=== PATIENT | male | born 1950 | race Caucasian/White ===

== ENCOUNTER → 2017-09-11 | Outpatient (CLI) | payer MEDICARE, SELFPAY | PROVIDERS: Family Provider Emergency Medicine; Visit Provider Anesthesiology | DX: M25.512 Pain in left shoulder (principal) | CPT/HCPCS: 73030 ==

== ENCOUNTER → 2017-10-01 15:24 | Outpatient (CLI) | payer MEDICARE, SELFPAY | PROVIDERS: Family Provider Emergency Medicine; PCP Emergency Medicine; Visit Provider Orthopaedic Surgery Adult Reconstructive Orthopaedic Surgery | DX: M75.42 Impingement syndrome of left shoulder (principal); M25.512 Pain in left shoulder ==

== ENCOUNTER → 2017-10-02 13:48 | Outpatient (CLI) | payer MEDICARE, SELFPAY ==
--- NOTE | 2017-10-02 13:54 | MR_ITS ---
MR shoulder LT wo con HISTORY: Left shoulder pain with limited range of motion ITS.REASON: IMPINGEMENT SYNDROME LEFT SHOULDER ORDERING PHYSICIAN: Carlos Enrique Ramirez PATIENT AGE: 67 years COMPARISON: 06/08/2016 MRI and radiograph of 09/11/2017 TECHNIQUE: Standard multiplanar multiecho sequences are performed without contrast. FINDINGS: There is mild subacromial stenosis with mild hypertrophic change of the acromioclavicular joint. There remains mild thickening of both supraspinatus and infraspinatus tendons with slight increased T1 and T2 signal consistent with tendinopathy/tendinosis. There is a focal area of increased T2 signal involving the distal aspect of the supraspinatus tendon posteriorly which is more prominent when compared to the previous exam consistent with an incomplete tear upon the insertion at the greater tuberosity. There may be a few fibers intact along the superficial surface at this region. There is no evidence of retraction of the musculotendinous fibers. The subscapularis and teres minor tendons are intact. Small area of subcortical cystic changes present along the posterior aspect of the humeral head and is slightly more prominent than when compared to the previous exam No obvious labral tear. There remains fluid in the bicipital tendon sheath which appears somewhat more prominent inferiorly system with tendinitis. IMPRESSION: 1. Tendinopathy/tendinosis of supraspinatus infraspinatus tendons as before. 2. There is a focal area of increased T2 signal involving the distal aspect of the supraspinatus tendon posteriorly is more prominent than when compared to the previous exam consistent with a tear of the distal aspect of the supraspinatus tendon. There may be some intact fibers along the superficial aspect of the tendon indicating a partial tear without retraction. 3. Slight increase in amount fluid in the bicipital tendon sheath consistent with tendinitis
== END ==
PROVIDERS: Family Provider Emergency Medicine; PCP Emergency Medicine; Visit Provider Orthopaedic Surgery Adult Reconstructive Orthopaedic Surgery
DX: M75.42 Impingement syndrome of left shoulder (principal)
CPT/HCPCS: 73221

== ENCOUNTER → 2017-12-10 10:01 | Outpatient (POV) | payer MEDICARE, SELFPAY ==
[2017-12-10 10:21] VITALS: BP 160/79; PULSE 67; RESP 20; O2SAT 98; BMI 31.9
--- NOTE | 2017-12-10 10:57 | HMH.PAINSOAP ---
[facility] Pain Management SOAP Note Subjective:: This patient is a pleasant 67-year-old white male who we are treating for degenerative disc disease of the cervical spine with cervical radiculopathy symptoms. He recently had surgery on his left shoulder. He is 6 weeks postop. He is doing very well. He still is in a brace however he is doing some physical therapy twice a week. He currently is managed on Percocet 10 mg 4 times a day. He is doing well with this. He is also on gabapentin 300 mg 3 times a day. Kaspar and urine drug screen are all appropriate. Kaspar #[id number]. His neck pain is aggravated a little bit because of the shoulder sling. I have told him that we will address his neck symptoms in about 6 weeks after he recovers from his surgery completely. Objective:: Alert and oriented ?3 in no acute distress. Patient has tenderness over the midline of the cervical spine. He has good range of motion of the cervical spine. Good range of motion of the right arm. Left arm is in a shoulder sling. No gross sensory deficit. Assessment:: Degenerative disc disease of the cervical spine with cervical radiculopathy symptoms. Status post left rotator cuff shoulder surgery. Plan:: We will follow-up with him in 6 weeks. We will reevaluate his symptoms at that time. Will address his neck pain at that time. For now we will refill his at 10 mg 1 tablet 4 times a day. We will give him 2 months worth of prescriptions. Kaspar and urine drug screen are all appropriate. Kaspar #[id number].
--- NOTE | 2017-12-10 11:01 | P.CONS_ITS ---
[facility] Pain Management SOAP Note Subjective:: This patient is a pleasant 67-year-old white male who we are treating for degenerative disc disease of the cervical spine with cervical radiculopathy symptoms. He recently had surgery on his left shoulder. He is 6 weeks postop. He is doing very well. He still is in a brace however he is doing some physical therapy twice a week. He currently is managed on Percocet 10 mg 4 times a day. He is doing well with this. He is also on gabapentin 300 mg 3 times a day. Kaspar and urine drug screen are all appropriate. Kaspar # [id number]. His neck pain is aggravated a little bit because of the shoulder sling. I have told him that we will address his neck symptoms in about 6 weeks after he recovers from his surgery completely. Objective:: Alert and oriented ?3 in no acute distress. Patient has tenderness over the midline of the cervical spine. He has good range of motion of the cervical spine. Good range of motion of the right arm. Left arm is in a shoulder sling. No gross sensory deficit. Assessment:: Degenerative disc disease of the cervical spine with cervical radiculopathy symptoms. Status post left rotator cuff shoulder surgery. Plan:: We will follow-up with him in 6 weeks. We will reevaluate his symptoms at that time. Will address his neck pain at that time. For now we will refill his at 10 mg 1 tablet 4 times a day. We will give him 2 months worth of prescriptions. Kaspar and urine drug screen are all appropriate. Kaspar # [id number].
[2017-12-10 13:10] LABS: Amphetamine/Metha Screen,Urine Negative ng/mL (<1000); Barbiturates Screen,Urine Negative ng/mL (<200); Benzodiazepines Screen,Urine Negative ng/mL (200); Cannabinoid Screen,Urine Negative ng/mL (<50); Cocaine Screen,Urine Negative ng/g (<300); Methadone Screen,Urine Negative ng/mL (<300); Opiate Screen,Urine Negative ng/mL (<300); Phencyclidine Screen,Urine Negative ng/mL (<25)
[2017-12-14 12:19] LABS: Oxycodone (GC/MS) >100 ng/mL (Cutoff=100)
[2017-12-14 18:23] LABS: Opiates Negative (Cutoff=100)
== END ==
PROVIDERS: Family Provider Emergency Medicine; PCP Emergency Medicine; Visit Provider Anesthesiology
DX: M54.12 Radiculopathy, cervical region (principal); Z79.899 Other long term (current) drug therapy
CPT/HCPCS: 99212; 80305; 80361; 80365; G0480

== ENCOUNTER → 2018-01-21 09:09 | Outpatient (POV) | payer MEDICARE, SELFPAY ==
[2018-01-21 09:30] VITALS: BP 166/79; PULSE 79; RESP 18; TEMP 36.7; O2SAT 99; BMI 36.3
--- NOTE | 2018-01-21 09:54 | P.CONS_ITS ---
[facility] Pain Management SOAP Note Subjective:: This patient is a pleasant 67-year-old white male who we are treating for degenerative disc disease of the cervical spine with cervical radiculopathy symptoms. He is approximately 3 months out from surgery on his left shoulder. He is recovering very well. He still has some pain which I believe is radiating from his neck. He was doing very well when he had cervical epidural steroid injections in conjunction with his current pain medication regimen which is Percocet 10 mg 4 times a day. He is also on 10 300 mg 3 times a day. He is following up with Dr. Ramirez tomorrow. We will obtain clearance and schedule for cervical epidural steroid injection. Objective:: Alert and oriented ?3 in no acute distress. Patient has some tenderness over the midline of the cervical spine. Good range of motion of the cervical spine. Good range of motion of right arm. Left arm range is somewhat limited however he is recovering well from his surgery. There is no gross sensory deficit. Motor strength of the upper extremities is 5/5. Assessment:: Degenerative disc disease of cervical spine with cervical radiculopathy symptoms. Status post left rotator cuff shoulder surgery 3 months ago. Plan:: We will obtain clearance from his orthopedic surgeon and schedule for cervical epidural steroid injection under fluoroscopy.
== END ==
PROVIDERS: Family Provider Emergency Medicine; PCP Emergency Medicine; Visit Provider Anesthesiology
DX: M54.12 Radiculopathy, cervical region (principal)
CPT/HCPCS: 99212

== ENCOUNTER → 2018-02-15 10:13 | Outpatient (CLI) | payer MEDICARE, SELFPAY ==
[2018-02-15 13:59] LABS: Alanine Aminotransferase 31 U/L (12-78); Albumin Level 3.9 gm/dL (3.4-5.0); Albumin/Globulin Ratio 1.1 (1.1-1.8); Alkaline Phosphatase 67 U/L (46-116); Aspartate Amino Transferase 18 U/L (15-37); Bilirubin,Total 0.4 mg/dL (0.2-1.0); Blood Urea Nitrogen 10 mg/dL (7-18); Calcium 9.6 mg/dL (8.5-10.1); Carbon Dioxide 24 mmol/L (21.0-32.0); Chloride 105 mmol/L (98-107); Chol/HDL Ratio 3.6 (1-3.5); Cholesterol 135 mg/dL (140-200); Creatinine,Serum 0.82 mg/dL (0.70-1.30); Estimated Glomerular Filt Rate 94 ml/min (>60); GFR (African American) 114 ML/MIN (>60); Globulin 3.4 gm/dl (1.3-3.2); Glucose 199 mg/dL (74-106); HDL Cholesterol 37 mg/dL (27-67); LDL Cholesterol 77 mg/dL (0-130); Sodium 141 mmol/L (136-145); Thyroid Stimulating Hormone 1.98 uIU/ml (0.358-3.740); Total Protein,Serum 7.3 gm/dL (6.4-8.2); Triglycerides 106 mg/dL (30-200); VLDL Cholesterol 21 mg/dL (0-40)
[2018-02-15 14:19] LABS: Basophils # 0.1 K/mm3 (0-0.2); Basophils % 0.6 % (0.1-2.0); Eosinophils # 0.2 K/mm3 (0.0-0.4); Eosinophils % 2.5 % (0.1-12.0); Hematocrit 45.4 % (42.0-52.0); Hemoglobin 14.1 g/dL (14.1-18.0); Lymphocytes # 3.1 K/mm3 (0.7-4.5); Lymphocytes % 36.1 K/mm3 (10-50); Mean Corpuscular Hemoglobin 28.3 pg (27.0-31.2); Mean Corpuscular Volume 91.3 fl (80-94); Mean Platelet Volume 8.5 fl (7.4-10.4); Monocytes # 0.5 K/mm3 (0.1-1.0); Monocytes % 6.1 % (1.7-9.3); Neutrophils # 4.6 K/mm3 (1.8-7.8); Neutrophils % 54.6 % (37.0-80.0); Platelet Count 214 K/mm3 (142-424); Red Blood Count 4.98 M/mm3 (4.60-6.20); Red Cell Distribution Width 13.6 % (11.5-17.5); White Blood Count 8.4 K/mm3 (4.8-10.8)
[2018-02-15 15:38] LABS: Hemoglobin A1C 7.8 % (0.0-7.0)
[2018-02-16 19:40] LABS: Vitamin D 25 Hydroxy 47.1 ng/mL (30.0-100.0)
== END ==
PROVIDERS: Visit Provider Emergency Medicine
DX: I25.10 Atherosclerotic heart disease of native coronary artery without angina pectoris (principal); E78.5 Hyperlipidemia, unspecified; E10.9 Type 1 diabetes mellitus without complications; E03.9 Hypothyroidism, unspecified
CPT/HCPCS: 80053; 80061; 82652; 83036; 84439; 84443; 85025

== ENCOUNTER → 2018-03-04 15:36 | Outpatient (POV) | payer MEDICARE, SELFPAY ==
[2018-03-04 15:39] VITALS: BP 155/63; PULSE 74; RESP 18; O2SAT 98; BMI 32.1
--- NOTE | 2018-03-04 16:21 | HMH.PAINSOAP ---
[facility] Pain Management SOAP Note Subjective:: Patient is a pleasant 67-year-old white male who presents today for follow-up after cervical epidural steroid injection. Patient states that his pain is much relieved after this injection. Patient is interested in working on his lumbar pain at this time. Patient states he had an injection several years ago and he had 2 years relief from it. Patient would like to repeat this injection. I believe that it would be beneficial. Patient and I did have a quick discussion about potential nerve stimulation in the future. Patient has both cervical and lumbar pain. I believe he may be a good candidate for this therapy. Patient is also being medically managed on Percocet 10 mils 1 p.o. 4 times daily. And gabapentin 300 mg 1 p.o. 3 times daily. Patient's SAMUEL #[id number] reviewed and appropriate. Patient's urine drug screen has been appropriate in the past. Patient rates his pain a 6 out of 10 today. Mostly in his lower back. ROS General: no recent weight change, no fever, no sleep disturbances Respiratory: no cough, no shortness of air, no recurring pulmonary infections Cardiovascular/Peripheral Vascular: No chest pain, No palpitations, no edema, no shortness of breath. Gastrointestinal: no incontinence, normal bowel movements reported Genitourinary: no incontinence Musculoskeletal: Neck pain, back pain Psychiatric: normal mood/ affect Neurological: [denies weakness in extremities], [denies balance issues] Objective:: Physical Exam General: Alert and oriented x3, no acute distress, pleasant and cooperative, [on room air] Lungs: Resps E/U, Symmetrical chest expansion, Eyes: PERRL Musculoskeletal: Flexion and extension of cervical and lumbar spine somewhat guarded secondary to pain, deep tendon reflexes normal, strength in upper and lower extremities [5/5], antalgic gait noted, positive straight leg raise test bilaterally at 30? 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 I believe that this would be beneficial given the efficacy of this in the past. We will refill the patient's Percocet 10 mg 1 p.o. 4 times daily and gabapentin 300 mg 1 p.o. 3 times daily today. 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 Patient's Samuel and urine drug screen both reviewed and appropriate. Dr. Horvath has reviewed this chart and agrees with this plan of care. I will follow-up with the patient in 3 months. I did provide the patient information on neuro stimulation. Patient has been prescribed a controlled substance after being counseled on the medication, medication safety, and possible side effects. SAMUEL report has been obtained and reviewed prior to prescription and found to be appropriate. Opioid contract was reviewed and signed by the patient, and that they have agreed to all of the terms set forth by our compliance program. This note was dictated using voice recognition software and may contain errors or omissions
--- NOTE | 2018-03-04 16:24 | P.CONS_ITS ---
[facility] Pain Management SOAP Note Subjective:: Patient is a pleasant 67-year-old white male who presents today for follow-up after cervical epidural steroid injection. Patient states that his pain is much relieved after this injection. Patient is interested in working on his lumbar pain at this time. Patient states he had an injection several years ago and he had 2 years relief from it. Patient would like to repeat this injection. I believe that it would be beneficial. Patient and I did have a quick discussion about potential nerve stimulation in the future. Patient has both cervical and lumbar pain. I believe he may be a good candidate for this therapy. Patient is also being medically managed on Percocet 10 mils 1 p.o. 4 times daily. And gabapentin 300 mg 1 p.o. 3 times daily. Patient's SAMUEL # [id number] reviewed and appropriate. Patient's urine drug screen has been appropriate in the past. Patient rates his pain a 6 out of 10 today. Mostly in his lower back. ROS General: no recent weight change, no fever, no sleep disturbances Respiratory: no cough, no shortness of air, no recurring pulmonary infections Cardiovascular/Peripheral Vascular: No chest pain, No palpitations, no edema, no shortness of breath. Gastrointestinal: no incontinence, normal bowel movements reported Genitourinary: no incontinence Musculoskeletal: Neck pain, back pain Psychiatric: normal mood/ affect Neurological: [denies weakness in extremities], [denies balance issues] Objective:: Physical Exam General: Alert and oriented x3, no acute distress, pleasant and cooperative, [ on room air] Lungs: Resps E/U, Symmetrical chest expansion, Eyes: PERRL Musculoskeletal: Flexion and extension of cervical and lumbar spine somewhat guarded secondary to pain, deep tendon reflexes normal, strength in upper and lower extremities [5/5], antalgic gait noted, positive straight leg raise test bilaterally at 30? 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 I believe that this would be beneficial given the efficacy of this in the past. We will refill the patient's Percocet 10 mg 1 p.o. 4 times daily and gabapentin 300 mg 1 p.o. 3 times daily today. 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 Patient's Samuel and urine drug screen both reviewed and appropriate. Dr. Horvath has reviewed this chart and agrees with this plan of care. I will follow-up with the patient in 3 months. I did provide the patient information on neuro stimulation. Patient has been prescribed a controlled substance after being counseled on the medication, medication safety, and possible side effects. SAMUEL report has been obtained and reviewed prior to prescription and found to be appropriate. Opioid contract was reviewed and signed by the patient, and that they have agreed to all of the terms set forth by our compliance program. This note was dictated using voice recognition software and may contain errors or omissions
== END ==
PROVIDERS: Family Provider Emergency Medicine; PCP Emergency Medicine; Visit Provider Clinical Nurse Specialist Family Health
DX: M54.12 Radiculopathy, cervical region (principal)
CPT/HCPCS: 99212

== ENCOUNTER 2018-03-15 08:59 | Day surgery (SDC) | payer MEDICARE, SELFPAY ==
[2018-03-15 09:11] VITALS: BP 131/69; PULSE 71; RESP 18; TEMP 36.3; O2SAT 97; BMI 32.1
--- NOTE | 2018-03-15 09:28 | HMH.PMPROC ---
- Procedure Date: 03/15/18 Time: 09:28 Anesthesiologist:: Jamal Horvath MD Complications:: None Pre-procedure Diagnosis:: Degenerative disc disease of lumbar spine with lumbar radiculopathy symptoms Post-procedure Diagnosis:: Same Indications for Procedure:: This patient is a pleasant 67-year-old white male who we are seeing after cervical epidural steroid injection. He is doing much better after this injection. He does have some low back pain with radiates down both legs. He is benefited previously from lumbar epidural steroid injections a couple years ago. We will plan on a lumbar epidural steroid injection today. Procedure Details:: Lumbar epidural steroid injection under fluoroscopy Informed consent was obtained and the risk and benefits of the procedure was explained to the patient. The patient was taken to the procedure room. The patient was placed prone on the procedure table. The patient was prepped and draped in sterile fashion. C-arm fluoroscopy was used to view the lumbar spine. Skin and subcutaneous tissues were anesthetized using lidocaine. I placed an 18-gauge epidural needle and advanced into the L4-L5 interspace using fluoroscopic guidance and [id number] to air. After confirmation of needle placement in the epidural space with dye I injected 2 mL of lidocaine 1.5% with Depo-Medrol 80 mg. Patient tolerated the procedure well with no complications. Plan and Disposition:: We will follow-up with him in 2 weeks. We will reevaluate his symptoms at that time.
[2018-03-15 09:36] VITALS: BP 122/78; PULSE 74; RESP 18; O2SAT 98
[2018-03-15 09:37] VITALS: BP 130/78; PULSE 78; RESP 18; O2SAT 98
--- NOTE | 2018-03-15 09:40 | P.PCN_ITS ---
- Procedure Date: 03/15/18 Time: 09:28 Anesthesiologist:: Jamal Horvath MD Complications:: None Pre-procedure Diagnosis:: Degenerative disc disease of lumbar spine with lumbar radiculopathy symptoms Post-procedure Diagnosis:: Same Indications for Procedure:: This patient is a pleasant 67-year-old white male who we are seeing after cervical epidural steroid injection. He is doing much better after this injection. He does have some low back pain with radiates down both legs. He is benefited previously from lumbar epidural steroid injections a couple years ago. We will plan on a lumbar epidural steroid injection today. Procedure Details:: Lumbar epidural steroid injection under fluoroscopy Informed consent was obtained and the risk and benefits of the procedure was explained to the patient. The patient was taken to the procedure room. The patient was placed prone on the procedure table. The patient was prepped and draped in sterile fashion. C-arm fluoroscopy was used to view the lumbar spine. Skin and subcutaneous tissues were anesthetized using lidocaine. I placed an 18-gauge epidural needle and advanced into the L4-L5 interspace using fluoroscopic guidance and [id number] to air. After confirmation of needle placement in the epidural space with dye I injected 2 mL of lidocaine 1.5 % with Depo-Medrol 80 mg. Patient tolerated the procedure well with no complications. Plan and Disposition:: We will follow-up with him in 2 weeks. We will reevaluate his symptoms at that time.
[2018-03-15 09:44] VITALS: BP 137/74; PULSE 71; RESP 20; TEMP 36.4; O2SAT 98
== END 2018-03-15 09:45 | disposition home or self-care (01) ==
LOC: SC.PAINP 09:00
PROVIDERS: Family Provider Emergency Medicine; PCP Emergency Medicine; Visit Provider Anesthesiology
DX: M51.16 Intervertebral disc disorders with radiculopathy, lumbar region (principal)
CPT/HCPCS: 62323; J1040; Q9966

== ENCOUNTER → 2018-04-08 12:55 | Outpatient (POV) | payer MEDICARE, SELFPAY ==
[2018-04-08 13:04] VITALS: BP 122/69; PULSE 70; RESP 18; O2SAT 98; BMI 32.1
--- NOTE | 2018-04-08 13:20 | HMH.PAINSOAP ---
[facility] Pain Management SOAP Note Subjective:: Patient is a pleasant 67-year-old white male who presents today for follow-up after lumbar epidural steroid injection. Patient states he had significant pain relief. He rates his pain a 4 out of 10 today. Patient states most of his pain now is in his neck. Patient would like to repeat that injection. Patient also being medically managed on Percocet 10 mg 1 p.o. 4 times daily and gabapentin 300 mg 1 p.o. 3 times daily. Patient denies any side effects to this medication. Patient's SAMUEL #[id number] reviewed and appropriate. Patient UDS has been appropriate in the past. We will refill his medications today. ROS General: no recent weight change, no fever, no sleep disturbances Respiratory: no cough, no shortness of air, no recurring pulmonary infections Cardiovascular/Peripheral Vascular: No chest pain, No palpitations, no edema, no shortness of breath. Gastrointestinal: no incontinence, normal bowel movements reported Genitourinary: no incontinence Musculoskeletal: Neck pain, back pain Psychiatric: normal mood/ affect Neurological: [denies weakness in extremities], [denies balance issues] Objective:: Physical Exam General: Alert and oriented x3, no acute distress, pleasant and cooperative, [on room air] Lungs: Resps E/U, Symmetrical chest expansion, Eyes: PERRL Musculoskeletal: Flexion and extension of cervical and lumbar spine somewhat guarded secondary to pain, deep tendon reflexes normal, strength in upper and lower extremities [5/5], antalgic gait noted Neurological: speech clear, counter supervisor 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 I believe this would be beneficial given the efficacy of this in the past. We will refill the patient's Percocet 10 mg 1 p.o. 4 times daily and gabapentin 300 mg 1 p.o. 3 times daily. 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 Patient's Samuel and urine drug screen both reviewed. Dr. Horvath has reviewed this chart and agrees with this plan of care. I will follow-up with the patient after his injection. Patient has been prescribed a controlled substance after being counseled on the medication, medication safety, and possible side effects. SAMUEL report has been obtained and reviewed prior to prescription and found to be appropriate. Opioid contract was reviewed and signed by the patient, and that they have agreed to all of the terms set forth by our compliance program. This note was dictated using voice recognition software and may contain errors or omissions
--- NOTE | 2018-04-08 13:23 | P.CONS_ITS ---
[facility] Pain Management SOAP Note Subjective:: Patient is a pleasant 67-year-old white male who presents today for follow-up after lumbar epidural steroid injection. Patient states he had significant pain relief. He rates his pain a 4 out of 10 today. Patient states most of his pain now is in his neck. Patient would like to repeat that injection. Patient also being medically managed on Percocet 10 mg 1 p.o. 4 times daily and gabapentin 300 mg 1 p.o. 3 times daily. Patient denies any side effects to this medication. Patient's SAMUEL #[id number] reviewed and appropriate. Patient UDS has been appropriate in the past. We will refill his medications today. ROS General: no recent weight change, no fever, no sleep disturbances Respiratory: no cough, no shortness of air, no recurring pulmonary infections Cardiovascular/Peripheral Vascular: No chest pain, No palpitations, no edema, no shortness of breath. Gastrointestinal: no incontinence, normal bowel movements reported Genitourinary: no incontinence Musculoskeletal: Neck pain, back pain Psychiatric: normal mood/ affect Neurological: [denies weakness in extremities], [denies balance issues] Objective:: Physical Exam General: Alert and oriented x3, no acute distress, pleasant and cooperative, [ on room air] Lungs: Resps E/U, Symmetrical chest expansion, Eyes: PERRL Musculoskeletal: Flexion and extension of cervical and lumbar spine somewhat guarded secondary to pain, deep tendon reflexes normal, strength in upper and lower extremities [5/5], antalgic gait noted Neurological: speech clear, vehicle fare 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 I believe this would be beneficial given the efficacy of this in the past. We will refill the patient's Percocet 10 mg 1 p.o. 4 times daily and gabapentin 300 mg 1 p.o. 3 times daily. 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 Patient's Samuel and urine drug screen both reviewed. Dr. Horvath has reviewed this chart and agrees with this plan of care. I will follow-up with the patient after his injection. Patient has been prescribed a controlled substance after being counseled on the medication, medication safety, and possible side effects. SAMUEL report has been obtained and reviewed prior to prescription and found to be appropriate. Opioid contract was reviewed and signed by the patient, and that they have agreed to all of the terms set forth by our compliance program. This note was dictated using voice recognition software and may contain errors or omissions
== END ==
PROVIDERS: Family Provider Emergency Medicine; PCP Emergency Medicine; Visit Provider Clinical Nurse Specialist Family Health
DX: M54.16 Radiculopathy, lumbar region (principal)
CPT/HCPCS: 99212

== ENCOUNTER → 2018-05-13 11:30 | Outpatient (POV) | payer MEDICARE, SELFPAY ==
[2018-05-13 12:09] VITALS: BP 127/73; PULSE 69; RESP 18; O2SAT 97; BMI 31.8
--- NOTE | 2018-05-13 12:09 | HMH.PAINSOAP ---
[facility] Pain Management SOAP Note Subjective:: Patient is a pleasant 68-year-old white male who we are treating for neck pain with cervical radicular symptoms. Patient is following up after cervical epidural steroid injection. Patient states helped immensely. He rates his pain a 3 out of 10 today. He states that also helped his shoulder. Patient also being medically managed with Percocet 10 mg 1 p.o. 4 times a day however he is not due refills today. Patient states that he is doing well with this and does not have any side effects. His Asim and urine drug screen both reviewed and appropriate. ROS General: no recent weight change, no fever, no sleep disturbances Respiratory: no cough, no shortness of air, no recurring pulmonary infections Cardiovascular/Peripheral Vascular: No chest pain, No palpitations, no edema, no shortness of breath. Gastrointestinal: no incontinence, normal bowel movements reported Genitourinary: no incontinence Musculoskeletal: Neck pain Psychiatric: normal mood/ affect Neurological: [denies weakness in extremities], [denies balance issues] Objective:: Physical Exam General: Alert and oriented x3, no acute distress, pleasant and cooperative, [on room air] Lungs: Resps E/U, Symmetrical chest expansion, Eyes: PERRL Musculoskeletal: Flexion and extension of cervical spine somewhat guarded secondary to pain, deep tendon reflexes normal, strength in upper and lower extremities [5/5], normal gait noted Neurological: speech clear, rod machine 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 This will be his regularly scheduled medication refill. Patient is not due medications today. Patient's been instructed to call the office if he has any issues prior to his next appointment. This note was dictated using voice recognition software and may contain errors or omissions
--- NOTE | 2018-05-13 12:12 | P.CONS_ITS ---
[facility] Pain Management SOAP Note Subjective:: Patient is a pleasant 68-year-old white male who we are treating for neck pain with cervical radicular symptoms. Patient is following up after cervical epidural steroid injection. Patient states helped immensely. He rates his pain a 3 out of 10 today. He states that also helped his shoulder. Patient also being medically managed with Percocet 10 mg 1 p.o. 4 times a day however he is not due refills today. Patient states that he is doing well with this and does not have any side effects. His Asim and urine drug screen both reviewed and appropriate. ROS General: no recent weight change, no fever, no sleep disturbances Respiratory: no cough, no shortness of air, no recurring pulmonary infections Cardiovascular/Peripheral Vascular: No chest pain, No palpitations, no edema, no shortness of breath. Gastrointestinal: no incontinence, normal bowel movements reported Genitourinary: no incontinence Musculoskeletal: Neck pain Psychiatric: normal mood/ affect Neurological: [denies weakness in extremities], [denies balance issues] Objective:: Physical Exam General: Alert and oriented x3, no acute distress, pleasant and cooperative, [ on room air] Lungs: Resps E/U, Symmetrical chest expansion, Eyes: PERRL Musculoskeletal: Flexion and extension of cervical spine somewhat guarded secondary to pain, deep tendon reflexes normal, strength in upper and lower extremities [5/5], normal gait noted Neurological: speech clear, process development engineer equal, no gross sensory deficits Assessment:: 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 This will be his regularly scheduled medication refill. Patient is not due medications today. Patient's been instructed to call the office if he has any issues prior to his next appointment. This note was dictated using voice recognition software and may contain errors or omissions
== END ==
PROVIDERS: Family Provider Emergency Medicine; PCP Emergency Medicine; Visit Provider Clinical Nurse Specialist Family Health
DX: M50.10 Cervical disc disorder with radiculopathy, unspecified cervical region (principal)
CPT/HCPCS: 99213

== ENCOUNTER → 2018-06-25 09:56 | Outpatient (POV) | payer MEDICARE, SELFPAY ==
[2018-06-25 10:09] VITALS: BP 162/82; PULSE 78; RESP 18; O2SAT 98; BMI 31.8
--- NOTE | 2018-06-25 10:14 | P.CONS_ITS ---
[facility] Pain Management SOAP Note Subjective:: Patient is a pleasant 68-year-old white male who presents today for follow-up. Patient states that he has been helping his daughter move lately and is having a lot more lower back pain. Patient has had epidural injections in the past with good success rating his relief up to 80% for 3 months. Patient is continuing a home stretching exercise program. Patient is interested in getting another injection in his lower back. He rates his pain a 6 out of 10 today. ROS General: no recent weight change, no fever, no sleep disturbances Respiratory: no cough, no shortness of air, no recurring pulmonary infections Cardiovascular/Peripheral Vascular: No chest pain, No palpitations, no edema, no shortness of breath. Gastrointestinal: no incontinence, normal bowel movements reported Genitourinary: no incontinence Musculoskeletal: Back pain Psychiatric: normal mood/ affect Neurological: [denies weakness in extremities], [denies balance issues] Objective:: Physical Exam General: Alert and oriented x3, no acute distress, pleasant and cooperative, [on room air] Lungs: Resps E/U, Symmetrical chest expansion, Eyes: PERRL Musculoskeletal: Flexion and extension of lumbar spine somewhat guarded secondary to pain, deep tendon reflexes normal, strength in upper and lower extremities [5/5], [abnormal gait noted] Positive straight leg raise test bilaterally at 30 degrees Neurological: speech clear, regional extension service specialist equal, no gross sensory deficits Assessment:: Degenerative disc disease lumbar spine with lumbar radiculopathy Plan:: We will schedule an L4-L5 lumbar epidural steroid injection for this patient. We will follow-up with the patient after his injection. Patient's not on any anticoagulation therapy. Patient has done well with injections in the past. This note was dictated using voice recognition software and may contain errors or omissions
== END ==
PROVIDERS: Family Provider Emergency Medicine; PCP Emergency Medicine; Visit Provider Clinical Nurse Specialist Family Health
DX: M51.16 Intervertebral disc disorders with radiculopathy, lumbar region (principal)
CPT/HCPCS: 99213

== ENCOUNTER → 2018-07-29 12:39 | Outpatient (POV) | payer MEDICARE, SELFPAY ==
[2018-07-29 13:22] VITALS: BP 121/69; PULSE 73; RESP 18; O2SAT 98; BMI 31.8
[2018-07-29 15:47] LABS: Amphetamine/Metha Screen,Urine Negative ng/mL (<1000); Barbiturates Screen,Urine Negative ng/mL (<200); Benzodiazepines Screen,Urine Negative ng/mL (<200); Cannabinoid Screen,Urine Negative ng/mL (<50); Cocaine Screen,Urine Negative ng/mL (<300); Methadone Screen,Urine Negative ng/mL (<300); Opiate Screen,Urine Negative ng/mL (<300); Phencyclidine Screen,Urine Negative ng/mL (<25)
--- NOTE | 2018-07-30 08:27 | HMH.PAINSOAP ---
[facility] Pain Management SOAP Note Subjective:: Patient is a pleasant 68-year-old white male who presents today for follow-up and medication refills. Recently had a lumbar epidural steroid injection and he states it has helped. Patient rates his pain about a 7 out of 10. Patient is being medically managed with Percocet 10 mg 1 p.o. 4 times daily. Patient states that it helps up to 60%. Patient Kaspar #[id number] reviewed and appropriate. Patient is continuing a home stretching excise program. ROS General: no recent weight change, no fever, no sleep disturbances Respiratory: no cough, no shortness of air, no recurring pulmonary infections Cardiovascular/Peripheral Vascular: No chest pain, No palpitations, no edema, no shortness of breath. Gastrointestinal: no incontinence, normal bowel movements reported Genitourinary: no incontinence Musculoskeletal: Back pain Psychiatric: normal mood/ affect, Neurological: [denies weakness in extremities], [denies balance issues] Objective:: Physical Exam General: Alert and oriented x3, no acute distress, pleasant and cooperative, [on room air] Lungs: Resps E/U, Symmetrical chest expansion, Eyes: PERRL Musculoskeletal: Flexion and extension of lumbar spine somewhat guarded secondary to pain, deep tendon reflexes normal, strength in upper and lower extremities [5/5], [abnormal gait noted] Neurological: speech clear, elastic attacher overlock equal, no gross sensory deficits Assessment:: Degenerative disc disease lumbar spine with lumbar radiculopathy Plan:: We will change the patient's medication to oxycodone 10 mg 1 3 times daily and give him 1 month worth of medication to see if this is beneficial for him. Dr. Horvath is reviewed this chart and agrees with this plan of care. Patient's been instructed to call the office if he has any issues prior to his next appointment. Samuel and UDS reviewed and appropriate. I will follow-up with him in 1 month. Patient has been prescribed a controlled substance after being counseled on the medication, medication safety, and possible side effects. SAMUEL report has been obtained and reviewed prior to prescription and found to be appropriate. Opioid contract was reviewed and signed by the patient, and that they have agreed to all of the terms set forth by our compliance program. This note was dictated using voice recognition software and may contain errors or omissions
[2018-08-02 18:10] LABS: Oxycodone (GC/MS) 1624 ng/mL (Cutoff=100)
[2018-08-03 12:13] LABS: Opiates Negative (Cutoff=100)
== END ==
PROVIDERS: PCP Emergency Medicine; Visit Provider Clinical Nurse Specialist Family Health
DX: M51.16 Intervertebral disc disorders with radiculopathy, lumbar region (principal); Z79.899 Other long term (current) drug therapy
CPT/HCPCS: 80305; 80361; 80365; 99213; G0480

== ENCOUNTER → 2018-08-26 10:46 | Outpatient (POV) | payer MEDICARE, SELFPAY ==
[2018-08-26 11:03] VITALS: BP 148/80; PULSE 72; RESP 18; O2SAT 98; BMI 30.7
--- NOTE | 2018-08-26 11:18 | HMH.PAINSOAP ---
[facility] Pain Management SOAP Note Subjective:: Patient is a pleasant 68-year-old white male who presents today for follow-up. Patient was switched from Percocet to oxycodone he states he did like this. Patient would like to go back to his Percocet 10 mg 1 p.o. 4 times daily. Patient rates his pain a 7 out of 10 today. Patient is continuing a home stretching exercise program. Patient's Samuel is appropriate. Patient would also like a cervical epidural steroid injection in the beginning of the new year. Patient is done well with these in the past. Patient's not on any anticoagulation therapy. ROS General: no recent weight change, no fever, no sleep disturbances Respiratory: no cough, no shortness of air, no recurring pulmonary infections Cardiovascular/Peripheral Vascular: No chest pain, No palpitations, no edema, no shortness of breath. Gastrointestinal: no incontinence, normal bowel movements reported Genitourinary: no incontinence Musculoskeletal: Neck pain Psychiatric: normal mood/ affect Neurological: [denies weakness in extremities], [denies balance issues] Objective:: Physical Exam General: Alert and oriented x3, no acute distress, pleasant and cooperative, [on room air] Lungs: Resps E/U, Symmetrical chest expansion, Eyes: PERRL Musculoskeletal: Flexion and extension of cervical spine somewhat guarded secondary to pain, deep tendon reflexes normal, strength in upper and lower extremities [5/5], normal gait noted Neurological: speech clear, dining room tables set up attendant equal, no gross sensory deficits Assessment:: Degenerative disc disease cervical spine with cervical radiculopathy and degenerative disc disease lumbar spine with lumbar radiculopathy Plan:: We will change the patient's medication back to Percocet 10 mg p.o. 4 times daily give him 2 months worth of medications. We will follow-up with the patient in 3 months and reassess his symptoms at that time. Patient will also be scheduled for cervical C5-C6 epidural injection at the beginning of the year. Dr. Horvath is reviewed this chart and agrees with this plan of care. Patient has been prescribed a controlled substance after being counseled on the medication, medication safety, and possible side effects. SAMUEL report has been obtained and reviewed prior to prescription and found to be appropriate. Opioid contract was reviewed and signed by the patient, and that they have agreed to all of the terms set forth by our compliance program. This note was dictated using voice recognition software and may contain errors or omissions
--- NOTE | 2018-08-26 11:22 | P.CONS_ITS ---
[facility] Pain Management SOAP Note Subjective:: Patient is a pleasant 68-year-old white male who presents today for follow-up. Patient was switched from Percocet to oxycodone he states he did like this. Patient would like to go back to his Percocet 10 mg 1 p.o. 4 times daily. Patient rates his pain a 7 out of 10 today. Patient is continuing a home stretching exercise program. Patient's Samuel is appropriate. Patient would also like a cervical epidural steroid injection in the beginning of the new year. Patient is done well with these in the past. Patient's not on any anticoagulation therapy. ROS General: no recent weight change, no fever, no sleep disturbances Respiratory: no cough, no shortness of air, no recurring pulmonary infections Cardiovascular/Peripheral Vascular: No chest pain, No palpitations, no edema, no shortness of breath. Gastrointestinal: no incontinence, normal bowel movements reported Genitourinary: no incontinence Musculoskeletal: Neck pain Psychiatric: normal mood/ affect Neurological: [denies weakness in extremities], [denies balance issues] Objective:: Physical Exam General: Alert and oriented x3, no acute distress, pleasant and cooperative, [on room air] Lungs: Resps E/U, Symmetrical chest expansion, Eyes: PERRL Musculoskeletal: Flexion and extension of cervical spine somewhat guarded secondary to pain, deep tendon reflexes normal, strength in upper and lower extremities [5/5], normal gait noted Neurological: speech clear, fourdrinier wire weaver equal, no gross sensory deficits Assessment:: Degenerative disc disease cervical spine with cervical radiculopathy and degenerative disc disease lumbar spine with lumbar radiculopathy Plan:: We will change the patient's medication back to Percocet 10 mg p.o. 4 times daily give him 2 months worth of medications. We will follow-up with the patient in 3 months and reassess his symptoms at that time. Patient will also be scheduled for cervical C5-C6 epidural injection at the beginning of the year. Dr. Horvath is reviewed this chart and agrees with this plan of care. Patient has been prescribed a controlled substance after being counseled on the medication, medication safety, and possible side effects. SAMUEL report has been obtained and reviewed prior to prescription and found to be appropriate. Opioid contract was reviewed and signed by the patient, and that they have agreed to all of the terms set forth by our compliance program. This note was dictated using voice recognition software and may contain errors or omissions
== END ==
PROVIDERS: PCP Emergency Medicine; Visit Provider Clinical Nurse Specialist Family Health
DX: M50.10 Cervical disc disorder with radiculopathy, unspecified cervical region (principal); M51.16 Intervertebral disc disorders with radiculopathy, lumbar region
CPT/HCPCS: 99213

== ENCOUNTER → 2018-10-22 10:45 | Outpatient (POV) | payer MEDICARE, SELFPAY ==
[2018-10-22 11:09] VITALS: BP 121/59; PULSE 66; RESP 18; O2SAT 99; BMI 25.7
--- NOTE | 2018-10-22 13:08 | P.CONS_ITS ---
[facility] Pain Management SOAP Note Subjective:: Is a pleasant 68-year-old white male who presents today for follow-up after cervical epidural steroid injection. He is doing well he states that his neck pain has all completely been relieved. It is his pain a 6 out of 10 mostly in his low back. Patient would like to pursue a lumbar epidural steroid injection in a couple weeks. Patient has had these in the past with extremely good relief up to 80% for several months. Patient is not on any anticoagulation therapy. He is on anti-inflammatories. He is continuing a home stretching program. ROS General: no recent weight change, no fever, no sleep disturbances Respiratory: no cough, no shortness of air, no recurring pulmonary infections Cardiovascular/Peripheral Vascular: No chest pain, No palpitations, no edema, no shortness of breath. Gastrointestinal: no incontinence, normal bowel movements reported Genitourinary: no incontinence Musculoskeletal: Neck pain times, back pain, leg pain Psychiatric: normal mood/ affect Neurological: [denies weakness in extremities], [denies balance issues] Objective:: Physical Exam General: Alert and oriented x3, no acute distress, pleasant and cooperative, [on room air] Lungs: Resps E/U, Symmetrical chest expansion, Eyes: PERRL Musculoskeletal: Flexion and extension of lumbar spine somewhat guarded secondary to pain, deep tendon reflexes normal, strength in upper and lower extremities [5/5], lightly antalgic noted, positive straight leg raise test bi laterally at 30 degrees Neurological: speech clear, law instructor equal, no gross sensory deficits Assessment:: Degenerative disc disease lumbar spine with lumbar radiculopathy, degenerative disc disease cervical spine with cervical radiculopathy Plan:: Set him up for an L4-L5 lumbar epidural steroid injection in several weeks. Patient's been instructed to call the office if he has any issues prior to this appointment. Dr. Horvath has reviewed this note and agrees with this plan of care. This note was dictated using voice recognition software and may contain errors or omissions
== END ==
PROVIDERS: PCP Emergency Medicine; Visit Provider Clinical Nurse Specialist Family Health
DX: M51.16 Intervertebral disc disorders with radiculopathy, lumbar region (principal); M50.10 Cervical disc disorder with radiculopathy, unspecified cervical region
CPT/HCPCS: 99213

== ENCOUNTER → 2018-12-16 14:14 | Outpatient (POV) | payer MEDICARE, SELFPAY ==
[2018-12-16 14:53] VITALS: BP 140/80; PULSE 69; RESP 18; O2SAT 98; BMI 30.9
[2018-12-16 18:11] LABS: Amphetamine/Metha Screen,Urine Negative ng/mL (<1000); Barbiturates Screen,Urine Negative ng/mL (<200); Benzodiazepines Screen,Urine Negative ng/mL (<200); Cannabinoid Screen,Urine Negative ng/mL (<50); Cocaine Screen,Urine Negative ng/mL (<300); Methadone Screen,Urine Negative ng/mL (<300); Opiate Screen,Urine Positive ng/mL (<300); Phencyclidine Screen,Urine Negative ng/mL (<25)
--- NOTE | 2018-12-17 08:23 | HMH.PAINSOAP ---
[facility] Pain Management SOAP Note Subjective:: Is a pleasant 68-year-old white male who presents today for follow-up after lumbar epidural steroid injection. Patient is doing much better he rates his pain today a 5 out of 10. Patient states that he would like to repeat this injection at the end of December. Patient has a lot of stressors at home given the passing away of his best friend. Patient is also being medically managed by Percocet 10 mg 1 p.o. 4 times daily. Patient does well with this he denies side effects. Samuel #[id number] reviewed and appropriate. Patient's urine drug screen has been appropriate. ROS General: no recent weight change, no fever, no sleep disturbances Respiratory: no cough, no shortness of air, no recurring pulmonary infections Cardiovascular/Peripheral Vascular: No chest pain, No palpitations, no edema, no shortness of breath. Gastrointestinal: no incontinence, normal bowel movements reported Genitourinary: no incontinence Musculoskeletal: Back pain, leg pain, neck pain Psychiatric: normal mood/ affect Neurological: [denies weakness in extremities], [denies balance issues] Objective:: Physical Exam General: Alert and oriented x3, no acute distress, pleasant and cooperative, [on room air] Lungs: Resps E/U, Symmetrical chest expansion, Eyes: PERRL Musculoskeletal: Flexion and extension of lumbar spine somewhat guarded secondary to pain, deep tendon reflexes normal, strength in upper and lower extremities [5/5], [abnormal gait noted] Neurological: speech clear, balance and hairspring assembler equal, no gross sensory deficits Assessment:: Degenerative disc disease lumbar spine with lumbar radiculopathy, degenerative disc disease cervical spinal cervical radiculopathy Plan:: We will refill the patient's Percocet 10 mg 1 p.o. 4 times daily we will give him 2 months worth of prescriptions. We will also set him up for lumbar epidural steroid injection at L4-L5 at the end of December. Patient has tolerated anticoagulation therapy. I will follow-up with the patient after his injection and reassess his symptoms at that time. Patient has been prescribed a controlled substance after being counseled on the medication, medication safety, and possible side effects. SAMUEL report has been obtained and reviewed prior to prescription and found to be appropriate. Opioid contract was reviewed and signed by the patient, and that they have agreed to all of the terms set forth by our compliance program. Dr. Horvath has reviewed this note and agrees with this plan of care. This note was dictated using voice recognition software and may contain errors or omissions
--- NOTE | 2018-12-17 08:26 | P.CONS_ITS ---
[facility] Pain Management SOAP Note Subjective:: Is a pleasant 68-year-old white male who presents today for follow-up after lumbar epidural steroid injection. Patient is doing much better he rates his pain today a 5 out of 10. Patient states that he would like to repeat this injection at the end of December. Patient has a lot of stressors at home given the passing away of his best friend. Patient is also being medically managed by Percocet 10 mg 1 p.o. 4 times daily. Patient does well with this he denies side effects. Samuel #[id number] reviewed and appropriate. Patient's urine drug screen has been appropriate. ROS General: no recent weight change, no fever, no sleep disturbances Respiratory: no cough, no shortness of air, no recurring pulmonary infections Cardiovascular/Peripheral Vascular: No chest pain, No palpitations, no edema, no shortness of breath. Gastrointestinal: no incontinence, normal bowel movements reported Genitourinary: no incontinence Musculoskeletal: Back pain, leg pain, neck pain Psychiatric: normal mood/ affect Neurological: [denies weakness in extremities], [denies balance issues] Objective:: Physical Exam General: Alert and oriented x3, no acute distress, pleasant and cooperative, [on room air] Lungs: Resps E/U, Symmetrical chest expansion, Eyes: PERRL Musculoskeletal: Flexion and extension of lumbar spine somewhat guarded secondary to pain, deep tendon reflexes normal, strength in upper and lower extremities [5/5], [abnormal gait noted] Neurological: speech clear, planting material unloader equal, no gross sensory deficits Assessment:: Degenerative disc disease lumbar spine with lumbar radiculopathy, degenerative disc disease cervical spinal cervical radiculopathy Plan:: We will refill the patient's Percocet 10 mg 1 p.o. 4 times daily we will give him 2 months worth of prescriptions. We will also set him up for lumbar epidural steroid injection at L4-L5 at the end of December. Patient has tolerated anticoagulation therapy. I will follow-up with the patient after his injection and reassess his symptoms at that time. Patient has been prescribed a controlled substance after being counseled on the medication, medication safety, and possible side effects. SAMUEL report has been obtained and reviewed prior to prescription and found to be appropriate. Opioid contract was reviewed and signed by the patient, and that they have agreed to all of the terms set forth by our compliance program. Dr. Horvath has reviewed this note and agrees with this plan of care. This note was dictated using voice recognition software and may contain errors or omissions
[2018-12-21 10:24] LABS: Oxycodone (GC/MS) 2568 ng/mL (Cutoff=100)
[2018-12-22 18:23] LABS: Opiates Negative (Cutoff=100)
== END ==
PROVIDERS: PCP Emergency Medicine; Visit Provider Clinical Nurse Specialist Family Health
DX: M51.16 Intervertebral disc disorders with radiculopathy, lumbar region (principal); M50.10 Cervical disc disorder with radiculopathy, unspecified cervical region; Z79.899 Other long term (current) drug therapy
CPT/HCPCS: 80305; 80361; 80365; 99213; G0480

== ENCOUNTER → 2019-01-21 11:38 | Outpatient (POV) | payer MEDICARE, SELFPAY ==
[2019-01-21 11:56] VITALS: BP 127/85; PULSE 78; RESP 18; O2SAT 98; BMI 31.9
--- NOTE | 2019-01-21 13:05 | HMH.PAINSOAP ---
[facility] Pain Management SOAP Note Subjective:: Patient is a pleasant 68-year-old white male who presents today for follow-up. Patient is doing well other than his neck pain. He rates his pain a 5 out of 10. He is currently being medically managed with Percocet 10 however he is not in need of refills today. Patient just had an abnormal EKG. He will be going in for an echocardiogram and a cardiology checkup. If it comes back negative you would like to proceed with a cervical epidural steroid injection. He has had them in the past with 80% relief. ROS General: no recent weight change, no fever, no sleep disturbances Respiratory: no cough, no shortness of air, no recurring pulmonary infections Cardiovascular/Peripheral Vascular: No chest pain, No palpitations, no edema, no shortness of breath. Gastrointestinal: no incontinence, normal bowel movements reported Genitourinary: no incontinence Musculoskeletal: Neck pain, back pain Psychiatric: normal mood/ affect Neurological: [denies weakness in extremities], [denies balance issues] Objective:: Physical Exam General: Alert and oriented x3, no acute distress, pleasant and cooperative, [on room air] Lungs: Resps E/U, Symmetrical chest expansion, Eyes: PERRL Musculoskeletal: Flexion and extension of cervical and lumbar spine somewhat guarded secondary to pain, deep tendon reflexes normal, strength in upper and lower extremities [5/5], [abnormal gait noted] Neurological: speech clear, industrial conveyor belt repairer equal, no gross sensory deficits Assessment:: Degenerative disc disease lumbar spine with lumbar radiculopathy degenerative disc disease cervical spine with cervical radiculopathy Plan:: We will await for cardiac clearance and schedule him for C5-C6 cervical epidural steroid injection. Patient is done well with this in the past. I will follow-up with the patient after his injection and reassess his symptoms at that time. Dr. Horvath has reviewed this note and agrees with this plan of care. This note was dictated using voice recognition software and may contain errors or omissions
--- NOTE | 2019-01-21 13:20 | P.CONS_ITS ---
[facility] Pain Management SOAP Note Subjective:: Patient is a pleasant 68-year-old white male who presents today for follow-up. Patient is doing well other than his neck pain. He rates his pain a 5 out of 10. He is currently being medically managed with Percocet 10 however he is not in need of refills today. Patient just had an abnormal EKG. He will be going in for an echocardiogram and a cardiology checkup. If it comes back negative you would like to proceed with a cervical epidural steroid injection. He has had them in the past with 80% relief. ROS General: no recent weight change, no fever, no sleep disturbances Respiratory: no cough, no shortness of air, no recurring pulmonary infections Cardiovascular/Peripheral Vascular: No chest pain, No palpitations, no edema, no shortness of breath. Gastrointestinal: no incontinence, normal bowel movements reported Genitourinary: no incontinence Musculoskeletal: Neck pain, back pain Psychiatric: normal mood/ affect Neurological: [denies weakness in extremities], [denies balance issues] Objective:: Physical Exam General: Alert and oriented x3, no acute distress, pleasant and cooperative, [on room air] Lungs: Resps E/U, Symmetrical chest expansion, Eyes: PERRL Musculoskeletal: Flexion and extension of cervical and lumbar spine somewhat gua rded secondary to pain, deep tendon reflexes normal, strength in upper and lower extremities [5/5], [abnormal gait noted] Neurological: speech clear, sustainable landscape architect equal, no gross sensory deficits Assessment:: Degenerative disc disease lumbar spine with lumbar radiculopathy degenerative disc disease cervical spine with cervical radiculopathy Plan:: We will await for cardiac clearance and schedule him for C5-C6 cervical epidural steroid injection. Patient is done well with this in the past. I will follow- up with the patient after his injection and reassess his symptoms at that time. Dr. Horvath has reviewed this note and agrees with this plan of care. This note was dictated using voice recognition software and may contain errors or omissions
== END ==
PROVIDERS: PCP Emergency Medicine; Visit Provider Clinical Nurse Specialist Family Health
DX: M51.16 Intervertebral disc disorders with radiculopathy, lumbar region (principal); M50.10 Cervical disc disorder with radiculopathy, unspecified cervical region
CPT/HCPCS: 99212

== ENCOUNTER → 2019-01-22 13:31 | Outpatient (CLI) | payer MEDICARE, SELFPAY ==
--- NOTE | 2019-01-22 13:32 | CA_ITS ---
PROCEDURE: INDICATIONS FOR THE TEST: Chest pain COPD Heart Murmur+ Tobacco Smoking Palpitations Fatigue Syncope Edema Hypertension+Diabetes Mellitus+ Rheumatic Fever SOB GUTHRIE Obesity Hyperlipidemia+ Family History HD+ Additional History cad,cabg PATIENT INFORMATION HEIGHT: 71 WEIGHT:235 GENDER: Male B/P:132/72 2-D/M-MODE INTERPRETATION: 2-D MEASUREMENTS OBSERVED VALUES IN CMS Right Ventricular Dimension (RVDd) 1.8 Interventricular Septum (Thickness)(IVsd) 1.3 Left Ventricular Internal Dimensions(LVIDd) 5.4 Left Ventricular Posterior Wall (Thickness)(LVPWd) 1.1 Aortic Root 3.2 Aortic Cusp Separation 1.3 Left Atrial Dimensions (LAD) 4.9 2D 1. Left atrium is mildly enlarged, left ventricle is normal size, mild concentric left ventricular hypertrophy, visually estimated ejection fraction of 55% with no regional wall motion abnormality, endocardial surfaces are poorly visualized. 2. The right atrium and right ventricle are normal size and contractility. 3. The aortic valve is thickened and calcified. 4. The mitral and tricuspid valve are minimally thickened. 5. The pulmonic valve is poorly visualized. 6. No significant pericardial effusion noted. DOPPLER INTERROGATION: Doppler interrogation of the aortic, mitral and tricuspid valvular presence of mild mitral and tricuspid regurgitation, tricuspid regurgitation jet velocity is inadequate for calculation of the right ventricular systolic pressure, grade 1 diastolic dysfunction seen without tissue Doppler evidence of raised left atrial pressure. CONCLUSION: 1. Mildly enlarged left atrium, normal left ventricular size, mild concentric left ventricular hypertrophy, visually estimated ejection fraction 55% with no regional wall motion abnormality, endocardial surfaces are poorly visualized. Grade 1 diastolic dysfunction seen without tissue Doppler evidence of raised left atrial pressure. 2. Thickened and calcified aortic valve without aortic stenosis aortic insufficiency. 3. Mild mitral and tricuspid regurgitation 4. No significant pericardial effusion noted.
== END ==
PROVIDERS: PCP Emergency Medicine; Visit Provider Emergency Medicine
DX: I25.10 Atherosclerotic heart disease of native coronary artery without angina pectoris (principal)
CPT/HCPCS: 93306

== ENCOUNTER 2019-02-14 11:17 | Day surgery (SDC) | payer MEDICARE, SELFPAY ==
[2019-02-14 12:10] VITALS: BP 129/68; PULSE 97; RESP 18; O2SAT 97; BMI 31.8
[2019-02-14 12:37] VITALS: BP 140/75; PULSE 77; RESP 18; O2SAT 98
[2019-02-14 12:41] VITALS: BP 142/75; PULSE 76; RESP 18; O2SAT 98
--- NOTE | 2019-02-14 12:46 | HMH.PMPROC ---
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 He has done well with injections in the past. His pain is starting to return in his neck radiating to his left arm. We will do a repeat cervical epidural steroid injection today to see if this will help with his pain symptoms. Procedure Details:: Cervical epidural steroid injection under fluoroscopy Informed consent was obtained and the risks and benefits of the procedure was explained to the patient. The patient was taken to the procedure room placed prone on the procedure table. The neck was prepped using ChloraPrep. The skin and subcutaneous tissues were anesthetized using lidocaine. I placed a 18-gauge epidural needle into the C5-C6 interspace and advanced using [id number] to air and fluoroscopic guidance. After confirmation of needle placement in the epidural space with dye, I injected 3 mL's lidocaine 1.5% and Depo-Medrol 80 mg. The patient tolerated the procedure well with no complications. Plan and Disposition:: We will follow-up with him in 2 weeks. He had surgery to his left shoulder over a year ago. He is doing home physical therapy however I believe he would benefit from a few visits of structured physical therapy to make sure he is doing his home therapy correctly. We will seek approval for physical therapy for his shoulder pain.
[2019-02-14 12:52] VITALS: BP 139/69; PULSE 69; RESP 20; O2SAT 97
== END 2019-02-14 12:54 | disposition home or self-care (01) ==
LOC: SC.PAINP 11:19
PROVIDERS: PCP Emergency Medicine; Visit Provider Anesthesiology
DX: M50.10 Cervical disc disorder with radiculopathy, unspecified cervical region (principal)
CPT/HCPCS: 62321; J1040; Q9966

== ENCOUNTER 2019-03-13 09:00 | Outpatient (RCR) | payer MEDICARE, SELFPAY ==
--- NOTE | 2019-02-20 11:48 | HMH.PTOPEV ---
PT Outpatient Evaluation Rehab PT Outpatient Evaluation Start: 02/20/19 11:32 Freq: Status: Active Protocol: Document 02/20/19 11:32 AZEB (Rec: 02/20/19 11:47 AZEB [id number]) Electronically Signed By Mannie Perkins, PT 02/20/19 11:32 Outpatient Therapy Subjective History Subjective History Pt reports undergoing L SH RTC repair sx. in 2017. Pt reports steady progress until , 'then it just started to get tight, feels like it's ripping'. Pt reports having to stop skilled P.T. d /t insurance, which also contributed to poor outcome. Pt reports L SH pain, decreased ROM, and strength. Chief Complaint Pain,Spasms,Stiff,Weakness Symptom Type Ache,Throb,Sharp,Dull Symptoms Relieved By Rest/Positioning Symptoms Aggravated By Physical Activity,Lifting Prior Functional Limitations Reaching,Lifting,Housework Current Functional Limitations Reaching,Lifting,Housework, Driving,Sleeping Symptom Description Constant but Variable Level of pain today (0-10) 5 Pain scale - at its best (0-10) 4 Pain scale - at its worst (0-10) 10 Shoulder/Elbow Eval Shoulder Objective Measurements Palpation Tenderness tenderness shoulder exam standard left tenderness over the bicipital tendon left shoulder exam standard tenderness over the SA bursa shoulder left exam standard Shoulder Palpation Findings Tenderness,Trigger Point, Muscle Guarding Shoulder Palpation Overall Comment 3-4/4 Posture Shoulder Posture Sitting Position (L) Rounded,(R) Rounded Shoulder Posture Standing Position (L) Rounded,(R) Rounded Scapula Posture Sitting Position (L) Protracted,(R) Protracted Scapular Posture Standing Position (L) Protracted,(R) Protracted Flexibilty Deficits Pectoralis Minor Muscle Length (L) Severe Tightness Pectoralis Major Muscle Length (L) Severe Tightness Shoulder External Rotators Muscle Length (L) Severe Tightness Shoulder Internal Rotators Muscle Length (L) Severe Tightness Upper Trapezius Muscle Length (R) Moderate Tightness,(L) Moderate Tightness Shoulder ROM Left Shoulder Abduction Active Range of 0-90 Motion (degrees) Shoulder Abduction Passive Range of 0-110 Motion (degrees) Shoulder Flexion Active Range of Motion 0-95 (degrees) Query Text: Shoulder Flexion Passive Range of Motion 0-115 (degrees) Shoulder External Rotation Passive Range 0-25 of
== END 2019-03-13 09:05 | disposition home or self-care (01) ==
LOC: PT 09:00
PROVIDERS: Visit Provider Anesthesiology
DX: M25.512 Pain in left shoulder (principal)
CPT/HCPCS: 97010; 97014; 97110; 97140; 97163; G0283

== ENCOUNTER → 2019-03-18 09:26 | Outpatient (POV) | payer MEDICARE, SELFPAY ==
[2019-03-18 09:47] VITALS: BP 152/62; PULSE 69; RESP 18; O2SAT 98; BMI 32.1
--- NOTE | 2019-03-18 09:57 | HMH.PAINSOAP ---
[facility] Pain Management SOAP Note Subjective:: Patient is a pleasant 68-year-old white male who presents today for complaints of severe low back pain. Patient was treated recently for neck pain with cervical radicular symptoms. He says that his neck is feeling better after his cervical epidural steroid injection. The patient has been continuing NSAIDs and physical therapy. Since physical therapy, however he says that he feels like he has pulled something in his lower back. Patient states I do an exercise that twists my back and my pain has been hurting ever since . Patient says this pain started about a week ago. He rates his pain a 9 out of 10 today. He also reports difficulty with ambulation. The patient has tried to take oral steroids in the past and says that he had nausea, along with an elevated blood sugar. ROS General: no recent weight change, no fever, no sleep disturbances Respiratory: no cough, no shortness of air, no recurring pulmonary infections Cardiovascular/Peripheral Vascular: No chest pain, No palpitations, no edema, no shortness of breath. Gastrointestinal: no incontinence, normal bowel movements reported Genitourinary: no incontinence Musculoskeletal: Low back pain Psychiatric: normal mood/ affect, [denies depression], [denies anxiety] Neurological: [denies weakness in extremities], [denies balance issues] Objective:: Physical Exam General: Alert and oriented x3, no acute distress, pleasant and cooperative, [on room air] Lungs: Resps E/U, Symmetrical chest expansion, Eyes: PERRL Musculoskeletal: Flexion and extension of lumbar spine spine somewhat guarded secondary to pain, deep tendon reflexes normal, strength in upper and lower extremities [5/5], antalgic gait noted Neurological: speech clear, hand cultivator equal, no gross sensory deficits Assessment:: Degenerative disc disease of lumbar spine with lumbar radiculopathy Plan:: Given his intolerance to oral steroids, we will schedule the patient for an injection of L4 and L5. The patient will continue physical therapy and NSAIDs. We will follow-up with him after his procedure and reassess his symptoms at that time. He has been instructed to call the office if he has any issues prior to his next appointment. Dr. Horvath has reviewed this note and agrees with this plan of care. This note was dictated using voice recognition software and may contain errors or omissions
== END ==
PROVIDERS: PCP Emergency Medicine; Visit Provider Clinical Nurse Specialist Family Health
DX: M51.16 Intervertebral disc disorders with radiculopathy, lumbar region (principal)
CPT/HCPCS: 99212

== ENCOUNTER → 2019-04-04 10:33 | Outpatient (CLI) | payer MEDICARE, SELFPAY ==
[2019-04-04 17:03] LABS: Amphetamine/Metha Screen,Urine Negative ng/mL (<1000); Barbiturates Screen,Urine Negative ng/mL (<200); Benzodiazepines Screen,Urine Negative ng/mL (<200); Cannabinoid Screen,Urine Negative ng/mL (<50); Cocaine Screen,Urine Negative ng/mL (<300); Methadone Screen,Urine Negative ng/mL (<300); Opiate Screen,Urine Negative ng/mL (<300); Phencyclidine Screen,Urine Negative ng/mL (<25)
[2019-04-10 09:21] LABS: Oxycodone (GC/MS) 161 ng/mL (Cutoff=100)
[2019-04-10 20:12] LABS: Opiates Negative (Cutoff=100)
== END ==
PROVIDERS: Visit Provider Clinical Nurse Specialist Family Health
DX: Z79.899 Other long term (current) drug therapy (principal)
CPT/HCPCS: 80305; 80361; 80365; G0480

== ENCOUNTER → 2019-04-21 12:36 | Outpatient (POV) | payer MEDICARE, SELFPAY ==
[2019-04-21 12:55] VITALS: BP 128/71; PULSE 72; RESP 18; O2SAT 97; BMI 31.8
--- NOTE | 2019-04-21 13:05 | P.CONS_ITS ---
[facility] Pain Management SOAP Note Subjective:: Patient is a pleasant 68-year-old white male who presents today for follow-up after lumbar epidural steroid injection. Patient is doing much better rating his back pain 90% relief. He would like to move forward with an epidural steroid injection of his neck he is had this in the past gets 80% relief up to 3 months with it. Patient is also on oral medication however at this time he is not in any need of refills. Is having some pain in his neck secondary to working on the tractor. He rates his pain in the back 2 out of 10 in his neck pain a 6 out of 10. ROS General: no recent weight change, no fever, no sleep disturbances Respiratory: no cough, no shortness of air, no recurring pulmonary infections Cardiovascular/Peripheral Vascular: No chest pain, No palpitations, no edema, no shortness of breath. Gastrointestinal: no incontinence, normal bowel movements reported Genitourinary: no incontinence Musculoskeletal: Neck pain, back pain, arm pain, leg pain Psychiatric: normal mood/ affect Neurological: [denies weakness in extremities], [denies balance issues] Objective:: Physical Exam General: Alert and oriented x3, no acute distress, pleasant and cooperative, [on room air] Lungs: Resps E/U, Symmetrical chest expansion, Eyes: PERRL Musculoskeletal: Flexion and extension of lumbar and cervical spine somewhat guarded secondary to pain, deep tendon reflexes normal, strength in upper and lower extremities [5/5], [abnormal gait noted] Neurological: speech clear, round cutter operator equal, no gross sensory deficits Assessment:: Degenerative disc disease cervical and lumbar spine with lumbar radiculopathy and cervical radiculopathy Plan:: We will schedule C5-C6 cervical epidural steroid injection for the patient given the efficacy of in the past I believe it would be beneficial. Patient is co ntinuing a home stretching program he is not on any anticoagulation therapy. I will follow-up with the patient after his injection and reassess his symptoms at that time. Dr. Horvath has reviewed this note and agrees with this plan of care. This note was dictated using voice recognition software and may contain errors or omissions
== END ==
PROVIDERS: PCP Emergency Medicine; Visit Provider Clinical Nurse Specialist Family Health
DX: M50.10 Cervical disc disorder with radiculopathy, unspecified cervical region (principal); M51.16 Intervertebral disc disorders with radiculopathy, lumbar region
CPT/HCPCS: 99212

== ENCOUNTER → 2019-05-09 13:43 | Outpatient (CLI) | payer MEDICARE, SELFPAY ==
[2019-05-09 14:48] LABS: Basophils % 0.4 % (0.1-2.0); Eosinophils # 0.3 K/mm3 (0.0-0.4); Eosinophils % 3.2 % (0.1-12.0); Hematocrit 42.5 % (42.0-52.0); Hemoglobin 13.7 g/dL (14.1-18.0); Lymphocytes # 3.5 K/mm3 (0.7-4.5); Lymphocytes % 35.3 % (10-50); Mean Corpuscular HGB Conc 32.1 g/dL (31.8-35.4); Mean Corpuscular Hemoglobin 29.9 pg (27.0-31.2); Mean Platelet Volume 8.6 fl (7.4-10.4); Monocytes # 0.6 K/mm3 (0.1-1.0); Monocytes % 5.8 % (1.7-9.3); Neutrophils # 5.5 K/mm3 (1.8-7.8); Neutrophils % 55.3 % (37.0-80.0); Platelet Count 240 K/mm3 (142-424); Red Blood Count 4.57 M/mm3 (4.60-6.20); Red Cell Distribution Width 13.7 % (11.5-17.5); White Blood Count 9.9 K/mm3 (4.8-10.8)
[2019-05-09 14:51] LABS: Alanine Aminotransferase 39 U/L (12-78); Albumin Level 3.8 gm/dL (3.4-5.0); Albumin/Globulin Ratio 1.1 (1.1-1.8); Alkaline Phosphatase 82 U/L (46-116); Anion Gap 16.2 mEq/L (5-15); Aspartate Amino Transferase 19 U/L (15-37); Bilirubin,Total 0.8 mg/dL (0.2-1.0); Blood Urea Nitrogen 11 mg/dL (7-18); Calcium 9.1 mg/dL (8.5-10.1); Carbon Dioxide 25 mmol/L (21.0-32.0); Chloride 103 mmol/L (98-107); Chol/HDL Ratio 3.4 (1-3.5); Cholesterol 129 mg/dL (140-200); Creatinine,Serum 0.88 mg/dL (0.70-1.30); Estimated Glomerular Filt Rate 86 ml/min (>60); Free T4 (Free Thyroxine) 1.27 ng/dl (0.76-1.46); GFR (African American) 104 ML/MIN (>60); Globulin 3.6 gm/dl (1.3-3.2); Glucose 219 mg/dL (74-106); HDL Cholesterol 38 mg/dL (27-67); LDL Cholesterol 70 mg/dL (0-130); Potassium 4.2 mmoL/L (3.5-5.1); Sodium 140 mmol/L (136-145); Thyroid Stimulating Hormone 2.51 uIU/ml (0.358-3.740); Total Protein,Serum 7.4 gm/dL (6.4-8.2); Triglycerides 105 mg/dL (30-200); VLDL Cholesterol 21 mg/dL (0-40)
[2019-05-09 15:22] LABS: Hemoglobin A1C 8.8 % (0.0-7.0)
[2019-05-10 10:24] LABS: Creatinine, Urine 46.7 mg/dL (Not Estab.); Microalbumin, Urine <3.0 ug/mL (Not Estab.)
== END ==
PROVIDERS: Visit Provider Emergency Medicine
DX: Z79.84 Long term (current) use of oral hypoglycemic drugs (principal); I25.10 Atherosclerotic heart disease of native coronary artery without angina pectoris; E10.9 Type 1 diabetes mellitus without complications
CPT/HCPCS: 80053; 80061; 82043; 82570; 83036; 84439; 84443; 85025

== ENCOUNTER → 2019-05-19 14:35 | Outpatient (POV) | payer MEDICARE, SELFPAY ==
[2019-05-19 15:01] VITALS: BP 151/73; PULSE 68; RESP 18; O2SAT 98; BMI 31.9
--- NOTE | 2019-05-19 15:14 | HMH.PAINSOAP ---
[facility] Pain Management SOAP Note Subjective:: Patient is a very pleasant 69-year-old white male who presents today for follow-up after cervical epidural steroid injection. Patient rates his pain a 2 out of 10 and states he is doing extremely well he is also being medically managed with Percocet 10 mg 1 p.o. 4 times daily. Patient's [facility]EL #[id number] reviewed and appropriate. Patient overall doing well at this time. ROS General: no recent weight change, no fever, no sleep disturbances Respiratory: no cough, no shortness of air, no recurring pulmonary infections Cardiovascular/Peripheral Vascular: No chest pain, No palpitations, no edema, no shortness of breath. Gastrointestinal: no incontinence, normal bowel movements reported Genitourinary: no incontinence Musculoskeletal: Back pain, neck pain Psychiatric: normal mood/ affect Neurological: [denies weakness in extremities], [denies balance issues] Objective:: Physical Exam General: Alert and oriented x3, no acute distress, pleasant and cooperative, [on room air] Lungs: Resps E/U, Symmetrical chest expansion, Eyes: PERRL Musculoskeletal: Flexion and extension of cervical and lumbar spine somewhat guarded secondary to pain, deep tendon reflexes normal, strength in upper and lower extremities [5/5], [abnormal gait noted] Neurological: speech clear, carpet sewing machine operator equal, no gross sensory deficits Assessment:: Degenerative disc disease cervical and lumbar spine with cervical radiculopathy and lumbar radiculopathy Plan:: We will refill his Percocet 10 mg 1 p.o. 4 times daily give him 2 months with medication reassess his symptoms in 2 months. He is been instructed to call the office if he has any issues prior to his next appointment. Dr. Horvath has reviewed this note and agrees with this plan of care. This note was dictated using voice recognition software and may contain errors or omissions Pain Management Hx Components *Have you ever received a pneumonia vaccine?: Yes *Have you received a flu vaccine this season?: Yes - *Social History *Occupational Status:: other *Travel in the last 8 weeks: None
--- NOTE | 2019-05-19 15:19 | P.CONS_ITS ---
[facility] Pain Management SOAP Note Subjective:: Patient is a very pleasant 69-year-old white male who presents today for follow- up after cervical epidural steroid injection. Patient rates his pain a 2 out of 10 and states he is doing extremely well he is also being medically managed with Percocet 10 mg 1 p.o. 4 times daily. Patient's SAMUEL #[id number] reviewed and appropriate. Patient overall doing well at this time. ROS General: no recent weight change, no fever, no sleep disturbances Respiratory: no cough, no shortness of air, no recurring pulmonary infections Cardiovascular/Peripheral Vascular: No chest pain, No palpitations, no edema, no shortness of breath. Gastrointestinal: no incontinence, normal bowel movements reported Genitourinary: no incontinence Musculoskeletal: Back pain, neck pain Psychiatric: normal mood/ affect Neurological: [denies weakness in extremities], [denies balance issues] Objective:: Physical Exam General: Alert and oriented x3, no acute distress, pleasant and cooperative, [on room air] Lungs: Resps E/U, Symmetrical chest expansion, Eyes: PERRL Musculoskeletal: Flexion and extension of cervical and lumbar spine somewhat guarded secondary to pain, deep tendon reflexes normal, strength in upper and lower extremities [5/5], [abnormal gait noted] Neurological: speech clear, issuer equal, no gross sensory deficits Assessment:: Degenerative disc disease cervical and lumbar spine with cervical radiculopathy and lumbar radiculopathy Plan:: We will refill his Percocet 10 mg 1 p.o. 4 times daily give him 2 months with medication reassess his symptoms in 2 months. He is been instructed to call the office if he has any issues prior to his next appointment. Dr. Horvath has reviewed this note and agrees with this plan of care. This note was dictated using voice recognition software and may contain errors or omissions Pain Management Hx Components *Have you ever received a pneumonia vaccine?: Yes *Have you received a flu vaccine this season?: Yes - *Social History *Occupational Status:: other *Travel in the last 8 weeks: None
== END ==
PROVIDERS: PCP Emergency Medicine; Visit Provider Clinical Nurse Specialist Family Health
DX: M50.10 Cervical disc disorder with radiculopathy, unspecified cervical region (principal); M54.16 Radiculopathy, lumbar region
CPT/HCPCS: 99212

== ENCOUNTER → 2019-06-23 13:27 | Outpatient (POV) | payer MEDICARE, SELFPAY ==
[2019-06-23 14:12] VITALS: BP 131/66; PULSE 76; RESP 18; O2SAT 99; BMI 32.1
--- NOTE | 2019-06-24 08:50 | HMH.PAINSOAP ---
[facility] Pain Management SOAP Note Subjective:: Patient is a pleasant 69-year-old white male who presents today for follow-up. Patient is wanting to move forward with a medial branch block of his lower back. He has had this in the past with good relief patient for several months. Patient rates his pain 8 out of 10 today. He is being medically managed however he is not in need of any medications today. He has difficulty with twisting motions. ROS General: no recent weight change, no fever, no sleep disturbances Respiratory: no cough, no shortness of air, no recurring pulmonary infections Cardiovascular/Peripheral Vascular: No chest pain, No palpitations, no edema, no shortness of breath. Gastrointestinal: no incontinence, normal bowel movements reported Genitourinary: no incontinence Musculoskeletal: Back pain Psychiatric: normal mood/ affect Neurological: [denies weakness in extremities], [denies balance issues] Objective:: Physical Exam General: Alert and oriented x3, no acute distress, pleasant and cooperative, [on room air] Lungs: Resps E/U, Symmetrical chest expansion, Eyes: PERRL Musculoskeletal: Flexion and extension of lumbar spine somewhat guarded secondary to pain, deep tendon reflexes normal, strength in upper and lower extremities [5/5], [abnormal gait noted] Neurological: speech clear, human resources assistant manager equal, no gross sensory deficits Assessment:: 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 Patient is not on any anticoagulation therapy. He is continuing home stretching routine. I will follow-up with the patient after his injection reassess his symptoms at that time. Dr. Horvath has reviewed this note and agrees with this plan of care. This note was dictated using voice recognition software and may contain errors or omissions [facility] History I have reviewed the patient's past medical history: Yes Medical History: Reports:: Coronary Artery Disease, Diabetes Mellitus Type 2, Hyperlipidemia, Hypertension Denies:: Cancer, Diabetes Mellitus Type 1, Internal Pacemaker, MRSA, Seizures *Have you ever received a pneumonia vaccine?: Yes *Have you received a flu vaccine this season?: Yes Other Medical History: Reports: Arthritis, Hypothyroidism, Thyroid Disease. Denies: Blood Transfusion Reaction Laterality Cases: Other Surgeries: Yes: Angiogram, CABG, Cardiac Catheterization, Cardiac Surgery, Colonoscopy, Colon Resection, Coronary Stent, Hernia Repair, Other. No: Pacemaker Amputation: No Fractures: No - *Social History Smoking Status: Current every day smoker Tobacco Type: smokeless tobacco # Packs/Day (cigarettes): 0 Alcohol Intake: never Substance Use Type: denies use *Occupational Status:: other Housing: house Household Members: spouse *Travel in the last 8 weeks: None Family Hx:: Heart Attack, Coronary Artery Disease, Hypertension
== END ==
PROVIDERS: PCP Emergency Medicine; Visit Provider Clinical Nurse Specialist Family Health
DX: M51.36 Other intervertebral disc degeneration, lumbar region (principal); M47.816 Spondylosis without myelopathy or radiculopathy, lumbar region; M54.06 Panniculitis affecting regions of neck and back, lumbar region
CPT/HCPCS: 99212

== ENCOUNTER → 2019-07-28 13:42 | Outpatient (POV) | payer MEDICARE, SELFPAY ==
[2019-07-28 14:14] VITALS: BP 122/64; PULSE 74; RESP 18; O2SAT 98; BMI 30.9
[2019-07-28 16:57] LABS: Amphetamine/Metha Screen,Urine Negative ng/mL (<1000); Barbiturates Screen,Urine Negative ng/mL (<200); Benzodiazepines Screen,Urine Negative ng/mL (<200); Cannabinoid Screen,Urine Negative ng/mL (<50); Cocaine Screen,Urine Negative ng/mL (<300); Methadone Screen,Urine Negative ng/mL (<300); Opiate Screen,Urine Negative ng/mL (<300); Phencyclidine Screen,Urine Negative ng/mL (<25)
--- NOTE | 2019-07-29 09:37 | HMH.PAINSOAP ---
[facility] Pain Management SOAP Note Subjective:: Patient is a pleasant 69-year-old white male who presents today for follow-up after lumbar medial branch block. He has had 80% relief of his symptoms. His only pain today is in his neck and bilateral arms. Patient has had epidural injections in the past with extremely good relief he would like to repeat this. He rates his pain today 5 out of 10 he is also being medically managed with Percocet 10 mg 1 p.o. 4 times a day. He denies side effects to his medication and states it helps up to 80%. [facility] #[id number] reviewed and appropriate. Urine drug screens have been appropriate. ROS General: no recent weight change, no fever, no sleep disturbances Respiratory: no cough, no shortness of air, no recurring pulmonary infections Cardiovascular/Peripheral Vascular: No chest pain, No palpitations, no edema, no shortness of breath. Gastrointestinal: no new onset incontinence, normal bowel movements reported Genitourinary: no new onset incontinence Musculoskeletal: Neck pain, back pain Psychiatric: normal mood/ affect Neurological: [denies new onset weakness in extremities], [denies new onset balance issues] Objective:: Physical Exam General: Alert and oriented x3, no acute distress, pleasant and cooperative, [on room air] Lungs: Resps E/U, Symmetrical chest expansion, Eyes: PERRL Musculoskeletal: Flexion and extension of cervical spine somewhat guarded secondary to pain, deep tendon reflexes normal, strength in upper and lower extremities [5/5], slightly antalgic gait noted Neurological: speech clear, sales planning coordinator 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 4 times daily given 2 months worth of medication. We will also set him up for a C5-C6 cervical epidural steroid injection. He is not on any anticoagulation therapy. Overall patient doing well at this time he is continuing a home stretching program I will follow-up with the patient after his injection reassess his symptoms at that time he is been instructed to call the office if he has any issues prior to his next appointment. Dr. Horvath has reviewed this note and agrees with this plan of care. This note was dictated using voice recognition software and may contain errors or omissions [facility] History I have reviewed the patient's past medical history: Yes Medical History: Reports:: Coronary Artery Disease, Diabetes Mellitus Type 2, Hyperlipidemia, Hypertension Denies:: Cancer, Diabetes Mellitus Type 1, Internal Pacemaker, MRSA, Seizures *Have you ever received a pneumonia vaccine?: Yes *Have you received a flu vaccine this season?: Yes Other Medical History: Reports: Arthritis, Hypothyroidism, Thyroid Disease. Denies: Blood Transfusion Reaction Laterality Cases: Bilateral: Arthroscopy Shoulder Other Surgeries: Yes: Angiogram, CABG, Cardiac Catheterization, Cardiac Surgery, Colonoscopy, Colon Resection, Coronary Stent, Hernia Repair, Other. No: Pacemaker Amputation: No Fractures: No - *Social History Smoking Status: Current every day smoker Tobacco Type: cigarettes # Packs/Day (cigarettes): 1 Alcohol Intake: never Substance Use Type: denies use *Occupational Status:: other Housing: house Household Members: spouse *Travel in the last 8 weeks: None Family Hx:: Heart Attack, Coronary Artery Disease, Hypertension
--- NOTE | 2019-07-29 09:40 | P.CONS_ITS ---
[facility] Pain Management SOAP Note Subjective:: Patient is a pleasant 69-year-old white male who presents today for follow-up after lumbar medial branch block. He has had 80% relief of his symptoms. His only pain today is in his neck and bilateral arms. Patient has had epidural injections in the past with extremely good relief he would like to repeat this. He rates his pain today 5 out of 10 he is also being medically managed with Percocet 10 mg 1 p.o. 4 times a day. He denies side effects to his medication and states it helps up to 80%. [facility] #[id number] reviewed and appropriate. Urine drug screens have been appropriate. ROS General: no recent weight change, no fever, no sleep disturbances Respiratory: no cough, no shortness of air, no recurring pulmonary infections Cardiovascular/Peripheral Vascular: No chest pain, No palpitations, no edema, no shortness of breath. Gastrointestinal: no new onset incontinence, normal bowel movements reported Genitourinary: no new onset incontinence Musculoskeletal: Neck pain, back pain Psychiatric: normal mood/ affect Neurological: [denies new onset weakness in extremities], [denies new onset balance issues] Objective:: Physical Exam General: Alert and oriented x3, no acute distress, pleasant and cooperative, [on room air] Lungs: Resps E/U, Symmetrical chest expansion, Eyes: PERRL Musculoskeletal: Flexion and extension of cervical spine somewhat guarded secondary to pain, deep tendon reflexes normal, strength in upper and lower extremities [5/5], slightly antalgic gait noted Neurological: speech clear, conservation science officer 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 4 times daily given 2 months worth of medication. We will also set him up for a C5-C6 cervical epidural steroid injection. He is not on any anticoagulation therapy. Overall patient doing well at this time he is continuing a home stretching program I will follow-up with the patient after his injection reassess his symptoms at that time he is been instructed to call the office if he has any issues prior to his next appointment. Dr. Horvath has reviewed this note and agrees with this plan of care. This note was dictated using voice recognition software and may contain errors or omissions [facility] History I have reviewed the patient's past medical history: Yes Medical History: Reports:: Coronary Artery Disease, Diabetes Mellitus Type 2, Hyperlipidemia, Hypertension Denies:: Cancer, Diabetes Mellitus Type 1, Internal Pacemaker, MRSA, Seizures *Have you ever received a pneumonia vaccine?: Yes *Have you received a flu vaccine this season?: Yes Other Medical History: Reports: Arthritis, Hypothyroidism, Thyroid Disease. Denies: Blood Transfusion Reaction Laterality Cases: Bilateral: Arthroscopy Shoulder Other Surgeries: Yes: Angiogram, CABG, Cardiac Catheterization, Cardiac Surgery, Colonoscopy, Colon Resection, Coronary Stent, Hernia Repair, Other. No: Pacemaker Amputation: No Fractures: No - *Social History Smoking Status: Current every day smoker Tobacco Type: cigarettes # Packs/Day (cigarettes): 1 Alcohol Intake: never Substance Use Type: denies use *Occupational Status:: other Housing: house Household Members: spouse *Travel in the last 8 weeks: None Family Hx:: Heart Attack, Coronary Artery Disease, Hypertension
[2019-08-03 20:11] LABS: Oxycodone (GC/MS) 2221 ng/mL (Cutoff=100)
[2019-08-04 06:16] LABS: Opiates Negative (Cutoff=100)
== END ==
PROVIDERS: PCP Emergency Medicine; Visit Provider Clinical Nurse Specialist Family Health
DX: M50.10 Cervical disc disorder with radiculopathy, unspecified cervical region (principal); M51.36 Other intervertebral disc degeneration, lumbar region; M47.816 Spondylosis without myelopathy or radiculopathy, lumbar region; Z79.899 Other long term (current) drug therapy
CPT/HCPCS: 80305; 80361; 80365; 99212; G0480

== ENCOUNTER → 2019-08-08 13:25 | Outpatient (CLI) | payer MEDICARE, SELFPAY ==
[2019-08-08 13:55] LABS: Alanine Aminotransferase 27 U/L (12-78); Albumin Level 4.1 gm/dL (3.4-5.0); Albumin/Globulin Ratio 1.2 (1.1-1.8); Alkaline Phosphatase 66 U/L (46-116); Anion Gap 16.5 mEq/L (5-15); Aspartate Amino Transferase 23 U/L (15-37); Bilirubin,Total 0.8 mg/dL (0.2-1.0); Blood Urea Nitrogen 10 mg/dL (7-18); Calcium 9.3 mg/dL (8.5-10.1); Carbon Dioxide 24 mmol/L (21.0-32.0); Chloride 102 mmol/L (98-107); Chol/HDL Ratio 3.1 (1-3.5); Cholesterol 128 mg/dL (140-200); Creatinine,Serum 0.96 mg/dL (0.70-1.30); Estimated Glomerular Filt Rate 78 ml/min (>60); GFR (African American) 94 ML/MIN (>60); Globulin 3.3 gm/dl (1.3-3.2); Glucose 141 mg/dL (74-106); HDL Cholesterol 41 mg/dL (27-67); LDL Cholesterol 67 mg/dL (0-130); Potassium 4.5 mmoL/L (3.5-5.1); Sodium 138 mmol/L (136-145); T4 (Thyroxine) 10.9 ug/dl (4.7-13.3); Total Protein,Serum 7.4 gm/dL (6.4-8.2); Triglycerides 102 mg/dL (30-200); VLDL Cholesterol 20 mg/dL (0-40)
[2019-08-08 14:01] LABS: Hemoglobin A1C 7.2 % (0.0-7.0)
[2019-08-08 14:33] LABS: Basophils # 0.1 K/mm3 (0-0.2); Basophils % 0.6 % (0.1-2.0); Eosinophils # 0.3 K/mm3 (0.0-0.4); Eosinophils % 3.3 % (0.1-12.0); Hematocrit 45.7 % (42.0-52.0); Hemoglobin 14.7 g/dL (14.1-18.0); Lymphocytes # 3.3 K/mm3 (0.7-4.5); Lymphocytes % 36.6 % (10-50); Mean Corpuscular HGB Conc 32.2 g/dL (31.8-35.4); Mean Corpuscular Hemoglobin 30.1 pg (27.0-31.2); Mean Corpuscular Volume 93.7 fl (80-94); Mean Platelet Volume 9.1 fl (7.4-10.4); Monocytes # 0.5 K/mm3 (0.1-1.0); Monocytes % 5.4 % (1.7-9.3); Neutrophils # 4.9 K/mm3 (1.8-7.8); Neutrophils % 54.1 % (37.0-80.0); Platelet Count 266 K/mm3 (142-424); Red Blood Count 4.88 M/mm3 (4.60-6.20); Red Cell Distribution Width 13.4 % (11.5-17.5); White Blood Count 9.1 K/mm3 (4.8-10.8)
== END ==
PROVIDERS: Visit Provider Emergency Medicine
DX: E13.9 Other specified diabetes mellitus without complications; I10 Essential (primary) hypertension; Z79.84 Long term (current) use of oral hypoglycemic drugs
CPT/HCPCS: 80053; 80061; 82652; 83036; 84436; 84443; 85025

== ENCOUNTER → 2019-09-09 09:38 | Outpatient (POV) | payer MEDICARE, SELFPAY ==
[2019-09-09 10:09] VITALS: BP 113/69; PULSE 79; RESP 18; O2SAT 98; BMI 30.4
--- NOTE | 2019-09-09 11:16 | HMH.PAINSOAP ---
[facility] Pain Management SOAP Note Subjective:: Patient is a very pleasant 69-year-old white male who presents today for follow-up. He is being treated for neck pain with cervical radicular symptoms. He is also being treated for low back pain with lumbar radiculopathy symptoms. Patient recently underwent a cervical epidural steroid injection at C5-C6. Patient rates his pain a 6 out of 10 today. He does state, however, that he did get relief with the epidural. He says he is doing well overall following his injection. Patient says he currently has bronchitis and has been to the urgent treatment center multiple times. He is concerned that he either has prescription for the flu. He is following back up with his primary care provider today. Patient says most of his pain is due to his respiratory symptoms. He says that his leg is feeling much better, overall. He is taking anti-inflammatories and a home stretching program. Review of Systems General: No recent weight changes, no fever, no sleep disturbances Respiratory: No cough, no shortness of air, no recurring pulmonary infections Cardiovascular/peripheral vascular: No chest pain, no palpitations, no edema, no shortness of breath Gastrointestinal: No new onset incontinence, normal bowel movements reported Genitourinary: No new onset incontinence Musculoskeletal: Neck pain, low back pain Psychiatric: Normal mood/affect Neurological: [Denies weakness in extremities], [denies balance issues] Objective:: Physical exam General: Alert and oriented x3, no acute distress, pleasant and cooperative, [on room air] Lungs: Respirations even and unlabored, symmetrical chest expansion Eyes: PERRL Musculoskeletal: Flexion and extension of cervical and lumbar spine somewhat guarded secondary to pain, deep tendon reflexes normal, strength in upper and lower extremities [5/5], [abnormal gait noted] Neurological: Speech clear, manager [employer] equal, no gross sensory deficit Assessment:: Degenerative disc disease cervical and lumbar spine with cervical and lumbar radiculopathy symptoms Plan:: Patient is doing well following his injection, overall. He is continuing with anti-inflammatories and home traction program. Patient says that he does not feel he needs further injective therapy at this time. He would like to, however, follow-up with us in 1 month. We will see him back in clinic in 1 month to reassess his symptoms. He has been instructed to contact clinic if he has any concerns before his next appointment. The end [facility] History I have reviewed the patient's past medical history: Yes Medical History: Reports:: Coronary Artery Disease, Diabetes Mellitus Type 2, Hyperlipidemia, Hypertension Denies:: Cancer, Diabetes Mellitus Type 1, Internal Pacemaker, MRSA, Seizures *Have you ever received a pneumonia vaccine?: Yes *Have you received a flu vaccine this season?: Yes Other Medical History: Reports: Arthritis, Hypothyroidism, Thyroid Disease. Denies: Blood Transfusion Reaction Laterality Cases: Bilateral: Arthroscopy Shoulder Other Surgeries: Yes: Angiogram, CABG, Cardiac Catheterization, Cardiac Surgery, Colonoscopy, Colon Resection, Coronary Stent, Hernia Repair, Other. No: Pacemaker Amputation: No Fractures: No - *Social History Smoking Status: Never smoker Tobacco Type: smokeless tobacco # Packs/Day (cigarettes): 0 Alcohol Intake: never Substance Use Type: denies use *Occupational Status:: other Housing: house Household Members: spouse *Travel in the last 8 weeks: None Family Hx:: Heart Attack, Coronary Artery Disease, Hypertension
== END ==
PROVIDERS: PCP Emergency Medicine; Visit Provider Clinical Nurse Specialist Family Health
DX: M50.10 Cervical disc disorder with radiculopathy, unspecified cervical region (principal); M51.16 Intervertebral disc disorders with radiculopathy, lumbar region
CPT/HCPCS: 99212

== ENCOUNTER → 2019-10-06 08:44 | Outpatient (POV) | payer MEDICARE, SELFPAY ==
--- NOTE | 2019-10-06 09:10 | HMH.PAINSOAP ---
[facility] Pain Management SOAP Note Subjective:: Patient is a pleasant 69-year-old white male who presents today for medication refills and follow-up. Patient currently on Percocet 10 mg 1 p.o. 4 times daily. Patient denies side effects to his medication. [facility] #[id number] reviewed and appropriate. Urine drug screens have been appropriate. Patient states the medication helps up to 80%. Patient also would like to move forward with a lumbar medial branch block. He has had several of these he does extremely well with them and gets 80% relief after 3 months with his injections. ROS General: no recent weight change, no fever, no sleep disturbances Respiratory: no cough, no shortness of air, no recurring pulmonary infections Cardiovascular/Peripheral Vascular: No chest pain, No palpitations, no edema, no shortness of breath. Gastrointestinal: no new onset incontinence, normal bowel movements reported Genitourinary: no new onset incontinence Musculoskeletal: Back pain Psychiatric: normal mood/ affect Neurological: [denies new onset weakness in extremities], [denies new onset balance issues] Objective:: Physical Exam General: Alert and oriented x3, no acute distress, pleasant and cooperative, [on room air] Lungs: Resps E/U, Symmetrical chest expansion, Eyes: PERRL Musculoskeletal: Flexion and extension of lumbar spine somewhat guarded secondary to pain, deep tendon reflexes normal, strength in upper and lower extremities [5/5], [abnormal gait noted] positive facet loading positive lumbar spine Neurological: speech clear, superintendent circus equal, no gross sensory deficits Assessment:: Degenerative disc disease lumbar spine with lumbar spondylosis and lumbar facet arthropathy patient also has degenerative disc disease cervical spine with cervical radiculopathy Plan:: We will refill the patient's Percocet 10 mg 1 p.o. 4 times daily and given 2 months worth of medication. Patient [facility] his [facility]. Patient will be set up for an L3-L4 L4-L5 L5-S1 bilateral medial branch block. I will follow-up with him after this reassess his symptoms at that time he is been instructed to call the office if he has any issues prior to his next appointment. Dr. Horvath has reviewed this note and agrees with this plan of care. This note was dictated using voice recognition software and may contain errors or omissions [facility] History I have reviewed the patient's past medical history: Yes Medical History: Reports:: Coronary Artery Disease, Diabetes Mellitus Type 2, Hyperlipidemia, Hypertension Denies:: Cancer, Diabetes Mellitus Type 1, Internal Pacemaker, MRSA, Seizures *Have you ever received a pneumonia vaccine?: Yes *Have you received a flu vaccine this season?: Yes Other Medical History: Reports: Arthritis, Hypothyroidism, Thyroid Disease. Denies: Blood Transfusion Reaction Laterality Cases: Bilateral: Arthroscopy Shoulder Other Surgeries: Yes: Angiogram, CABG, Cardiac Catheterization, Cardiac Surgery, Colonoscopy, Colon Resection, Coronary Stent, Hernia Repair, Other. No: Pacemaker Amputation: No Fractures: No - *Social History Smoking Status: Never smoker Tobacco Type: smokeless tobacco # Packs/Day (cigarettes): 0 Alcohol Intake: never Substance Use Type: denies use *Occupational Status:: other Housing: house Household Members: spouse *Travel in the last 8 weeks: None Family Hx:: Heart Attack, Coronary Artery Disease, Hypertension
[2019-10-06 09:16] VITALS: BP 132/66; PULSE 70; RESP 18; BMI 30.7
== END ==
PROVIDERS: PCP Emergency Medicine; Visit Provider Clinical Nurse Specialist Family Health
DX: M51.36 Other intervertebral disc degeneration, lumbar region (principal); M47.816 Spondylosis without myelopathy or radiculopathy, lumbar region; M54.06 Panniculitis affecting regions of neck and back, lumbar region; M50.10 Cervical disc disorder with radiculopathy, unspecified cervical region; I25.10 Atherosclerotic heart disease of native coronary artery without angina pectoris; E11.9 Type 2 diabetes mellitus without complications; I10 Essential (primary) hypertension; E78.5 Hyperlipidemia, unspecified
CPT/HCPCS: 99212

== ENCOUNTER → 2019-11-10 10:41 | Outpatient (POV) | payer MEDICARE, SELFPAY ==
[2019-11-10 11:11] VITALS: BP 131/66; PULSE 76; RESP 18; O2SAT 99; BMI 30.9
--- NOTE | 2019-11-10 11:20 | P.CONS_ITS ---
[facility] Pain Management SOAP Note Subjective:: Patient is a pleasant 69-year-old white male who presents today for follow-up after a medial branch block/facet joint injection at L3-L4 L4-L5 L5-S1 bilaterally. Patient says he got 95% relief following the injection for up to 2 weeks. His pain has returned. He rates his pain a 6 out of 10 today. He has had an RFA in the past he says approximately 2 to 3 years ago for which he did get relief for a couple years. He says his pain is similar to what it was at that time. He says the pain is worse with extension at his waist. He has had physical therapy along with a continued home stretching program and anti- inflammatories. He would like to proceed with a right and left RFA of L3-L4 L4- L5 and L5-S1. Review of Systems no General: No recent weight changes, no fever, no sleep disturbances Respiratory: No cough, no shortness of air, no recurring pulmonary infections Cardiovascular/peripheral vascular: No chest pain, no palpitations, no edema, no shortness of breath Gastrointestinal: No new onset incontinence, normal bowel movements reported Genitourinary: No new onset incontinence Musculoskeletal: Low back pain Psychiatric: Normal mood/affect Neurological: [Denies weakness in extremities], [denies balance issues] Objective:: Physical exam General: Alert and oriented x3, no acute distress, pleasant and cooperative, [on room air] Lungs: Respirations even and unlabored, symmetrical chest expansion Eyes: PERRL Musculoskeletal: Flexion and extension of lumbar spine somewhat guarded secondary to pain, deep tendon reflexes normal, strength in upper and lower extremities [5/5], [abnormal gait noted], positive Kemps test Neurological: Speech clear, package lift operator equal, no gross sensory deficit Assessment:: Degenerative disc disease lumbar spine with lumbar radiculopathy symptoms, facet arthropathy of lumbar spine Plan:: We will proceed with a right RFA at L3-L4 L4-L5 and L5-S1. We will then proceed to the left side. He did get relief with the medial branch blocks. He will continue with anti-inflammatories and a home stretching program. We will see him back in the clinic after his injection to reassess her symptoms. He has been instructed to contact the clinic if he has any concerns before his next appointment. He is not on any anticoagulation therapy. Dr. Horvath has reviewed this note and agrees with this plan of care. This note was dictated using voice recognition software and make contain errors or omissions. [facility] History I have reviewed the patient's past medical history: Yes Medical History: Reports:: Coronary Artery Disease, Hyperlipidemia, Hypertension Denies:: Cancer, Diabetes Mellitus Type 1, Diabetes Mellitus Type 2, Internal Pacemaker, MRSA, Seizures *Have you ever received a pneumonia vaccine?: Yes *Have you received a flu vaccine this season?: Yes Other Medical History: Reports: Arthritis, Hypothyroidism, Thyroid Disease. Denies: Blood Transfusion Reaction Laterality Cases: Bilateral: Arthroscopy Shoulder Other Surgeries: Yes: Angiogram, CABG, Cardiac Catheterization, Cardiac Surgery, Colonoscopy, Colon Resection, Coronary Stent, Hernia Repair, Other. No: Pacemaker Amputation: No Fractures: No - *Social History Smoking Status: Never smoker Tobacco Type: smokeless tobacco # Packs/Day (cigarettes): 1 Alcohol Intake: never Substance Use Type: denies use *Occupational Status:: other Housing: house Household Members: spouse *Travel in the last 8 weeks: None Family Hx:: Heart Attack, Coronary Artery Disease, Hypertension
== END ==
PROVIDERS: PCP Emergency Medicine; Visit Provider Clinical Nurse Specialist Family Health
DX: M51.16 Intervertebral disc disorders with radiculopathy, lumbar region (principal); M54.06 Panniculitis affecting regions of neck and back, lumbar region
CPT/HCPCS: 99212

== ENCOUNTER → 2019-11-10 12:39 | Outpatient (POV) | payer MEDICARE, SELFPAY ==
[2019-11-10 13:28] LABS: Amphetamine/Metha Screen,Urine Negative ng/mL (<1000); Barbiturates Screen,Urine Negative ng/mL (<200); Benzodiazepines Screen,Urine Negative ng/mL (<200); Cannabinoid Screen,Urine Negative ng/mL (<50); Cocaine Screen,Urine Negative ng/mL (<300); Methadone Screen,Urine Negative ng/mL (<300); Opiate Screen,Urine Negative ng/mL (<300); Phencyclidine Screen,Urine Negative ng/mL (<25)
[2019-11-15 20:41] LABS: Oxycodone (GC/MS) 565 ng/mL (Cutoff=100)
[2019-11-16 09:12] LABS: Opiates Negative (Cutoff=100)
== END ==
PROVIDERS: Visit Provider Clinical Nurse Specialist Family Health
DX: Z79.899 Other long term (current) drug therapy (principal); M51.16 Intervertebral disc disorders with radiculopathy, lumbar region; M54.06 Panniculitis affecting regions of neck and back, lumbar region
CPT/HCPCS: 80305; 80361; 80365; 99212; G0480

== ENCOUNTER 2020-01-02 09:01 | Day surgery (SDC) | payer MEDICARE, SELFPAY ==
[2020-01-02 09:11] VITALS: BP 156/76; PULSE 60; RESP 18; TEMP 36.7; O2SAT 98; BMI 31.1
[2020-01-02 09:24] VITALS: BP 137/73; PULSE 67; RESP 18; O2SAT 98
[2020-01-02 09:26] VITALS: BP 140/75; PULSE 73; RESP 18; O2SAT 99
--- NOTE | 2020-01-02 09:40 | P.PCN_ITS ---
- Procedure Date: 01/02/20 Time: 09:41 Anesthesiologist:: Jamal Horvath MD Complications:: None Pre-procedure Diagnosis:: Degenerative disc disease of lumbar spine with lumbar spondylosis and facet arthropathy of lumbar spine Post-procedure Diagnosis:: Same Indications for Procedure:: This patient is a pleasant 69-year-old white male who we are treating for low back pain with lumbar spondylosis and facet arthropathy lumbar spine. He is status post radiofrequency ablation to the right-sided facet joints of L3-L4, L4-5 and L5-S1. He is 80 to 90% better on the right side. His left side is bothering him a lot more now. It is been almost 7 weeks since his previous RFA. His back pain on the left side is affecting his activities of daily living and functionality. With his pain exacerbation we will do the radiofrequency ablation to the left-sided facet joints of L3-L4, L4-5 and L5-S1 today. Procedure Details:: Lumbar RFA informed consent was obtained and the risk and benefits of the procedure was explained to the patient. Patient was placed prone on the procedure table. The patient was prepped and draped in sterile fashion. C-arm fluoroscopy was used to view the lumbar spine. The skin and subcutaneous tissues were anesthetized using lidocaine. I placed 20-gauge RF needles into the facet joints of L3-4, L4-5 and L5-S1 levels on the left side. We underwent sensory stimulation. There is good sensory stimulation at 0.8 V. We underwent motor stimulation. There is no motor stimulation at 2 V. We then anesthetized these levels with li docaine and Depo-Medrol. I used a total of 40 mg Depo-Medrol for all 3 levels. I then burned all 3 levels of L3-L4, L4-L5 and L5-S1 on the left side, each 1 for 4 minutes at 80 ?C. Patient tolerated the procedure well with no complication. Plan and Disposition:: We will follow-up with him in 2 weeks. Will reevaluate his symptoms at that time.
[2020-01-02 09:49] VITALS: BP 160/82; PULSE 60; RESP 18; O2SAT 98
== END 2020-01-02 09:50 | disposition home or self-care (01) ==
PROVIDERS: PCP Emergency Medicine; Visit Provider Anesthesiology
DX: M51.36 Other intervertebral disc degeneration, lumbar region (principal); M47.816 Spondylosis without myelopathy or radiculopathy, lumbar region; M54.06 Panniculitis affecting regions of neck and back, lumbar region; E11.9 Type 2 diabetes mellitus without complications; I10 Essential (primary) hypertension; Z79.899 Other long term (current) drug therapy; Z79.82 Long term (current) use of aspirin
CPT/HCPCS: 64635; 64636; J1040

== ENCOUNTER → 2020-01-19 10:45 | Outpatient (POV) | payer MEDICARE, SELFPAY ==
[2020-01-19 10:53] VITALS: BP 149/89; PULSE 74; RESP 18; TEMP 37.2; O2SAT 97; BMI 29.4
--- NOTE | 2020-01-19 11:06 | HMH.PAINSOAP ---
[facility] Pain Management SOAP Note Subjective:: Patient is a pleasant 69-year-old white male treating for low back pain and neck pain. He is following up after lumbar RFA. He rates his pain a 6 out of 10 and is doing extremely well. He is on narcotic medication however he does not need a refill today. Overall he is doing well. ROS General: no recent weight change, no fever, no sleep disturbances Respiratory: no cough, no shortness of air, no recurring pulmonary infections Cardiovascular/Peripheral Vascular: No chest pain, No palpitations, no edema, no shortness of breath. Gastrointestinal: no new onset incontinence, normal bowel movements reported Genitourinary: no new onset incontinence Musculoskeletal: Back pain, neck pain Psychiatric: normal mood/ affect Neurological: [denies new onset weakness in extremities], [denies new onset balance issues] Objective:: Physical Exam General: Alert and oriented x3, no acute distress, pleasant and cooperative, [on room air] Lungs: Resps E/U, Symmetrical chest expansion, Eyes: PERRL Musculoskeletal: Flexion and extension of cervical and lumbar spine somewhat guarded secondary to pain, deep tendon reflexes normal, strength in upper and lower extremities [5/5], slightly antalgic gait noted Neurological: speech clear, health insurance assessor equal, no gross sensory deficits Assessment:: Degenerative disc disease cervical and lumbar of lumbar facet arthropathy Plan:: We will see the patient back in 2 months reassess his symptoms at that time he has been instructed to call the office if he has any issues prior to his next appointment. We specifically discussed risk factors for Covid-19 including age, heart or lung disease, diabetes, immunosuppression and travel. We also discussed that NSAIDs may worsen Covid-19 infection symptoms and that they should not be used to treat Covid-19 symptoms. Patient was also informed that corticosteroids in any form oral or injectable will decrease immune response and may increase risk of Covid-[address] Horvath has reviewed this patient's chart and this note and agrees with plan of care. Patient has been instructed to call the office if they have any issues prior to the next appointment. Dr. Horvath has reviewed this note and agrees with this plan of care. This note was dictated using voice recognition software and may contain errors or omissions [facility] History I have reviewed the patient's past medical history: Yes Medical History: Reports:: Coronary Artery Disease, Diabetes Mellitus Type 2, Hyperlipidemia, Hypertension, Myocardial Infarction Denies:: Cancer, Diabetes Mellitus Type 1, Internal Pacemaker, MRSA, Seizures *Have you ever received a pneumonia vaccine?: Yes *Have you received a flu vaccine this season?: Yes Other Medical History: Reports: Arthritis, Hypothyroidism, Thyroid Disease. Denies: Blood Transfusion Reaction Laterality Cases: Bilateral: Arthroscopy Shoulder Other Surgeries: Yes: Angiogram, CABG, Cardiac Catheterization, Cardiac Surgery, Colonoscopy, Colon Resection, Coronary Stent, Hernia Repair, Other. No: Pacemaker Amputation: No Fractures: No - *Social History Smoking Status: Never smoker Tobacco Type: smokeless tobacco # Packs/Day (cigarettes): 1 Alcohol Intake: never Substance Use Type: denies use *Occupational Status:: other Housing: house Household Members: spouse *Travel in the last 8 weeks: None Family Hx:: Heart Attack, Coronary Artery Disease, Hypertension
== END ==
LOC: SC.PAIN 10:47
PROVIDERS: PCP Emergency Medicine; Visit Provider Clinical Nurse Specialist Family Health
DX: M50.30 Other cervical disc degeneration, unspecified cervical region (principal); M54.06 Panniculitis affecting regions of neck and back, lumbar region
CPT/HCPCS: 99212

== ENCOUNTER → 2020-01-28 14:55 | Outpatient (CLI) | payer MEDICARE, SELFPAY ==
[2020-01-28 15:44] LABS: Chloride 104 mmol/L (98-107); Sodium 138 mmol/L (136-145)
[2020-01-28 15:45] LABS: Potassium 4.8 mmoL/L (3.5-5.1)
[2020-01-28 15:47] LABS: Alanine Aminotransferase 25 U/L (12-78); Anion Gap 14.8 mEq/L (5-15); Aspartate Amino Transferase 32 U/L (17-59); Blood Urea Nitrogen 9 mg/dl (9-20); Carbon Dioxide 24 mmol/L (22.0-30.0); Estimated Glomerular Filt Rate 112 ml/min (>60); GFR (African American) 136 ML/MIN (>60)
[2020-01-28 15:48] LABS: Albumin Level 4.4 g/dl (3.5-5.0); Albumin/Globulin Ratio 1.5 (1.1-1.8); Alkaline Phosphatase 62 U/L (38-126); Bilirubin,Total 0.9 mg/dl (0.2-1.3); Calcium 9.6 mg/dl (8.4-10.2); Chol/HDL Ratio 2.6 (1-3.5); Cholesterol 116 mg/dl (140-200); Globulin 2.9 g/dL (1.3-3.2); Glucose 153 mg/dl (74-100); HDL Cholesterol 44 mg/dl (40-60); Total Protein,Serum 7.3 g/dl (6.3-8.2); Triglycerides 84 mg/dl (30-150); VLDL Cholesterol 17 mg/dL (0-40)
[2020-01-28 15:56] LABS: Basophils # 0.1 K/mm3 (0-0.2); Basophils % 0.7 % (0.1-2.0); Eosinophils # 0.3 K/mm3 (0.0-0.4); Eosinophils % 4.5 % (0.1-12.0); Hematocrit 46.5 % (42.0-52.0); Hemoglobin 14.6 g/dL (14.1-18.0); Lymphocytes # 2.5 K/mm3 (0.7-4.5); Lymphocytes % 37.1 % (10-50); Mean Corpuscular HGB Conc 31.4 g/dL (31.8-35.4); Mean Corpuscular Hemoglobin 29.3 pg (27.0-31.2); Mean Corpuscular Volume 93.5 fl (80-94); Monocytes # 0.4 K/mm3 (0.1-1.0); Monocytes % 6.4 % (1.7-9.3); Neutrophils # 3.5 K/mm3 (1.8-7.8); Neutrophils % 51.3 % (37.0-80.0); Platelet Count 244 K/mm3 (142-424); Red Blood Count 4.97 M/mm3 (4.60-6.20); Red Cell Distribution Width 14.1 % (11.5-17.5); White Blood Count 6.9 K/mm3 (4.8-10.8)
[2020-01-28 15:59] LABS: Direct LDL Cholesterol 77.21 mg/dL (100-129)
[2020-01-28 16:19] LABS: Thyroid Stimulating Hormone 1.75 uIU/mL (0.465-4.68)
[2020-01-28 18:16] LABS: Hemoglobin A1C 6.4 % (4.0-6.0)
[2020-01-30 09:58] LABS: Creatinine, Urine 58.6 mg/dL (Not Estab.); Microalbumin, Urine <3.0 ug/mL (Not Estab.)
[2020-01-30 11:20] LABS: Vitamin D 25 Hydroxy 38.1 ng/mL (30.0-100.0)
== END ==
PROVIDERS: Visit Provider Emergency Medicine
DX: E13.9 Other specified diabetes mellitus without complications (principal); E78.5 Hyperlipidemia, unspecified; E66.9 Obesity, unspecified; J20.9 Acute bronchitis, unspecified; Z79.84 Long term (current) use of oral hypoglycemic drugs
CPT/HCPCS: 80053; 80061; 82043; 82570; 82652; 83036; 84436; 84443; 85025

== ENCOUNTER → 2020-02-06 09:01 | Outpatient (CLI) | payer MEDICARE, SELFPAY ==
--- NOTE | 2020-02-06 09:01 | CT_ITS ---
PROCEDURE: CT ABDOMEN PELVIS W CON CLINICAL INDICATION: recurrent abdominal hernia COMPARISON: No exams were available for comparison TECHNIQUE: IV Contrast: 75ML OPTIRAY 350 Oral Contrast 20ml Gastroview Axial images obtained with sagittal and coronal reformats. All CT scans at the facility use one or more dose reduction, viz: automated exposure control, ma/kV adjustment per patient size (including targeted exams where dose is matched to indication, i.e. head), or iterative reconstruction technique. FINDINGS: Lower thorax: The lower lung mcknight are clear and there is no pleural fluid. There is borderline or mild generalized cardiomegaly. ABDOMEN: Liver: No masses or biliary dilatation. Gallbladder: Nondistended. No radio opaque stones. Pancreas: No masses or peripancreatic fluid collections. Spleen: unremarkable Adrenals: unremarkable Kidneys/ureters: The kidneys are normal in size and show symmetrical function both appearing normal. ABDOMEN & PELVIS: Stomach bowel: The stomach and small bowel appear normal. There is a moderately large amount of stool seen throughout the colon particularly transverse and descending colon and sigmoid colon. Peritoneum: There is a small ventral hernia just above the umbilicus containing fat only the mouth of the hernia measuring 1.4 cm. There is a 2nd hernia just above the umbilicus containing fat and possibly scarring from previous umbilical hernia repair. The mouth measures approximately 2 point 5 cm. There is minimal postsurgical scarring at and just deep to the umbilicus likely from previous umbilical hernia repair. Lymph nodes: No enlarged lymph nodes apparent. Vasculature: There is minimal scattered arteriosclerotic calcification of the abdominal aorta but there is no aneurysm. Bones: No acute fracture PELVIS: Reproductive: unremarkable Bladder: The bladder is moderately distended with urine and appears normal. The prostate is normal in size containing a couple of calcifications. Appendix: The appendix is normal in caliber and partially air-filled. IMPRESSION: Small ventral hernia just above the umbilicus containing fat only in addition to a 2nd small ventral hernia just superior to postsurgical scarring from apparent previous umbilical hernia surgery . Dictated by: Dr. Stu Aviles MD 02/06/2020 13:[address] Stu Aviles MD in [place] 02/06/2020 13:11
== END ==
LOC: RAD 09:01
PROVIDERS: PCP Emergency Medicine; Visit Provider Surgery
DX: K46.9 Unspecified abdominal hernia without obstruction or gangrene (principal)
CPT/HCPCS: 74177; Q9967

== ENCOUNTER → 2020-03-15 08:58 | Outpatient (POV) | payer MEDICARE, SELFPAY ==
[2020-03-15 09:16] VITALS: BP 156/79; PULSE 71; RESP 18; TEMP 36.8; O2SAT 99; BMI 30.9
--- NOTE | 2020-03-15 10:11 | HMH.PAINSOAP ---
[facility] Pain Management SOAP Note Subjective:: Patient is a pleasant 69-year-old white male who are treating for low back and neck pain. He is doing well however he is having quite a bit of neck pain secondary to working on his tractor and rotating his neck. It has flared his pain he is having pain in bilateral arms. He rates it a 7 out of 10. He is on Percocet 10 mg 1 p.o. 4 times daily denies side effects to this. He does not need refills at this time however he is doing well Samuel #[id number] reviewed and appropriate urine drug screens have been appropriate. ROS General: no recent weight change, no fever, no sleep disturbances Respiratory: no cough, no shortness of air, no recurring pulmonary infections Cardiovascular/Peripheral Vascular: No chest pain, No palpitations, no edema, no shortness of breath. Gastrointestinal: no new onset incontinence, normal bowel movements reported Genitourinary: no new onset incontinence Musculoskeletal: Neck pain Psychiatric: normal mood/ affect Neurological: [denies new onset weakness in extremities], [denies new onset balance issues] Objective:: Physical Exam General: Alert and oriented x3, no acute distress, pleasant and cooperative, [on room air] Lungs: Resps E/U, Symmetrical chest expansion, Eyes: PERRL Musculoskeletal: Flexion and extension of cervical spine somewhat guarded secondary to pain, deep tendon reflexes normal, strength in upper and lower extremities [5/5], slightly antalgic gait noted Neurological: speech clear, turbine operator 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 4 times daily. We will also set him up for C5-C6 cervical epidural steroid injection. Patient is not on any anticoagulation therapy. I will follow-up with him after his injection reassess his symptoms at that time. Patient has been prescribed a controlled substance after being counseled on the medication, medication safety, and possible side effects. SAMUEL report has been obtained and reviewed prior to prescription and found to be appropriate. Opioid contract was reviewed and signed by the patient, and that they have agreed to all of the terms set forth by our compliance program. Dr. Horvath has reviewed this note and agrees with this plan of care. This note was dictated using voice recognition software and may contain errors or omissions [facility] History I have reviewed the patient's past medical history: Yes Medical History: Reports:: Coronary Artery Disease, Diabetes Mellitus Type 2, Hyperlipidemia, Hypertension, Myocardial Infarction Denies:: Cancer, Diabetes Mellitus Type 1, Internal Pacemaker, MRSA, Seizures *Have you ever received a pneumonia vaccine?: Yes *Have you received a flu vaccine this season?: Yes Other Medical History: Reports: Arthritis, Hypothyroidism, Thyroid Disease. Denies: Blood Transfusion Reaction Laterality Cases: Bilateral: Arthroscopy Shoulder Other Surgeries: Yes: Angiogram, CABG, Cardiac Catheterization, Cardiac Surgery, Colonoscopy, Colon Resection, Coronary Stent, Hernia Repair, Other. No: Pacemaker Amputation: No Fractures: No - *Social History Smoking Status: Never smoker Tobacco Type: smokeless tobacco # Packs/Day (cigarettes): 1 Alcohol Intake: never Substance Use Type: denies use *Occupational Status:: other Housing: house Household Members: spouse *Travel in the last 8 weeks: None Family Hx:: Heart Attack, Coronary Artery Disease, Hypertension
== END ==
LOC: SC.PAIN 08:59
PROVIDERS: PCP Emergency Medicine; Visit Provider Clinical Nurse Specialist Family Health
DX: M50.10 Cervical disc disorder with radiculopathy, unspecified cervical region (principal); M51.16 Intervertebral disc disorders with radiculopathy, lumbar region
CPT/HCPCS: 99212

== ENCOUNTER 2020-03-19 13:39 | Day surgery (SDC) | payer MEDICARE, SELFPAY ==
[2020-03-19 14:30] VITALS: BP 143/70; PULSE 72; RESP 16; TEMP 36.6; O2SAT 99; BMI 68.2
--- NOTE | 2020-03-19 14:33 | HMH.PMPROC ---
- Procedure Date: 03/19/20 Time: 14:33 Anesthesiologist:: Jamal Horvath MD Complications:: None Pre-procedure Diagnosis:: Degenerative disc disease of the cervical spine with cervical radiculopathy symptoms Post-procedure Diagnosis:: Same Indications for Procedure:: This patient is a pleasant 69-year-old white male who we are treating for neck pain with cervical radiculopathy symptoms. He did very well after his last lumbar epidural steroid injection. He is also done well in the past with cervical epidural steroid injection. He is more active now and is having increasing neck pain radiating to his shoulders. We will do a repeat cervical epidural steroid injection under fluoroscopy today. Procedure Details:: Cervical epidural steroid injection under fluoroscopy Informed consent was obtained and the risks and benefits of the procedure was explained to the patient. The patient was taken to the procedure room placed prone on the procedure table. The neck was prepped using ChloraPrep. The skin and subcutaneous tissues were anesthetized using lidocaine. I placed a 18-gauge epidural needle into the C5-C6 interspace and advanced using [id number] to air and fluoroscopic guidance. After confirmation of needle placement in the epidural space with dye, I injected 3 mL's lidocaine 1.5% and Depo-Medrol 80 mg. The patient tolerated the procedure well with no complications. Plan and Disposition:: We will follow-up with him in 2 weeks. Will reevaluate symptoms at that time.
[2020-03-19 14:42] VITALS: BP 141/75; PULSE 69; RESP 18; O2SAT 98
[2020-03-19 14:44] VITALS: BP 145/79; PULSE 72; RESP 18; O2SAT 98
[2020-03-19 15:05] VITALS: BP 156/69; PULSE 68; RESP 18; TEMP 36.4; O2SAT 99
== END 2020-03-19 15:05 | disposition home or self-care (01) ==
LOC: SC.PAINP 13:41
PROVIDERS: PCP Emergency Medicine; Visit Provider Anesthesiology
DX: M50.10 Cervical disc disorder with radiculopathy, unspecified cervical region (principal); E11.9 Type 2 diabetes mellitus without complications; I10 Essential (primary) hypertension; Z88.5 Allergy status to narcotic agent; Z88.8 Allergy status to other drugs, medicaments and biological substances; E78.5 Hyperlipidemia, unspecified; Z95.9 Presence of cardiac and vascular implant and graft, unspecified; J45.909 Unspecified asthma, uncomplicated; Z87.39 Personal history of other diseases of the musculoskeletal system and connective tissue; Z82.49 Family history of ischemic heart disease and other diseases of the circulatory system; Z84.89 Family history of other specified conditions; Z79.899 Other long term (current) drug therapy
CPT/HCPCS: 62321; J1040; Q9966

== ENCOUNTER → 2020-04-12 09:35 | Outpatient (POV) | payer MEDICARE, SELFPAY ==
--- NOTE | 2020-04-12 10:56 | HMH.PAINSOAP ---
[facility] Pain Management SOAP Note Subjective:: Patient is a pleasant 69-year-old white male who presents today for follow-up after cervical epidural steroid injection. He is being treated for neck pain with cervical radiculopathy symptoms. He is doing well overall. He also has chronic low back pain for which she does get injections. Patient says the cervical epidural steroid injection gave him about 90% relief. He said he is doing well overall. He rates his pain a 2 out of 10 today. Review of Systems General: No recent weight changes, no fever, no sleep disturbances Respiratory: No cough, no shortness of air, no recurring pulmonary infections Cardiovascular/peripheral vascular: No chest pain, no palpitations, no edema, no shortness of breath Gastrointestinal: No new onset incontinence, normal bowel movements reported Genitourinary: No new onset incontinence Musculoskeletal: Neck pain, intermittent low back pain Psychiatric: Normal mood/affect Neurological: [Denies weakness in extremities], [denies balance issues] Objective:: Physical exam General: Alert and oriented x3, no acute distress, pleasant and cooperative, [on room air] Lungs: Respirations even and unlabored, symmetrical chest expansion Eyes: PERRL Musculoskeletal: Flexion and extension of cervical and lumbar spine somewhat guarded secondary to pain, deep tendon reflexes normal, strength in upper and lower extremities [5/5], [abnormal gait noted] Neurological: Speech clear, cigarette machine filler equal, no gross sensory deficit Assessment:: Degenerative disc disease cervical spine with cervical radiculopathy symptoms, degenerative disc disease lumbar spine with lumbar radiculopathy symptoms Plan:: She is doing well overall following his injection. We will see him back in a month to reassess his symptoms. He has been instructed to contact clinic if he has any concerns before his next appointment. The patient and I specifically discussed risk factors for COVID19. These risks include, but are not limited to age greater than 60, heart or lung disease, diabetes, immunosuppression, and travel. We also discussed NSAIDs may worsen COVID19 infection or symptoms. Patient should not use NSAIDs to treat COVID19 signs or symptoms. Patient was also informed that any type of corticosteroid of any form (oral or injection) will decrease the patient's immune system response and may increase the likelihood of COVID19 infection [address] symptoms[address] Horvath has reviewed this note and agrees with this plan of care. This note was dictated using voice recognition software and make contain errors or omissions. [facility] History I have reviewed the patient's past medical history: Yes Medical History: Reports:: Coronary Artery Disease, Diabetes Mellitus Type 2, Hyperlipidemia, Hypertension, Myocardial Infarction Denies:: Cancer, Diabetes Mellitus Type 1, Internal Pacemaker, MRSA, Seizures *Have you ever received a pneumonia vaccine?: Yes *Have you received a flu vaccine this season?: Yes Other Medical History: Reports: Arthritis, Hypothyroidism, Thyroid Disease. Denies: Blood Transfusion Reaction Laterality Cases: Bilateral: Arthroscopy Shoulder Other Surgeries: Yes: Angiogram, CABG, Cardiac Catheterization, Cardiac Surgery, Colonoscopy, Colon Resection, Coronary Stent, Hernia Repair, Other. No: Pacemaker Amputation: No Fractures: No - *Social History Smoking Status: Never smoker Tobacco Type: smokeless tobacco # Packs/Day (cigarettes): 0 Alcohol Intake: never Substance Use Type: denies use *Occupational Status:: retired Housing: house Household Members: spouse *Travel in the last 8 weeks: None Family Hx:: Heart Attack
[2020-04-12 11:29] VITALS: BP 145/85; PULSE 85; RESP 18; O2SAT 98; BMI 30.8
== END ==
LOC: SC.PAIN 09:36
PROVIDERS: PCP Emergency Medicine; Visit Provider Clinical Nurse Specialist Family Health
DX: M50.10 Cervical disc disorder with radiculopathy, unspecified cervical region (principal); M51.36 Other intervertebral disc degeneration, lumbar region
CPT/HCPCS: 99212

== ENCOUNTER → 2020-05-10 08:53 | Outpatient (POV) | payer MEDICARE, SELFPAY ==
[2020-05-10 09:08] VITALS: BP 132/82; PULSE 82; RESP 18; TEMP 36.6; O2SAT 98; BMI 30.9
--- NOTE | 2020-05-10 09:28 | P.CONS_ITS ---
[facility] Pain Management SOAP Note Subjective:: Pleasant 70-year-old white male who presents today for follow-up. Patient had a cervical epidural steroid injection and is still doing well from this. He does come with a complaint of low back pain today. He rates it a 9 out of 10. He is currently medically managed with Percocet 10 mg 1 p.o. 4 times daily. [facility] #[id number]. He also gets lumbar epidural steroid injections which are very beneficial for him. He would like to move forward with this. ROS General: no recent weight change, no fever, no sleep disturbances Respiratory: no cough, no shortness of air, no recurring pulmonary infections Cardiovascular/Peripheral Vascular: No chest pain, No palpitations, no edema, no shortness of breath. Gastrointestinal: no new onset incontinence, normal bowel movements reported Genitourinary: no new onset incontinence Musculoskeletal: Back pain, leg pain Psychiatric: normal mood/ affect Neurological: [denies new onset weakness in extremities], [denies new onset balance issues] Objective:: Physical Exam General: Alert and oriented x3, no acute distress, pleasant and cooperative, [on room air] Lungs: Resps E/U, Symmetrical chest expansion, Eyes: PERRL Musculoskeletal: Flexion and extension of lumbar spine somewhat guarded secondary to pain, deep tendon reflexes normal, strength in upper and lower extremities [5/5], [abnormal gait noted] Neurological: speech clear, 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 Given the efficacy of this in the past I do believe it would be beneficial. He does not need medication refills today. I will follow-up with the patient after this reassess his symptoms at that time he has been instructed to call the office if he has any issues prior to his next appointment. He is not on any anticoagulation therapy. Dr. Horvath has reviewed this note and agrees with this plan of care. This note was dictated using voice recognition software and may contain errors or omissions [facility] History I have reviewed the patient's past medical history: Yes Medical History: Reports:: Coronary Artery Disease, Diabetes Mellitus Type 2, Hyperlipidemia, Hypertension, Myocardial Infarction Denies:: Cancer, Diabetes Mellitus Type 1, Internal Pacemaker, MRSA, Seizures *Have you ever received a pneumonia vaccine?: Yes *Have you received a flu vaccine this season?: Yes Other Medical History: Reports: Arthritis, Hypothyroidism, Thyroid Disease. Denies: Blood Transfusion Reaction Laterality Cases: Bilateral: Arthroscopy Shoulder Other Surgeries: Yes: Angiogram, CABG, Cardiac Catheterization, Cardiac Surgery, Colonoscopy, Colon Resection, Coronary Stent, Hernia Repair, Other. No: Pacemaker Amputation: No Fractures: No - *Social History Smoking Status: Never smoker Tobacco Type: smokeless tobacco # Packs/Day (cigarettes): 0 Alcohol Intake: never Substance Use Type: denies use *Occupational Status:: other Housing: house Household Members: spouse *Travel in the last 8 weeks: None Family Hx:: Heart Attack
== END ==
LOC: SC.PAIN 08:54
PROVIDERS: PCP Emergency Medicine; Visit Provider Clinical Nurse Specialist Family Health
DX: M51.16 Intervertebral disc disorders with radiculopathy, lumbar region (principal); M50.10 Cervical disc disorder with radiculopathy, unspecified cervical region
CPT/HCPCS: 99212

== ENCOUNTER 2020-05-14 13:56 | Day surgery (SDC) | payer MEDICARE, SELFPAY ==
[2020-05-14 14:17] VITALS: BP 133/64; PULSE 69; RESP 18; TEMP 36.8; O2SAT 97; BMI 30.9
--- NOTE | 2020-05-14 14:30 | HMH.PMPROC ---
- Procedure Date: 05/14/20 Time: 14:38 Anesthesiologist:: Jamal Horvath MD Complications:: None Pre-procedure Diagnosis:: Degenerative disc disease of lumbar spine with lumbar radiculopathy symptoms Post-procedure Diagnosis:: Same Indications for Procedure:: This patient is a pleasant 70-year-old white male who we are treating for low back pain with lumbar radiculopathy symptoms. He is doing very well from his last cervical epidural steroid injection. He is starting to have some increasing pain in his low back and down his legs. We will do a lumbar epidural steroid injection under fluoroscopy today to help him with his pain symptoms. Procedure Details:: Lumbar epidural steroid injection under fluoroscopy Informed consent was obtained and the risk and benefits of the procedure was explained to the patient. The patient was taken to the procedure room. The patient was placed prone on the procedure table. The patient was prepped and draped in sterile fashion. C-arm fluoroscopy was used to view the lumbar spine. Skin and subcutaneous tissues were anesthetized using lidocaine. I placed an 18-gauge epidural needle and advanced into the L4-L5 interspace using fluoroscopic guidance and [id number] to air. After confirmation of needle placement in the epidural space with dye I injected 2 mL of lidocaine 1.5% with Depo-Medrol 80 mg. Patient tolerated the procedure well with no complications. Plan and Disposition:: We will follow-up with him in 2 weeks. Will reevaluate his symptoms at that time.
[2020-05-14 14:33] VITALS: BP 130/74; PULSE 71; RESP 18; O2SAT 98
[2020-05-14 14:34] VITALS: BP 140/79; PULSE 74; RESP 18
[2020-05-14 14:45] VITALS: BP 137/68; PULSE 65; RESP 18; O2SAT 97
== END 2020-05-14 14:46 | disposition home or self-care (01) ==
LOC: SC.PAINP 13:57
PROVIDERS: PCP Emergency Medicine; Visit Provider Anesthesiology
DX: M51.16 Intervertebral disc disorders with radiculopathy, lumbar region (principal); I10 Essential (primary) hypertension; E10.9 Type 1 diabetes mellitus without complications; E03.9 Hypothyroidism, unspecified; E78.5 Hyperlipidemia, unspecified; E66.9 Obesity, unspecified; Z88.6 Allergy status to analgesic agent; Z83.3 Family history of diabetes mellitus; Z82.49 Family history of ischemic heart disease and other diseases of the circulatory system; Z72.0 Tobacco use; Z87.39 Personal history of other diseases of the musculoskeletal system and connective tissue; Z95.818 Presence of other cardiac implants and grafts
CPT/HCPCS: 62323; J1040; Q9966

== ENCOUNTER → 2020-06-10 13:56 | Outpatient (POV) | payer MEDICARE, SELFPAY ==
[2020-06-10 14:11] VITALS: BP 132/71; PULSE 71; RESP 18; TEMP 36.8; O2SAT 99; BMI 30.7
--- NOTE | 2020-06-10 14:41 | HMH.PAINSOAP ---
[facility] Pain Management SOAP Note Subjective:: Patient is a pleasant 70-year-old white male who presents today for follow-up. He has been treated for chronic mid to low neck and low back pain with lumbar and cervical radiculopathy. Patient says that he got approximately 80% relief after his lumbar epidural steroid injection. He rates his pain a 5 out of 10 today. Overall he says he is still getting relief. He would like to postpone any further injective therapy at this time because he is still getting relief. Review of Systems General: No recent weight changes, no fever, no sleep disturbances Respiratory: No cough, no shortness of air, no recurring pulmonary infections Cardiovascular/peripheral vascular: No chest pain, no palpitations, no edema, no shortness of breath Gastrointestinal: No new onset incontinence, normal bowel movements reported Genitourinary: No new onset incontinence Musculoskeletal: Low back pain Psychiatric: Normal mood/affect Neurological: [Denies weakness in extremities], [denies balance issues] Objective:: Physical exam General: Alert and oriented x3, no acute distress, pleasant and cooperative, [on room air] Lungs: Respirations even and unlabored, symmetrical chest expansion Eyes: PERRL Musculoskeletal: Flexion and extension of lumbar spine somewhat guarded secondary to pain, deep tendon reflexes normal, strength in upper and lower extremities [5/5], [abnormal gait noted] Neurological: Speech clear, production control coordinator equal, no gross sensory deficit Assessment:: Degenerative disc disease lumbar spine with lumbar radiculopathy symptoms Plan:: Overall, the patient is doing well since his injection. We will plan to follow-up with him as needed for injections. He does not get oral medications with us as well. Patient did refill his medications this past week. He is managed with Percocet 10 mg 1 tablet p.o. 4 times daily. Is due refills. 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 His Samuel #[id number] has been reviewed and is appropriate. His drug screen has been appropriate. His morphine equivalent is 60. patient has been instructed to contact clinic if he has any concerns before his next appointment for medication refill. The patient and I specifically discussed risk factors for COVID19. These risks include, but are not limited to age greater than 60, heart or lung disease, diabetes, immunosuppression, and travel. We also discussed NSAIDs may worsen COVID19 infection or symptoms. Patient should not use NSAIDs to treat COVID19 signs or symptoms. Patient was also informed that any type of corticosteroid of any form (oral or injection) will decrease the patient's immune system response and may increase the likelihood of COVID19 infection and symptoms. Patient has been prescribed a controlled substance after being counseled on the medication, medication safety, and possible side effects. SAMUEL report has been obtained and reviewed prior to prescription and found to be appropriate. Opioid contract was reviewed and signed by the patient, and that they have agreed to all of the terms set forth by our compliance program. [facility] History I have reviewed the patient's past medical history: Yes Medical History: Reports:: Coronary Artery Disease, Diabetes Mellitus Type 2, Hyperlipidemia, Hypertension, Myocardial Infarction Denies:: Cancer, Diabetes Mellitus Type 1, Internal Pacemaker, MRSA, Seizures *Have you ever received a pneumonia vaccine?: Yes *Have you received a flu vaccine this season?: Yes Other Medical History: Reports: Arthritis, Hypothyroidism, Thyroid Disease. Denies: Blood Transfusion Reaction Laterality Cases: Bilateral: Arthroscopy Shoulder Other Surgeries: Yes: Angiogram, CABG, Cardiac Catheterization, Cardiac Surgery, Colonoscopy, Colon Resection, Coronary Stent, Hernia Repair, Other. No: Pacemaker Amputation: No Fractures: No - *Social History Smok
== END ==
LOC: SC.PAIN 13:57
PROVIDERS: PCP Emergency Medicine; Visit Provider Clinical Nurse Specialist Family Health
DX: M51.16 Intervertebral disc disorders with radiculopathy, lumbar region (principal)
CPT/HCPCS: 99212

== ENCOUNTER → 2020-07-01 08:58 | Outpatient (POV) | payer MEDICARE, SELFPAY ==
[2020-07-01 09:06] VITALS: BP 136/84; PULSE 75; RESP 18; O2SAT 97; BMI 30.9
--- NOTE | 2020-07-01 09:32 | HMH.PAINSOAP ---
[facility] Pain Management SOAP Note Subjective:: Patient is a 70-year-old male who presents today for follow-up. He has been treated for chronic mid to low back pain with lumbar and cervical radiculopathy symptoms. Patient says he has had progressively worsening pain to his low back area over the last 2 weeks. He does undergo a lumbar epidural steroid injections for which he gets about 80% relief for 3 to 4 weeks. He rates his pain 6 out of 10 today. He would like to undergo a repeat lumbar epidural steroid injection. He is not on any anticoagulation therapy. He is also managed with Percocet 10 mg 1 tablet 4 times daily. Review of Systems General: No recent weight changes, no fever, no sleep disturbances Respiratory: No cough, no shortness of air, no recurring pulmonary infections Cardiovascular/peripheral vascular: No chest pain, no palpitations, no edema, no shortness of breath Gastrointestinal: No new onset incontinence, normal bowel movements reported Genitourinary: No new onset incontinence Musculoskeletal: Low back pain Psychiatric: Normal mood/affect Neurological: [Denies weakness in extremities], [denies balance issues] Objective:: Physical exam General: Alert and oriented x3, no acute distress, pleasant and cooperative, [on room air] Lungs: Respirations even and unlabored, symmetrical chest expansion Eyes: PERRL Musculoskeletal: Flexion and extension of lumbar spine somewhat guarded secondary to pain, deep tendon reflexes normal, strength in upper and lower extremities [5/5], [abnormal gait noted] Neurological: Speech clear, residential advisor equal, no gross sensory deficit Assessment:: Degenerative disc disease lumbar spine with lumbar radiculopathy symptoms Plan:: We will schedule the patient for a lumbar epidural steroid injection at L4-L5. He is not on any anticoagulation therapy. We will see him back in the injection reassess his symptoms. He has been instructed to contact clinic if he has any concerns before his next appointment. The patient and I specifically discussed risk factors for COVID19. These risks include, but are not limited to age greater than 60, heart or lung disease, diabetes, immunosuppression, and travel. We also discussed NSAIDs may worsen COVID19 infection or symptoms. Patient should not use NSAIDs to treat COVID19 signs or symptoms. Patient was also informed that any type of corticosteroid of any form (oral or injection) will decrease the patient's immune system response and may increase the likelihood of COVID19 [address] Horvath has reviewed this note and agrees with this plan of care. This note was dictated using voice recognition software and make contain errors or omissions. [facility] History I have reviewed the patient's past medical history: Yes Medical History: Reports:: Coronary Artery Disease, Diabetes Mellitus Type 2, Hyperlipidemia, Hypertension, Myocardial Infarction Denies:: Cancer, Diabetes Mellitus Type 1, Internal Pacemaker, MRSA, Seizures *Have you ever received a pneumonia vaccine?: Yes *Have you received a flu vaccine this season?: Yes Other Medical History: Reports: Arthritis, Hypothyroidism, Thyroid Disease. Denies: Blood Transfusion Reaction Laterality Cases: Bilateral: Arthroscopy Shoulder Other Surgeries: Yes: Angiogram, CABG, Cardiac Catheterization, Cardiac Surgery, Colonoscopy, Colon Resection, Coronary Stent, Hernia Repair, Other. No: Pacemaker Amputation: No Fractures: No - *Social History Smoking Status: Current some day smoker Tobacco Type: smokeless tobacco # Packs/Day (cigarettes): 0 Alcohol Intake: current Substance Use Type: denies use *Occupational Status:: other Housing: house Household Members: spouse *Travel in the last 8 weeks: None Family Hx:: Heart Attack
== END ==
LOC: SC.PAIN 08:59
PROVIDERS: PCP Emergency Medicine; Visit Provider Clinical Nurse Specialist Family Health
DX: M51.16 Intervertebral disc disorders with radiculopathy, lumbar region (principal)
CPT/HCPCS: 99212

== ENCOUNTER → 2020-07-02 11:23 | Day surgery (SDC) | payer MEDICARE, SELFPAY ==
[2020-07-02 11:46] VITALS: BP 141/87; PULSE 67; RESP 18; TEMP 36.4; O2SAT 98; BMI 68.2
[2020-07-02 12:27] VITALS: BP 125/85; PULSE 85; RESP 18
[2020-07-02 12:28] VITALS: BP 132/74; PULSE 85; RESP 18; O2SAT 98
--- NOTE | 2020-07-02 12:33 | HMH.PMPROC ---
- Procedure Date: 07/02/20 Time: 12:33 Anesthesiologist:: Jamal Horvath MD Complications:: None Pre-procedure Diagnosis:: Degenerative disc disease of lumbar spine with lumbar radiculopathy symptoms Post-procedure Diagnosis:: Same Indications for Procedure:: This patient is a pleasant 70-year-old white male who we are treating for low back pain with lumbar radiculopathy symptoms. He has increasing pain in his low back rating down his legs. He did get some benefit from his last lumbar epidural steroid injection. He presents for repeat lumbar pleural steroid injection under fluoroscopy today. Procedure Details:: Lumbar epidural steroid injection under fluoroscopy Informed consent was obtained and the risk and benefits of the procedure was explained to the patient. The patient was taken to the procedure room. The patient was placed prone on the procedure table. The patient was prepped and draped in sterile fashion. C-arm fluoroscopy was used to view the lumbar spine. Skin and subcutaneous tissues were anesthetized using lidocaine. I placed an 18-gauge epidural needle and advanced into the L4-L5 interspace using fluoroscopic guidance and [id number] to air. After confirmation of needle placement in the epidural space with dye I injected 2 mL of lidocaine 1.5% with Depo-Medrol 80 mg. Patient tolerated the procedure well with no complications. Plan and Disposition:: We will follow-up with him in 2 weeks. Will reevaluate his symptoms at that time.
== END ==
LOC: SC.PAINP 11:26
PROVIDERS: PCP Emergency Medicine; Visit Provider Anesthesiology
DX: M51.16 Intervertebral disc disorders with radiculopathy, lumbar region (principal); I25.10 Atherosclerotic heart disease of native coronary artery without angina pectoris; I10 Essential (primary) hypertension; E78.5 Hyperlipidemia, unspecified; J45.909 Unspecified asthma, uncomplicated
CPT/HCPCS: 62323; J1040; Q9966

== ENCOUNTER → 2020-07-22 11:22 | Outpatient (POV) | payer MEDICARE, SELFPAY ==
--- NOTE | 2020-07-22 11:39 | HMH.PAINSOAP ---
[facility] Pain Management SOAP Note Subjective:: Is a 70-year-old white male who presents today for follow-up. He has been treated for chronic low back pain with lumbar radiculopathy symptoms. Patient rates his pain a 3 out of 10 today. He recently had a lumbar epidural steroid injection. He has pain that is in his low back with radiation but down both legs. He reports he got about 80% relief with the injection and is continuing to get relief. He does continue with a home stretching program and ice and heat therapies. Overall, he says this injection was very beneficial for his pain. Review of Systems General: No recent weight changes, no fever, no sleep disturbances Respiratory: No cough, no shortness of air, no recurring pulmonary infections Cardiovascular/peripheral vascular: No chest pain, no palpitations, no edema, no shortness of breath Gastrointestinal: No new onset incontinence, normal bowel movements reported Genitourinary: No new onset incontinence Musculoskeletal: Intermittent low back pain, intermittent pain bilateral legs Psychiatric: Normal mood/affect Neurological: [Denies weakness in extremities], [denies balance issues] Objective:: Physical exam General: Alert and oriented x3, no acute distress, pleasant and cooperative, [on room air] Lungs: Respirations even and unlabored, symmetrical chest expansion Eyes: PERRL Musculoskeletal: Flexion and extension of lumbar spine somewhat guarded secondary to pain, deep tendon reflexes normal, strength in upper and lower extremities [5/5], [abnormal gait noted] Neurological: Speech clear, bowling alley manager equal, no gross sensory deficit Assessment:: Degenerative disc disease lumbar spine with lumbar radiculopathy symptoms Plan:: Overall, the patient did well with his lumbar epidural steroid injection. He did get up to 80% relief and is continuing to get relief with the injection. Patient is also managed with Percocet 10 mg 1 tablet p.o. 4 times daily. We will refill his medication. His Samuel #[id number] has been reviewed and is appropriate. Drug screen was performed today. Patient's morphine equivalent is 60. We will plan to see him back in the clinic in 3 months. He has been instructed to contact the clinic if he has any concerns for his next appointment. The patient and I specifically discussed risk factors for COVID19. These risks include, but are not limited to age greater than 60, heart or lung disease, diabetes, immunosuppression, and travel. We also discussed NSAIDs may worsen COVID19 infection or symptoms. Patient should not use NSAIDs to treat COVID19 signs or symptoms. Patient was also informed that any type of corticosteroid of any form (oral or injection) will decrease the patient's immune system response and may increase the likelihood of COVID19 infection [address] symptoms[address]. Horvath has reviewed this note and agrees with this plan of care. This note was dictated using voice recognition software and make contain errors or omissions. Patient has been prescribed a controlled substance after being counseled on the medication, medication safety, and possible side effects. SAMUEL report has been obtained and reviewed prior to prescription and found to be appropriate. Opioid contract was reviewed and signed by the patient, and that they have agreed to all of the terms set forth by our compliance program. [facility] History I have reviewed the patient's past medical history: Yes Medical History: Reports:: Coronary Artery Disease, Hyperlipidemia, Hypertension, Myocardial Infarction Denies:: Cancer, Diabetes Mellitus Type 1, Diabetes Mellitus Type 2, Internal Pacemaker, MRSA, Seizures *Have you ever received a pneumonia vaccine?: No *Have you received a flu vaccine this season?: No Other Medical History: Reports: Arthritis, Hypothyroidism, Thyroid Disease. Denies: Blood Transfusion Reaction Laterality Cases: Bilateral: Arthroscopy Shoulder Other Surgeries: Yes: Angiogram, CABG, Cardi
[2020-07-22 12:29] VITALS: BP 133/75; PULSE 79; RESP 18; O2SAT 98; BMI 31.1
== END ==
LOC: SC.PAIN 11:22
PROVIDERS: PCP Emergency Medicine; Visit Provider Clinical Nurse Specialist Family Health
DX: M51.16 Intervertebral disc disorders with radiculopathy, lumbar region (principal)
CPT/HCPCS: 99212

== ENCOUNTER → 2020-09-20 09:04 | Outpatient (POV) | payer MEDICARE, SELFPAY ==
[2020-09-20 09:15] VITALS: BP 133/75; PULSE 77; RESP 18; TEMP 36.8; O2SAT 98; BMI 31.1
--- NOTE | 2020-09-20 09:25 | P.CONS_ITS ---
[facility] Pain Management SOAP Note Subjective:: Patient is a pleasant 70-year-old white male who presents today for follow-up. Patient is being treated for low back pain secondary to degenerative disc disease and lumbar radiculopathy. Patient currently rates his pain a 7 out of 10 mostly in his low back and down his legs. Patient reports he gets over 80% relief with his epidural injections. He would like to move forward with an epidural injection in the new year. Patient's not on any anticoagulation therapy. He does continue a home stretching program and ice and heat therapies. Patient is also on Percocet 10 mg 1 p.o. 4 times daily. He denies any side effects to his medication overall he does well with that. [facility] #[id number] reviewed and appropriate. Morphine equivalent is 60 ROS General: no recent weight change, no fever, no sleep disturbances Respiratory: no cough, no shortness of air, no recurring pulmonary infections Cardiovascular/Peripheral Vascular: No chest pain, No palpitations, no edema, no shortness of breath. Gastrointestinal: no new onset incontinence, normal bowel movements reported Genitourinary: no new onset incontinence Musculoskeletal: Back pain, leg pain Psychiatric: normal mood/ affect Neurological: [denies new onset weakness in extremities], [denies new onset balance issues] Objective:: Physical Exam General: Alert and oriented x3, no acute distress, pleasant and cooperative, [on room air] Lungs: Resps E/U, Symmetrical chest expansion, Eyes: PERRL Musculoskeletal: Flexion and extension of lumbar spine somewhat guarded secondary to pain, deep tendon reflexes normal, strength in upper and lower extremities [5/5], [abnormal gait noted] Neurological: speech clear, program manager equal, no gross sensory deficits Assessment:: Degenerative disc disease lumbar spine lumbar radiculopathy Plan:: Patient does not need refills on his Percocet at this time. Patient will be continued on this medication as needed. We will also set him up for a L4-L5 lumbar epidural steroid injection. He has been instructed to call the office if he has any issues prior to his next appointment. Dr. Horvath has reviewed this note and agrees with this plan of care. This note was dictated using voice recognition software and may contain errors or omissions [facility] History I have reviewed the patient's past medical history: Yes Medical History: Reports:: Coronary Artery Disease, Hyperlipidemia, Hypertension, Myocardial Infarction Denies:: Cancer, Diabetes Mellitus Type 1, Diabetes Mellitus Type 2, Internal Pacemaker, MRSA, Seizures *Have you ever received a pneumonia vaccine?: Yes *Have you received a flu vaccine this season?: Yes Other Medical History: Reports: Arthritis, Hypothyroidism, Thyroid Disease. Denies: Blood Transfusion Reaction Laterality Cases: Bilateral: Arthroscopy Shoulder Other Surgeries: Yes: Angiogram, CABG, Cardiac Catheterization, Cardiac Surgery, Colonoscopy, Colon Resection, Coronary Stent, Hernia Repair, Other. No: Pacemaker Amputation: No Fractures: No - *Social History Smoking Status: Current some day smoker Tobacco Type: smokeless tobacco # Packs/Day (cigarettes): 0 Alcohol Intake: never Substance Use Type: denies use *Occupational Status:: other Housing: house Household Members: spouse *Travel in the last 8 weeks: None Family Hx:: Heart Attack
== END ==
LOC: SC.PAIN 09:05
PROVIDERS: PCP Emergency Medicine; Visit Provider Clinical Nurse Specialist Family Health
DX: M51.16 Intervertebral disc disorders with radiculopathy, lumbar region (principal)
CPT/HCPCS: 99212

== ENCOUNTER 2020-10-01 10:56 | Day surgery (SDC) | payer MEDICARE, SELFPAY ==
[2020-10-01 12:37] VITALS: BP 154/68; PULSE 80; RESP 18; TEMP 37; O2SAT 99; BMI 30.9
[2020-10-01 13:04] VITALS: BP 151/74; PULSE 85; RESP 18; O2SAT 98
[2020-10-01 13:06] VITALS: BP 142/74; PULSE 85; RESP 18; O2SAT 98
--- NOTE | 2020-10-01 13:09 | P.PCN_ITS ---
- Procedure Date: 10/01/20 Time: 13:09 Anesthesiologist:: Jamal Horvath MD Complications:: None Pre-procedure Diagnosis:: Degenerative disc disease of lumbar spine with lumbar radiculopathy symptoms Post-procedure Diagnosis:: Same Indications for Procedure:: This patient is a pleasant 70-year-old white male who we are treating for low back pain with lumbar radiculopathy symptoms. He has done well in the past with epidural steroid injections. He was 80% better after his last injection. His pain started to return. We will do repeat lumbar epidural steroid injection under fluoroscopy today. Procedure Details:: Lumbar epidural steroid injection under fluoroscopy Informed consent was obtained and the risk and benefits of the procedure was explained to the patient. The patient was taken to the procedure room. The patient was placed prone on the procedure table. The patient was prepped and draped in sterile fashion. C-arm fluoroscopy was used to view the lumbar spine. Skin and subcutaneous tissues were anesthetized using lidocaine. I placed an 18-gauge epidural needle and advanced into the L4-L5 interspace using fluoroscopic guidance and [id number] to air. After confirmation of needle placement in the epidural space with dye I injected 2 mL of lidocaine 1.5% with Depo-Medrol 80 mg. Patient tolerated the procedure well with no co mplications. Plan and Disposition:: We will follow-up with him in 2 weeks. Will reevaluate symptoms at that time.
[2020-10-01 13:23] VITALS: BP 147/68; PULSE 80; RESP 20; O2SAT 98
== END 2020-10-01 13:23 | disposition home or self-care (01) ==
LOC: SC.PAINP 10:57
PROVIDERS: PCP Emergency Medicine; Visit Provider Anesthesiology
DX: M51.16 Intervertebral disc disorders with radiculopathy, lumbar region (principal); I10 Essential (primary) hypertension; E78.5 Hyperlipidemia, unspecified; Z88.5 Allergy status to narcotic agent; I25.10 Atherosclerotic heart disease of native coronary artery without angina pectoris; J45.909 Unspecified asthma, uncomplicated; K21.9 Gastro-esophageal reflux disease without esophagitis; Z95.818 Presence of other cardiac implants and grafts; E13.8 Other specified diabetes mellitus with unspecified complications; Z79.899 Other long term (current) drug therapy; Z79.84 Long term (current) use of oral hypoglycemic drugs; Z72.0 Tobacco use; Z79.82 Long term (current) use of aspirin
CPT/HCPCS: 62323; J1040; Q9966

== ENCOUNTER → 2020-10-28 09:36 | Outpatient (POV) | payer MEDICARE, SELFPAY ==
[2020-10-28 09:45] VITALS: BP 133/74; PULSE 85; RESP 18; TEMP 36.8; O2SAT 98; BMI 30.9
--- NOTE | 2020-10-28 12:54 | HMH.PAINSOAP ---
[facility] Pain Management SOAP Note Subjective:: Patient is pleasant 70-year-old white male who presents today for follow-up after lumbar epidural steroid injection. Patient is doing extremely well getting 80% relief of his pain with his injection. He rates his pain a 5 out of 10. He is also medically managed with Percocet 10 mg 1 p.o. 4 times daily. Patient denies any side effects to his medication. Samuel #[id number]. Patient current morphine equivalent is 60. Patient is doing well with this. Patient would like to follow-up in several months. Patient is good to call us if he has any issues. Patient does very good with epidural injections both cervical and lumbar. Patient gets up to 3 months relief with this. ROS General: no recent weight change, no fever, no sleep disturbances Respiratory: no cough, no shortness of air, no recurring pulmonary infections Cardiovascular/Peripheral Vascular: No chest pain, No palpitations, no edema, no shortness of breath. Gastrointestinal: no new onset incontinence, normal bowel movements reported Genitourinary: no new onset incontinence Musculoskeletal: Back pain, leg pain, neck pain at times Psychiatric: normal mood/ affect Neurological: [denies new onset weakness in extremities], [denies new onset balance issues] Objective:: Physical Exam General: Alert and oriented x3, no acute distress, pleasant and cooperative, Lungs: Resps E/U, Symmetrical chest expansion, Eyes: PERRL Musculoskeletal: Flexion and extension of cervical and lumbar spine somewhat guarded secondary to pain, deep tendon reflexes normal, strength in upper and lower extremities [5/5], [abnormal gait noted] Neurological: speech clear, financial reporting manager equal, no gross sensory deficits Assessment:: Degenerative disc disease cervical spine cervical radiculopathy degenerative disc disease lumbar spine lumbar radiculopathy Plan:: Patient is not doing his medication today what we will continue with his Percocet 10 mg 1 p.o. 4 times daily. We will see him back in 3 months reassess his symptoms at that time he has been instructed to call the office if he has any issues prior to his next appointment. Dr. Horvath has reviewed this note and agrees with this plan of care. This note was dictated using voice recognition software and may contain errors or omissions Patient has been prescribed a controlled substance after being counseled on the medication, medication safety, and possible side effects. SAMUEL report has been obtained and reviewed prior to prescription and found to be appropriate. Opioid contract was reviewed and signed by the patient, and that they have agreed to all of the terms set forth by our compliance program. [facility] History I have reviewed the patient's past medical history: Yes Medical History: Reports:: Coronary Artery Disease, Diabetes Mellitus Type 2, Hyperlipidemia, Hypertension, Myocardial Infarction Denies:: Cancer, Diabetes Mellitus Type 1, Internal Pacemaker, MRSA, Seizures *Have you ever received a pneumonia vaccine?: Yes *Have you received a flu vaccine this season?: Yes Other Medical History: Reports: Arthritis, Hypothyroidism, Thyroid Disease. Denies: Blood Transfusion Reaction Laterality Cases: Bilateral: Arthroscopy Shoulder Other Surgeries: Yes: Angiogram, CABG, Cardiac Catheterization, Cardiac Surgery, Colonoscopy, Colon Resection, Coronary Stent, Hernia Repair, Other. No: Pacemaker Amputation: No Fractures: No - *Social History Smoking Status: Current every day smoker Tobacco Type: cigarettes # Packs/Day (cigarettes): 2 Alcohol Intake: never Substance Use Type: denies use *Occupational Status:: other Housing: house Household Members: spouse *Travel in the last 8 weeks: None Family Hx:: Heart Attack
== END ==
LOC: SC.PAIN 09:37
PROVIDERS: PCP Emergency Medicine; Visit Provider Clinical Nurse Specialist Family Health
DX: M50.10 Cervical disc disorder with radiculopathy, unspecified cervical region (principal); M51.16 Intervertebral disc disorders with radiculopathy, lumbar region
CPT/HCPCS: 99212; G0463

== ENCOUNTER → 2020-11-24 13:57 | Outpatient (CLI) | payer MEDICARE, SELFPAY ==
[2020-11-24 14:17] LABS: Basophils % 0.4 % (0.1-2.0); Eosinophils # 0.4 K/mm3 (0.0-0.4); Eosinophils % 5.4 % (0.1-12.0); Hematocrit 45.1 % (42.0-52.0); Hemoglobin 14.2 g/dL (14.1-18.0); Lymphocytes # 2.2 K/mm3 (0.7-4.5); Lymphocytes % 27.8 % (10-50); Mean Corpuscular HGB Conc 31.6 g/dL (31.8-35.4); Mean Corpuscular Volume 91.9 fl (80-94); Mean Platelet Volume 9.5 fl (7.4-10.4); Monocytes # 0.5 K/mm3 (0.1-1.0); Monocytes % 6.1 % (1.7-9.3); Neutrophils # 4.9 K/mm3 (1.8-7.8); Neutrophils % 60.4 % (37.0-80.0); Platelet Count 228 K/mm3 (142-424); Red Blood Count 4.91 M/mm3 (4.60-6.20); Red Cell Distribution Width 13.8 % (11.5-17.5); White Blood Count 8.1 K/mm3 (4.8-10.8)
[2020-11-24 14:38] LABS: Alanine Aminotransferase 21 U/L (12-78); Albumin Level 4.3 g/dl (3.5-5.0); Albumin/Globulin Ratio 1.4 (1.1-1.8); Alkaline Phosphatase 66 U/L (38-126); Anion Gap 15.5 mEq/L (5-15); Aspartate Amino Transferase 28 U/L (17-59); Bilirubin,Total 0.7 mg/dl (0.2-1.3); Blood Urea Nitrogen 9 mg/dl (9-20); Carbon Dioxide 23 mmol/L (22.0-30.0); Chloride 106 mmol/L (98-107); Cholesterol 128 mg/dl (140-200); Estimated Glomerular Filt Rate 96 ml/min (>60); GFR (African American) 116 ML/MIN (>60); Globulin 3.1 g/dL (1.3-3.2); Glucose 189 mg/dl (74-100); HDL Cholesterol 42 mg/dl (40-60); Potassium 4.5 mmoL/L (3.5-5.1); Sodium 140 mmol/L (136-145); Total Protein,Serum 7.4 g/dl (6.3-8.2); Triglycerides 126 mg/dl (30-150); VLDL Cholesterol 25 mg/dL (0-40)
[2020-11-24 14:51] LABS: Direct LDL Cholesterol 70.33 mg/dL (100-129)
[2020-11-24 14:53] LABS: Free T4 (Free Thyroxine) 1.41 ng/dl (0.78-2.19)
[2020-11-24 15:09] LABS: Prostate Specific Ag Screen 1.7 ng/ml (0.0-4.0); Thyroid Stimulating Hormone 2.13 uIU/mL (0.465-4.68)
[2020-11-24 16:14] LABS: Hemoglobin A1C 7.1 % (4.0-6.0)
== END ==
PROVIDERS: Visit Provider Emergency Medicine
DX: E66.9 Obesity, unspecified (principal); Z00.00 Encounter for general adult medical examination without abnormal findings; E78.5 Hyperlipidemia, unspecified; E10.9 Type 1 diabetes mellitus without complications; J20.9 Acute bronchitis, unspecified; Z12.5 Encounter for screening for malignant neoplasm of prostate; Z79.84 Long term (current) use of oral hypoglycemic drugs
CPT/HCPCS: 80053; 80061; 83036; 84439; 84443; 85025; G0103

== ENCOUNTER → 2020-12-23 08:47 | Outpatient (POV) | payer MEDICARE, SELFPAY ==
--- NOTE | 2020-12-23 09:50 | HMH.PAINSOAP ---
[facility] Pain Management SOAP Note Subjective:: Patient is a pleasant 70-year-old white male who presents today for follow-up. Patient had a lumbar epidural steroid injection which did well for him however he is having any new pain. It is over his right SI. He has a positive Mavis test Patricia's test SI joint compression test and distraction test on the right side. He rates his pain today a 9 out of 10. Patient I discussed right SI joint injection he would like to move forward with this. He does have Percocet 10 mg 1 p.o. 4 times daily for pain however it is not helping with this current pain. Patient does not need refills today. ROS General: no recent weight change, no fever, no sleep disturbances Respiratory: no cough, no shortness of air, no recurring pulmonary infections Cardiovascular/Peripheral Vascular: No chest pain, No palpitations, no edema, no shortness of breath. Gastrointestinal: no new onset incontinence, normal bowel movements reported Genitourinary: no new onset incontinence Musculoskeletal: Back pain, SI joint pain Psychiatric: normal mood/ affect Neurological: [denies new onset weakness in extremities], [denies new onset balance issues] Objective:: Physical Exam General: Alert and oriented x3, no acute distress, pleasant and cooperative, [on room air] Lungs: Resps E/U, Symmetrical chest expansion, Eyes: PERRL Musculoskeletal: Flexion and extension of lumbar spine somewhat guarded secondary to pain, deep tendon reflexes normal, strength in upper and lower extremities [5/5], [abnormal gait noted] Neurological: speech clear, gasket inspector equal, no gross sensory deficits Assessment:: Degenerative disc disease lumbar spine lumbar radiculopathy, sacroiliitis, back pain Plan:: Patient is to continue his medication. We will set him up for right SI joint injection. I will follow-up with him after this reassess his symptoms at that time he has been instructed to call the office if he has any issues prior to his next appointment. Dr. Horvath has reviewed this note and agrees with this plan of care. This note was dictated using voice recognition software and may contain errors or omissions [facility] History I have reviewed the patient's past medical history: Yes Medical History: Reports:: Coronary Artery Disease, Diabetes Mellitus Type 2, Hyperlipidemia, Hypertension, Myocardial Infarction Denies:: Cancer, Diabetes Mellitus Type 1, Internal Pacemaker, MRSA, Seizures *Have you ever received a pneumonia vaccine?: Yes *Have you received a flu vaccine this season?: Yes Other Medical History: Reports: Arthritis, Hypothyroidism, Thyroid Disease. Denies: Blood Transfusion Reaction Laterality Cases: Bilateral: Arthroscopy Shoulder Other Surgeries: Yes: Angiogram, CABG, Cardiac Catheterization, Cardiac Surgery, Colonoscopy, Colon Resection, Coronary Stent, Hernia Repair, Other. No: Pacemaker Amputation: No Fractures: No - *Social History Smoking Status: Current every day smoker Tobacco Type: cigarettes # Packs/Day (cigarettes): 2 Alcohol Intake: never Substance Use Type: denies use *Occupational Status:: other Housing: house Household Members: spouse *Travel in the last 8 weeks: None Family Hx:: Heart Attack
[2020-12-23 12:34] VITALS: BP 135/88; PULSE 68; RESP 18; O2SAT 99; BMI 31.2
== END ==
LOC: SC.PAIN 08:48
PROVIDERS: PCP Emergency Medicine; Visit Provider Clinical Nurse Specialist Family Health
DX: M51.16 Intervertebral disc disorders with radiculopathy, lumbar region (principal); M46.1 Sacroiliitis, not elsewhere classified
CPT/HCPCS: 99212; G0463

== ENCOUNTER 2020-12-31 08:52 | Day surgery (SDC) | payer MEDICARE, SELFPAY ==
[2020-12-31 09:03] VITALS: BP 156/72; PULSE 67; RESP 18; TEMP 36.7; O2SAT 98; BMI 31.1
[2020-12-31 09:28] VITALS: BP 132/85; PULSE 85
[2020-12-31 09:29] VITALS: BP 135/88; PULSE 89; RESP 18; O2SAT 98
--- NOTE | 2020-12-31 09:34 | HMH.PMPROC ---
- Procedure Date: 12/31/20 Time: 09:34 Anesthesiologist:: Jamal Horvath MD Complications:: None Pre-procedure Diagnosis:: Sacroiliitis Post-procedure Diagnosis:: Same Indications for Procedure:: Patient is a pleasant 70-year-old white male who we are treating for right-sided hip pain. He did very well from his last lumbar epidural steroid injection. He is now having new pain over the right hip. He is tender over the right SI joint. He has a positive Patricia's test on the right side. He has a positive SI joint compression test on the right side. He has a positive distraction test on the right side. He has a positive Mavis test on the right side. We will do a right SI joint injection under fluoroscopy today to help with his pain symptoms. Procedure Details:: Right SI joint injection under fluoroscopy Informed consent was obtained and the risks and benefits of the procedure was going to the patient. Patient was taken to the procedure room. Patient was placed prone on the procedure table. The right hip was prepped using ChloraPrep. The skin and subcutaneous tissues were anesthetized using lidocaine. I placed a 22-gauge spinal needle into the inferior aspect of the right SI joint. Needle placement was confirmed with dye. After this we injected 5 mL bupivacaine 0.25% and Depo-Medrol 40 mg into the right SI joint. The patient tolerated the procedure well with no complication. Plan and Disposition:: We will follow-up with him in 2 weeks. Will reevaluate his symptoms at that time.
[2020-12-31 09:39] VITALS: BP 160/97; PULSE 70; RESP 18; O2SAT 98
== END 2020-12-31 09:40 | disposition home or self-care (01) ==
LOC: SC.PAINP 08:53
PROVIDERS: PCP Emergency Medicine; Visit Provider Anesthesiology
DX: M46.1 Sacroiliitis, not elsewhere classified (principal); I25.2 Old myocardial infarction; I25.10 Atherosclerotic heart disease of native coronary artery without angina pectoris; I10 Essential (primary) hypertension; E78.5 Hyperlipidemia, unspecified; Z95.5 Presence of coronary angioplasty implant and graft; M19.90 Unspecified osteoarthritis, unspecified site; Z88.6 Allergy status to analgesic agent
CPT/HCPCS: 27096; G0260; J1040; Q9966

== ENCOUNTER → 2021-01-24 08:48 | Outpatient (POV) | payer MEDICARE, SELFPAY ==
--- NOTE | 2021-01-24 09:00 | P.CONS_ITS ---
[facility] Pain Management SOAP Note Subjective:: Patient is a pleasant 70-year-old white male who presents today for follow-up after right SI joint injection. Patient got significant relief rating his overall pain today a 3 out of 10. Patient is doing extremely well. Patient is medically managed with Percocet 10 mg 1 p.o. 4 times daily with a morphine equivalent of 60. [facility] #[id number] reviewed and appropriate. Patient's drug screens have been appropriate. Patient is not in need of a refill today. We will continue his current medication regimen given the efficacy of it. ROS General: no recent weight change, no fever, no sleep disturbances Respiratory: no cough, no shortness of air, no recurring pulmonary infections Cardiovascular/Peripheral Vascular: No chest pain, No palpitations, no edema, no shortness of breath. Gastrointestinal: no new onset incontinence, normal bowel movements reported Genitourinary: no new onset incontinence Musculoskeletal: Back pain, neck pain Psychiatric: normal mood/ affect Neurological: [denies new onset weakness in extremities], [denies new onset balance issues] Objective:: Physical Exam General: Alert and oriented x3, no acute distress, pleasant and cooperative, Lungs: Resps E/U, Symmetrical chest expansion, Eyes: PERRL Musculoskeletal: Flexion and extension of lumbar spine somewhat guarded secondary to pain, deep tendon reflexes normal, strength in upper and lower extremities [5/5], slightly antalgic gait noted Neurological: speech clear, edgerman equal, no gross sensory deficits Assessment:: Degenerative disc disease lumbar spine lumbar radiculopathy degenerative disc disease cervical spine cervical radiculopathy Plan:: We will see the patient back in 2 months reassess his symptoms at that time we will continue his current medication regimen. Patient is not due refills today. He has been instructed to call the office if he has any issues prior to his next appointment. Dr. Horvath has reviewed this note and agrees with this plan of care. This note was dictated using voice recognition software and may contain errors or omissions [facility] History I have reviewed the patient's past medical history: Yes Medical History: Reports:: Coronary Artery Disease, Diabetes Mellitus Type 2, Hyperlipidemia, Hypertension, Myocardial Infarction Denies:: Cancer, Diabetes Mellitus Type 1, Internal Pacemaker, MRSA, Seizures *Have you ever received a pneumonia vaccine?: Yes *Have you received a flu vaccine this season?: No Other Medical History: Reports: Arthritis, Hypothyroidism, Thyroid Disease. Denies: Blood Transfusion Reaction Laterality Cases: Bilateral: Arthroscopy Shoulder Other Surgeries: Yes: Angiogram, CABG, Cancer Surgery, Cardiac Catheterization, Cardiac Surgery, Colonoscopy, Colon Resection, Coronary Stent, Hernia Repair, Other. No: Pacemaker Amputation: No Fractures: No - *Social History Smoking Status: Current every day smoker Tobacco Type: cigarettes # Packs/Day (cigarettes): 2 Alcohol Intake: never Substance Use Type: denies use *Occupational Status:: retired Housing: house Household Members: spouse *Travel in the last 8 weeks: None Family Hx:: Heart Attack
[2021-01-24 09:06] VITALS: BP 159/72; PULSE 69; RESP 18; O2SAT 98; BMI 30.8
== END ==
LOC: SC.PAIN 08:49
PROVIDERS: PCP Emergency Medicine; Visit Provider Clinical Nurse Specialist Family Health
DX: M51.16 Intervertebral disc disorders with radiculopathy, lumbar region (principal); M50.10 Cervical disc disorder with radiculopathy, unspecified cervical region
CPT/HCPCS: 99212; G0463

== ENCOUNTER 2021-03-15 11:26 | Emergency (ER) | payer MEDICARE, SELFPAY ==
--- NOTE | 2021-03-15 11:24 | ECG_ITS ---
APPROVED REPORT Exam: Resting ECG HR:66 bpm ECG Measurements Heart Rate 66 AXES IN 152 P 46 QRSd 142 QRS -34 QT 452 T 46 QTc 473 Conclusion Normal sinus rhythm Left axis deviation Right bundle branch block Abnormal ECG Electronically signed by : Randal Ochoa, 03/16/2021 17:39:36
[2021-03-15 11:27] VITALS: BP 139/79; PULSE 65; RESP 16; TEMP 36.6; O2SAT 99; BMI 30.9
--- NOTE | 2021-03-15 11:28 | HMH.EDGENADL ---
ED Disposition Clinical Impression: Chest pain Qualifiers: Chest pain type: unspecified Qualified Code(s): R07.9 - Chest pain, unspecified Disposition: Home, Self-Care Condition on Discharge: Good Instructions: DI for Chest Pain Additional Instructions: Call Dr. Bolaños's office and schedule follow-up appointment and stress test for later this week. Increase your isosorbide dose as instructed by Freddie. Additional instructions for CHEST PAIN: Return immediately if worsening chest pain, vomiting, shortness of breath, fever, coughing of blood. Referrals: Curry Stahl MD [Primary Care Provider] - Amadeo Bolaños MD [Staff Physician] - - Critical Care Critical Care Time: No Attestation: On , the high probability of a clinically significant, sudden or life threatening deterioration of the following system(s) required my full and direct attention, intervention and personal management. The time I documented below is in addition to time spent performing reported procedures but includes the following listed in this critical care notation. Medical Decision Making - Asim Inquiry Pt receiving controlled substance: No Vital Signs: 03/15/21 11:27 03/15/21 12:00 03/15/21 12:30 Temperature 97.9 F Temperature Source Oral Pulse Rate 67 65 Pulse Rate [Apical] 65 Respiratory Rate 16 16 18 Blood Pressure 130/67 137/70 Blood Pressure [Right Arm] 139/79 Blood Pressure Mean 89 85 Blood Pressure Mean [Right Arm] 99 Blood Pressure Source [Right Arm] Automatic Cuff Blood Pressure Position [Right Arm] Sitting 02 Sat by Pulse Oximetry 99 98 97 Oxygen Delivery Method Room Air 03/15/21 13:00 03/15/21 14:00 Temperature Temperature Source Pulse Rate 66 60 Pulse Rate [Apical] Respiratory Rate 16 19 Blood Pressure 121/72 135/72 Blood Pressure [Right Arm] Blood Pressure Mean 86 85 Blood Pressure Mean [Right Arm] Blood Pressure Source [Right Arm] Blood Pressure Position [Right Arm] 02 Sat by Pulse Oximetry 97 97 Oxygen Delivery Method - Lab Data Lab Results 03/15/21 11:31: WBC 7.4, RBC 4.70, Hgb 14.0 L, Hct 41.6 L, MCV 88.6, MCH 29.7, MCHC 33.5, RDW 14.1, Plt Count 196, MPV 7.7, Neut % (Auto) 56.1, Lymph % (Auto) 33.2, Ray % (Auto) 5.4, Eos % (Auto) 4.7, Baso % (Auto) 0.7, Neut # (Auto) 4.1, Lymph # (Auto) 2.4, Ray # (Auto) 0.4, Eos # (Auto) 0.4, Baso # (Auto) 0.1 03/15/21 11:31: Sodium 140, Potassium 4.3, Chloride 106, Carbon Dioxide 22, Anion Gap 16.3 H, BUN 9, Creatinine 0.80, Estimated Creat Clear 99, Estimated GFR 96, Est GFR ( Amer) 116, Glucose 177 H, Calcium 8.9, Troponin I < 0.01 03/15/21 11:31: Total Bilirubin 0.7, Direct Bilirubin 0.3, Conjugated Bilirubin 0.0, Indirect Bilirubin 0.4, Unconjugated Bilirubin 0.4, AST 29, ALT 23, Alkaline Phosphatase 62, Total Protein 7.2, Albumin 4.2, Triglycerides 123, Cholesterol 115 L, LDL Cholesterol Direct 59.30 L, VLDL Cholesterol 25, HDL Cholesterol 34 L, Cholesterol/HDL Ratio 3.4 03/15/21 13:05: SARS-CoV-2 (PCR) Not detected, Influenza A Untype (PCR) Not detected, Influenza Type B (PCR) Not detected 03/15/21 14:48: Troponin I < 0.01 Result diagrams: 03/15/21 11:31 03/15/21 11:31 Orders (Tests/Meds): ED MEDICATIONS Discontinued Medications Generic Name Dose Route Start Last Admin Trade Name Freq PRN Reason Stop Dose Admin Aspirin 324 mg 03/15/21 11:37 03/15/21 11:53 Aspirin 81mg Chewable Tablet PO 03/15/21 11:38 324 mg ONCE ONE Administration ORDERS Category Date Time Status Troponin I Q3H Lab 03/15/21 17:45 Ordered - Radiology Data #1 Image(s): Chest Image Reviewed: Yes I have reviewed radiologist's interpretation PROCEDURE: XR CHEST PORTABLE CLINICAL HISTORY: chest pain COMPARISON: CR CXR1 CHEST-PORTABLE from 10/21/2012 CR CXR CHEST(2 VIEWS-NOT PORTABLE) from 11/04/[address] [facility] [address] CHEST W/O CONTRAST from 11/13/2016 FINDINGS: Prio
[2021-03-15 11:35] VITALS: BMI 30.9
--- NOTE | 2021-03-15 11:37 | XR_ITS ---
PROCEDURE: XR CHEST PORTABLE CLINICAL HISTORY: chest pain COMPARISON: CR CXR1 CHEST-PORTABLE from 10/21/2012 CR CXR CHEST(2 VIEWS-NOT PORTABLE) from 11/04/[address] [facility] [address] CHEST W/O CONTRAST from 11/13/2016 FINDINGS: Prior CABG. Normal heart size. The lungs are clear without infiltrates, suspicious nodules, or pleural effusions. No acute bony abnormalities. IMPRESSION: No acute findings. Dictated by: Zach Villanueva MD 03/15/2021 12:02 Zach Villanueva MD in [facility] 03/15/2021 12:02
[2021-03-15 11:43] LABS: Basophils # 0.1 K/mm3 (0-0.2); Basophils % 0.7 % (0.1-2.0); Eosinophils # 0.4 K/mm3 (0.0-0.4); Eosinophils % 4.7 % (0.1-12.0); Hematocrit 41.6 % (42.0-52.0); Lymphocytes # 2.4 K/mm3 (0.7-4.5); Lymphocytes % 33.2 % (10-50); Mean Corpuscular HGB Conc 33.5 g/dL (31.8-35.4); Mean Corpuscular Hemoglobin 29.7 pg (27.0-31.2); Mean Corpuscular Volume 88.6 fl (80-94); Mean Platelet Volume 7.7 fl (7.4-10.4); Monocytes # 0.4 K/mm3 (0.1-1.0); Monocytes % 5.4 % (1.7-9.3); Neutrophils # 4.1 K/mm3 (1.8-7.8); Neutrophils % 56.1 % (37.0-80.0); Platelet Count 196 K/mm3 (142-424); Red Cell Distribution Width 14.1 % (11.5-17.5); White Blood Count 7.4 K/mm3 (4.8-10.8)
[2021-03-15 11:45] LABS: Chloride 106 mmol/L (98-107); Potassium 4.3 mmoL/L (3.5-5.1); Sodium 140 mmol/L (136-145)
[2021-03-15 11:48] LABS: Anion Gap 16.3 mEq/L (5-15); Blood Urea Nitrogen 9 mg/dl (9-20); Calcium 8.9 mg/dl (8.4-10.2); Carbon Dioxide 22 mmol/L (22.0-30.0); Creatinine Clearance Estimated 99 mL/min (50-200); Estimated Glomerular Filt Rate 96 ml/min (>60); GFR (African American) 116 ML/MIN (>60); Glucose 177 mg/dl (74-100)
[2021-03-15 12:00] VITALS: BP 130/67; PULSE 67; RESP 16; O2SAT 98
[2021-03-15 12:30] VITALS: BP 137/70; PULSE 65; RESP 18; O2SAT 97
[2021-03-15 12:32] LABS: Troponin I < 0.01 ng/ml (0.00-0.034)
--- NOTE | 2021-03-15 12:44 | PC.NURSE ---
Dr Paredes paged for transfer
--- NOTE | 2021-03-15 12:52 | PC.NURSE ---
Dr Bright returned call for Dr Paredes.
[2021-03-15 13:00] VITALS: BP 121/72; PULSE 66; RESP 16; O2SAT 97
[2021-03-15 13:12] LABS: Coronavirus 19, PCR Not Detected (NotDetected); Influenza A, PCR Not Detected (NotDetected); Influenza B, PCR Not Detected (NotDetected)
--- NOTE | 2021-03-15 13:37 | PC.NURSE ---
pt requested to speak with SABINE MERCADO pt asked SABINE MERCADO if he could just see since hes here . Pt states he thinks it would be easier for his family instead of going to [facility]. SABINE MERCADO states we will notify cardiology staff here of consult on pt.
--- NOTE | 2021-03-15 13:44 | PC.NURSE ---
spoke with ELISSA Torres at this time of consult of pt
[2021-03-15 14:00] VITALS: BP 135/72; PULSE 60; RESP 19; O2SAT 97
--- NOTE | 2021-03-15 14:24 | PC.NURSE ---
ALIDA Alcocer BS
--- NOTE | 2021-03-15 14:37 | PC.NURSE ---
office pt tomorrow @2:30
--- NOTE | 2021-03-15 14:37 | PC.NURSE ---
LAB COMING FOR REPEAT TROP
--- NOTE | 2021-03-15 14:38 | CA_ITS ---
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: Brynn Holly RVT Ht: 5 ft 11 in Wt: 222lbs BSA: 2.20 BP: 135/72 mmHg Indications: CP,HTN,HLD,CAD,CABG,DM 2D Dimensions LVOT 2.41 cm (M/F) 1.5-2.5 LA Volume 35.90 mL LA Volume Index 16.31 mL/m2 (M/F) 16-34 M-Mode Dimensions RVDd 3.80 cm (0.9-2.6) LA Diam 4.52 cm (1.9-4.0) LVDd 4.24 cm (3.5-5.7) Ao Diam 3.51 cm (2.0-3.7) LVDs 2.65 cm (3.5-5.7) IVSd 1.29 cm (0.6-1.1) PWd 1.37 cm (0.6-1.1) EF (Teich) 67.90% FS 37.50% EDV (Teich) 80.40 mL ESV (Teich) 25.80 mL LV Diastology E Decel Time 317.00 (160-240 msec) E/A Ratio 0.8 MED E' 4.70 (< 7 cm/sec) E'/MED E' Ratio 17.91 (>14) LAT E' 14.60 (<10 cm/sec) E/LAT E' Ratio 5.77 (>14) Aortic Valve LVOT Max 125.00 (70-110 cm/s) LVOT VTI 28.10 cm AoV Peak Amado. 225.00 (50-130 cm/s) AO Peak GR. 20.30 mmHg AO Mean GR. 10.40 (<5 mmHg) AO VTI 45.67 (18-25 cm) ELIAZAR (VTI) 2.81 (2.5-4.5 cm2) Mitral Valve MV E Max Amado. 84.00 (40-130 cm/s) MV A Velocity 104.00 (40-130 cm/s) E/A Ratio 0.81 MV Decel. Time 317.00 (160-240 ms) MV PHT 93.00 ms Pulmonary Valve PV Peak Velocity 95.00 (50-150 cm/s) Tricuspid Valve TR P. Velocity 127.00 cm/s RAP Estimate 10.00 mmHg RVSP 16.40 mmHg Left Ventricle Left atrium is mildly enlarged, left ventricle is normal size, mild concentric left ventricular hypertrophy, visually estimated ejection fraction 55% with no regional wall motion abnormality, grade 1 diastolic dysfunction seen with tissue Doppler evidence of raise left atrial pressure. Right Ventricle Right atrium and right ventricle mildly enlarged with normal contractility. Aortic Valve Aortic valve is thickened and calcified with mean gradient across valve of 10 mmHg represents mild aortic stenosis, there is no aortic insufficiency. Mitral Valve Mitral valve leaflets are minimally thickened, there is mild mitral regurgitation. Tricuspid Valve Tricuspid grossly normal, there is mild tricuspid regurgitation, tricuspid regurgitation jet velocity is inadequate for calculation of the right ventricular systolic pressure. Pulmonic Valve Pulmonic valve is poorly visualized. Great Vessels Aortic root is normal size. Pericardium No significant pericardial effusion noted. Conclusion 1. Mild biatrial 11, normal left ventricular size, mild concentric left ventricular hypertrophy, visually estimated ejection fraction 55% with no regional wall motion abnormality, grade 1 diastolic dysfunction seen with tissue Doppler evidence of raise left atrial pressure. 2. Thickened and calcified aortic valve with mild aortic stenosis, there is no aortic insufficiency. 3. Mild mitral and tricuspid regurgitation. 4. No significant pericardial effusion noted. Electronically signed by : Jeff Torres, 03/15/2021 21:16:17
--- NOTE | 2021-03-15 14:38 | HMH.CNCARD ---
History of Present Illness Consult date: 03/15/21 Requesting physician: Asaf Parra Consult reason: chest pain Chief complaint: Chest pain Additional Medical History:: 1. Diabetes mellitus, treated for about 20 years 2. Hypertension treated for many years 3. Hyperlipidemia treated for many years 4. Coronary artery disease A. History of coronary stenting prior to 2006 B. History of three-vessel coronary bypass grafting, 2006 5. Non-smoker but uses dip 6. GERD 7. Chronic back and shoulder pain for which she sees Dr. Horvath with pain management. 8. Abnormal EKG with right bundle branch block History of present illness: HPI per Dr. Parra Intermittent chest pain since Sunday, 2 days ago. He has had 6-8 episodes, says that episodes last a couple of minutes. Associated with shortness of breath and nausea but no diaphoresis or radiation. Currently says he is not having any chest pain but his chest is sore . Has a prior history of coronary artery disease with stent placement followed by coronary bypass surgery 14 years ago. 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 No recent cardiac cath or stress test. States that he is diabetic, but does not have hypertension, hyperlipidemia, although his medical record indicates that he does have these conditions and he is on medications for hypertension and hyperlipidemia. He dips , does not smoke tobacco. Patient confirms the above account. Patient of Dr. Paredes who initially requested to be transferred to [facility] for evaluation by Dr. Paredes however there are no available beds and patient has agreed to be seen here for evaluation. He actually is considering transferring his care to cardiology here at [facility]. 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 He thinks this may be the source of his soreness. His symptoms are unlike anything he had prior to stenting or bypass surgery. The soreness in the chest has not limited his activity over the last couple of days. EKG is sinus rhythm with left axis deviation and right bundle branch block. No old EKGs for comparison. Initial troponin is normal. [facility] History Medical History: Reports:: Coronary Artery Disease, Diabetes Mellitus Type 2, Hyperlipidemia, Hypertension, Myocardial Infarction Denies:: Cancer, Diabetes Mellitus Type 1, Internal Pacemaker, MRSA, Seizures *Have you ever received a pneumonia vaccine?: Yes *Have you received a flu vaccine this season?: Yes Other Medical History: Reports: Arthritis, Hypothyroidism, Thyroid Disease. Denies: Blood Transfusion Reaction Laterality Cases: Bilateral: Arthroscopy Shoulder Other Surgeries: Yes: Angiogram, CABG, Cancer Surgery, Cardiac Catheterization, Cardiac Surgery, Colonoscopy, Colon Resection, Coronary Stent, Hernia Repair, Other. No: Pacemaker Amputation: No Fractures: No - *Social History Smoking Status: Never smoker Tobacco Type: smokeless tobacco # Packs/Day (cigarettes): 0 Alcohol Intake: never Substance Use Type: denies use *Occupational Status:: other Housing: house Household Members: spouse *Travel in the last 8 weeks: None Family Hx:: Heart Attack Meds Home Medications Medication Instructions Recorded Confirmed Type Aspirin [Aspir-Low] 81 mg PO DAILY 12/20/18 01/07/21 History ergocalciferol (vitamin D2) 1,250 50,000 unit PO QWEEK #14 cap 02/28/19 01/07/21 Rx mcg (50,000 unit) capsule Furosemide [Furosemide 20mg Tab*] See Rx Instructions .ROUTE .COMPLEX 01/02/20 01/07/21 History Isosorbide Mononitrate [Imdur 30mg See Rx Instructions .ROUTE .COMPLEX 07/02/20 01/07/21 History ER tablet] Levothyroxine Sodium [Synthroid See Rx Instructions .ROUTE .COMPLEX 07/02/20 01/07/21 History 88mcg (0.088mg) tablet] Simvastatin See Rx Instructions .ROUTE .COMPLEX 07/02/20 01/07/21 History Metformin HCl [Glucophage] See Rx Instructions .ROUTE .COMPLEX 10/01/20 01/07/21 History Sitaglipt
--- NOTE | 2021-03-15 14:55 | PC.NURSE ---
CV lab staff at
[2021-03-15 14:56] LABS: Alanine Aminotransferase 23 U/L (12-78); Albumin Level 4.2 g/dl (3.5-5.0); Alkaline Phosphatase 62 U/L (38-126); Aspartate Amino Transferase 29 U/L (17-59); Bilirubin,Direct 0.3 mg/dl (0.0-0.4); Bilirubin,Indirect 0.4 mg/dL (0.0-0.9); Bilirubin,Total 0.7 mg/dl (0.2-1.3); Bilirubin,Unconjugated 0.4 mg/dL (0.0-1.1); Cholesterol 115 mg/dl (140-200); Total Protein,Serum 7.2 g/dl (6.3-8.2); Triglycerides 123 mg/dl (30-150); VLDL Cholesterol 25 mg/dL (0-40)
[2021-03-15 14:57] LABS: HDL Cholesterol 34 mg/dl (40-60)
[2021-03-15 14:59] LABS: Chol/HDL Ratio 3.4 (1-3.5)
[2021-03-15 15:47] LABS: Troponin I < 0.01 ng/ml (0.00-0.034)
[2021-03-15 16:24] VITALS: BP 135/72; PULSE 78; RESP 16; TEMP 36.6; O2SAT 98
== END 2021-03-15 16:26 | disposition home or self-care (01) ==
PROVIDERS: Physician Assistant; Emergency Provider Emergency Medicine; PCP Emergency Medicine
DX: R07.9 Chest pain, unspecified (principal); Z20.822 Contact with and (suspected) exposure to COVID-19; I10 Essential (primary) hypertension; E78.5 Hyperlipidemia, unspecified; E11.65 Type 2 diabetes mellitus with hyperglycemia; F17.210 Nicotine dependence, cigarettes, uncomplicated; Z79.899 Other long term (current) drug therapy
CPT/HCPCS: 36415; 71045; 80048; 80061; 80076; 84484; 85025; 93005; 93306; 99282; U0003

== ENCOUNTER → 2021-03-23 11:41 | Outpatient (CLI) | payer MEDICARE, SELFPAY ==
--- NOTE | 2021-03-23 | CA_ITS ---
APPROVED REPORT Exam: Exercise Treadmill Technologist: Stephanie Naranjo, Ht: 5 ft 11 in Wt: 224 lbs BSA: 2.21 m2 HR: 67 bpm BP: 152/85 mmHg Medical History Medications: Omeprazole,,,,, Levothyroxine,,,,, Simvastatin,,,,, Metformin,,,,, Losartan,,,,, Carvedilol,,,,, CaNAGLIFLOZIN,,,,, Isosorbide Monoitrate ER,,,,, Asapirin,,,,, Furosemide,,,,, GlimepRIDE,,,,, Satagliptin,,,,, Stress Test Details Test: Lul HR Resting HR: 69 bpm Max Heart Rate (APMHR): 151.553233 bpm Max HR Achieved: 141 bpm Target HR (85% APMHR): 128.642132 bpm % of APMHR: 93.38 Recovery HR: 79 bpm BP Resting BP: 155/79 mmHg Max BP: 219/92 mmHg Recovery BP: 167.0/82.0 mmHg ECG Clinical Exercise duration: 08:30 min Highest Stage Achieved: Exercise capacity: 10.1 METs Stress ECG Conclusion Test Stopped due to: leg fatigue Symptoms: SOA and leg fatigue. No chest pain Arrhythmias/Ectopy: PVC noted, PAC noted ST-T Changes: <1.5mm ST segment changes Test Summary RECOVERY 03:00 0.0 0.0 93 . 216/ 92 . . REST . . . . . . . Standing REST 06:22 0.0 0.0 69 . 155/ 79 . . Stage 1 01:00 10.0 1.7 83 . . . . Stage 1 02:00 10.0 1.7 91 . . . . Stage 1 03:00 10.0 1.7 94 . 160/ 72 . . Stage 2 01:00 12.0 2.5 106 . . . . Stage 2 02:00 12.0 2.5 112 . . . . Stage 2 03:00 12.0 2.5 115 . 180/ 92 . . Stage 3 01:00 14.0 3.4 127 . . . . Stage 3 . . . . . . . Cardiolite injected Stage 3 02:00 14.0 3.4 137 . . . . Stage 3 02:30 14.0 3.4 141 . . . Stop exercise at 08:30 RECOVERY 01:00 0.0 0.0 128 . . . . RECOVERY 02:00 0.0 0.0 107 . . . . RECOVERY 03:00 0.0 0.0 93 . 216/ 92 . . RECOVERY 04:00 0.0 0.0 85 . 195/ 76 . . RECOVERY 05:00 0.0 0.0 80 . 195/ 76 . . RECOVERY 06:00 0.0 0.0 79 . 178/ 81 . . RECOVERY 07:00 0.0 0.0 83 . 178/ 81 . . RECOVERY 08:00 0.0 0.0 78 . 167/ 82 . . RECOVERY 09:00 0.0 0.0 81 . 167/ 82 . . RECOVERY 09:07 0.0 0.0 83 . 167/ 82 . . Electronically signed by : Jeff Torres, 03/24/2021 11:03:14
--- NOTE | 2021-03-23 11:42 | NM_ITS ---
APPROVED REPORT Exam: Nuclear Stress Test Indication: CAD, H/O M.I., CABG, D.M., MELISSA COLORADO C.P. Patient Location: Outpatient Stress Tech: [facility] Tech:Mar Tony, ARRT RT (R)(N)(M) Ht: 5 ft 11 in Wt: 221 lbs HR: 67 bpm BP: 152/85 mmHg BSA: 2.20 m2 BMI: 30.8 History: CAD, H/O M.I., CABG, D.M., MELISSA [place], C.P. Procedure: Patient exercised on Lul protocol 8:00 minutes and sec, resting heart rate 67 bpm, resting blood pressure 152/85 mmHg, with exercise maximum heart rate achived was 141 bpm which is 93 % of the maximum predicted heart rate and blood pressure was 216/92 mmHg. Test was stopped due to fatigue. Patient denied any complaint of chest pain. Patient has good exercise capacity, achieved 10.1 METs of workload on treadmill, the blood pressure response to exercise was Hypertensive. Electrocardiogram Resting electrocardiogram showed sinus rhythm, right ventricular conduction delay, with exercise there is less than 1.[address] segment depression noted from the baseline EKG. The EKG portion of the exercise Myoview is negative for ischemia. Cardiac Stress and Resting SPECT Images: Cardiac Stress and Resting SPECT images were obtained using technetium 99m Myoview 29.9 mCi stress and 10.36 mCi at rest. Gated SPECT for analysis of segmental wall motion and calculation of the ejection fraction also done, prone images were also obtained. Cardiac stress and resting SPECT images show uniform myocardial activity without segmental perfusion abnormality, computer derived ejection fraction is 56% with no regional wall motion abnormality, right ventricle is normal size and contractility Conclusion: 1. The EKG portion of the exercise Myoview is negative for ischemia, patient has good exercise capacity achieved 10.1 METs of workload on treadmill, the blood pressure response to exercise was hypertensive, there was no exercise-induced chest discomfort. 2. No scintigraphic evidence of reversible ischemia seen, computer derived ejection fraction 56% with no regional wall motion abnormality, right ventricle is normal size and contractility 3. Normal exercise Myoview study except for hypertension blood pressure response. Electronically signed by : Jeff Torres, 03/24/2021 11:49:52
--- NOTE | 2021-03-23 14:41 | HMH.ITSHM ---
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 []furosemide, nitro, carvedilol, simvastatin, januvia, metformin, losartan, omeprazole, levothyroxine, sosorbide, glimipiride
== END ==
LOC: RAD 11:42
PROVIDERS: PCP Emergency Medicine; Visit Provider Physician Assistant
DX: R07.9 Chest pain, unspecified (principal)
CPT/HCPCS: 78452; 93017; A9502

== ENCOUNTER → 2021-03-31 09:17 | Outpatient (POV) | payer MEDICARE, SELFPAY ==
[2021-03-31 09:40] VITALS: BP 159/74; PULSE 67; RESP 18; O2SAT 97; BMI 30.5
--- NOTE | 2021-03-31 10:29 | HMH.PAINSOAP ---
[facility] Pain Management SOAP Note Subjective:: Patient is a pleasant 70-year-old white male who presents today for worsening low back pain. He says it is in the right low back area. It does radiate into the right buttock, however, is nonradicular into the leg. He has had SI injection in the past and has gotten excellent relief with the injection up to 80% relief for greater than a month. Patient's pain has returned. He does rate his pain a 7 out of 10. He is tender to palpation at the right SI joint today. He also has a positive Patricia's, distraction, and compression test. He is also managed with Percocet 10 mg 1 tablet p.o. 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 His medications give him significant relief of his low back pain. He does have Samuel that is appropriate, #[id number]. His morphine equivalent is 60. He denies any side effects to the medication. His drug screens have been appropriate. Review of Systems General: No recent weight changes, no fever, no sleep disturbances Respiratory: No cough, no shortness of air, no recurring pulmonary infections Cardiovascular/peripheral vascular: No chest pain, no palpitations, no edema, no shortness of breath Gastrointestinal: No new onset incontinence, normal bowel movements reported Genitourinary: No new onset incontinence Musculoskeletal: Right low back pain with radiation into right buttock Psychiatric: Normal mood/affect Neurological: [Denies weakness in extremities], [denies balance issues] Objective:: Physical exam General: Alert and oriented x3, no acute distress, pleasant and cooperative, [on room air] Lungs: Respirations even and unlabored, symmetrical chest expansion Eyes: PERRL Musculoskeletal: Flexion and extension of [] lumbar spine somewhat guarded secondary to pain, deep tendon reflexes normal, strength in upper and lower extremities [5/5], [abnormal gait noted], positive Patricia's test, positive compression test, positive distraction test Neurological: Speech clear, 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 He is tender to palpation to his right SI joint along with a positive Patricia's, distraction, compression test. We will also refill his Percocet 10 mg 1 tablet p.o. 4 times daily. We will see the patient back in the clinic after his injection to reevaluate his symptoms. He has been instructed to contact clinic if he has any concerns before his next appointment. Risks and benefits of the medication have been explained in detail to the patient. The patient has been advised to consult with his/her primary care provider and pharmacist regarding drug-drug interaction of medications currently prescribed. Patient has been prescribed a controlled substance after being counseled on the medication, medication safety, and possible side effects. SAMUEL report has been obtained and reviewed prior to prescription and found to be appropriate. Opioid contract was reviewed and signed by the patient, and that they have agreed to all of the terms set forth by our compliance program. Risks and benefits of the procedure have been explained to the patient. Patient would like to proceed with the procedure. Possible side effects of corticosteroids have been discussed with the patient. Patient has been instructed to contact the clinic with any concerns before the next appointment. Dr. Horvath has reviewed this note and agrees with this plan of care. This note was dictated using voice recognition software and make contain errors or omissions. [facility] History I have reviewed the patient's past medical history: Yes Medical History: Reports:: Coronary Artery Disease, Diabetes Mellitus Type 2, Hyperlipidemia, Hypertension, Myocardial Infarction Denies:: Cancer, Diabetes Mellitus Ty
== END ==
LOC: SC.PAIN 09:17
PROVIDERS: PCP Emergency Medicine; Visit Provider Clinical Nurse Specialist Family Health
DX: M46.1 Sacroiliitis, not elsewhere classified (principal); M51.16 Intervertebral disc disorders with radiculopathy, lumbar region
CPT/HCPCS: 99212; G0463

== ENCOUNTER 2021-04-13 10:31 | Day surgery (SDC) | payer MEDICARE, SELFPAY ==
[2021-04-13 10:47] VITALS: BP 142/67; PULSE 65; RESP 20; TEMP 36.6; O2SAT 96; BMI 30.7
--- NOTE | 2021-04-13 11:49 | HMH.PMPROC ---
- Procedure Date: 04/13/21 Time: 11:49 Anesthesiologist:: Dianna Green MD Complications:: None Pre-procedure Diagnosis:: Right sacroiliitis, chronic low back pain, right-sided hip pain Post-procedure Diagnosis:: Same Indications for Procedure:: Patient is a very pleasant 70-year-old white male who presents today with chronic low back pain and right-sided hip pain related to the above diagnosis. He states the pain radiates into his right buttock but does not extend past this point. He has previously undergone a right-sided SI joint injection in the past and notes about 80% pain relief for greater than 1 month; however he states that the pain has since returned. He has trialed and failed conservative treatment including oral pain medication and home stretching program for greater than 6 weeks. He rates the pain as a 7 out of 10 today. He is currently taking Percocet 10 mg 1 tablet p.o. 4 times a day and reports that his current pain regimen allows him increased functionality to perform household tasks. For today is for the patient to undergo a repeat right sided SI joint injection under fluoroscopy. Procedure Details:: Right SI joint injection under fluoroscopy Informed consent was obtained and the risks and benefits of the procedure was going to the patient. Patient was taken to the procedure room. Patient was placed prone on the procedure table. The right hip was prepped using ChloraPrep. The skin and subcutaneous tissues were anesthetized using lidocaine. I placed a 22-gauge spinal needle into the inferior aspect of the right SI joint. Needle placement was confirmed with dye. After this we injected 5 mL bupivacaine 0.25% and Depo-Medrol 40 mg into the right SI joint. The patient tolerated the procedure well with no complication. Plan and Disposition:: We will follow-up with this patient in 2 weeks. Will reevaluate pain symptoms at that time.
[2021-04-13 12:03] VITALS: BP 136/91; PULSE 83; RESP 18; O2SAT 98
[2021-04-13 12:06] VITALS: BP 144/80; PULSE 66; RESP 18; O2SAT 97
[2021-04-13 12:20] VITALS: BP 150/72; PULSE 62; RESP 20; O2SAT 96
== END 2021-04-13 12:20 | disposition home or self-care (01) ==
LOC: SC.PAINP 10:34
PROVIDERS: PCP Emergency Medicine; Visit Provider Anesthesiology Pain Medicine
DX: M46.1 Sacroiliitis, not elsewhere classified (principal); M54.6 Pain in thoracic spine; G89.29 Other chronic pain; M25.551 Pain in right hip
CPT/HCPCS: 27096; G0260; J1040; Q9966

== ENCOUNTER → 2021-05-02 08:31 | Outpatient (POV) | payer MEDICARE, SELFPAY ==
[2021-05-02 08:38] VITALS: BP 191/97; PULSE 68; RESP 18; TEMP 36.8; O2SAT 98; BMI 30.4
--- NOTE | 2021-05-02 08:45 | HMH.PAINSOAP ---
[facility] Pain Management SOAP Note Subjective:: Patient is a pleasant 70-year-old white male who presents today for follow-up after a right SI joint injection. 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 He reports that he got about 70% relief with his injection. He is continuing to get relief with the injection. He says that he is having left knee pain. 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 Recently he began to develop significant pain in his left knee. He says that for now he is using sqsk-iqf-opiullf medications?anti-inflammatories, for relief. He is also managed with Percocet 10 mg 1 tablet p.o. 4 times daily. This medication gives him about 70% relief of his pain along with injective therapy. He rates his pain a 6 out of 10 today which is his baseline. Review of Systems General: No recent weight changes, no fever, no sleep disturbances Respiratory: No cough, no shortness of air, no recurring pulmonary infections Cardiovascular/peripheral vascular: No chest pain, no palpitations, no edema, no shortness of breath Gastrointestinal: No new onset incontinence, normal bowel movements reported Genitourinary: No new onset incontinence Musculoskeletal: Left knee pain Psychiatric: [Normal mood/affect] Neurological: [Denies weakness in extremities], [denies balance issues] Objective:: Physical exam General: Alert and oriented x3, no acute distress, pleasant and cooperative, [on room air] Lungs: Respirations even and unlabored, symmetrical chest expansion Eyes: PERRL Musculoskeletal: Flexion and extension of left lower extremity somewhat guarded secondary to pain, strength in upper and lower extremities [5/5], [antalgic gait noted] Neurological: Speech clear, [sand filler equal], no gross sensory deficit Assessment:: Degenerative disc disease lumbar spine with lumbar radiculopathy symptoms, sacroiliitis right side, left knee pain Plan:: Patient did very well with his right SI joint injection. He got approximately 70% relief and is continuing to get relief. We will refill his Percocet 10 mg 1 tablet p.o. 4 times daily. We will see him back in the clinic in 1 month for medication refill and reevaluation of symptoms. Patient's Samuel #[id number] has been reviewed and is appropriate. Risks and benefits of the medication have been explained in detail to the patient. The patient has been advised to consult with his/her primary care provider and pharmacist regarding drug-drug interaction of medications currently prescribed. Patient has been instructed to contact the clinic with any concerns before the next appointment. Dr. Horvath has reviewed this note and agrees with this plan of care. This note was dictated using voice recognition software and make contain errors or omissions. Patient has been prescribed a controlled substance after being counseled on the medication, medication safety, and possible side effects. SAMUEL report has been obtained and reviewed prior to prescription and found to be appropriate. Opioid contract was reviewed and signed by the patient, and that they have agreed to all of the terms set forth by our compliance program. [facility] History I have reviewed the patient's past medical history: Yes Medical History: Reports:: Atherosclerotic Heart Disease, Coronary Artery Disease, Diabetes Mellitus Type 2, Hyperlipidemia, Hypertension, Myocardial Infarction Denies:: Cancer, Diabetes Mellitus Type 1, Internal Pacemaker, MRSA, Seizures *Have you ever received a pneumonia vaccine?: No *Have you received a flu vaccine this season?: No Other Medical History: Reports: Arthritis, Hypothyroidism, Thyroid Disease. Denies: Blood Transfusion Reaction Laterality Cases: Bilateral: Arthroscopy Shoulder Other Surgeries: Yes: Angiogram, CABG, Cancer Surgery, Cardiac Catheterization, Cardiac Surgery, Colonoscopy, Colon Resection, Valerie
== END ==
LOC: SC.PAIN 08:32
PROVIDERS: PCP Emergency Medicine; Visit Provider Clinical Nurse Specialist Family Health
DX: M51.16 Intervertebral disc disorders with radiculopathy, lumbar region (principal); M46.1 Sacroiliitis, not elsewhere classified; M25.562 Pain in left knee
CPT/HCPCS: 99212; G0463

== ENCOUNTER → 2021-06-02 08:27 | Outpatient (POV) | payer MEDICARE, SELFPAY ==
[2021-06-02 08:38] VITALS: BP 181/78; PULSE 76; RESP 18; O2SAT 98; BMI 30.4
--- NOTE | 2021-06-02 08:46 | HMH.PAINSOAP ---
[facility] Pain Management SOAP Note Subjective:: Patient is a 71-year-old white male who presents today for follow-up. He has been treated for chronic sacroiliitis and degenerative disc disease lumbar spine with lumbar radicular symptoms. Patient does undergo injective therapy routinely. He did have a right SI joint injection in March 2021. He got significant relief. He is now having pain in his left SI joint. He is tender to palpation. He says his pain is worse with standing, walking, and improves with sitting. He does report pain to be radiating into his left buttock and leg. He does rate his pain a 9 out of 10 today. Review of Systems General: No recent weight changes, no fever, no sleep disturbances Respiratory: No cough, no shortness of air, no recurring pulmonary infections Cardiovascular/peripheral vascular: No chest pain, no palpitations, no edema, no shortness of breath Gastrointestinal: No new onset incontinence, normal bowel movements reported Genitourinary: No new onset incontinence Musculoskeletal: Left low back pain, left buttock pain, intermittent left leg pain Psychiatric: [Normal mood/affect] Neurological: [Denies weakness in extremities], [denies balance issues] Objective:: Physical exam General: Alert and oriented x3, no acute distress, pleasant and cooperative, [on room air] Lungs: Respirations even and unlabored, symmetrical chest expansion Eyes: PERRL Musculoskeletal: Flexion and extension of lumbar [spine] somewhat guarded secondary to pain, strength in upper and lower extremities [5/5], [antalgic gait noted], positive Patricia's test, positive compression test, positive distraction test Neurological: Speech clear, [back sewer equal], no gross sensory deficit Assessment:: Degenerative disc disease lumbar spine with lumbar radiculopathy symptoms, sacroiliitis left Plan:: We will schedule the patient for a left SI joint injection He has had right SI joint injection as well as left SI joint injection in the past and gets significant relief with these injections, up to 60 to 70% relief for 3 weeks or longer. He is continuing with home stretching and does take Percocet 10 mg 1 tablet p.o. 4 times daily. He does need a refill on his medication. Patient's drug screen and Asim are appropriate. We will refill his Percocet 10 mg 1 tablet p.o. 4 times daily. Possible side effects of corticosteroids have been discussed with the patient. Risks and benefits of the procedure have been explained to the patient. Patient would like to proceed with the procedure. Patient has been instructed to contact the clinic with any concerns before the next appointment. Dr. Horvath has reviewed this note and agrees with this plan of care. This note was dictated using voice recognition software and make contain errors or omissions. Risks and benefits of the medication have been explained in detail to the patient. The patient has been advised to consult with his/her primary care provider and pharmacist regarding drug-drug interaction of medications currently prescribed. [facility] History I have reviewed the patient's past medical history: Yes Medical History: Reports:: Atherosclerotic Heart Disease, Coronary Artery Disease, Diabetes Mellitus Type 2, Hyperlipidemia, Hypertension, Myocardial Infarction Denies:: Cancer, Diabetes Mellitus Type 1, Internal Pacemaker, MRSA, Seizures *Have you ever received a pneumonia vaccine?: Yes *Have you received a flu vaccine this season?: No Other Medical History: Reports: Arthritis, Hypothyroidism, Thyroid Disease. Denies: Blood Transfusion Reaction Laterality Cases: Bilateral: Arthroscopy Shoulder Other Surgeries: Yes: Angiogram, CABG, Cancer Surgery, Cardiac Catheterization, Cardiac Surgery, Colonoscopy, Colon Resection, Coronary Stent, Hernia Repair, Other. No: Pacemaker Amputation: No Fractures: No - *Social History Smoking Status: Current every day smoker Tobacco Type: smokeless tobacco # Pack
== END ==
LOC: SC.PAIN 08:28
PROVIDERS: PCP Emergency Medicine; Visit Provider Clinical Nurse Specialist Family Health
DX: M51.16 Intervertebral disc disorders with radiculopathy, lumbar region (principal); M46.1 Sacroiliitis, not elsewhere classified
CPT/HCPCS: 99212; G0463

== ENCOUNTER 2021-06-03 13:59 | Day surgery (SDC) | payer MEDICARE, SELFPAY ==
[2021-06-03 14:00] VITALS: BP 136/59; PULSE 67; RESP 18; TEMP 36.6; O2SAT 98; BMI 30.4
[2021-06-03 14:16] VITALS: BP 152/77; PULSE 68; RESP 18; O2SAT 97
[2021-06-03 14:21] VITALS: BP 130/81; PULSE 68; RESP 18; O2SAT 97
--- NOTE | 2021-06-03 14:27 | HMH.PMPROC ---
- Procedure Date: 06/03/21 Time: 14:27 Anesthesiologist:: Jamal Horvath MD Complications:: None Pre-procedure Diagnosis:: Sacroiliitis Post-procedure Diagnosis:: Same Indications for Procedure:: Patient is a pleasant 71-year-old white male who we are treating for low back pain and hip pain. He did very well with a previous right SI joint injection back in March. He is now having some increasing pain in the lower left side of his back. He is tender over the left SI joint. Is positive Patricia's test on left side. Is positive Mavis test on left side. He has positive SI joint compression test on left side. We will do a left SI joint injection under fluoroscopy today to help with pain symptoms. Procedure Details:: Left SI joint injection under fluoroscopy Informed consent was obtained and the risks and benefits of the procedure was explained to the patient. Patient was taken to the procedure room. Patient was placed prone on the procedure table. The left hip was prepped using ChloraPrep. The skin and subcutaneous tissues were anesthetized using lidocaine. I placed a 22-gauge spinal needle into the inferior aspect of the left SI joint. Needle placement was confirmed with dye. After this we injected 5 mL bupivacaine 0.25% and Depo-Medrol 40 mg into the left SI joint. The patient tolerated the procedure well with no complication. Plan and Disposition:: We will follow-up with him in 2 weeks. Will reevaluate symptoms at that time.
[2021-06-03 14:36] VITALS: BP 140/62; PULSE 66; RESP 18; O2SAT 98
== END 2021-06-03 14:37 | disposition home or self-care (01) ==
LOC: SC.PAINP 14:00
PROVIDERS: PCP Emergency Medicine; Visit Provider Anesthesiology
DX: M46.1 Sacroiliitis, not elsewhere classified (principal); I25.2 Old myocardial infarction; I25.10 Atherosclerotic heart disease of native coronary artery without angina pectoris; E78.5 Hyperlipidemia, unspecified; I10 Essential (primary) hypertension; M19.90 Unspecified osteoarthritis, unspecified site; E11.9 Type 2 diabetes mellitus without complications; E03.9 Hypothyroidism, unspecified; K21.9 Gastro-esophageal reflux disease without esophagitis; Z95.5 Presence of coronary angioplasty implant and graft; Z88.5 Allergy status to narcotic agent; Z88.8 Allergy status to other drugs, medicaments and biological substances
CPT/HCPCS: 27096; G0260; J1040; Q9966

== ENCOUNTER → 2021-06-14 10:23 | Outpatient (CLI) | payer MEDICARE, SELFPAY | PROVIDERS: PCP Emergency Medicine; Visit Provider Nurse Practitioner | DX: Z20.822 Contact with and (suspected) exposure to COVID-19 (principal); U07.1 COVID-19 | CPT/HCPCS: C9803; U0003; U0005 ==

== ENCOUNTER → 2021-06-30 14:49 | Outpatient (POV) | payer MEDICARE, SELFPAY ==
[2021-06-30 14:58] VITALS: BP 153/82; PULSE 82; RESP 18; O2SAT 97; BMI 28.7
--- NOTE | 2021-06-30 15:11 | HMH.PAINSOAP ---
[facility] Pain Management SOAP Note Subjective:: Patient is a 71-year-old white male who presents today for medication refills. He has been treated degenerative disc disease lumbar spine with lumbar radicular symptoms and chronic sacroiliitis. He does undergo routine injections. He did have left SI joint injection on 06/03/2021. Shortly after he did have Covid. He says he started feeling better last weekend. He is awaiting the ability to take his Covid vaccine. He has managed in the clinic with Percocet 10 mg 1 tablet p.o. 4 times daily. He denies any side effects to the medicine. He says he gets approximately 60% relief with his medication regimen. Patient does rate his pain a 4 out of 10 today. [facility] #[id number] has been reviewed and is appropriate. Drug screens are appropriate. Morphine equivalent is 60. Review of Systems General: No recent weight changes, no fever, no sleep disturbances Respiratory: No cough, no shortness of air, no recurring pulmonary infections Cardiovascular/peripheral vascular: No chest pain, no palpitations, no edema, no shortness of breath Gastrointestinal: No new onset incontinence, normal bowel movements reported Genitourinary: No new onset incontinence Musculoskeletal: Chronic low back pain with radiation into bilateral lower extremities Psychiatric: [Normal mood/affect] Neurological: [Denies weakness in extremities], [denies balance issues] Objective:: Physical exam General: Alert and oriented x3, no acute distress, pleasant and cooperative, [on room air] Lungs: Respirations even and unlabored, symmetrical chest expansion Eyes: PERRL Musculoskeletal: Flexion and extension of lumbar [spine] somewhat guarded secondary to pain, [antalgic gait noted] Neurological: Speech clear, no gross sensory deficit Assessment:: Degenerative disc disease lumbar spine with lumbar radiculopathy symptoms, left sacroiliitis Plan:: We will refill the patient's Percocet 10 mg 1 tablet p.o. 4 times daily. Patient's morphine equivalent is 60. We will order the patient Narcan to have available in the risk of oversedation. We will see the patient back in the clinic in 1 month for reevaluation of symptoms. He will continue with home stretching. Risks and benefits of the medication have been explained in detail to the patient. The patient does understand the risks dependence on the medication when given over a prolonged period. Patient has been advised of risks of oversedation with the prescribed medication. Narcan has been offered to the paitent in the event of oversedation. Patient has been advised that a family member should also be educated regarding administration of Narcan. The patient has been advised to consult with his/her primary care provider and pharmacist regarding drug-drug interaction of medications currently prescribed. Patient has been prescribed a controlled substance after being counseled on the medication, medication safety, and possible side effects. SAMUEL report has been obtained and reviewed prior to prescription and found to be appropriate. Opioid contract was reviewed and signed by the patient, and that they have agreed to all of the terms set forth by our compliance program. Patient has been instructed to contact the clinic with any concerns before the next appointment. Dr. Horvath has reviewed this note and agrees with this plan of care. This note was dictated using voice recognition software and make contain errors or omissions. [facility] History I have reviewed the patient's past medical history: Yes Medical History: Reports:: Atherosclerotic Heart Disease, Coronary Artery Disease, Diabetes Mellitus Type 2, Hyperlipidemia, Hypertension, Myocardial Infarction Denies:: Cancer, Diabetes Mellitus Type 1, Internal Pacemaker, MRSA, Seizures *Have you ever received a pneumonia vaccine?: Yes *Have you received a flu vaccine this season?: Yes Other Medical History: Reports: Arthritis
== END ==
PROVIDERS: Visit Provider Clinical Nurse Specialist Family Health
DX: M51.16 Intervertebral disc disorders with radiculopathy, lumbar region (principal); M46.1 Sacroiliitis, not elsewhere classified
CPT/HCPCS: 99212; G0463

== ENCOUNTER → 2021-07-04 13:46 | Outpatient (CLI) | payer MEDICARE, SELFPAY ==
[2021-07-04 14:08] LABS: Alanine Aminotransferase 30 U/L (12-78); Albumin Level 3.8 g/dl (3.5-5.0); Albumin/Globulin Ratio 1.2 (1.1-1.8); Alkaline Phosphatase 89 U/L (38-126); Anion Gap 14.2 mEq/L (5-15); Aspartate Amino Transferase 42 U/L (17-59); Bilirubin,Total 0.6 mg/dl (0.2-1.3); Blood Urea Nitrogen 7 mg/dl (9-20); Calcium 9.5 mg/dl (8.4-10.2); Carbon Dioxide 27 mmol/L (22.0-30.0); Chloride 106 mmol/L (98-107); Chol/HDL Ratio 3.4 (1-3.5); Cholesterol 116 mg/dl (140-200); Estimated Glomerular Filt Rate 133 ml/min (>60); GFR (African American) 161 ML/MIN (>60); Globulin 3.3 g/dL (1.3-3.2); Glucose 156 mg/dl (74-100); HDL Cholesterol 34 mg/dl (40-60); Potassium 5.2 mmoL/L (3.5-5.1); Sodium 142 mmol/L (136-145); Total Protein,Serum 7.1 g/dl (6.3-8.2); Triglycerides 104 mg/dl (30-150); VLDL Cholesterol 21 mg/dL (0-40)
[2021-07-04 14:11] LABS: Basophils # 0.1 K/mm3 (0-0.2); Basophils % 0.6 % (0.1-2.0); Eosinophils # 0.3 K/mm3 (0.0-0.4); Eosinophils % 3.3 % (0.1-12.0); Hematocrit 45.9 % (42.0-52.0); Hemoglobin 14.4 g/dL (14.1-18.0); Lymphocytes # 2.2 K/mm3 (0.7-4.5); Lymphocytes % 25.2 % (10-50); Mean Corpuscular HGB Conc 31.4 g/dL (31.8-35.4); Mean Corpuscular Hemoglobin 30.2 pg (27.0-31.2); Mean Corpuscular Volume 96.2 fl (80-94); Mean Platelet Volume 10.2 fl (7.4-10.4); Monocytes # 0.7 K/mm3 (0.1-1.0); Monocytes % 7.5 % (1.7-9.3); Neutrophils # 5.5 K/mm3 (1.8-7.8); Neutrophils % 63.5 % (37.0-80.0); Platelet Count 292 K/mm3 (142-424); Red Blood Count 4.77 M/mm3 (4.60-6.20); Red Cell Distribution Width 14.4 % (11.5-17.5); White Blood Count 8.7 K/mm3 (4.8-10.8)
[2021-07-04 14:18] LABS: Direct LDL Cholesterol 62.82 mg/dL (100-129)
[2021-07-04 14:24] LABS: Free T4 (Free Thyroxine) 1.36 ng/dl (0.78-2.19)
[2021-07-04 14:38] LABS: Thyroid Stimulating Hormone 0.55 uIU/mL (0.465-4.68)
[2021-07-04 16:15] LABS: Hemoglobin A1C 6.5 % (4.0-6.0)
[2021-07-06 12:37] LABS: Testosterone,Total 407 ng/dL (264-916)
== END ==
PROVIDERS: Visit Provider Emergency Medicine
DX: E66.9 Obesity, unspecified (principal); E78.5 Hyperlipidemia, unspecified; E13.9 Other specified diabetes mellitus without complications; E03.9 Hypothyroidism, unspecified; I10 Essential (primary) hypertension; Z68.29 Body mass index [BMI] 29.0-29.9, adult; Z86.16 Personal history of COVID-19; Z79.84 Long term (current) use of oral hypoglycemic drugs
CPT/HCPCS: 80053; 80061; 83036; 84403; 84439; 84443; 85025

== ENCOUNTER → 2021-07-28 09:01 | Outpatient (POV) | payer MEDICARE, SELFPAY ==
[2021-07-28 09:14] VITALS: BP 176/97; PULSE 75; RESP 18; O2SAT 96; BMI 28.8
--- NOTE | 2021-07-28 09:32 | HMH.PAINSOAP ---
[facility] Pain Management SOAP Note Subjective:: Patient presents today for medication refills. The patient is being treated for chronic low back pain. Patient did have Covid in April 2021. He says that he had the worst back pain he has ever had in his life while having Covid. He is now having pain in his right low back area with radiation into right buttock and hip. He reports his pain is a 7 out of 10 today. The patient's pain is worse with standing and walking. He is having difficulty rising from a sitting position. We do manage the patient with Percocet 10 mg 1 tablet p.o. 4 times daily. He does continue with home stretching and does undergo injective therapy within our clinic intermittently. Injections gave him significant relief, up to 80% relief for 3 to 4 weeks. Patient is having weakness in his right lower extremity as well. He did have a left SI joint injection on 06/03/2021. Patient says the medication gives him approximately 60% relief. [facility] #[id number] has been reviewed and is appropriate. Drug screens are appropriate. He will go for urine drug screen today. Review of Systems General: No recent weight changes, no fever, no sleep disturbances Respiratory: No cough, no shortness of air, no recurring pulmonary infections Cardiovascular/peripheral vascular: No chest pain, no palpitations, no edema, no shortness of breath Gastrointestinal: No new onset incontinence, normal bowel movements reported Genitourinary: No new onset incontinence Musculoskeletal: Right low back pain with radiation into right buttock and right hip Psychiatric: [Normal mood/affect] Neurological: [Denies weakness in extremities], [denies balance issues] Objective:: Physical exam General: Alert and oriented x3, no acute distress, pleasant and cooperative Lungs: Respirations even and unlabored, symmetrical chest expansion Eyes: PERRL Musculoskeletal: Flexion and extension of lumbar [spine] somewhat guarded secondary to pain, [antalgic gait noted], positive Patricia's test, positive compression test, positive distraction test, positive Zayra's test Neurological: Speech clear, no gross sensory deficit Assessment:: Degenerative disc disease lumbar spine with lumbar radiculopathy symptoms, sacroiliitis right Plan:: We will schedule the patient for right SI joint injection. He does have a positive Patricia's, compression, distraction test on the right side. He also has a positive Zayra's test to the right side. Patient is having weakness in his right lower extremity along with pain when rising from a sitting position. We also managed patient with Percocet 10 mg 1 tablet p.o. 4 times daily. We will continue this medication with 1 month of medication. Patient does get routine injective therapy in our clinic. He does continue with home stretching as well. We will follow up with the patient after his right SI joint injection for further evaluation. Possible side effects of corticosteroids have been discussed with the patient. Risks and benefits of the procedure have been explained to the patient. Patient would like to proceed with the procedure. Risks and benefits of the medication have been explained in detail to the patient. The patient does understand the risk of dependence on the medication when given over a prolonged period. Patient has been advised of risks of oversedation with the prescribed medication. Narcan has been offered to the paitent in the event of oversedation. Patient has been advised that a family member should also be educated regarding administration of Narcan. The patient has been advised to consult with his/her primary care provider and pharmacist regarding drug-drug interaction of medications currently prescribed. Patient has been prescribed a controlled substance after being counseled on the medication, medication safety, and possible side effects. SAMUEL report has been obtained and reviewed prior to prescrip
[2021-07-28 11:26] LABS: Amphetamine/Metha Screen,Urine Negative ng/ml (<1000)
[2021-07-28 11:27] LABS: Barbiturates Screen,Urine Negative ng/ml (<200)
[2021-07-28 11:28] LABS: Benzodiazepines Screen,Urine Negative ng/ml (<200); Cannabinoid Screen,Urine Negative ng/ml (<50)
[2021-07-28 11:30] LABS: Cocaine Screen,Urine Negative ng/ml (<300); Methadone Screen,Urine Negative ng/ml (<300)
[2021-07-28 11:31] LABS: Opiate Screen,Urine Negative ng/ml (<300)
[2021-07-28 11:32] LABS: Phencyclidine Screen,Urine Negative ng/ml (<25)
== END ==
PROVIDERS: Visit Provider Clinical Nurse Specialist Family Health
DX: M51.16 Intervertebral disc disorders with radiculopathy, lumbar region (principal); M46.1 Sacroiliitis, not elsewhere classified; Z79.891 Long term (current) use of opiate analgesic
CPT/HCPCS: 80305; 99212; G0463

== ENCOUNTER 2021-08-12 08:35 | Day surgery (SDC) | payer MEDICARE, SELFPAY ==
[2021-08-12 08:59] VITALS: BP 128/75; PULSE 68; RESP 18; TEMP 36.4; O2SAT 100; BMI 28.7
[2021-08-12 09:27] VITALS: BP 116/68; PULSE 64; RESP 18; O2SAT 96
[2021-08-12 09:29] VITALS: PULSE 70; RESP 18; O2SAT 97
[2021-08-12 09:40] VITALS: BP 143/79; PULSE 61; RESP 20; O2SAT 99
--- NOTE | 2021-08-12 09:43 | P.PCN_ITS ---
- Procedure Date: 08/12/21 Time: 09:43 Anesthesiologist:: Dianna Green MD Complications:: None Pre-procedure Diagnosis:: right sacroilitis Post-procedure Diagnosis:: same Indications for Procedure:: Patient is a very pleasant 71-year-old white male who presents today with chronic low back pain and right-sided hip pain related to the above diagnosis. He is trialed failed conservative treatment including oral pain medications and home stretching program for greater than 6 weeks. He has previously undergone a left SI joint injection on June 03, 2021 notes approximately 60% pain relief. He has previously undergone injections in the past and notes overall approximately 80% pain relief for 3 to 4 weeks with his SI joint injections. The plan for today is for the patient to undergo a right sided SI joint injection under fluoroscopy. Procedure Details:: Right SI joint injection under fluoroscopy Informed consent was obtained and the risks and benefits of the procedure was going to the patient. Patient was taken to the procedure room. Patient was placed prone on the procedure table. The right hip was prepped using ChloraPrep. The skin and subcutaneous tissues were anesthetized using lidocaine. I placed a 22-gauge spinal needle into the inferior aspect of the right SI joint. Needle placement was confirmed with dye. After this we i njected 5 mL bupivacaine 0.25% and Depo-Medrol 40 mg into the right SI joint. The patient tolerated the procedure well with no complication. Plan and Disposition:: We will follow-up with this patient in 2 weeks. We will reevaluate his chronic pain symptoms at that time.
== END 2021-08-12 09:42 | disposition home or self-care (01) ==
LOC: SC.PAINP 08:36
PROVIDERS: PCP Emergency Medicine; Visit Provider Anesthesiology Pain Medicine
DX: M46.1 Sacroiliitis, not elsewhere classified (principal); E03.9 Hypothyroidism, unspecified; I25.2 Old myocardial infarction; E78.5 Hyperlipidemia, unspecified; I10 Essential (primary) hypertension; M19.90 Unspecified osteoarthritis, unspecified site; Z72.0 Tobacco use; I25.10 Atherosclerotic heart disease of native coronary artery without angina pectoris; K21.9 Gastro-esophageal reflux disease without esophagitis; J45.909 Unspecified asthma, uncomplicated; Z95.1 Presence of aortocoronary bypass graft; E10.9 Type 1 diabetes mellitus without complications
CPT/HCPCS: 27096; G0260; Q9966

== ENCOUNTER → 2021-09-01 08:59 | Outpatient (POV) | payer MEDICARE, SELFPAY ==
[2021-09-01 09:05] VITALS: BP 135/77; PULSE 70; RESP 18; O2SAT 98; BMI 29.1
--- NOTE | 2021-09-01 09:21 | HMH.PAINSOAP ---
[facility] Pain Management SOAP Note Subjective:: Patient is a 71-year-old white female who presents today for follow-up after right SI joint injection. He reports he got significant relief. He does rate his pain a 4 out of 10 today. The patient also has chronic low back pain with radiation into bilateral lower extremities and does get oral medications in our clinic. We do manage him Percocet 10 mg 1 tablet p.o. 4 times daily. [facility] #[id number] has been reviewed and is appropriate. Dextran is appropriate. Morphine equivalent is 60. Patient says that he is still doing well since his injection is able to stand and walk with improvement in pain. He does continue to have his chronic low back pain that is managed with his oral medications. Review of Systems General: No recent weight changes, no fever, no sleep disturbances Respiratory: No cough, no shortness of air, no recurring pulmonary infections Cardiovascular/peripheral vascular: No chest pain, no palpitations, no edema, no shortness of breath Gastrointestinal: No new onset incontinence, normal bowel movements reported Genitourinary: No new onset incontinence Musculoskeletal: Chronic low back pain radiating into bilateral lower extremities Psychiatric: [Normal mood/affect] Neurological: [Denies weakness in extremities], [denies balance issues] Objective:: Physical exam General: Alert and oriented x3, no acute distress, pleasant and cooperative Lungs: Respirations even and unlabored, symmetrical chest expansion Eyes: PERRL Musculoskeletal: Flexion and extension of lumbar [spine] somewhat guarded secondary to pain, [antalgic gait noted] Neurological: Speech clear, no gross sensory deficit Assessment:: Degenerative disc disease lumbar spine with lumbar radiculopathy symptoms, sacroiliitis right Plan:: Patient is doing well since his injection. We will continue patient on Percocet grams 1 tablet p.o. 4 times daily. The patient will get medication refill on 09/07/2021. He will get a month medication will be seen back in the clinic in 1 month. His morphine equivalent is 60. We will order Narcan in the event of oversedation to have available. Risks and benefits of the medication have been explained in detail to the patient. The patient does understand the risk of dependence on the medication when given over a prolonged period. Patient has been advised of risks of oversedation with the prescribed medication. Narcan has been offered to the paitent in the event of oversedation. Patient has been advised that a family member should also be educated regarding administration of Narcan. The patient has been advised to consult with his/her primary care provider and pharmacist regarding drug-drug interaction of medications currently prescribed. Patient has been prescribed a controlled substance after being counseled on the medication, medication safety, and possible side effects. SAMUEL report has been obtained and reviewed prior to prescription and found to be appropriate. Opioid contract was reviewed and signed by the patient, and that they have agreed to all of the terms set forth by our compliance program. Patient has been instructed to contact the clinic with any concerns before the next appointment. Dr. Horvath has reviewed this note and agrees with this plan of care. This note was dictated using voice recognition software and make contain errors or omissions. [facility] History I have reviewed the patient's past medical history: Yes Medical History: Reports:: Atherosclerotic Heart Disease, Coronary Artery Disease, Diabetes Mellitus Type 2, Hyperlipidemia, Hypertension, Myocardial Infarction Denies:: Cancer, Diabetes Mellitus Type 1, Internal Pacemaker, MRSA, Seizures *Have you ever received a pneumonia vaccine?: Yes *Have you received a flu vaccine this season?: Yes Other Medical History: Reports: Arthritis, Hypothyroidism, Thyroid Disease. Denies: Blood Transfusion Reac
== END ==
LOC: SC.PAIN 08:59
PROVIDERS: Visit Provider Clinical Nurse Specialist Family Health
DX: M51.16 Intervertebral disc disorders with radiculopathy, lumbar region (principal); M46.1 Sacroiliitis, not elsewhere classified
CPT/HCPCS: 99212; G0463

== ENCOUNTER → 2021-10-03 08:19 | Outpatient (POV) | payer MEDICARE, SELFPAY ==
[2021-10-03 08:25] VITALS: BP 159/76; PULSE 64; RESP 18; O2SAT 99; BMI 29.1
--- NOTE | 2021-10-03 08:40 | HMH.PAINSOAP ---
[facility] Pain Management SOAP Note Subjective:: Patient is a pleasant 71-year-old male who comes in here today for follow-up after an SI injection and medication refill. Patient is currently being treated for degenerative disc disease of lumbar spine with lumbar radiculopathy symptoms and right sacroiliitis. After his SI injection, patient says that he had significant relief of about 80 to 90% and rates his pain to be a 6 out of 10. Patient says that he normally gets about 3 months of relief with these injections. He would like to hold off on scheduling another one until next month. Patient is also currently being manage with Percocet 10 mg 4 times a day. Patient denies any side effects from this medication. Patient denies any change in location of pain. His Asim is [id number] with an active morphine equivalent of 60. ORT score is 0, low risk. Review of Systems General: No recent weight changes, no fever, no sleep disturbances Respiratory: No cough, no shortness of air, no recurring pulmonary infections Cardiovascular/peripheral vascular: No chest pain, no palpitations, no edema, no shortness of breath Gastrointestinal: No new onset incontinence, normal bowel movements reported Genitourinary: No new onset incontinence Musculoskeletal: Low back pain, right hip pain Psychiatric: [Normal mood/affect] Neurological: [Denies weakness in extremities], [denies balance issues] Objective:: Physical exam General: Alert and oriented x3, no acute distress, pleasant and cooperative Lungs: Respirations even and unlabored, symmetrical chest expansion Eyes: PERRL Musculoskeletal: Flexion and extension of lumbar [spine] somewhat guarded secondary to pain, [antalgic gait noted] Neurological: Speech clear, no gross sensory deficit Assessment:: Degenerative disc disease of the lumbar spine with lumbar radiculopathy symptoms Right sacroiliitis Plan:: Patient says that he is doing good after the SI injection. He typically gets about 3 months of relief after each injection. He would like to hold off on scheduling for another 1 until the next appointment. Patient says that he will call us if he needs it sooner. We will refill the patient's Percocet 10 mg 4 times a day. We will provide the patient with 1 month of refill. We would like to see the patient back in the clinic after 1 month for follow-up. Patient has been instructed to contact the clinic with any concerns before the next appointment. Dr. Horvath has reviewed this note and agrees with this plan of care. This note was dictated using voice recognition software and make contain errors or omissions. [facility] History Medical History: Reports:: Atherosclerotic Heart Disease, Coronary Artery Disease, Diabetes Mellitus Type 2, Hyperlipidemia, Hypertension, Myocardial Infarction Denies:: Cancer, Diabetes Mellitus Type 1, Internal Pacemaker, MRSA, Seizures *Have you ever received a pneumonia vaccine?: Yes *Have you received a flu vaccine this season?: No Other Medical History: Reports: Arthritis, Hypothyroidism, Thyroid Disease. Denies: Blood Transfusion Reaction Laterality Cases: Bilateral: Arthroscopy Shoulder Other Surgeries: Yes: Angiogram, CABG, Cancer Surgery, Cardiac Catheterization, Cardiac Surgery, Colonoscopy, Colon Resection, Coronary Stent, Hernia Repair, Other. No: Pacemaker Amputation: No Fractures: No - *Social History Smoking Status: Never smoker Tobacco Type: smokeless tobacco # Packs/Day (cigarettes): 0 Alcohol Intake: never Substance Use Type: denies use *Occupational Status:: unemployed, retired Housing: house Household Members: spouse *Travel in the last 8 weeks: None Family Hx:: Heart Attack
== END ==
LOC: SC.PAIN 08:20
PROVIDERS: Visit Provider Clinical Nurse Specialist Family Health
DX: M51.16 Intervertebral disc disorders with radiculopathy, lumbar region (principal); M46.1 Sacroiliitis, not elsewhere classified
CPT/HCPCS: 99212; G0463

== ENCOUNTER → 2021-11-03 08:19 | Outpatient (POV) | payer MEDICARE, SELFPAY ==
[2021-11-03 08:33] VITALS: BP 142/72; PULSE 76; RESP 18; O2SAT 98; BMI 29.4
--- NOTE | 2021-11-03 09:03 | HMH.PAINSOAP ---
[facility] Pain Management SOAP Note Subjective:: Patient is a 71-year-old white male who presents today for follow-up. He is here for medication refills and is inquiring about injective therapy. He does have right SI injections routinely which gave him 80 to 90% relief for about 3 months. The pain has returned in the low back area with radiation to the buttock and hip. He is tender to palpation to the area today. He rates his pain a 9 out of 10. We also manage him Percocet 5 mg 4 times daily. [facility] #[id number] has been reviewed and is appropriate. Morphine equivalent is 60. Review of Systems General: No recent weight changes, no fever, no sleep disturbances Respiratory: No cough, no shortness of air, no recurring pulmonary infections Cardiovascular/peripheral vascular: No chest pain, no palpitations, no edema, no shortness of breath Gastrointestinal: No new onset incontinence, normal bowel movements reported Genitourinary: No new onset incontinence Musculoskeletal: Low back pain with radiation into bilateral buttock and hips Psychiatric: [Normal mood/affect] Neurological: [Denies weakness in extremities], [denies balance issues] Objective:: Physical exam General: Alert and oriented x3, no acute distress, pleasant and cooperative Lungs: Respirations even and unlabored, symmetrical chest expansion Eyes: PERRL Musculoskeletal: Flexion and extension of lumbar [spine] somewhat guarded secondary to pain, [antalgic gait noted], positive Patricia's test, positive distraction test, positive compression test, positive Gaenslen test Neurological: Speech clear, no gross sensory deficit Assessment:: Degenerative disc disease lumbar spine with lumbar radiculopathy, right sacroiliitis Plan:: We we will continue the patient's Percocet 10 mg 1 tablet 4 times daily and we will schedule him for right SI joint injection. We will see him back after the evaluation Risks and benefits of the procedure have been explained to the patient. Patient would like to proceed with the procedure. Risks and benefits of the medication have been explained in detail to the patient. The patient does understand the risk of dependence on the medication when given over a prolonged period. Patient has been advised of risks of oversedation with the prescribed medication. Narcan has been offered to the paitent in the event of oversedation. Patient has been advised that a family member should also be educated regarding administration of Narcan. The patient has been advised to consult with his/her primary care provider and pharmacist regarding drug-drug interaction of medications currently prescribed. Patient has been prescribed a controlled substance after being counseled on the medication, medication safety, and possible side effects. SAMUEL report has been obtained and reviewed prior to prescription and found to be appropriate. Opioid contract was reviewed and signed by the patient, and that they have agreed to all of the terms set forth by our compliance program. Patient has been instructed to contact the clinic with any concerns before the next appointment. Dr. Horvath has reviewed this note and agrees with this plan of care. This note was dictated using voice recognition software and make contain errors or omissions. [facility] History I have reviewed the patient's past medical history: Yes Medical History: Reports:: Atherosclerotic Heart Disease, Coronary Artery Disease, Diabetes Mellitus Type 2, Hyperlipidemia, Hypertension, Myocardial Infarction Denies:: Cancer, Diabetes Mellitus Type 1, Internal Pacemaker, MRSA, Seizures *Have you ever received a pneumonia vaccine?: Yes *Have you received a flu vaccine this season?: Yes Other Medical History: Reports: Arthritis, Hypothyroidism, Thyroid Disease. Denies: Blood Transfusion Reaction Laterality Cases: Bilateral: Arthroscopy Shoulder Other Surgeries: Yes: Angiogram, CABG, Cancer Surgery, Cardiac Catheterization,
== END ==
LOC: SC.PAIN 08:19
PROVIDERS: Visit Provider Clinical Nurse Specialist Family Health
DX: M51.16 Intervertebral disc disorders with radiculopathy, lumbar region (principal); M46.1 Sacroiliitis, not elsewhere classified; Z79.891 Long term (current) use of opiate analgesic
CPT/HCPCS: 80305; 80361; 80365; 99212; G0463; G0480

== ENCOUNTER → 2021-11-03 08:45 | Outpatient (CLI) | payer MEDICARE, SELFPAY ==
[2021-11-03 17:52] LABS: Amphetamine/Metha Screen,Urine Negative ng/ml (<1000)
[2021-11-03 17:53] LABS: Barbiturates Screen,Urine Negative ng/ml (<200)
[2021-11-03 17:54] LABS: Benzodiazepines Screen,Urine Negative ng/ml (<200); Cannabinoid Screen,Urine Negative ng/ml (<50)
[2021-11-03 17:55] LABS: Cocaine Screen,Urine Negative ng/ml (<300); Methadone Screen,Urine Negative ng/ml (<300)
[2021-11-03 17:56] LABS: Opiate Screen,Urine Negative ng/ml (<300)
[2021-11-03 17:57] LABS: Phencyclidine Screen,Urine Negative ng/ml (<25)
[2021-11-14 22:08] LABS: Opiates Negative (Cutoff=100)
== END ==
PROVIDERS: PCP Emergency Medicine; Visit Provider Clinical Nurse Specialist Family Health
DX: Z79.891 Long term (current) use of opiate analgesic (principal)
CPT/HCPCS: 80305; 80361; 80365; G0480

== ENCOUNTER 2021-11-25 08:37 | Day surgery (SDC) | payer MEDICARE, SELFPAY ==
[2021-11-25 09:01] VITALS: BP 109/81; BP 110/71; PULSE 67; PULSE 69; RESP 18; TEMP 37.1; O2SAT 97; O2SAT 98; BMI 29.2
[2021-11-25 09:29] VITALS: BP 136/64; PULSE 69; RESP 20; O2SAT 96
[2021-11-25 09:40] VITALS: BP 137/71; PULSE 72; RESP 20; O2SAT 100
--- NOTE | 2021-11-25 09:53 | P.PCN_ITS ---
- Procedure Date: 11/25/21 Time: 09:53 Anesthesiologist:: Jamal Horvath MD Complications:: None Pre-procedure Diagnosis:: Sacroiliitis Post-procedure Diagnosis:: Same Indications for Procedure:: This patient is a pleasant 8-year-old white male who we are treating for right- sided hip pain. He is tender over the right SI joint. He does have a positive Patricia's test on the right side. Is positive Mavis test on the right side. He has positive SI joint compression test on the right side. We will seek approval and plan on right SI joint injection under fluoroscopy today to see if this helps him with his pain symptoms. Procedure Details:: Right SI joint injection under fluoroscopy Informed consent was obtained and the risks and benefits of the procedure was going to the patient. Patient was taken to the procedure room. Patient was placed prone on the procedure table. The right hip was prepped using ChloraPrep. The skin and subcutaneous tissues were anesthetized using lidocaine. I placed a 22-gauge spinal needle into the inferior aspect of the right SI joint. Needle placement was confirmed with dye. After this we injected 5 mL bupivacaine 0.25% and Depo-Medrol 40 mg into the right SI joint. The patient tolerated the procedure well with no complication. Plan and Disposition:: We will follow-up with him in 2 weeks. Will reevaluate symptoms at that time. He is having some myofascial pain in his neck and right upper trapezius area. Trigger points identified. I do believe he would benefit from trigger point injections to the right cervical paraspinous muscles and right upper trapezius muscle. We will plan on doing this at his next visit.
== END 2021-11-25 09:41 | disposition home or self-care (01) ==
LOC: SC.PAINP 08:39
PROVIDERS: PCP Emergency Medicine; Visit Provider Anesthesiology
DX: M46.1 Sacroiliitis, not elsewhere classified (principal); I10 Essential (primary) hypertension; E78.5 Hyperlipidemia, unspecified; E11.9 Type 2 diabetes mellitus without complications; Z72.0 Tobacco use; J45.909 Unspecified asthma, uncomplicated; I25.10 Atherosclerotic heart disease of native coronary artery without angina pectoris; E03.9 Hypothyroidism, unspecified; Z95.1 Presence of aortocoronary bypass graft; Z88.5 Allergy status to narcotic agent; Z88.8 Allergy status to other drugs, medicaments and biological substances
CPT/HCPCS: 27096; G0260; J1040; Q9966

== ENCOUNTER 2021-12-09 09:01 | Day surgery (SDC) | payer MEDICARE, SELFPAY ==
[2021-12-09 09:08] VITALS: BP 131/75; BP 133/66; PULSE 74; PULSE 75; RESP 18; RESP 20; O2SAT 96; O2SAT 98
[2021-12-09 09:20] VITALS: BP 144/84; PULSE 59; RESP 20; TEMP 36.8; O2SAT 97; BMI 29.2
[2021-12-09 10:10] VITALS: BP 135/70; PULSE 69; RESP 20; O2SAT 99
--- NOTE | 2021-12-09 10:10 | HMH.PMPROC ---
- Procedure Date: 12/09/21 Time: 10:10 Anesthesiologist:: Jamal Horvath MD Complications:: None Pre-procedure Diagnosis:: Degenerative disc disease of lumbar spine with lumbar radiculopathy symptoms Post-procedure Diagnosis:: Same Indications for Procedure:: Patient is a pleasant 71-year-old white male who we are treating for low back pain right-sided hip and right leg pain. He did have a right SI joint injection at his last visit which did not give him much relief. Most of his pain is radiating down all the way right leg. We will plan on lumbar pleural steroid injection at L5-S1 today to see if this helps with his pain symptoms. Procedure Details:: Informed consent was obtained and the risk and benefits of the procedure was explained to the patient. The patient was taken to the procedure room. The patient was placed prone on the procedure table. The patient was prepped and draped in sterile fashion. C-arm fluoroscopy was used to view the lumbar spine. Skin and subcutaneous tissues were anesthetized using lidocaine. I placed an 18-gauge epidural needle and advanced into the L5-S1 interspace using fluoroscopic guidance and [id number] to air. After confirmation of needle placement in the epidural space with dye I injected 2 mL of lidocaine 1.5% with Depo-Medrol 80 mg. Patient tolerated the procedure well with no complications. Plan and Disposition:: We will follow-up with him in 2 weeks. Will reevaluate symptoms at that time.
== END 2021-12-09 10:10 | disposition home or self-care (01) ==
LOC: SC.PAINP 09:02
PROVIDERS: PCP Emergency Medicine; Visit Provider Anesthesiology
DX: M51.16 Intervertebral disc disorders with radiculopathy, lumbar region (principal); E03.9 Hypothyroidism, unspecified; E87.5 Hyperkalemia; I10 Essential (primary) hypertension; E10.9 Type 1 diabetes mellitus without complications; Z95.1 Presence of aortocoronary bypass graft
CPT/HCPCS: 62323; J1040; Q9966

== ENCOUNTER → 2022-01-05 08:29 | Outpatient (POV) | payer MEDICARE, SELFPAY ==
[2022-01-05 08:40] VITALS: BP 162/69; PULSE 69; RESP 18; TEMP 35.9; O2SAT 97; BMI 30.2
--- NOTE | 2022-01-05 09:04 | HMH.PAINSOAP ---
[facility] Pain Management SOAP Note Subjective:: Patient is a pleasant 71-year-old male who presents today for a follow-up after a lumbar epidural steroid injection on December 09, 2021. Were currently treating this patient for degenerative disc disease of lumbar spine with lumbar radiculopathy symptoms. After procedure, patient had 70 to 80% relief of symptoms. Rates pain today as 5 out of 10. He states that the pain is going down his right leg has gotten better since the injection. He has been able to increase his activity since then. He also previously had a right SI injection that did not give much relief. We are also prescribing this patient Percocet 10 mg 4 times a day. Denies any side effects from this medication. He does say that he takes stool softener once a week in case he gets some constipation. He is needing refills today. [facility] #[id number] with an active morphine equivalent of 60. Review of Systems: General: No recent weight changes, no fever, no sleep disturbances Respiratory: No cough, no shortness of air, no recurring pulmonary infections Cardiovascular/peripheral vascular: No chest pain, no palpitations, no edema, no shortness of breath Gastrointestinal: No new onset incontinence, normal bowel movements reported Genitourinary: No new onset incontinence Musculoskeletal: Low back pain Psychiatric: [Normal mood/affect] Neurological: [Denies weakness in extremities], [denies balance issues] Objective:: Physical Exam: General: Alert and oriented x3, no acute distress, pleasant and cooperative, [on room air] Lungs: Respirations even and unlabored, symmetrical chest expansion Eyes: PERRL Musculoskeletal: Flexion and extension of lumbar [spine] somewhat guarded secondary to pain, [antalgic gait noted] Neurological: Speech clear, no gross sensory deficit Assessment:: Degenerative disc disease of lumbar spine with lumbar radiculopathy symptoms Plan:: We will continue the patient's Percocet 10 mg 4 times a day. We will provide the patient with 1 month worth of refill. We will follow up with this patient in 1 month. Patient feels like he does not need any repeat injection at this time. He continues to have relief from this injection. We will reevaluate his chronic pain syndrome next month to see if he needs repeat injection. Patient has been instructed to contact the clinic with any concerns before the next appointment. Dr. Horvath has reviewed this note and agrees with this plan of care. This note was dictated using voice recognition software and make contain errors or omissions. [facility] History Medical History: Reports:: Atherosclerotic Heart Disease, Coronary Artery Disease, Diabetes Mellitus Type 2, Hyperlipidemia, Hypertension, Myocardial Infarction Denies:: Cancer, Diabetes Mellitus Type 1, Internal Pacemaker, MRSA, Seizures *Have you ever received a pneumonia vaccine?: Yes *Have you received a flu vaccine this season?: Yes Other Medical History: Reports: Arthritis, Hypothyroidism, Thyroid Disease. Denies: Blood Transfusion Reaction Laterality Cases: Bilateral: Arthroscopy Shoulder Other Surgeries: Yes: Angiogram, CABG, Cancer Surgery, Cardiac Catheterization, Cardiac Surgery, Colonoscopy, Colon Resection, Coronary Stent, Hernia Repair, Other. No: Pacemaker Amputation: No Fractures: No - *Social History Smoking Status: Current every day smoker Tobacco Type: smokeless tobacco # Packs/Day (cigarettes): 0 Alcohol Intake: never Substance Use Type: denies use *Occupational Status:: retired Housing: house Household Members: spouse *Travel in the last 8 weeks: None Family Hx:: No significant family history
== END ==
LOC: SC.PAIN 08:30
PROVIDERS: Visit Provider Student in an Organized Health Care Education/Training Program
DX: M51.16 Intervertebral disc disorders with radiculopathy, lumbar region (principal)
CPT/HCPCS: 99212; G0463

== ENCOUNTER → 2022-02-02 08:19 | Outpatient (POV) | payer MEDICARE, SELFPAY ==
[2022-02-02 08:27] VITALS: BP 142/87; PULSE 60; RESP 18; TEMP 36.3; O2SAT 97; BMI 29.2
--- NOTE | 2022-02-02 09:04 | HMH.PAINSOAP ---
[facility] Pain Management SOAP Note Subjective:: Patient is a pleasant 71-year-old male who is here for medication refill and follow-up. Patient is currently being treated for degenerative disc disease of the lumbar spine with lumbar radiculopathy symptoms. Patient is being managed with Percocet 10 mg 4 times a day. Patient denies any side effects from the medications. Patient states that he does have intermittent constipation that he takes stool softener before he needs refills on his stool softener. Patient denies any changes to the location and type of pain. Patient states that this is adequately helping manage their pain. Rates pain as 5 out of 10. [facility] number [id number] with an active morphine equivalent 60. Drug screens have been reviewed and appropriate. We have also been managing this patient with injective therapy. He gets lumbar epidural steroid injections every 3 to 4 months that provides him 80 to 90% relief. He also got right SI injections. Review of Systems: General: No recent weight changes, no fever, no sleep disturbances Respiratory: No cough, no shortness of air, no recurring pulmonary infections Cardiovascular/peripheral vascular: No chest pain, no palpitations, no edema, no shortness of breath Gastrointestinal: No new onset incontinence, normal bowel movements reported Genitourinary: No new onset incontinence Musculoskeletal: Low back pain Psychiatric: [Normal mood/affect] Neurological: [Denies weakness in extremities], [denies balance issues] Objective:: Physical Exam: General: Alert and oriented x3, no acute distress, pleasant and cooperative Lungs: Respirations even and unlabored, symmetrical chest expansion Eyes: PERRL Musculoskeletal: Flexion and extension of lumbar [spine] somewhat guarded secondary to pain, [antalgic gait noted] Neurological: Speech clear, no gross sensory deficit Assessment:: Degenerative disc disease lumbar spine with lumbar radiculopathy symptoms Sacroiliitis Plan:: We will continue the patient's Percocet 10 mg 4 times a day. We will provide the patient with 1 month of refills. We would like to see the patient back in 1 month for follow-up and reevaluation of chronic pain syndrome. I will also refill the patient's stool softener. He states that he may need injective therapy at his next refill. Patient has been advised of risks of oversedation with the prescribed medication. Narcan has been offered to the patient in the event of oversedation. Patient has been advised that a family member should also be educated regarding administration of Narcan. Patient has been instructed to contact the clinic with any concerns before the next appointment. Dr. Horvath has reviewed this note and agrees with this plan of care. This note was dictated using voice recognition software and make contain errors or omissions. [facility] History Medical History: Reports:: Atherosclerotic Heart Disease, Coronary Artery Disease, Diabetes Mellitus Type 2, Hyperlipidemia, Hypertension, Myocardial Infarction Denies:: Cancer, Diabetes Mellitus Type 1, Internal Pacemaker, MRSA, Seizures *Have you ever received a pneumonia vaccine?: Yes *Have you received a flu vaccine this season?: Yes Other Medical History: Reports: Arthritis, Hypothyroidism, Thyroid Disease. Denies: Blood Transfusion Reaction Laterality Cases: Bilateral: Arthroscopy Shoulder Other Surgeries: Yes: Angiogram, CABG, Cancer Surgery, Cardiac Catheterization, Cardiac Surgery, Colonoscopy, Colon Resection, Coronary Stent, Hernia Repair, Other. No: Pacemaker Amputation: No Fractures: No - *Social History Smoking Status: Current every day smoker Tobacco Type: smokeless tobacco # Packs/Day (cigarettes): 0 Alcohol Intake: never Substance Use Type: denies use *Occupational Status:: retired Housing: house Household Members: spouse *Travel in the last 8 weeks: None Family Hx:: No significant family history
== END ==
PROVIDERS: Visit Provider Student in an Organized Health Care Education/Training Program
DX: M51.16 Intervertebral disc disorders with radiculopathy, lumbar region (principal); M46.1 Sacroiliitis, not elsewhere classified
CPT/HCPCS: 99212; G0463

== ENCOUNTER → 2022-02-02 08:45 | Outpatient (CLI) | payer MEDICARE, SELFPAY ==
[2022-02-02 10:27] LABS: Barbiturates Screen,Urine Negative ng/ml (<200); Benzodiazepines Screen,Urine Negative ng/ml (<200)
[2022-02-02 10:28] LABS: Amphetamine/Metha Screen,Urine Negative ng/ml (<1000); Cannabinoid Screen,Urine Negative ng/ml (<50)
[2022-02-02 10:29] LABS: Cocaine Screen,Urine Negative ng/ml (<300)
[2022-02-02 10:30] LABS: Methadone Screen,Urine Negative ng/ml (<300); Opiate Screen,Urine Negative ng/ml (<300)
[2022-02-02 10:31] LABS: Phencyclidine Screen,Urine Negative ng/ml (<25)
[2022-02-14 11:31] LABS: Opiates Negative (Cutoff=100); Oxycodone (GC/MS) 395 ng/mL (Cutoff=100)
== END ==
LOC: LAB 08:46
PROVIDERS: Visit Provider Student in an Organized Health Care Education/Training Program
DX: Z79.891 Long term (current) use of opiate analgesic (principal)
CPT/HCPCS: 80305; 80361; 80365; 99212; G0463; G0480

== ENCOUNTER → 2022-03-02 08:18 | Outpatient (POV) | payer MEDICARE, SELFPAY ==
[2022-03-02 08:29] VITALS: BP 136/82; PULSE 75; RESP 18; TEMP 36.7; O2SAT 99; BMI 30.2
--- NOTE | 2022-03-02 08:45 | HMH.PAINSOAP ---
[facility] Pain Management SOAP Note Subjective:: Patient is a pleasant 71-year-old male who is here for medication refill and follow-up. Patient is currently being treated for degenerative disease of lumbar spine with lumbar radiculopathy symptoms. Patient is being managed with Percocet 10 mg 4 times a day. Patient denies any side effects from the medications. Patient denies any changes to the location and type of pain. Patient states that this is adequately helping manage their pain. Rates pain as 4 out of 10. [facility] number [phone] with an active morphine equivalent 60. Drug screens have been reviewed and appropriate. We have also been managing this patient with injective therapy. He gets lumbar epidural steroid injections every 3 to 4 months and right SI injections. Additionally, he states that he fell last week. Denies any worsening pain. He did not seek any medical attention. Review of Systems: General: No recent weight changes, no fever, no sleep disturbances Respiratory: No cough, no shortness of air, no recurring pulmonary infections Cardiovascular/peripheral vascular: No chest pain, no palpitations, no edema, no shortness of breath Gastrointestinal: No new onset incontinence, normal bowel movements reported Genitourinary: No new onset incontinence Musculoskeletal: Low back pain Psychiatric: [Normal mood/affect] Neurological: [Denies weakness in extremities], [denies balance issues] Objective:: Physical Exam: General: Alert and oriented x3, no acute distress, pleasant and cooperative Lungs: Respirations even and unlabored, symmetrical chest expansion Eyes: PERRL Musculoskeletal: Flexion and extension of lumbar [spine] somewhat guarded secondary to pain, [antalgic gait noted] Neurological: Speech clear, no gross sensory deficit Assessment:: Degenerative disc disease of lumbar spine with lumbar radiculopathy symptoms Plan:: We will continue the patient's Percocet 10 mg 4 times a day. We will provide the patient with 1 month of refills. We would like to see the patient back in 1 month for follow-up and reevaluation of chronic pain syndrome. Patient has been advised of risks of oversedation with the prescribed medication. Narcan has been offered to the patient in the event of oversedation. Patient has been advised that a family member should also be educated regarding administration of Narcan. Patient has been instructed to contact the clinic with any concerns before the next appointment. Dr. Horvath has reviewed this note and agrees with this plan of care. This note was dictated using voice recognition software and make contain errors or omissions. [facility] History Medical History: Reports:: Atherosclerotic Heart Disease, Coronary Artery Disease, Diabetes Mellitus Type 2, Hyperlipidemia, Hypertension, Myocardial Infarction Denies:: Cancer, Diabetes Mellitus Type 1, Internal Pacemaker, MRSA, Seizures *Have you ever received a pneumonia vaccine?: Yes *Have you received a flu vaccine this season?: Yes Other Medical History: Reports: Arthritis, Hypothyroidism, Thyroid Disease. Denies: Blood Transfusion Reaction Laterality Cases: Bilateral: Arthroscopy Shoulder Other Surgeries: Yes: Angiogram, CABG, Cancer Surgery, Cardiac Catheterization, Cardiac Surgery, Colonoscopy, Colon Resection, Coronary Stent, Hernia Repair, Other. No: Pacemaker Amputation: No Fractures: No - *Social History Smoking Status: Current every day smoker Tobacco Type: smokeless tobacco # Packs/Day (cigarettes): 0 Alcohol Intake: never Substance Use Type: denies use *Occupational Status:: retired Housing: house Household Members: spouse *Travel in the last 8 weeks: None Family Hx:: No significant family history
== END ==
LOC: SC.PAIN 08:19
PROVIDERS: Visit Provider Student in an Organized Health Care Education/Training Program
DX: M51.16 Intervertebral disc disorders with radiculopathy, lumbar region (principal)
CPT/HCPCS: 99212; G0463

== ENCOUNTER → 2022-03-28 08:22 | Outpatient (POV) | payer MEDICARE, SELFPAY ==
[2022-03-28 09:04] VITALS: BP 145/84; PULSE 68; RESP 20; TEMP 36.4; O2SAT 98; BMI 29.0
--- NOTE | 2022-03-28 09:10 | HMH.PAINSOAP ---
[facility] Pain Management SOAP Note Subjective:: Patient is a pleasant 71-year-old male who is here for medication refill and follow-up. Patient is currently being treated for degenerative disease of lumbar spine with lumbar radiculopathy symptoms, sacroiliitis. Patient is being managed with Percocet 10 mg 4 times a day. Patient denies any side effects from the medications. Patient denies any changes to the location and type of pain. Patient states that this is adequately helping manage their pain. Rates pain as 9 out of 10. [facility] number [id number] with an active morphine equivalent 60. Drug screens have been reviewed and appropriate. We also manage this patient with injective therapy from time to time. He gets significant relief from lumbar epidural steroid injections and right SI injections for 3 to 4 months. Today, patient is complaining more of neck and shoulder pain. 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 He has been using Biofreeze on his neck and shoulders that is helping some. Denies any recent falls or traumas. Review of Systems: General: No recent weight changes, no fever, no sleep disturbances Respiratory: No cough, no shortness of air, no recurring pulmonary infections Cardiovascular/peripheral vascular: No chest pain, no palpitations, no edema, no shortness of breath Gastrointestinal: No new onset incontinence, normal bowel movements reported Genitourinary: No new onset incontinence Musculoskeletal: Neck pain, shoulder pain, low back pain Psychiatric: [Normal mood/affect] Neurological: [Denies weakness in extremities], [denies balance issues] Objective:: Physical Exam: General: Alert and oriented x3, no acute distress, pleasant and cooperative Lungs: Respirations even and unlabored, symmetrical chest expansion Eyes: PERRL Musculoskeletal: Flexion and extension of lumbar [spine] somewhat guarded secondary to pain, [antalgic gait noted]; patient has a 3 to 4 cm knot around his right posterior neck that is tender to palpation. He has also some tenderness to palpations around bilateral upper trapezius as well. Neurological: Speech clear, no gross sensory deficit Assessment:: Degenerative disc disease of lumbar spine with lumbar radiculopathy symptoms, sacroiliitis, myofascial pain Plan:: Patient has a 3 to 4 cm knot around his right posterior neck that is tender to palpation. He also is tender to palpation around bilateral upper trapezius as well. We will schedule the patient for trigger point injections around these areas. We will continue the patient's Percocet 10 mg 4 times a day and provide the patient with 1 month worth of refill. Follow-up after the injection Patient has been instructed to contact the clinic with any concerns before the next appointment. Dr. Horvath has reviewed this note and agrees with this plan of care. This note was dictated using voice recognition software and make contain errors or omissions. [facility] History Medical History: Reports:: Atherosclerotic Heart Disease, Coronary Artery Disease, Diabetes Mellitus Type 2, Hyperlipidemia, Hypertension, Myocardial Infarction Denies:: Cancer, Diabetes Mellitus Type 1, Internal Pacemaker, MRSA, Seizures *Have you ever received a pneumonia vaccine?: Yes *Have you received a flu vaccine this season?: Yes Other Medical History: Reports: Arthritis, Hypothyroidism, Thyroid Disease. Denies: Blood Transfusion Reaction Laterality Cases: Bilateral: Arthroscopy Shoulder Other Surgeries: Yes: Angiogram, CABG, Cancer Surgery, Cardiac Catheterization, Cardiac Surgery, Colonoscopy, Colon Resection, Coronary Stent, Hernia Repair, Other. No: Pacemaker Amputation: No Fractures: No - *Social History Smoking Status: Current every day smoker Tobacco Type: smokeless tobacco # Packs/Day (cigarettes): 0 Alcohol Intake: never Substance Use Type: denies use *Occupational Status:: other Housing: house Household Members: spouse *Travel in the
== END ==
LOC: SC.PAIN 08:23
PROVIDERS: Visit Provider Student in an Organized Health Care Education/Training Program
DX: M51.16 Intervertebral disc disorders with radiculopathy, lumbar region (principal); M46.1 Sacroiliitis, not elsewhere classified; M79.10 Myalgia, unspecified site
CPT/HCPCS: 99212; G0463

== ENCOUNTER 2022-04-04 11:05 | Day surgery (SDC) | payer MEDICARE, SELFPAY ==
[2022-04-04 11:18] VITALS: BP 129/68; PULSE 77; RESP 20; TEMP 36.5; O2SAT 99; BMI 29.1
[2022-04-04 11:30] VITALS: BP 138/88; PULSE 74; RESP 18; O2SAT 98
--- NOTE | 2022-04-04 11:41 | P.PCN_ITS ---
- Procedure Date: 04/04/22 Time: 11:41 Anesthesiologist:: Lexa Leavitt CRNA Complications:: None Pre-procedure Diagnosis:: Degenerative disc disease of lumbar spine with lumbar radiculopathy symptoms, sacroiliitis, myofascial pain, cervical paraspinous and bilateral upper trapezius Post-procedure Diagnosis:: Same Indications for Procedure:: This is a pleasant 71-year-old male who is here for cervical paraspinous and bilateral upper trapezius trigger point injections. We are currently treating patient for degenerative disc disease of lumbar spine with lumbar radiculopathy symptoms, sacroiliitis, myofascial pain, cervical paraspinous and upper trapezius. Patient presented with point tenderness on his cervical paraspinous and trapezius area. 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 We have used injective therapy in the past with significant relief of his symptoms. Procedure Details:: Procedure details were explained to the patient. Patient was placed in a sitting position. The area over the posterior cervical and trapezius area was cleansed with chlorhexidine. Markers were placed in 3 different areas bilaterally over the posterior cervical spinous and trapezius area. Using a 25- gauge needle 2 cc of a solution was injected at each marker bilaterally. This was done after negative aspiration. Patient tolerated the procedure without difficulty. No complications. Plan and Disposition:: Patient tolerated procedure well. We will follow-up with him in clinic in 2 weeks. Patient discharged with no complications.
[2022-04-04 11:47] VITALS: BP 123/65; PULSE 74; RESP 20; O2SAT 98
== END 2022-04-04 11:49 | disposition home or self-care (01) ==
LOC: SC.PAINP 11:05
PROVIDERS: PCP Emergency Medicine; Visit Provider Nurse Anesthetist, Certified Registered
DX: M51.16 Intervertebral disc disorders with radiculopathy, lumbar region (principal); M46.1 Sacroiliitis, not elsewhere classified; M79.12 Myalgia of auxiliary muscles, head and neck
CPT/HCPCS: 20552; J1040

== ENCOUNTER → 2022-04-24 10:54 | Outpatient (POV) | payer MEDICARE, SELFPAY ==
[2022-04-24 11:10] VITALS: BP 133/73; PULSE 75; RESP 17; TEMP 36.5; O2SAT 98; BMI 29.1
--- NOTE | 2022-04-24 11:57 | HMH.PAINSOAP ---
[facility] Pain Management SOAP Note Subjective:: Patient is a pleasant 71-year-old male who is here for follow-up from trigger point injections of his cervical paraspinous and bilateral upper trapezius muscles on 04/04/2022. We are currently treating the patient for degenerative disc disease of lumbar spine with lumbar radiculopathy symptoms, sacroiliitis, myofascial pain of cervical paraspinous and bilateral upper trapezius. Patient states that he has had significant relief with this injection. He rates it at a 80% improvement and states it is still helping. We have done injective therapy in the past for him. He has had significant relief from lumbar epidural steroid injections and right SI injections for 3 to 4 months. Today he rates his pain a 6 out of 10. He states his pain is in his right low back and is worse with activity. He states this this is a ache sensation. He states he did spend time over the weekend doing gama with his and feels like this may have aggravated his low back pain. Patient states he has had these aches and pains over the last several years. He denies any change to the location or type of pain he experiences. Patient is managed with Percocet 10 mg 4 times a day. He denies any side effects of this medication. He states that this medication does adequately help his pain. Patient has used topical creams such as Biofreeze with minimal relief. Patient is interested in injective therapy today for his low back pain. His Asim is [id number]. It has been reviewed and appropriate. Review of Systems: General: No recent weight changes, no fever, no sleep disturbances Respiratory: No cough, no shortness of air, no recurring pulmonary infections Cardiovascular/peripheral vascular: No chest pain, no palpitations, no edema, no shortness of breath Gastrointestinal: No new onset incontinence, normal bowel movements reported Genitourinary: No new onset incontinence Musculoskeletal: Low back pain Psychiatric: [Normal mood/affect] Neurological: [Denies weakness in extremities], [denies balance issues] Objective:: Physical Exam: General: Alert and oriented x3, no acute distress, pleasant and cooperative Lungs: Respirations even and unlabored, symmetrical chest expansion Eyes: PERRL Musculoskeletal: Flexion and extension of lumbar [spine] somewhat guarded secondary to pain, [antalgic gait noted]. Point tenderness at lumbar spine Neurological: Speech clear, no gross sensory deficit Assessment:: Degenerative disc disease of lumbar spine with lumbar radiculopathy symptoms, sacroiliitis, myofascial pain of cervical paraspinous and bilateral upper trapezius muscles and lumbar paraspinous muscles. Plan:: Patient is having significant worsening pain of his low back today's visit. Patient had point tenderness along his right lumbar paraspinous region. I have talked with the patient regarding trigger point injections of this area. Risk and benefits were discussed with the patient. He would like to proceed forward with this injection at this time. We will schedule the patient for a right trigger point injection of his lumbar paraspinous muscles. At his next visit I would like to discuss with the patient regarding updated imaging of his lumbar spine. Patient has been instructed to contact the clinic with any concerns before the next appointment. Dr. Horvath has reviewed this note and agrees with this plan of care. This note was dictated using voice recognition software and make contain errors or omissions. [facility] History I have reviewed the patient's past medical history: Yes Medical History: Reports:: Arrhythmia, Atherosclerotic Heart Disease, Coronary Artery Disease, Diabetes Mellitus Type 2, Hyperlipidemia, Hypertension, Myocardial Infarction Denies:: Cancer, Diabetes Mellitus Type 1, Internal Pacemaker, MRSA, Seizures *Have you ever received a pneumonia vaccine?: Yes *Have you received a flu vaccine this season?: Yes Other Medical History
== END ==
LOC: SC.PAIN 10:54
PROVIDERS: PCP Emergency Medicine; Visit Provider Student in an Organized Health Care Education/Training Program
DX: M51.16 Intervertebral disc disorders with radiculopathy, lumbar region (principal); M46.1 Sacroiliitis, not elsewhere classified; M79.18 Myalgia, other site
CPT/HCPCS: 99212; G0463

== ENCOUNTER 2022-05-16 08:14 | Day surgery (SDC) | payer MEDICARE, SELFPAY ==
[2022-05-16 08:19] VITALS: BP 155/84; PULSE 71; RESP 18; O2SAT 98; BMI 28.5
[2022-05-16 08:52] VITALS: BP 144/71; PULSE 62; RESP 18; O2SAT 98
--- NOTE | 2022-05-16 09:01 | P.PCN_ITS ---
- Procedure Date: 05/16/22 Time: 09:01 Anesthesiologist:: Jamal Horvath MD Complications:: None Pre-procedure Diagnosis:: Low back pain myofascial in origin with lumbago Post-procedure Diagnosis:: Same Indications for Procedure:: This patient is a pleasant 72-year-old white male who we have been treating for degenerative disc disease of the cervical spine and degenerative disease of lumb ar spine with lumbar and cervical radiculopathy symptoms. He had epidural injections in the past and done very well. Most of his pain now is in the lower right lumbar paraspinous area. Trigger points identified. We will do trigger point injections today to the right lumbar paraspinous area to help him with his pain symptoms. Procedure Details:: Trigger point injections x4 to right lumbar paraspinous area Informed consent was obtained the risk and benefits of the procedure were explained to the patient. Patient was taken the procedure room. Back was prepped using ChloraPrep. Trigger points were palpated and marked. Each of these trigger points were injected with bupivacaine 0.25% 3 mL and Depo-Medrol 10 mg. A total of 4 trigger points were injected using 40 mg Depo-Medrol on the right lumbar paraspinous area. Patient tolerated procedure well with no complications. Plan and Disposition:: We will follow-up with this patient in 2 weeks. Will reevaluate his symptoms at that time.
== END 2022-05-16 09:10 | disposition home or self-care (01) ==
LOC: SC.PAINP 08:14
PROVIDERS: PCP Emergency Medicine; Visit Provider Anesthesiology
DX: M54.50 Low back pain, unspecified (principal); M79.10 Myalgia, unspecified site; M51.16 Intervertebral disc disorders with radiculopathy, lumbar region; M50.10 Cervical disc disorder with radiculopathy, unspecified cervical region
CPT/HCPCS: 20552; J1040

== ENCOUNTER → 2022-05-30 08:32 | Outpatient (POV) | payer MEDICARE, SELFPAY ==
[2022-05-30 08:52] VITALS: BP 170/83; PULSE 71; RESP 18; TEMP 36.3; O2SAT 98; BMI 28.1
--- NOTE | 2022-05-30 09:00 | EXP.PAIN.SOA ---
[facility] Pain Management SOAP Note Subjective:: Patient is a pleasant 72-year-old male who presents today for follow-up from trigger point injections of his right lumbar paraspinous area on 05/16/2022. We are currently treating the patient for degenerative disc disease of lumbar spine with lumbar radiculopathy symptoms, sacroiliitis, myofascial pain of cervical paraspinous and bilateral upper trapezius, lumbar paraspinous. Patient states he has had at least 70% improvement following these injections and states they are still continuing to help. Today he rates his pain a 4 out of 10 and states is primarily in his low back and describes it as a sore sensation that is worse with increased activity. We have done injective therapy on this patient in the past that provided significant improvement of his symptoms. He has had lumbar epidural steroid injections, SI injections and trigger point injections. Patient denies any new trauma or change in the location or type of pain he experiences. He is currently managed with Percocet 10 mg 4 times a day. He denies any side effects from this medication. He states this medication does adequately manage his pain. His Asim is [id number]. Its been reviewed and appropriate. Review of Systems: General: No recent weight changes, no fever, no sleep disturbances Respiratory: No cough, no shortness of air, no recurring pulmonary infections Cardiovascular/peripheral vascular: No chest pain, no palpitations, no edema, no shortness of breath Gastrointestinal: No new onset incontinence, normal bowel movements reported Genitourinary: No new onset incontinence Musculoskeletal: Low back pain Psychiatric: [Normal mood/affect] Neurological: [Denies weakness in extremities], [denies balance issues] Objective:: Physical Exam: General: Alert and oriented x3, no acute distress, pleasant and cooperative Lungs: Respirations even and unlabored, symmetrical chest expansion Eyes: PERRL Musculoskeletal: Flexion and extension of lumbar [spine] somewhat guarded secondary to pain, [antalgic gait noted] Neurological: Speech clear, no gross sensory deficit Assessment:: Degenerative disc disease of lumbar spine with lumbar radiculopathy symptoms, sacroiliitis, myofascial pain of cervical paraspinous, bilateral upper trapezius, lumbar paraspinous Plan:: Patient has had significant improvement in his pain symptoms following his trigger point injections. At this time he is not needing additional injective therapy. I will send a refill of his Percocet 10 mg 4 times a day and provide a 1 month supply of this medication. Patient will follow-up in 1 month. Patient will return to clinic in 1 month for follow-up and reevaluation of symptoms. Patient has been instructed to contact the clinic with any concerns before the next appointment. Dr. Horvath has reviewed this note and agrees with this plan of care. This note was dictated using voice recognition software and make contain errors or omissions. PFSH PFSH Social History Smoking Status: Unknown if ever smoked second hand exposure: No alcohol intake: never substance use type: denies use current occupational status: retired Travel in the last 8 weeks: None household members: spouse housing: house current occupation: [employer] current occupational exposures/hazards: No caffeine: Yes
== END | disposition home or self-care (01) ==
PROVIDERS: PCP Emergency Medicine; Visit Provider Nurse Practitioner Family
DX: M51.16 Intervertebral disc disorders with radiculopathy, lumbar region (principal); M79.18 Myalgia, other site; M46.1 Sacroiliitis, not elsewhere classified
CPT/HCPCS: 99212; G0463

== ENCOUNTER → 2022-06-26 16:11 | Outpatient (CLI) | payer MEDICARE, SELFPAY ==
[2022-06-26 15:30] LABS: Basophils # 0.1 K/mm3 (0-0.2); Basophils % 1.2 % (0.1-2.0); Eosinophils # 0.3 K/mm3 (0.0-0.4); Eosinophils % 3.4 % (0.1-12.0); Hematocrit 44.9 % (42.0-52.0); Hemoglobin 14.7 g/dL (14.1-18.0); Lymphocytes # 2.2 K/mm3 (0.7-4.5); Lymphocytes % 28.1 % (10-50); Mean Corpuscular HGB Conc 32.7 g/dL (31.8-35.4); Mean Corpuscular Hemoglobin 30.9 pg (27.0-31.2); Mean Corpuscular Volume 94.4 fl (80-94); Mean Platelet Volume 9.2 fl (7.4-10.4); Monocytes # 0.4 K/mm3 (0.1-1.0); Monocytes % 5.5 % (1.7-9.3); Neutrophils # 4.9 K/mm3 (1.8-7.8); Neutrophils % 61.7 % (37.0-80.0); Platelet Count 234 K/mm3 (142-424); Red Blood Count 4.76 M/mm3 (4.60-6.20); Red Cell Distribution Width 13.9 % (11.5-17.5); White Blood Count 7.9 K/mm3 (4.8-10.8)
[2022-06-26 15:55] LABS: Microalbumin < 6.000 mg/L (0-16.7)
[2022-06-26 16:29] LABS: Creatinine,Urine Random 93 mg/dL (Not Estab.)
[2022-06-26 16:42] LABS: Chloride 103 mmol/L (98-107); Potassium 4.7 mmoL/L (3.5-5.1); Sodium 140 mmol/L (136-145)
[2022-06-26 16:56] LABS: Direct LDL Cholesterol 52.74 mg/dL (100-129)
[2022-06-26 17:02] LABS: 25-OH Vitamin D, Total 37.6 ng/mL (30-100); Free T4 (Free Thyroxine) 1.37 ng/dl (0.78-2.19)
[2022-06-26 17:14] LABS: Hemoglobin A1C 6.3 % (4.0-6.0)
[2022-06-26 17:15] LABS: Thyroid Stimulating Hormone 0.57 uIU/mL (0.465-4.68)
[2022-06-26 17:37] LABS: Blood Urea Nitrogen 13 mg/dl (9-20); Estimated Glomerular Filt Rate 111 ml/min (>60); GFR (African American) 135 ML/MIN (>60)
[2022-06-26 17:38] LABS: Alanine Aminotransferase 52 U/L (12-78); Albumin Level 4.2 g/dl (3.5-5.0); Albumin/Globulin Ratio 1.6 (1.1-1.8); Alkaline Phosphatase 64 U/L (38-126); Anion Gap 15.7 mEq/L (5-15); Aspartate Amino Transferase 53 U/L (17-59); Bilirubin,Total 0.8 mg/dl (0.2-1.3); Carbon Dioxide 26 mmol/L (22.0-30.0); Chol/HDL Ratio 2.8 (1-3.5); Cholesterol 112 mg/dl (140-200); Globulin 2.7 g/dL (1.3-3.2); Glucose 150 mg/dl (74-100); HDL Cholesterol 40 mg/dl (40-60); Total Protein,Serum 6.9 g/dl (6.3-8.2); Triglycerides 107 mg/dl (30-150); VLDL Cholesterol 21 mg/dL (0-40)
[2022-06-28 11:57] LABS: Testosterone,Total 405 ng/dL (264-916)
== END ==
PROVIDERS: PCP Emergency Medicine; Visit Provider Emergency Medicine
DX: E10.9 Type 1 diabetes mellitus without complications (principal); S30.1XXA Contusion of abdominal wall, initial encounter; E55.9 Vitamin D deficiency, unspecified; Z79.84 Long term (current) use of oral hypoglycemic drugs
CPT/HCPCS: 80053; 80061; 82043; 82306; 82570; 83036; 84403; 84439; 84443; 85025

== ENCOUNTER → 2022-06-29 08:35 | Outpatient (POV) | payer MEDICARE, SELFPAY ==
--- NOTE | 2022-06-29 08:51 | EXP.PAIN.SOA ---
[facility] Pain Management SOAP Note Subjective:: Camacho is a pleasant 72-year-old who presents today for follow-up. We are currently treating the patient for degenerative disc disease of lumbar spine with lumbar radiculopathy symptoms, sacroiliitis, myofascial pain of cervical paraspinous and bilateral upper trapezius, lumbar paraspinous. Today the patient rates his pain a 9 out of 10. He states the pain is primarily in his low back on the right side and radiates into his right leg. Patient denies any new trauma or injury. He states he has been picking up his grandson a lot lately and feels like he may have just irritated a muscle. Patient describes this as a aching, throbbing sensation that is worse with increased activity. We have done injections in the past that have provided significant improvement of his pain symptoms. Patient states he does take kgby-[id number]-eirihca Aleve as needed for pain along with being managed with Percocet 10 mg 4 times a day. Patient denies any side effects from this medication. He states he does take an occasional stool softener as needed. Patient does state that this medication adequately helps manage his pain. He is requesting a refill at today's visit. His Asim is [id number]. It has been reviewed and appropriate. Review of Systems: General: No recent weight changes, no fever, no sleep disturbances Respiratory: No cough, no shortness of air, no recurring pulmonary infections Cardiovascular/peripheral vascular: No chest pain, no palpitations, no edema, no shortness of breath Gastrointestinal: No new onset incontinence, normal bowel movements reported Genitourinary: No new onset incontinence Musculoskeletal: Low back pain right side, right leg pain Psychiatric: [Normal mood/affect] Neurological: [Denies weakness in extremities], [denies balance issues] Objective:: Physical Exam: General: Alert and oriented x3, no acute distress, pleasant and cooperative Lungs: Respirations even and unlabored, symmetrical chest expansion Eyes: PERRL Musculoskeletal: Flexion and extension of lumbar [spine] somewhat guarded secondary to pain, [antalgic gait noted] extreme point tenderness along right SI, positive right Patricia's, Zayra's, Gaenslen's, compression and distraction exam Neurological: Speech clear, no gross sensory deficit Assessment:: Degenerative disc disease of lumbar spine with lumbar radiculopathy symptoms, sacroiliitis, myofascial pain of cervical paraspinous and bilateral upper trapezius, lumbar paraspinous Plan:: Patient is experiencing significant pain in his lower back on the right side that radiates into his right leg. Patient did have limited range of motion of his lumbar spine during today's visit along with an extreme positive point tenderness at his right SI and right Patricia's, Zayra's, Gaenslen's, compression and distraction exam. I have discussed with the patient regarding having repeat right SI injections. Risk and benefits were discussed with the patient. He would like to proceed forward with this injection. I will reorder the patient's Percocet 10 mg 4 times a day and provide a 1 month supply of this medication. We will schedule the patient for a right SI injection at today's visit. Patient has been advised of risks of oversedation with the prescribed medication. Narcan has been offered to the patient in the event of oversedation. Patient has been advised that a family member should also be educated regarding administration of Narcan. Patient has been instructed to contact the clinic with any concerns before the next appointment. Dr. Horvath has reviewed this note and agrees with this plan of care. This note was dictated using voice recognition software and make contain errors or omissions. [facility] Social History Smoking Status: Unknown if ever smoked second hand exposure: No alcohol intake: never substance use type: denies use current occupational stat
[2022-06-29 08:56] VITALS: BP 141/79; PULSE 79; RESP 18; TEMP 36.7; O2SAT 98; BMI 28.8
== END | disposition home or self-care (01) ==
PROVIDERS: PCP Emergency Medicine; Visit Provider Nurse Practitioner Family
DX: M51.16 Intervertebral disc disorders with radiculopathy, lumbar region (principal); M46.1 Sacroiliitis, not elsewhere classified; M79.18 Myalgia, other site
CPT/HCPCS: 99212; G0463

== ENCOUNTER 2022-07-11 07:53 | Day surgery (SDC) | payer MEDICARE, SELFPAY ==
[2022-07-11 08:13] VITALS: BP 145/88; PULSE 68; RESP 18; TEMP 36.8; O2SAT 99; BMI 28.1
[2022-07-11 08:48] VITALS: BP 147/66; PULSE 63; RESP 18; O2SAT 98
[2022-07-11 08:49] VITALS: BP 147/66; PULSE 63; RESP 18
[2022-07-11 08:53] VITALS: BP 142/55; PULSE 65; RESP 18; O2SAT 98
--- NOTE | 2022-07-11 08:55 | EXP.PAIN.PRO ---
Procedure Date: 07/11/22 Time: 08:30 Anesthesiologist:: Lexa Leavitt CRNA Complications:: None Pre-procedure Diagnosis:: Right sacroiliitis Post-procedure Diagnosis:: Same Indications for Procedure:: This patient is a pleasant 72-year-old male that comes today for right sacroiliac joint injection. He has had this in the past with significant improvement. He rates his pain 6/10. He has extreme point tenderness over the right SI joint upon evaluation. Procedure Details:: Procedure: Right sacroliliac joint injection under fluoroscopy Informed consent was obtained and the risk and benefits of the procedure were explained to the patient.~ The patient was taken to the procedure room and noninvasive monitors were placed including noninvasive blood pressure cuff and pulse oximeter.~ The patient was placed prone on the procedure table.~ The~ right hip was cleansed using Betadine as a cleansing solution.~ C-arm fluorosocpy was used to view the right SI joint.~ The skin and subcutaneous tissues were anesthetized using Lidocaine 1.5% and a 25-gauge needle.~ After this, a 22-gauge spinal needle was inserted under fluoroscopic guidance into the inferior aspect of the right SI joint.~ Omnipaque dye was injected and a good spread was seen throughout the joint.~ After this, approximately 5 mL of bupivacaine 0.25% and Depo-Medrol 40 mg was incrementally injected into the sacroiliac joint.~ The patient tolerated the procedure well with no complications.~ The patient was observed in the Pain Clinic, then discharged home neurologically intact.~ Plan and Disposition:: Patient was discharged without incident.
== END 2022-07-11 08:53 | disposition home or self-care (01) ==
PROVIDERS: PCP Emergency Medicine; Visit Provider Nurse Anesthetist, Certified Registered
DX: M46.1 Sacroiliitis, not elsewhere classified (principal); M51.16 Intervertebral disc disorders with radiculopathy, lumbar region; M79.18 Myalgia, other site
CPT/HCPCS: 27096; G0260; J1040

== ENCOUNTER → 2022-07-24 08:57 | Outpatient (POV) | payer MEDICARE, SELFPAY ==
[2022-07-24 09:09] VITALS: BP 146/79; PULSE 70; RESP 18; TEMP 37.1; O2SAT 99; BMI 28.8
--- NOTE | 2022-07-24 09:15 | EXP.PAIN.SOA ---
[facility] Pain Management SOAP Note Subjective:: Patient is a pleasant 72-year-old male who presents today for follow-up of right SI injection on 07/11/2022. We are currently treating the patient for degenerative disc disease of lumbar spine with lumbar radiculopathy symptoms, sacroiliitis, myofascial pain of cervical paraspinous and bilateral upper trapezius, lumbar paraspinous. Today the patient states that he had at least 80% relief following this injection up until last Sunday. 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 Patient states he did have to lift the concrete slabs up by hand in order to get his son out. Today the patient rates his pain a 8 out of 10. He states the pain is all in his low back on the right side that radiates into his right leg. Patient denies any change in the location or type of pain he is experiencing. Patient describes this as a aching, throbbing sensation that is worse with increased activity. He does take slhy-xxm-sacxtls Aleve as needed. He is also managed with Percocet 10 mg 4 times a day. Patient denies any side effects from this medication. He does occasionally use stool softeners as needed. He does state this medication does adequately manage his pain symptoms. Patient states he is scheduled to go see an eye doctor coming up for his right eye cataract. Patient states he is almost blind in that eye and needs surgery. His Asim is [id number]. It has been reviewed and appropriate. Review of Systems: General: No recent weight changes, no fever, no sleep disturbances Respiratory: No cough, no shortness of air, no recurring pulmonary infections Cardiovascular/peripheral vascular: No chest pain, no palpitations, no edema, no shortness of breath Gastrointestinal: No new onset incontinence, normal bowel movements reported Genitourinary: No new onset incontinence Musculoskeletal: Low back pain, right leg pain Psychiatric: [Normal mood/affect] Neurological: [Denies weakness in extremities], [denies balance issues] Objective:: Physical Exam: General: Alert and oriented x3, no acute distress, pleasant and cooperative Lungs: Respirations even and unlabored, symmetrical chest expansion Eyes: PERRL Musculoskeletal: Flexion and extension of lumbar [spine] somewhat guarded secondary to pain, [antalgic gait noted]. Extreme point tenderness along right SI and positive right Patricia's, Zayra's, Gaenslen's, compression and distraction exam Neurological: Speech clear, no gross sensory deficit Assessment:: degenerative disc disease of lumbar spine with lumbar radiculopathy symptoms, sacroiliitis, myofascial pain of cervical paraspinous and bilateral upper trapezius, lumbar paraspino Plan:: Patient is experiencing significant pain in his right SI that radiates into his right leg. Patient did have limited range of motion of his lumbar spine and a positive right Patricia's, Zayra's, Gaenslen's, compression and distraction exam during today's visit. Patient also had extreme point tenderness along his right SI. And previous patient has had significant improvement with his last SI injection providing at least 80% relief. I have discussed with the patient regarding having repeat SI injections. Risk and benefits were discussed with the patient. patient would like to proceed forward with this plan of care. I will also refill the patient's Percocet 10 mg 4 times a day and provide a 1 month supply of this medication. We will schedule the patient for right SI injection. Patient has been advised of risks of oversedation with the prescribed medication. Narcan has been offered to the patient in the event of oversedation. Patient has been advised that a family member should also be educated regarding administration of Narcan. Patient has been instructed to contact the clinic
== END | disposition home or self-care (01) ==
PROVIDERS: PCP Emergency Medicine; Visit Provider Nurse Practitioner Family
DX: M51.16 Intervertebral disc disorders with radiculopathy, lumbar region (principal); M46.1 Sacroiliitis, not elsewhere classified; M79.18 Myalgia, other site
CPT/HCPCS: 99212; G0463

== ENCOUNTER 2022-07-28 14:35 | Day surgery (SDC) | payer MEDICARE, SELFPAY ==
[2022-07-28 15:18] VITALS: BP 111/57; PULSE 70; RESP 20; TEMP 36.4; O2SAT 98; BMI 28.8
[2022-07-28 16:01] VITALS: BP 113/60; PULSE 66; O2SAT 97
[2022-07-28 16:03] VITALS: BP 113/60; PULSE 66; RESP 18; O2SAT 97
[2022-07-28 16:12] VITALS: BP 143/60; PULSE 66; RESP 20
--- NOTE | 2022-07-28 16:21 | EXP.PAIN.PRO ---
Procedure Date: 07/28/22 Time: 16:25 Anesthesiologist:: Jamal Horvath MD Complications:: None Pre-procedure Diagnosis:: Sacroiliitis Post-procedure Diagnosis:: Same Indications for Procedure:: This patient is a pleasant 72-year-old white male who we are treating for right hip pain. He is tender over the right SI joint. Is positive Patricia's test on the right side. He has a positive Stockton's test on the right side. He has positive SI joint compression test on the right side. We will do a right SI joint injection under fluoroscopy today to help him with his pain symptoms. Procedure Details:: Right SI joint injection under fluoroscopy Informed consent was obtained and the risks and benefits of the procedure was going to the patient. Patient was taken to the procedure room. Patient was placed prone on the procedure table. The right hip was prepped using ChloraPrep. The skin and subcutaneous tissues were anesthetized using lidocaine. I placed a 22-gauge spinal needle into the inferior aspect of the right SI joint. Needle placement was confirmed with dye. After this we injected 5 mL bupivacaine 0.25% and Depo-Medrol 40 mg into the right SI joint. The patient tolerated the procedure well with no complication. Plan and Disposition:: We will follow-up with him in 2 weeks. Will reevaluate symptoms at that time.
== END 2022-07-28 16:15 | disposition home or self-care (01) ==
PROVIDERS: PCP Emergency Medicine; Visit Provider Anesthesiology
DX: M46.1 Sacroiliitis, not elsewhere classified (principal)
CPT/HCPCS: 27096; G0260; J1040; Q9966

== ENCOUNTER → 2022-08-14 15:17 | Outpatient (POV) | payer MEDICARE, SELFPAY ==
[2022-08-14 15:46] VITALS: BP 129/65; PULSE 65; RESP 18; O2SAT 96; BMI 28.0
--- NOTE | 2022-08-14 15:55 | EXP.PAIN.SOA ---
[facility] Pain Management SOAP Note Subjective:: Patient is a pleasant 72-year-old male who presents today for follow-up of right SI injection on 07/28/2022. We are currently treating the patient for degenerative disc disease of lumbar spine with lumbar radiculopathy symptoms, sacroiliitis, myofascial pain of cervical paraspinous and bilateral upper trapezius, lumbar paraspinous. Today the patient states he has had at least 60% improvement following this injection and feels like it is still continuing to provide relief. Today he rates his pain a 4 out of 10. Patient denies any new trauma or injury. Patient denies any change location or type of pain he experiences. At our last visit the patient had recently had worsening of pain symptoms following an episode where he had to lift a concrete slab in order to get his son out of a hole that he had fallen down into. Patient states he is much better at today's visit. Patient states he has been able to increase his activity following this injection. Patient is currently managed with Percocet 10 mg 4 times a day. Patient denies any side effects from this medication. He states this medication does adequately treat his pain symptoms. Patient does state that he occasionally will use stool softeners as needed. Patient states he is scheduled to have right eye cataract surgery on September 07 and his left eye cataract surgery on September 17. His Asim is [id number]. It has been reviewed and appropriate. Review of Systems: General: No recent weight changes, no fever, no sleep disturbances Respiratory: No cough, no shortness of air, no recurring pulmonary infections Cardiovascular/peripheral vascular: No chest pain, no palpitations, no edema, no shortness of breath Gastrointestinal: No new onset incontinence, normal bowel movements reported Genitourinary: No new onset incontinence Musculoskeletal: Low back pain Psychiatric: [Normal mood/affect] Neurological: [Denies weakness in extremities], [denies balance issues] Objective:: Physical Exam: General: Alert and oriented x3, no acute distress, pleasant and cooperative Lungs: Respirations even and unlabored, symmetrical chest expansion Eyes: PERRL Musculoskeletal: Flexion and extension of lumbar [spine] somewhat guarded secondary to pain, [antalgic gait noted] Neurological: Speech clear, no gross sensory deficit Assessment:: Degenerative disc disease of lumbar spine with lumbar radiculopathy symptoms, sacroiliitis, myofascial pain of cervical paraspinous and bilateral upper trapezius, lumbar paraspinous Plan:: Patient has had significant improvement in his pain symptoms following his last injection. At this time the patient does not require any additional injective therapy. I will refill the patient's Percocet 10 mg 4 times a day and provide a 1 month supply of this medication. Patient will return to clinic in 1 month for reevaluation of symptoms, medication refill and follow-up. Patient has been advised of risks of oversedation with the prescribed medication. Narcan has been offered to the patient in the event of oversedation. Patient has been advised that a family member should also be educated regarding administration of Narcan. Patient has been instructed to contact the clinic with any concerns before the next appointment. Dr. Horvath has reviewed this note and agrees with this plan of care. This note was dictated using voice recognition software and make contain errors or omissions. [facility] Medical History (Updated 07/28/22 @ 15:23 by Landy Romo RN) Diabetes GERD (gastroesophageal reflux disease) Family History Other No significant family history Social History (Updated 07/28/22 @ 15:23 by Landy Romo RN) Smoking Status: Unknown if ever smoked second hand exposure: No alcohol intake: never substance use type: denies use current occupational status: retired Travel in the last 8 weeks:
== END | disposition home or self-care (01) ==
PROVIDERS: PCP Emergency Medicine; Visit Provider Nurse Practitioner Family
DX: M51.16 Intervertebral disc disorders with radiculopathy, lumbar region (principal); M46.1 Sacroiliitis, not elsewhere classified; M79.18 Myalgia, other site
CPT/HCPCS: 99212; G0463

== ENCOUNTER → 2022-09-14 08:15 | Outpatient (POV) | payer MEDICARE, SELFPAY ==
[2022-09-14 08:26] VITALS: BP 147/96; PULSE 72; RESP 18; O2SAT 96; BMI 28.0
--- NOTE | 2022-09-14 08:55 | EXP.PAIN.SOA ---
[facility] Pain Management SOAP Note Subjective:: Patient is a pleasant 72-year-old male who is here for medication refill and follow-up. Patient is currently being treated for degenerative disc disease of the cervical and lumbar spine with cervical lumbar radiculopathy symptoms, sacroiliitis, myofascial pain. Patient is being managed with Percocet 10 mg 4 times a day. Patient denies any side effects from the medications. Patient denies any changes to the location and type of pain. Patient states that this is adequately helping manage their pain. Rates pain as 5 out of 10. [facility] number [id number] with an active morphine equivalent 60. Drug screens have been reviewed and appropriate. We have also been managing this patient with injective therapy. He had sacroiliac injections on 07/28/2022 that is providing significant relief. Review of Systems: General: No recent weight changes, no fever, no sleep disturbances Respiratory: No cough, no shortness of air, no recurring pulmonary infections Cardiovascular/peripheral vascular: No chest pain, no palpitations, no edema, no shortness of breath Gastrointestinal: No new onset incontinence, normal bowel movements reported Genitourinary: No new onset incontinence Musculoskeletal: Neck pain and low back pain Psychiatric: [Normal mood/affect] Neurological: [Denies weakness in extremities], [denies balance issues] Objective:: Physical Exam: General: Alert and oriented x3, no acute distress, pleasant and cooperative Lungs: Respirations even and unlabored, symmetrical chest expansion Eyes: PERRL Musculoskeletal: Flexion and extension of cervical and lumbar [spine] somewhat guarded secondary to pain, [antalgic gait noted] Neurological: Speech clear, no gross sensory deficit Assessment:: Degenerative disc disease of the cervical and lumbar spine with cervical and lumbar radiculopathy symptoms, myofascial pain, sacroiliitis Plan:: We will continue the patient's Percocet 10 mg 4 times a day. We will provide the patient with 1 month of refills. We would like to see the patient back in 1 month for follow-up and reevaluation of chronic pain syndrome. Patient has been advised of risks of oversedation with the prescribed medication. Narcan has been offered to the patient in the event of oversedation. Patient has been advised that a family member should also be educated regarding administration of Narcan. Patient has been instructed to contact the clinic with any concerns before the next appointment. Dr. Horvath has reviewed this note and agrees with this plan of care. This note was dictated using voice recognition software and make contain errors or omissions. [facility] Disclaimer: The information contained in this section may have been updated after the patient was seen, as this information can be updated by other users. Medical History (Updated 08/20/22 @ 06:44 by Curry Stahl MD) Diabetes GERD (gastroesophageal reflux disease) Family History Other No significant family history Social History (Updated 07/28/22 @ 15:23 by Landy Romo RN) Smoking Status: Unknown if ever smoked second hand exposure: No alcohol intake: never substance use type: denies use current occupational status: retired Travel in the last 8 weeks: None household members: spouse housing: house current occupation: [employer] current occupational exposures/hazards: No caffeine: Yes
== END | disposition home or self-care (01) ==
PROVIDERS: PCP Emergency Medicine; Visit Provider Nurse Practitioner Family
DX: M50.10 Cervical disc disorder with radiculopathy, unspecified cervical region (principal); M51.16 Intervertebral disc disorders with radiculopathy, lumbar region; M46.1 Sacroiliitis, not elsewhere classified; M79.10 Myalgia, unspecified site
CPT/HCPCS: 99212; G0463

== ENCOUNTER 2022-09-26 15:36 | Emergency (ER) | payer MEDICARE, SELFPAY ==
[2022-09-26 17:42] VITALS: BMI 25.0
--- NOTE | 2022-09-26 17:45 | PC.NURSE ---
Notified rad of right ankle x-ray
--- NOTE | 2022-09-26 17:48 | XR_ITS ---
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 Severe right ankle pain and swelling. TECHNIQUE: Imaging protocol: Radiologic exam of the Right ankle. Views: 3 or more views. COMPARISON: CR [id number] OR 5 [id number] 08/09/2016 2:39 PM FINDINGS: Bones/joints: There is a nondisplaced fracture of the lateral malleolus. No other acute fracture seen. Osseous alignment remains normal. Mild plantar calcaneal spurring is noted. Soft tissues: There is moderate lateral soft tissue swelling. Vasculature: Diffuse small-vessel arterial calcifications noted about the ankle. IMPRESSION: Nondisplaced lateral malleolus fracture
--- NOTE | 2022-09-26 18:29 | PC.NURSE ---
1750 - Checked on patient in lobby. Took patient to triage room and checked vitals. Addressed any needs patient might have at the moment. Informed patient the ED was at max capacity and had no beds available at the moment, that patient would be brought back to the ED as soon as possible. Pt sent to radiology for xray of right ankle, and then tranferred to [facility]. Pt agreeable at this time, and in stable condition.
[2022-09-26 18:33] VITALS: BP 131/81; PULSE 68; RESP 19; TEMP 37.2; O2SAT 98; BMI 28.1
--- NOTE | 2022-09-26 18:45 | EXP.UTC ---
Discharge Plan Disposition Patient Disposition: Home, Self-Care Condition: Good Prescriptions Prescriptions: New (DME) walker [facility] See Rx Instructions .Route Qty: 1 0RF Rx Instructions: As directed No Action canagliflozin 100 mg tablet 100 mg PO DAILY Qty: 90 0RF Rx Instructions: TAKE ONE TABLET BY MOUTH EVERY DAY FOR DIABETES carvedilol 6.25 mg tablet 6.25 mg PO BID Qty: 180 0RF Rx Instructions: TAKE ONE TABLET BY MOUTH 2 TIMES A DAY ergocalciferol (vitamin D2) 1,250 mcg (50,000 unit) capsule 50,000 unit PO QWEEK Qty: 14 0RF glimepiride 4 mg tablet See Rx Instructions .Route .COMPLEX Qty: 90 0RF Rx Instructions: TAKE TWO TABLETS BY MOUTH EVERY MORNING WITH BREAKFAST FOR DIABETES isosorbide mononitrate 30 mg tablet extended release 24 hr 30 mg PO DAILY Qty: 90 0RF levothyroxine 88 mcg tablet See Rx Instructions .Route .COMPLEX Qty: 90 0RF Rx Instructions: TAKE ONE TABLET BY MOUTH ONCE A DAY FOR HYPOTHYROID metformin 1,000 mg tablet See Rx Instructions .Route .COMPLEX Qty: 180 0RF Rx Instructions: TAKE ONE TABLET BY MOUTH 2 TIMES A DAY FOR DIABETES losartan 50 mg tablet See Rx Instructions .Route .COMPLEX Qty: 90 0RF Rx Instructions: TAKE ONE TABLET BY MOUTH ONCE A DAY FOR BLOOD PRESSURE nitroglycerin 0.4 mg tablet, sublingual 0.4 mg SL Q5M PRN (Reason: chest pain) Qty: 20 2RF Rx Instructions: do not exceed 3 doses per episode omeprazole 20 mg capsule,delayed release(DR/EC) See Rx Instructions .Route .COMPLEX Qty: 90 0RF Rx Instructions: TAKE ONE CAPSULE BY MOUTH ONCE A DAY FOR GERD Januvia 100 mg tablet See Rx Instructions .ROUTE .COMPLEX Rx Instructions: TAKE ONE TABLET BY MOUTH ONCE A DAY simvastatin 80 mg tablet 80 mg PO DAILY aspirin 81 MG tablet,delayed release (DR/EC) 81 mg PO DAILY furosemide 20 mg tablet 20 mg PO BID Rx Instructions: TAKE ONE TABLET BY MOUTH bid Referrals Follow up/Referrals: Carlos Enrique Troy JR, MD [Physician] - See instructions (Call office in the morning for appointment) Curry Stahl MD [Primary Care Provider] - See instructions Activity Restrictions/Add. Instructions Additional Instructions/Restrictions: *Use walker to get around *RICE, Rest the extremity, Ice 15-20 minutes 3-4 times daily, Compress- wear the blanquita wrap as discussed as much as possible to help reduce swelling and pain, Elevate the extremity when at rest *Walking boot is for support and help control swelling. Be sure that is not to tight but not to loose either *Elevate when resting? *Call Orthopedic office in the morning for appointment Take your prescribed pain medication for pain Immediately follow up with your family doctor for new or worsening of symptoms, or no noticeable improvement over the next 3-5 days Clinical Impressions Clinical Impression: Ankle fracture, lateral malleolus, closed Instructions Patient Instructions: How To Perform RICE (Rest, Ice, Compress, Elevate), DI for Ankle Fracture, Ankle Fracture, How to Choose and Use a Walker Discharge ED Provider: Silva Cline [facility] HPI General Stated complaint: AO 09/26@10am@home fell injured R ankle Mode of Arrival: Family Vehicle Source of Information: Patient Time Seen by Provider: 09/26/22 18:45 Description of Symptoms (Recalled from Triage Doc. by RN): was helping a neighbor and fell in injured right ankle and fell in the ditch HEENT Symptoms (Recalled from RN notes): No Resp Symptoms (Recalled from RN notes): No Skin Symptoms (Recalled from RN notes): No MS Symptoms (Recalled from RN notes): No Functional Status (Recalled from RN notes): n/a History of Present Illness Provider Complaint: Patient states that he was helping a neighbor this morning in the rain when he slipped and rolled his right ankle and felt a pop State that then he fell in the ditch States that this happ
[2022-09-26 19:20] VITALS: BP 131/81; PULSE 68; RESP 19; TEMP 37.2; O2SAT 98
== END 2022-09-26 19:43 | disposition home or self-care (01) ==
PROVIDERS: Emergency Provider Nurse Practitioner; PCP Emergency Medicine
DX: S82.64XA Nondisplaced fracture of lateral malleolus of right fibula, initial encounter for closed fracture (principal)
CPT/HCPCS: 73610; 99212; 99213; G0463

== ENCOUNTER → 2022-10-06 13:01 | Outpatient (CLI) | payer MEDICARE, SELFPAY ==
--- NOTE | 2022-10-06 13:07 | XR_ITS ---
FINAL REPORT CLINICAL HISTORY: fracture follow up COMPARISON: 09/26/2022 FINDINGS: Right ankle Three views were obtained. The distal fibular fracture is not as well seen on today's exam consistent with healing fracture. There are mild degenerative changes. Vascular calcification is identified. Lateral soft tissue swelling persists. IMPRESSION: Healing fracture. Reviewed, Interpreted and Dictated by Shahab Viera III, MD Transcribed by Melodie Uribe Authenticated and [facility]
== END ==
LOC: RAD 13:03
PROVIDERS: PCP Emergency Medicine; Visit Provider Orthopaedic Surgery
DX: M25.571 Pain in right ankle and joints of right foot (principal); S82.61XA Displaced fracture of lateral malleolus of right fibula, initial encounter for closed fracture
CPT/HCPCS: 73610

== ENCOUNTER → 2022-10-11 08:11 | Outpatient (POV) | payer MEDICARE, SELFPAY ==
[2022-10-11 08:26] VITALS: BP 173/72; PULSE 78; RESP 18; O2SAT 98; BMI 28.1
--- NOTE | 2022-10-11 08:49 | EXP.PAIN.SOA ---
[facility] Pain Management SOAP Note Subjective:: Patient is a pleasant 72-year-old male who presents today for medication refill and follow-up. We are currently treating the patient for degenerative disc disease of cervical and lumbar spine with cervical and lumbar radiculopathy symptoms, sacroiliitis, myofascial pain. Today he rates his pain a 7 out of 10. Patient states that he did recently fall and break his right ankle. Patient states that he was helping his neighbor get his callus back in on a rainy day. Patient states that he has been to an orthopedic doctor for this injury and that he was put in a walking boot which is making his back pain worse. Patient states that he does have increased aching and throbbing along his low back that radiates into his right thigh. Patient states that he is scheduled to go back on October 27 to see if he does have to have surgery for this injury. Patient is currently prescribed Percocet 10 mg 4 times a day. Patient denies any side effects from this medication. He states this medication does manage his pain symptoms. His Asim is [id number]. Its been reviewed and appropriate. Review of Systems: General: No recent weight changes, no fever, no sleep disturbances Respiratory: No cough, no shortness of air, no recurring pulmonary infections Cardiovascular/peripheral vascular: No chest pain, no palpitations, no edema, no shortness of breath Gastrointestinal: No new onset incontinence, normal bowel movements reported Genitourinary: No new onset incontinence Musculoskeletal: Low back pain, right leg pain Psychiatric: [Normal mood/affect] Neurological: [Denies weakness in extremities], [denies balance issues] Objective:: Physical Exam: General: Alert and oriented x3, no acute distress, pleasant and cooperative Lungs: Respirations even and unlabored, symmetrical chest expansion Eyes: PERRL Musculoskeletal: Flexion and extension of lumbar [spine] somewhat guarded secondary to pain, [antalgic gait noted] Neurological: Speech clear, no gross sensory deficit ORT score updated with low risk Assessment:: Degenerative disc disease of cervical and lumbar spine with cervical and lumbar radiculopathy symptoms, sacroiliitis, myofascial pain Plan:: Patient is experiencing worsening pain in his low back along his right side that radiates down his thigh due to a recent injury. I have discussed with the patient that he may benefit from injective therapy however until we know if he is going to have to have surgery we will wait on this. I will refill the patient's Percocet 10 mg 4 times a day and provide a 1 month supply of this medication. Patient will return to clinic in 1 month for reevaluation of symptoms, medication refill and follow-up. Patient has been advised of risks of oversedation with the prescribed medication. Narcan has been offered to the patient in the event of oversedation. Patient has been advised that a family member should also be educated regarding administration of Narcan. Patient has been instructed to contact the clinic with any concerns before the next appointment. Dr. Horvath has reviewed this note and agrees with this plan of care. This note was dictated using voice recognition software and make contain errors or omissions. [facility] Disclaimer: The information contained in this section may have been updated after the patient was seen, as this information can be updated by other users. Medical History Diabetes GERD (gastroesophageal reflux disease) Family History Other No significant family history Social History Smoking Status: Unknown if ever smoked second hand exposure: No alcohol intake: never substance use type: denies use current occupational status: retired Travel in the last 8 weeks: None household members: spouse housing:
== END | disposition home or self-care (01) ==
PROVIDERS: PCP Emergency Medicine; Visit Provider Nurse Practitioner Family
DX: M50.10 Cervical disc disorder with radiculopathy, unspecified cervical region (principal); M46.1 Sacroiliitis, not elsewhere classified; M79.10 Myalgia, unspecified site
CPT/HCPCS: 99212; G0463

== ENCOUNTER → 2022-10-27 12:12 | Outpatient (CLI) | payer MEDICARE, SELFPAY ==
--- NOTE | 2022-10-27 12:19 | XR_ITS ---
FINAL REPORT CLINICAL HISTORY: ankle fracture FOLLOWUP COMPARISON: 10/06/2022 FINDINGS: RIGHT ANKLE 3 views of the right ankle were obtained. Again noted is a nondisplaced fracture of the distal fibular metaphysis. There is mild degenerative change. There is persistent lateral soft tissue swelling. Vascular calcifications are noted. IMPRESSION: Nondisplaced fracture of the distal fibular metaphysis again noted. Persistent lateral soft tissue swelling. Reviewed, Interpreted and Dictated by Shahab Viera III, MD Transcribed by Ileana Gifford Authenticated and [facility]
== END ==
LOC: RAD 12:14
PROVIDERS: PCP Emergency Medicine; Visit Provider Orthopaedic Surgery
DX: S82.61XA Displaced fracture of lateral malleolus of right fibula, initial encounter for closed fracture (principal)
CPT/HCPCS: 73610

== ENCOUNTER 2022-10-27 13:54 | Outpatient (RCR) | payer MEDICARE, SELFPAY | END 2022-10-27 15:00 | disposition home or self-care (01) | LOC: PT 13:54 | PROVIDERS: Visit Provider Orthopaedic Surgery | DX: S82.64XA Nondisplaced fracture of lateral malleolus of right fibula, initial encounter for closed fracture (principal) | CPT/HCPCS: 97760 ==

== ENCOUNTER → 2022-11-08 08:18 | Outpatient (POV) | payer MEDICARE, SELFPAY ==
--- NOTE | 2022-11-08 09:01 | EXP.PAIN.SOA ---
[facility] Pain Management SOAP Note Subjective:: Patient is a pleasant 72-year-old male who presents today for medication refill and follow-up. We are currently treating the patient for degenerative disc disease of cervical and lumbar spine with cervical and lumbar radiculopathy symptoms, sacroiliitis, myofascial pain. Today the patient rates his pain a 9 out of 10. Patient denies any new trauma or injury. He states his back pain does seem to be flaring up. Patient describes this as a aching, throbbing sensation that is worse with increased activity. 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 Patient states he has started to notice it more frequently over the last couple of weeks we have done injections in the past for his back pain such as an epidural that did provide significant improvement. Patient is currently still seeing Dr. Troy for his right ankle fracture and is now in a ankle brace. Patient does state that the pain is much better in his right ankle however he still has a stinging, burning sensation. Patient states that he is scheduled to see him on Sunday and wants to confirm that he does not need anything additional before getting an injection with us. Patient is currently managed with Percocet 10 mg 4 times a day. Patient denies any side effects from this medication. He states this medication does help manage his pain symptoms. His Asim is [id number]. Its been reviewed and appropriate. Review of Systems: General: No recent weight changes, no fever, no sleep disturbances Respiratory: No cough, no shortness of air, no recurring pulmonary infections Cardiovascular/peripheral vascular: No chest pain, no palpitations, no edema, no shortness of breath Gastrointestinal: No new onset incontinence, normal bowel movements reported Genitourinary: No new onset incontinence Musculoskeletal: Low back pain Psychiatric: [Normal mood/affect] Neurological: [Denies weakness in extremities], [denies balance issues] Objective:: Physical Exam: General: Alert and oriented x3, no acute distress, pleasant and cooperative Lungs: Respirations even and unlabored, symmetrical chest expansion Eyes: PERRL Musculoskeletal: Flexion and extension of lumbar [spine] somewhat guarded secondary to pain, [antalgic gait noted] Neurological: Speech clear, no gross sensory deficit Assessment:: Degenerative disc disease of cervical and lumbar spine with cervical and lumbar radiculopathy symptoms, sacroiliitis, myofascial pain Plan:: Patient is experiencing worsening pain in his low back with limited range of motion. I have discussed with the patient that he may benefit from a repeat lumbar epidural steroid injection. Risk and benefits were discussed with the patient and he would like to proceed forward with this plan of care as long as he has no other contraindications after his visit with Dr. Troy on Sunday. Patient states that he will stop by our office or call us to let us know if he does want to go ahead and order this injection. I will refill the patient's Percocet 10 mg 4 times a day and provide a 1 month supply of this medication. We will plan on ordering a LESI L5-S1. Patient has been advised of risks of oversedation with the prescribed medication. Narcan has been offered to the patient in the event of oversedation. Patient has been advised that a family member should also be educated regarding administration of Narcan. Patient has been instructed to contact the clinic with any concerns before the next appointment. Dr. Horvath has reviewed this note and agrees with this plan of care. This note was dictated using voice recognition software and make contain errors or omissions. [facility] Disclaimer: The information contained in this section may have been updated after the patient was seen, as this information can be updated by other users. Medical History (Re
[2022-11-08 09:29] VITALS: BP 139/78; PULSE 67; RESP 18; O2SAT 97; BMI 28.1
== END | disposition home or self-care (01) ==
PROVIDERS: PCP Emergency Medicine; Visit Provider Nurse Practitioner Family
DX: M51.16 Intervertebral disc disorders with radiculopathy, lumbar region (principal); M50.10 Cervical disc disorder with radiculopathy, unspecified cervical region; M46.1 Sacroiliitis, not elsewhere classified; M79.10 Myalgia, unspecified site
CPT/HCPCS: 99212; G0463

== ENCOUNTER → 2022-11-08 08:55 | Outpatient (CLI) | payer MEDICARE, SELFPAY ==
[2022-11-08 10:17] LABS: Amphetamine/Metha Screen,Urine Negative ng/ml (<1000); Barbiturates Screen,Urine Negative ng/ml (<200)
[2022-11-08 10:18] LABS: Benzodiazepines Screen,Urine Negative ng/ml (<200)
[2022-11-08 10:20] LABS: Cocaine Screen,Urine Negative ng/ml (<300); Methadone Screen,Urine Negative ng/ml (<300)
[2022-11-08 10:21] LABS: Cannabinoid Screen,Urine Negative ng/ml (<50); Opiate Screen,Urine Negative ng/ml (<300)
[2022-11-08 10:22] LABS: Phencyclidine Screen,Urine Negative ng/ml (<25)
[2022-11-13 19:31] LABS: Opiates Negative (Cutoff=100); Oxycodone (GC/MS) 2324 ng/mL (Cutoff=100)
== END ==
PROVIDERS: Nurse Practitioner Family; PCP Emergency Medicine; Visit Provider Anesthesiology
DX: Z79.891 Long term (current) use of opiate analgesic (principal)
CPT/HCPCS: 36415; 80305; 80361; 80365; 99212; G0463; G0480

== ENCOUNTER → 2022-12-08 11:30 | Outpatient (POV) | payer MEDICARE, SELFPAY ==
--- NOTE | 2022-12-08 12:07 | EXP.PAIN.SOA ---
[facility] Pain Management SOAP Note Subjective:: Patient is a pleasant 72-year-old male who presents today for medication refill and follow-up. We are currently treating the patient for degenerative disc disease of cervical and lumbar spine with cervical and lumbar radiculopathy symptoms, sacroiliitis, myofascial pain of cervical paraspinous and trapezius muscles. Today he rates his pain a 9 out of 10. Patient denies any new trauma or injury. Patient denies any change location or type of pain he experiences. He states he is having more right neck and shoulder pain and describes this as an aching, throbbing sensation that is worse with increased activity. He does state it is causing significant sleep issues. Patient does have difficulty performing activities of daily living such as cooking and cleaning due to his worsening pain symptoms. He also states that he is having some back pain however his neck and shoulder issues are worse. He did recently have a right ankle fracture that is being treated by Dr. Troy. He states he has been to his office and is scheduled for a follow-up in January. He states that Dr. Troy had no objections from doing additional injections from our office. Patient is currently managed with Percocet 10 mg 4 times a day. Patient denies any side effects from this medication. His Asim is [id number]. Its been reviewed and appropriate. Review of Systems: General: No recent weight changes, no fever, no sleep disturbances Respiratory: No cough, no shortness of air, no recurring pulmonary infections Cardiovascular/peripheral vascular: No chest pain, no palpitations, no edema, no shortness of breath Gastrointestinal: No new onset incontinence, normal bowel movements reported Genitourinary: No new onset incontinence Musculoskeletal: Neck pain, right shoulder pain, back pain Psychiatric: [Normal mood/affect] Neurological: [Denies weakness in extremities], [denies balance issues] Objective:: Physical Exam: General: Alert and oriented x3, no acute distress, pleasant and cooperative Lungs: Respirations even and unlabored, symmetrical chest expansion Eyes: PERRL Musculoskeletal: Flexion and extension of cervical [spine] somewhat guarded secondary to pain, [antalgic gait noted] extreme tenderness along right cervical paraspinous and right trapezius muscles Neurological: Speech clear, no gross sensory deficit Assessment:: Degenerative disc disease of cervical and lumbar spine with cervical and lumbar radiculopathy symptoms, myofascial pain of cervical paraspinous and trapezius muscles, sacroiliitis Plan:: Patient is experiencing significant pain in his neck along the right side with radiating symptoms into his right shoulder. Patient did have limited range of motion of his cervical spine along with extreme point tenderness at his right cervical paraspinous and right trapezius muscles. I have discussed with the patient that he may benefit from trigger point injections at these locations. Risk and benefits were discussed with the patient and he would like to proceed forward with this plan of care. I will also refill his Percocet 10 mg 4 times a day and provide a 1 month supply of this medication. Patient will be scheduled for TPI of right cervical paraspinous and right trapezius muscles. Patient has been advised of risks of oversedation with the prescribed medication. Narcan has been offered to the patient in the event of oversedation. Patient has been advised that a family member should also be educated regarding administration of Narcan. Patient has been instructed to contact the clinic with any concerns before the next appointment. Dr. Horvath has reviewed this note and agrees with this plan of care. This note was dictated using voice recognition software and make contain errors or omissions. [facility] Disclaimer: The information contained in this section may have been updated after the patient was seen, as this information can be updated
[2022-12-08 12:15] VITALS: BP 147/61; PULSE 73; RESP 20; BMI 28.3
== END | disposition home or self-care (01) ==
PROVIDERS: PCP Emergency Medicine; Visit Provider Nurse Practitioner Family
DX: M50.10 Cervical disc disorder with radiculopathy, unspecified cervical region (principal); M51.16 Intervertebral disc disorders with radiculopathy, lumbar region; M46.1 Sacroiliitis, not elsewhere classified; M79.18 Myalgia, other site
CPT/HCPCS: 99212; G0463

== ENCOUNTER 2022-12-19 11:24 | Day surgery (SDC) | payer MEDICARE, SELFPAY ==
[2022-12-19 11:42] VITALS: BP 137/78; PULSE 65; RESP 18; TEMP 36.1; O2SAT 99; BMI 28.4
[2022-12-19 11:54] VITALS: BP 160/91; PULSE 65; RESP 18; O2SAT 97
[2022-12-19 11:55] VITALS: BP 160/91; PULSE 65; RESP 18; O2SAT 98
[2022-12-19 12:00] VITALS: BP 164/65; PULSE 61; RESP 18; O2SAT 99
--- NOTE | 2022-12-19 12:10 | EXP.PAIN.PRO ---
Procedure Date: 12/19/22 Time: 11:50 Anesthesiologist:: Lexa Leavitt CRNA Complications:: None Pre-procedure Diagnosis:: Myofascial pain right cervical posterior paraspinous muscle. Right trapezius. Post-procedure Diagnosis:: Same. Indications for Procedure:: Very pleasant 72-year-old male that comes our clinic today for right cervical paraspinous as well as right trapezius muscle trigger point injections. Patient been having pain in these areas for several weeks. He describes the pain as constant, dull, aching. Procedure Details:: Details of the procedure were explained to the patient. The patient taken to procedure room placed in sitting position. The area over the right posterior paraspinous muscle and right trapezius muscle was cleaned using chlorhexidine as a cleansing solution. Using a solution of 0.25% Marcaine +1% lidocaine and 40 mg of Depo-Medrol. A 25-gauge needle was used to access the inferior right cervical paraspinous muscle into separate places. 2 cc of the injection was given in each area after negative aspiration. 3 separate injection sites were used in the right trapezius muscle. 2 cc of injectate into each area was given after negative aspiration. Patient tolerated procedure without difficulty. There are no complications Plan and Disposition:: Patient was discharged without incident.
== END 2022-12-19 12:00 | disposition home or self-care (01) ==
PROVIDERS: PCP Emergency Medicine; Visit Provider Nurse Anesthetist, Certified Registered
DX: M79.18 Myalgia, other site (principal); M50.10 Cervical disc disorder with radiculopathy, unspecified cervical region; M51.16 Intervertebral disc disorders with radiculopathy, lumbar region; M46.1 Sacroiliitis, not elsewhere classified
CPT/HCPCS: 20552; J1040

== ENCOUNTER → 2022-12-27 12:28 | Outpatient (CLI) | payer MEDICARE, SELFPAY | PROVIDERS: PCP Emergency Medicine; Visit Provider Emergency Medicine | DX: R07.9 Chest pain, unspecified (principal) | CPT/HCPCS: 93306 ==

== ENCOUNTER → 2023-01-08 09:27 | Outpatient (POV) | payer MEDICARE, SELFPAY ==
--- NOTE | 2023-01-08 09:32 | EXP.PAIN.SOA ---
[facility] Pain Management SOAP Note Subjective:: Patient is a pleasant 72-year-old male who presents today for medication refill and follow-up of trigger point injections of right cervical paraspinous and right trapezius on 12/19/2022.? We are currently treating the patient for degenerative disc disease of cervical and lumbar spine with cervical and lumbar radiculopathy symptoms, sacroiliitis, myofascial pain of cervical paraspinous and trapezius muscles.? Today he rates his pain a 4 out of 10.? He states he has had at least 90% improvement in his neck however he does continue to have some right shoulder soreness. Patient denies any new trauma or injury.? Patient denies any change location or type of pain he experiences.? He states he has been able to increase his activity. He is still got his follow-up appointment with Dr. Troy in January and he does state that the 26 of January he is scheduled to have some procedure with his eye doctor to remove a film on his eyes bilaterally. Patient is currently managed with Percocet 10 mg 4 times a day.? Patient denies any side effects from this medication.? His Asim is [id number].? Its been reviewed and appropriate. Review of Systems: General: No recent weight changes, no fever, no sleep disturbances Respiratory: No cough, no shortness of air, no recurring pulmonary infections Cardiovascular/peripheral vascular: No chest pain, no palpitations,? no edema, no shortness of breath Gastrointestinal: No new onset incontinence, normal bowel movements reported Genitourinary: No new onset incontinence Musculoskeletal: Right shoulder pain Psychiatric: [Normal mood/affect] Neurological: [Denies weakness in extremities], [denies balance issues} Objective:: Physical Exam: General: Alert and oriented x3, no acute distress, pleasant and cooperative Lungs: Respirations even and unlabored, symmetrical chest expansion Eyes: PERRL Musculoskeletal: Flexion and extension of cervical [spine] somewhat guarded secondary to pain, [antalgic gait noted] Neurological: Speech clear, no gross sensory deficit Assessment:: Degenerative disc disease of cervical and lumbar spine with cervical and lumbar radiculopathy symptoms, sacroiliitis, myofascial pain of cervical paraspinous and trapezius muscles Plan:: Patient is doing well following his right cervical paraspinous and right trapezius injections and does not require any additional injective therapy at this time. I will refill his Percocet 10 mg 4 times a day and provide a 1 month supply of this medication. Patient will return to clinic in 1 month for reevaluation of symptoms, medication refill and follow-up. Patient has been advised of risks of oversedation with the prescribed medication. Narcan has been offered to the patient in the event of oversedation. Patient has been advised that a family member should also be educated regarding administration of Narcan. Patient has been instructed to contact the clinic with any concerns before the next appointment. Dr. Horvath has reviewed this note and agrees with this plan of care. This note was dictated using voice recognition software and make contain errors or omissions. [facility] Disclaimer: The information contained in this section may have been updated after the patient was seen, as this information can be updated by other users. Medical History Diabetes GERD (gastroesophageal reflux disease) Family History Other No significant family history Social History Smoking Status: Unknown if ever smoked second hand exposure: No alcohol intake: never substance use type: denies use current occupational status: other Travel in the last 8 weeks: None household members: spouse housing: house current occupation: [employer] current occupational exposures/hazards: No caffeine:
[2023-01-08 09:45] VITALS: BP 149/82; PULSE 71; RESP 18; O2SAT 97; BMI 30.7
== END | disposition home or self-care (01) ==
PROVIDERS: PCP Emergency Medicine; Visit Provider Nurse Practitioner Family
DX: M51.16 Intervertebral disc disorders with radiculopathy, lumbar region (principal); M50.10 Cervical disc disorder with radiculopathy, unspecified cervical region; M46.1 Sacroiliitis, not elsewhere classified; M79.18 Myalgia, other site
CPT/HCPCS: 99212; G0463

== ENCOUNTER → 2023-02-08 08:24 | Outpatient (POV) | payer MEDICARE, SELFPAY ==
--- NOTE | 2023-02-08 09:01 | EXP.PAIN.SOA ---
[facility] Pain Management SOAP Note Subjective:: Is a pleasant 72-year-old male who presents today for medication refill and follow-up. We are currently treating the patient for degenerative disc disease of cervical spine and lumbar spine with cervical and lumbar radiculopathy symptoms, myofascial pain of cervical paraspinous and trapezius muscles, sacroiliitis. Today he does rate his pain an 8 out of 10. Patient states that he has been experiencing a little bit more pain as of lately into his neck along the right side and into his shoulder however he does believe this is related to moving his daughter from college back home over this past weekend. 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 He does describe his pain as an aching, throbbing sensation that is worse with increased activity. Patient has had trigger point injections in the past that have provided significant improvement of upwards of 90%. He does state his pain interferes with his ability to perform activities of daily living such as cooking and cleaning. He is currently managed with Percocet 10 mg 4 times a day and in the past he has been given muscle relaxers of methocarbamol that did help significantly. His Asim is [id number]. Its been reviewed and appropriate. Review of Systems: General: No recent weight changes, no fever, no sleep disturbances Respiratory: No cough, no shortness of air, no recurring pulmonary infections Cardiovascular/peripheral vascular: No chest pain, no palpitations, no edema, no shortness of breath Gastrointestinal: No new onset incontinence, normal bowel movements reported Genitourinary: No new onset incontinence Musculoskeletal: Neck pain, right shoulder pain Psychiatric: [Normal mood/affect] Neurological: [Denies weakness in extremities], [denies balance issues] Objective:: Physical Exam: General: Alert and oriented x3, no acute distress, pleasant and cooperative Lungs: Respirations even and unlabored, symmetrical chest expansion Eyes: PERRL Musculoskeletal: Flexion and extension of cervical [spine] somewhat guarded secondary to pain, [antalgic gait noted] point tenderness noted at right cervical paraspinous and right trapezius muscles Neurological: Speech clear, no gross sensory deficit Assessment:: Degenerative disc disease of cervical and lumbar spine with cervical and lumbar radiculopathy symptoms, myofascial pain of cervical paraspinous and trapezius muscles, sacroiliitis Plan:: Patient is experiencing worsening pain in his neck along the right side into his right shoulder. Patient did have limited range of motion and point tenderness noted at his right cervical paraspinous and right trapezius muscles. I have discussed with the patient that he may benefit from trigger point injections at these locations. Risk and benefits were discussed with the patient and he would like to proceed forward with this plan of care. I will refill his Percocet 10 mg 4 times a day and methocarbamol 750 mg twice daily as needed and provide a 1 month supply of these medications. Patient will be scheduled for trigger point injections of his right cervical paraspinous and right trapezius muscles. Patient has been advised of risks of oversedation with the prescribed medication. Narcan has been offered to the patient in the event of oversedation. Patient has been advised that a family member should also be educated regarding administration of Narcan. Patient has been instructed to contact the clinic with any concerns before the next appointment. Dr. Horvath has reviewed this note and agrees with this plan of care. This note was dictated using voice recognition software and make contain errors or omissions. [facility] Disclaimer: The information contained in this section may have been updated after the patient was seen, as this information can be updated by other users. Medical History Diabetes GERD (gastroesophageal reflux disea
[2023-02-08 09:03] VITALS: BP 147/61; PULSE 68; RESP 18; O2SAT 96; BMI 30.7
== END | disposition home or self-care (01) ==
PROVIDERS: PCP Emergency Medicine; Visit Provider Nurse Practitioner Family
DX: M51.16 Intervertebral disc disorders with radiculopathy, lumbar region (principal); M50.10 Cervical disc disorder with radiculopathy, unspecified cervical region; M46.1 Sacroiliitis, not elsewhere classified; M79.18 Myalgia, other site
CPT/HCPCS: 99212; G0463

== ENCOUNTER → 2023-02-08 09:10 | Outpatient (CLI) | payer MEDICARE, SELFPAY ==
[2023-02-08 10:04] LABS: Amphetamine/Metha Screen,Urine Negative ng/ml (<1000)
[2023-02-08 10:05] LABS: Barbiturates Screen,Urine Negative ng/ml (<200); Benzodiazepines Screen,Urine Negative ng/ml (<200)
[2023-02-08 10:07] LABS: Cannabinoid Screen,Urine Negative ng/ml (<50); Cocaine Screen,Urine Negative ng/ml (<300)
[2023-02-08 10:08] LABS: Methadone Screen,Urine Negative ng/ml (<300)
[2023-02-08 10:09] LABS: Opiate Screen,Urine Negative ng/ml (<300); Phencyclidine Screen,Urine Negative ng/ml (<25)
[2023-02-13 18:22] LABS: Opiates Negative (Cutoff=100); Oxycodone (GC/MS) 1848 ng/mL (Cutoff=100)
== END ==
PROVIDERS: PCP Emergency Medicine; Visit Provider Nurse Practitioner Family
DX: Z79.891 Long term (current) use of opiate analgesic (principal)
CPT/HCPCS: 80305; 80361; 80365; 99212; G0463; G0480

== ENCOUNTER → 2023-02-20 07:44 | Day surgery (SDC) | payer MEDICARE, SELFPAY ==
[2023-02-20 08:16] VITALS: BP 158/75; PULSE 65; RESP 18; TEMP 36.3; O2SAT 98; BMI 28.7
--- NOTE | 2023-02-20 08:46 | EXP.PAIN.PRO ---
Procedure Date: 02/20/23 Time: 08:20 Anesthesiologist:: Lexa Leavitt CRNA Complications:: None Pre-procedure Diagnosis:: Myofascial pain right posterior distal cervical paraspinous muscle as well as right trapezius myofascial pain. Right trapezius lipoma. Post-procedure Diagnosis:: Same. Indications for Procedure:: Very pleasant 72-year-old male that comes our clinic today for trigger point injections of the right distal posterior cervicals paraspinous muscle as well as right trapezius muscle. 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 Patient has had surgical consultation regarding the lipoma. No surgery indicated at this time. Patient also has extreme point tenderness over the distal posterior right paraspinous muscle as well as right trapezius muscle. Procedure Details:: Details of the procedure explained to the patient. The patient taken the procedure room placed in the sitting position. The area over the right posterior cervical spine and right trapezius muscle was cleansed using chlorhexidine as a cleansing solution. Using a 25-gauge inch and half needle 1 injection was giving after negative aspiration at the distal right cervical paraspinous muscle. 3 mL of a 10 mL solution containing 0.25% Marcaine +1% lidocaine and 40 mg of Depo-Medrol was injected. 2 separate areas over the right trapezius muscle was injected with 3 cc at each area. Patient tolerated procedure without difficulty. No complications. Plan and Disposition:: Patient was discharged without incident
== END | disposition home or self-care (01) ==
PROVIDERS: PCP Emergency Medicine; Visit Provider Nurse Anesthetist, Certified Registered
DX: M79.18 Myalgia, other site (principal); D17.1 Benign lipomatous neoplasm of skin and subcutaneous tissue of trunk
CPT/HCPCS: 20552; J1040

== ENCOUNTER → 2023-02-23 09:29 | Outpatient (CLI) | payer MEDICARE, SELFPAY ==
--- NOTE | 2023-02-23 09:33 | XR_ITS ---
FINAL REPORT CLINICAL HISTORY: fracture COMPARISON: 10/27/2022 FINDINGS: RIGHT ANKLE 3 views of the right ankle were obtained. There is sclerosis in the distal fibula that is compatible with the history of a healing fracture. The mortise is intact. Visualized joint spaces are normally aligned. Soft tissues are unremarkable. Note is made of a small plantar calcaneal spur as well as an os trigonum. Mild vascular calcification in the dorsalis pedis is identified. IMPRESSION: Sclerosis in the distal fibula compatible with a history of a healing fracture. Reviewed, Interpreted and Dictated by Rafat Serrano MD Transcribed by Sandhya Muller Authenticated and . [facility]
== END ==
PROVIDERS: PCP Emergency Medicine; Visit Provider Orthopaedic Surgery
DX: M25.571 Pain in right ankle and joints of right foot (principal); S82.61XA Displaced fracture of lateral malleolus of right fibula, initial encounter for closed fracture
CPT/HCPCS: 73610

== ENCOUNTER → 2023-03-07 08:18 | Outpatient (POV) | payer MEDICARE, SELFPAY ==
--- NOTE | 2023-03-07 08:37 | EXP.PAIN.SOA ---
[facility] Pain Management SOAP Note Subjective:: Patient is a pleasant 72-year-old male who presents today for follow-up of trigger point injections of right distal posterior cervical paraspinous muscle and right trapezius muscle on 02/20/2023.We are currently treating the patient for degenerative disc disease of cervical spine and lumbar spine with cervical and lumbar radiculopathy symptoms, myofascial pain of cervical paraspinous and trapezius muscles, sacroiliitis.? Today he states he has had at least 90% improvement from this injection and rates his pain a 4 out of 10.? He denies any new trauma or injury. He denies any change to location or type of pain he experiences. 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 He does state following these injections he was able to increase his activity with decreased pain symptoms and had better range of motion. He is currently managed with Percocet 10 mg 4 times a day and methocarbamol 750 mg twice daily.? His Asim is [id number].? Its been reviewed and appropriate. Review of Systems: General: No recent weight changes, no fever, no sleep disturbances Respiratory: No cough, no shortness of air, no recurring pulmonary infections Cardiovascular/peripheral vascular: No chest pain, no palpitations,? no edema, no shortness of breath Gastrointestinal: No new onset incontinence, normal bowel movements reported Genitourinary: No new onset incontinence Musculoskeletal: Neck pain Psychiatric: [Normal mood/affect] Neurological: [Denies weakness in extremities], [denies balance issues] Objective:: Physical Exam: General: Alert and oriented x3, no acute distress, pleasant and cooperative Lungs: Respirations even and unlabored, symmetrical chest expansion Eyes: PERRL Musculoskeletal: Flexion and extension of cervical [spine] somewhat guarded secondary to pain, [antalgic gait noted] Neurological: Speech clear, no gross sensory deficit Assessment:: degenerative disc disease of cervical spine and lumbar spine with cervical and lumbar radiculopathy symptoms, myofascial pain of cervical paraspinous and trapezius muscles, sacroiliitis Plan:: Patient has had significant improvement following his trigger point injection and does not require any additional injective therapy. I will refill the patient's Percocet 10 mg 4 times a day, methocarbamol 750 mg twice daily and provide a 1 month supply of this medications. Patient will return to clinic in 1 month for reevaluation of symptoms, medication refill and follow-up. Patient has been advised of risks of oversedation with the prescribed medication. Narcan has been offered to the patient in the event of oversedation. Patient has been advised that a family member should also be educated regarding administration of Narcan. Patient has been instructed to contact the clinic with any concerns before the next appointment. Dr. Horvath has reviewed this note and agrees with this plan of care. This note was dictated using voice recognition software and make contain errors or omissions. [facility] Disclaimer: The information contained in this section may have been updated after the patient was seen, as this information can be updated by other users. Medical History Diabetes GERD (gastroesophageal reflux disease) Family History Other No significant family history Social History Smoking Status: Unknown if ever smoked second hand exposure: No alcohol intake: never substance use type: denies use current occupational status: retired Travel in the last 8 weeks: None household members: spouse housing: house current occupation: [employer] current occupational exposures/hazards: No caffeine: Yes
[2023-03-07 08:41] VITALS: BP 138/78; PULSE 66; RESP 18; TEMP 36.4; O2SAT 97; BMI 28.7
== END | disposition home or self-care (01) ==
PROVIDERS: Visit Provider Nurse Practitioner Family
DX: M51.16 Intervertebral disc disorders with radiculopathy, lumbar region (principal); M50.10 Cervical disc disorder with radiculopathy, unspecified cervical region; M46.1 Sacroiliitis, not elsewhere classified; M79.18 Myalgia, other site
CPT/HCPCS: 99212; G0463

== ENCOUNTER → 2023-04-06 08:17 | Outpatient (POV) | payer MEDICARE, SELFPAY ==
[2023-04-06 08:36] VITALS: BP 134/68; PULSE 64; RESP 18; O2SAT 97; BMI 28.7
--- NOTE | 2023-04-06 08:48 | EXP.PAIN.SOA ---
[facility] Pain Management SOAP Note Subjective:: This patient is a pleasant 72-year-old male that comes our clinic today for follow-up visit regarding medication refills. We currently manage the patient with Percocet 10 mg 1 p.o. 4 times daily. Methocarbamol 750 mg 1 twice daily. Patient discusses with me the recent methocarbamol prescription. Patient states he feels rundown when taking the methocarbamol. I suggested to the patient he take 1 nightly. We will refill the patient's medications as ordered. His Asim #[id number] has been reviewed and appropriate. Patient does not complain of any side effects from the pain medication. Objective:: Patient is awake alert Reyno x3. In no acute distress. Flexion-extension lumbar spine somewhat guarded secondary to pain. Deep tendon reflexes upper lower extremities normal. Motor strength upper and lower extremities normal. There is no gross sensory deficit. Gait is normal. Assessment:: Degenerative disc disease lumbar spine multilevels. Lumbar radiculopathy. Chronic cervical neck pain. Myofascial pain cervical and lumbar spine. Bilateral sacroiliitis. Plan:: We will refill the patient's Percocet 10 mg 1 p.o. 4 times daily. Methocarbamol 750 mg 1 p.o. twice daily. However, as noted patient will begin taking methocarbamol 1 nightly. [facility] Disclaimer: The information contained in this section may have been updated after the patient was seen, as this information can be updated by other users. Medical History Diabetes GERD (gastroesophageal reflux disease) Family History Other No significant family history Social History Smoking Status: Unknown if ever smoked second hand exposure: No alcohol intake: never substance use type: denies use current occupational status: retired Travel in the last 8 weeks: None household members: spouse housing: house current occupation: [employer] current occupational exposures/hazards: No caffeine: Yes
== END | disposition home or self-care (01) ==
PROVIDERS: Visit Provider Nurse Anesthetist, Certified Registered
DX: M51.16 Intervertebral disc disorders with radiculopathy, lumbar region (principal); M54.2 Cervicalgia; G89.29 Other chronic pain; M79.18 Myalgia, other site; M46.1 Sacroiliitis, not elsewhere classified
CPT/HCPCS: 99212; G0463

== ENCOUNTER → 2023-05-07 08:22 | Outpatient (POV) | payer MEDICARE, SELFPAY ==
--- NOTE | 2023-05-07 08:50 | EXP.PAIN.SOA ---
[facility] Pain Management SOAP Note Subjective:: Patient is a pleasant 73-year-old male who presents today for medication refill and follow-up. We are currently treating the patient for degenerative disc disease of cervical spine and lumbar spine with cervical and lumbar radiculopathy symptoms, myofascial pain of cervical paraspinous and trapezius muscles, sacroiliitis.? Today he states he has had at least 90% improvement from this injection and rates his pain a 8 out of 10.? He denies any new trauma or injury. He denies any change to location or type of pain he experiences. He states he has been having more numbness and tingling in his bilateral hands including his pinky, ring and middle finger along both sides. He states he does notice the symptoms more prominent at night and frequently the numbness and pain will wake him up. He also continues to have low back pain however he does state that the neck pain and associated radiating symptoms to his hands is more bothersome. He does state the pain interferes with his ability perform activities of daily living such as cooking or cleaning. He does state following these injections he was able to increase his activity with decreased pain symptoms and had better range of motion. He is currently managed with Percocet 10 mg 4 times a day and methocarbamol 750 mg twice daily.? His Asim is [id number].? Its been reviewed and appropriate. Review of Systems: General: No recent weight changes, no fever, no sleep disturbances Respiratory: No cough, no shortness of air, no recurring pulmonary infections Cardiovascular/peripheral vascular: No chest pain, no palpitations,? no edema, no shortness of breath Gastrointestinal: No new onset incontinence, normal bowel movements reported Genitourinary: No new onset incontinence Musculoskeletal: Neck pain, bilateral hand numbness and tingling, low back pain Psychiatric: [Normal mood/affect] Neurological: [Denies weakness in extremities], [denies balance issues] Objective:: Physical Exam: General: Alert and oriented x3, no acute distress, pleasant and cooperative Lungs: Respirations even and unlabored, symmetrical chest expansion Eyes: PERRL Musculoskeletal: Flexion and extension of cervical [spine] somewhat guarded secondary to pain, [antalgic gait noted] Neurological: Speech clear, no gross sensory deficit [facility] radiology report 03/05/2014 MRI cervical spine C6-7: Mild disc space narrowing with disc bulge diffuse, diffuse disc protrusion most evident to the left of midline where there is a mild broad-based disc protrusion mainly soft disc at the left paracentral region indenting the anterior left aspect of the thecal sac and encroaching upon the left foramen. There is a slightly smaller but similar broad-based mild mainly soft disc protrusion extending into the right paracentral region towards the right foraminal. There is likely some minimal associated spurring and Luschka joint hypertrophy at the this right word disc and spondylosis. Borderline spinal stenosis at this level as well as C5-C6. Central canal measures over 9 mm at midline where the disc are actually less evident. Assessment:: Degenerative disc disease of cervical and lumbar spine with cervical and lumbar radiculopathy symptoms, myofascial pain Plan:: Patient is experiencing worsening pain in his neck with cervical radiculopathy symptoms. Patient did have limited range of motion of his cervical spine during today's visit. I have discussed with the patient that he may benefit from cervical epidural steroid injection. Risk and benefits were discussed with the patient and he would like to proceed forward with this plan of care. Patient is not on any blood thinners. I have also counseled the patient that in future if he does not get significant relief we may do additional imaging since it has been since 2013. I will also refill the patient's Percocet 10 mg 4 times a day and methocarbamol 750 mg twice a da
[2023-05-07 09:31] VITALS: BP 149/73; PULSE 64; RESP 18; O2SAT 98; BMI 28.7
== END | disposition home or self-care (01) ==
PROVIDERS: PCP Emergency Medicine; Visit Provider Nurse Practitioner Family
DX: M50.10 Cervical disc disorder with radiculopathy, unspecified cervical region (principal); M51.16 Intervertebral disc disorders with radiculopathy, lumbar region; M79.18 Myalgia, other site; M46.1 Sacroiliitis, not elsewhere classified
CPT/HCPCS: 99212; G0463

== ENCOUNTER 2023-05-15 09:17 | Day surgery (SDC) | payer MEDICARE, SELFPAY ==
[2023-05-15 09:32] VITALS: BP 140/74; PULSE 65; RESP 18; TEMP 36.3; O2SAT 99; BMI 29.2
[2023-05-15 09:59] VITALS: BP 121/66; PULSE 64; RESP 18; O2SAT 98
[2023-05-15 10:00] VITALS: BP 121/66; PULSE 58; RESP 18; O2SAT 98
[2023-05-15 10:03] VITALS: BP 144/75; PULSE 66; RESP 18; O2SAT 99
--- NOTE | 2023-05-15 10:05 | P.PCN_ITS ---
Procedure Date: 05/15/23 Time: 09:50 Anesthesiologist:: Lexa Leavitt CRNA Complications:: None Pre-procedure Diagnosis:: Degenerative disc cervical spine. Cervical radiculopathy Post-procedure Diagnosis:: Same. Indications for Procedure:: Patient is a pleasant 73-year-old male comes our clinic today for epidural steroid injection. Patient has cervical neck pain he describes constant, dull, aching. Patient also complaining of right arm hand and finger radicular symptoms. He rates his pain 7/10. Procedure Details:: Procedure:Cervical epidural steroid injection Informed consent was obtained and the risks and benefits of the procedure were explained to the patient. The patient was taken to the procedure room and noninvasive monitors placed, including noninvasive blood pressure cuff and pulse oximeter. The neck was prepped using Chloraprep as a cleansing solution. The C6- C7 interspace was viewed using fluroscopy. The skin and subcutaneous tissues were anesthetized using lidocaine 1.5% and a 25-gauge needle. After this an 18-g auge Touhy epidural needle was placed into the C6-C7 interspace under fluroscopy guidance and advanced using loss of resistance to air until the epidural space was encountered. After confirmation of needle placement in the epidural space using contrast dye, a solution containing normal saline, 2 mL and Depo-Medrol 80 mg was incrementally injected into the cervical epidural space.~ The patient tolerated the procedure well with no complications. The patient was observed in the Pain Clinic and then discharged home neurologically intact. Plan and Disposition:: Patient was discharged without incident.
== END 2023-05-15 10:03 | disposition home or self-care (01) ==
PROVIDERS: PCP Emergency Medicine; Visit Provider Nurse Anesthetist, Certified Registered
DX: M50.123 Cervical disc disorder at C6-C7 level with radiculopathy (principal)
CPT/HCPCS: 62321; J1040; Q9966

== ENCOUNTER → 2023-06-06 09:44 | Outpatient (POV) | payer MEDICARE, SELFPAY ==
--- NOTE | 2023-06-06 10:18 | EXP.PAIN.SOA ---
[facility] Pain Management SOAP Note Subjective:: Patient is a pleasant 73-year-old male who presents today for follow-up of cervical epidural steroid injection C6-C7 on 05/15/2023. We are currently treating the patient for degenerative disc disease of cervical and lumbar spine with cervical and lumbar radiculopathy symptoms, myofascial pain of cervical paraspinous and trapezius muscles, right-sided sacroiliitis. Today he rates his pain a 8 out of 10. Patient denies any new trauma or injury. He does state that the epidural did not provide any additional improvement in the numbness and tingling into his right hand. Patient states that his primary care provider is referring him to a hand specialist for evaluation. He states he is unsure who this will be and he has not been contacted by anyone at this time. Patient does state that between his hands and his low back pain that radiates into his right hip that he has been experiencing more frequent disability. Patient describes this pain in his low back and hip as a aching, throbbing sensation that is worse with increased activity. Patient states that it does wake him up in the middle of the night. He states it also interferes with his ability perform activities of daily living such as cooking or cleaning or even simple ambulation. He does state the pain is frequently aggravated by prolonged sitting or prolonged walking. Patient has previously had SI injections that did provide significant improvement of 60 to 80% lasting several months. Patient's last injection was back in July 2022. He is interested in possibly repeating this injection. Patient is currently managed with Percocet 10 mg 4 times a day and methocarbamol 750 mg twice a day. Patient denies any side effects from this medication. His Asim is [id number]. Its been reviewed and appropriate. Review of Systems: General: No recent weight changes, no fever, no sleep disturbances Respiratory: No cough, no shortness of air, no recurring pulmonary infections Cardiovascular/peripheral vascular: No chest pain, no palpitations, no edema, no shortness of breath Gastrointestinal: No new onset incontinence, normal bowel movements reported Genitourinary: No new onset incontinence Musculoskeletal: Low back pain, right hip pain Psychiatric: [Normal mood/affect] Neurological: [Denies weakness in extremities], [denies balance issues] Objective:: Physical Exam: General: Alert and oriented x3, no acute distress, pleasant and cooperative Lungs: Respirations even and unlabored, symmetrical chest expansion Eyes: PERRL Musculoskeletal: Flexion and extension of lumbar [spine] somewhat guarded secondary to pain, [antalgic gait noted] extreme point tenderness along right SI with positive right Patricia's, Zayra's, Gaenslen's, compression and distraction exam Neurological: Speech clear, no gross sensory deficit Assessment:: Degenerative disc disease of cervical and lumbar spine with cervical and lumbar radiculopathy symptoms, myofascial pain of cervical paraspinous and trapezius muscles, right-sided sacroiliitis Plan:: Patient is experiencing worsening pain in his low back with radiating symptoms to his right hip. Patient had limited range of motion of his lumbar spine along with extreme point tenderness at his right SI and a positive right Patricia's, Zayra's, Gaenslen's, compression and distraction exam. I have discussed with the patient that he may benefit from a repeat right SI injection. Patient had his last SI injection back in July 2022 that did provide 60 to 80% improvement lasting several months up until last month. Risk and benefits of this procedure were explained to the patient and he would like to proceed forward with this plan of care. I will also order the patient compounding cream and we will refill his methocarbamol 750 mg twice a day and Percocet 10 mg 4 times a day and provide a 1 month supply of this medication. Patient will be scheduled for a right SI injection
[2023-06-06 10:24] VITALS: BP 129/81; PULSE 68; RESP 18; O2SAT 97; BMI 29.2
== END | disposition home or self-care (01) ==
PROVIDERS: Visit Provider Nurse Practitioner Family
DX: M50.10 Cervical disc disorder with radiculopathy, unspecified cervical region (principal); M51.16 Intervertebral disc disorders with radiculopathy, lumbar region; M79.18 Myalgia, other site; M46.1 Sacroiliitis, not elsewhere classified
CPT/HCPCS: 99212; G0463

== ENCOUNTER 2023-06-19 08:43 | Day surgery (SDC) | payer MEDICARE, SELFPAY ==
[2023-06-19 08:50] VITALS: BP 139/93; PULSE 81; RESP 18; TEMP 36.8; O2SAT 99; BMI 29.2
[2023-06-19 09:03] VITALS: BP 119/96; PULSE 75; RESP 18; O2SAT 98
--- NOTE | 2023-06-19 09:07 | EXP.PAIN.PRO ---
Procedure Date: 06/19/23 Time: 08:50 Anesthesiologist:: Lexa Leavitt CRNA Complications:: None Pre-procedure Diagnosis:: Right sacroiliitis. Post-procedure Diagnosis:: Same. Indications for Procedure:: Patient is a very pleasant 73-year-old male that comes our clinic today for right sacroiliac joint injection of cortisone. Patient complains of difficulty transitioning from sitting to standing. Difficulty with ambulation secondary to intense right posterior hip pain. Patient describes pain as constant, dull, aching. He rates his pain 9/10. Procedure Details:: Procedure: Right sacroliliac joint injection under fluoroscopy Informed consent was obtained and the risk and benefits of the procedure were explained to the patient.~ The patient was taken to the procedure room and noninvasive monitors were placed including noninvasive blood pressure cuff and pulse oximeter.~ The patient was placed prone on the procedure table.~ The~ right hip was cleansed using Betadine as a cleansing solution.~ C-arm fluorosocpy was used to view the right SI joint.~ The skin and subcutaneous tissues were anesthetized using Lidocaine 1.5% and a 25-gauge needle.~ After this, a 22-gauge spinal needle was inserted under fluoroscopic guidance into the inferior aspect of the right SI joint.~ Omnipaque dye was injected and a good spread was seen throughout the joint.~ After this, approximately 5 mL of bupivacaine 0.25% and Depo-Medrol 40 mg was incrementally injected into the sacroiliac joint.~ The patient tolerated the procedure well with no complications.~ The patient was observed in the Pain Clinic, then discharged home neurologically intact.~ Plan and Disposition:: Patient was discharged without incident.
[2023-06-19 09:11] VITALS: BP 119/96; BP 134/69; PULSE 70; RESP 16; RESP 18; O2SAT 98; O2SAT 99
== END 2023-06-19 09:11 | disposition home or self-care (01) ==
PROVIDERS: PCP Emergency Medicine; Visit Provider Nurse Anesthetist, Certified Registered
DX: M46.1 Sacroiliitis, not elsewhere classified (principal)
CPT/HCPCS: 27096; G0260; J1040

== ENCOUNTER → 2023-07-11 09:49 | Outpatient (POV) | payer MEDICARE, SELFPAY ==
--- NOTE | 2023-07-11 10:30 | EXP.PAIN.SOA ---
[facility] Pain Management SOAP Note Subjective:: Patient is a pleasant 73-year-old male who presents today for follow-up. We are currently treating the patient for degenerative disc disease of cervical and lumbar spine with cervical and lumbar radiculopathy symptoms, myofascial pain, sacroiliitis. Today he rates his pain a 10 out of 10. 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 Patient states ultimately he ended up pulling something in his low back causing him to fall down an embankment and he is continued to have pain since. Patient denies any radiating symptoms into his legs. He does describe this as a constant achy sensation that interferes with his ability perform activities of daily living such as cooking or cleaning. He states he has not even been able to tie his shoes or get dressed without assistance due to the worsening pain. Patient states he did not go to an ER for evaluation and does not believe he broke anything. Patient is currently managed with Percocet 10 mg 4 times a day and methocarbamol 750 mg twice a day. He denies any side effects from this medication. His Asim has been reviewed and is appropriate. Review of Systems: General: No recent weight changes, no fever, no sleep disturbances Respiratory: No cough, no shortness of air, no recurring pulmonary infections Cardiovascular/peripheral vascular: No chest pain, no palpitations, no edema, no shortness of breath Gastrointestinal: No new onset incontinence, normal bowel movements reported Genitourinary: No new onset incontinence Musculoskeletal: Low back pain Psychiatric: [Normal mood/affect] Neurological: [Denies weakness in extremities], [denies balance issues] Objective:: Physical Exam: General: Alert and oriented x3, no acute distress, pleasant and cooperative Lungs: Respirations even and unlabored, symmetrical chest expansion Eyes: PERRL Musculoskeletal: Flexion and extension of lumbar [spine] somewhat guarded secondary to pain, [antalgic gait noted] Neurological: Speech clear, no gross sensory deficit Assessment:: Degenerative disc disease of cervical and lumbar spine with cervical and lumbar radiculopathy symptoms, myofascial pain, sacroiliitis Plan:: Patient is experiencing significant pain in his low back related to a recent fall. I have counseled the patient that I will send in a 7-day supply of prednisone 20 mg twice daily along with refill his muscle relaxer and change it to 3 times a day. I have counseled the patient that if he does not get significant relief following this medication that we will order advanced imaging. I have also counseled the patient to contact our office for any worsening symptoms and that we will change his appointment for sooner if needed. Patient will return to clinic in 2 weeks for reevaluation of symptoms and plan of care. Patient has been instructed to contact the clinic with any concerns before the next appointment. Dr. Horvath has reviewed this note and agrees with this plan of care. This note was dictated using voice recognition software and make contain errors or omissions. [facility] Disclaimer: The information contained in this section may have been updated after the patient was seen, as this information can be updated by other users. Medical History Diabetes GERD (gastroesophageal reflux disease) Family History Other No significant family history Social History Smoking Status: Unknown if ever smoked second hand exposure: No alcohol intake: never substance use type: denies use current occupational status: retired Travel in the last 8 weeks: None household members: spouse housing: house cur
[2023-07-11 12:36] VITALS: BP 134/85; PULSE 92; RESP 18; O2SAT 95; BMI 29.2
== END | disposition home or self-care (01) ==
PROVIDERS: PCP Emergency Medicine; Visit Provider Nurse Practitioner Family
DX: M50.10 Cervical disc disorder with radiculopathy, unspecified cervical region (principal); M51.16 Intervertebral disc disorders with radiculopathy, lumbar region; M79.10 Myalgia, unspecified site; M46.1 Sacroiliitis, not elsewhere classified
CPT/HCPCS: 99212; G0463

== ENCOUNTER 2023-07-16 09:20 | Emergency (ER) | payer MEDICARE, SELFPAY ==
[2023-07-16 09:32] VITALS: BP 150/73; PULSE 71; RESP 16; TEMP 36.7; O2SAT 98; BMI 29.2
--- NOTE | 2023-07-16 09:32 | PC.NURSE ---
Dr. Tam at [facility] for pt eval
--- NOTE | 2023-07-16 09:45 | CT_ITS ---
FINAL REPORT TECHNIQUE: Axial imaging of the pelvis was obtained without contrast.This study was performed with techniques to keep radiation doses as low as reasonably achievable, (ALARA). Individualized dose reduction technique using automated exposure control or adjustment of mA and/or kV according to the patient's size were employed. CLINICAL HISTORY: fall, R hip and midline L spine pain. Acute FINDINGS: There is no acute fracture or dislocation. Femoral heads are located bilaterally. There are mild degenerative changes of the hips. Soft tissues demonstrate no acute abnormality. Sacral ala are intact. IMPRESSION: No acute bony abnormality of the pelvis. Reviewed, Interpreted and Dictated by Shahab Viera III, MD Transcribed by Анна Rodríguez Authenticated and [facility]
--- NOTE | 2023-07-16 09:45 | CT_ITS ---
FINAL REPORT CLINICAL HISTORY: fall, R hip and pelvis pain FINDINGS: Axial CT images of the thoracic spine were obtained without contrast. Sagittal and coronal reformatted images were also obtained. This study was performed with techniques to keep radiation doses as low as reasonably achievable (ALARA). Individualized dose reduction techniques using automated exposure control or adjustment of mA and/or kV according to the patient''s size were employed. There is no evidence of fracture. The vertebral alignment is normal. There is multilevel, mild degenerative change. Multiple Schmorl's nodes are noted. There is no evidence of significant canal stenosis. No paraspinous soft tissue abnormality is identified. IMPRESSION: No fracture or acute bony abnormality. No significant central canal stenosis. Reviewed, Interpreted and Dictated by Shahab Viera III, MD Transcribed by Анна Rodríguez Authenticated and [facility]
--- NOTE | 2023-07-16 09:45 | CT_ITS ---
FINAL REPORT TECHNIQUE: Axial imaging of the lumbar spine was obtained without contrast. Reformatted images were also obtained and reviewed.This study was performed with techniques to keep radiation doses as low as reasonably achievable, (ALARA). Individualized dose reduction techniques using automated exposure control or adjustment of mA and/or kV according to the patient's size were employed. CLINICAL HISTORY: fall, R hip and pelvis pain FINDINGS: There is an acute L2 compression fracture with 40% loss of anterior height. Remaining vertebrae are normal height. There is multilevel degenerative change and neuroforaminal narrowing. here is no malalignment. Facets are properly aligned. Prevertebral soft tissues unremarkable. IMPRESSION: Acute L2 compression fracture with 40% loss of anterior height. Reviewed, Interpreted and Dictated by Shahab Viera III, MD Transcribed by Анна Rodríguez Authenticated and [facility]
--- NOTE | 2023-07-16 10:10 | ED_ITS ---
Discharge Plan Disposition Patient Disposition: Home, Self-Care Prescriptions Prescriptions: No Action ergocalciferol (vitamin D2) 1,250 mcg (50,000 unit) capsule 50,000 unit PO QWEEK Qty: 14 0RF nitroglycerin 0.4 mg tablet, sublingual 0.4 mg SL Q5M PRN (Reason: chest pain) Qty: 20 2RF Rx Instructions: do not exceed 3 doses per episode carvedilol 6.25 mg tablet 6.25 mg PO BID glimepiride 4 mg tablet See Rx Instructions .Route .COMPLEX Qty: 180 3RF Rx Instructions: TAKE TWO TABLETS BY MOUTH EVERY MORNING WITH BREAKFAST FOR DIABETES Januvia 100 mg tablet See Rx Instructions .ROUTE .COMPLEX Rx Instructions: TAKE ONE TABLET BY MOUTH ONCE A DAY simvastatin 80 mg tablet 80 mg PO DAILY Invokana 100 mg tablet See Rx Instructions .ROUTE .COMPLEX Rx Instructions: TAKE ONE TABLETBY MOUTH ONCE A DAY FOR DIABETES omeprazole 20 mg capsule,delayed release(DR/EC) See Rx Instructions .ROUTE .COMPLEX Rx Instructions: TAKE 1 CAPSULE BY MOUTH ONCE A DAY FOR GERD losartan 50 mg tablet See Rx Instructions .ROUTE .COMPLEX Rx Instructions: TAKE ONE TABLET BY MOUTH ONCE A DAY FOR BLOOD PRESSURE metformin 1,000 mg tablet See Rx Instructions .ROUTE .COMPLEX Rx Instructions: TAKE ONE TABLET BY MOUTH 2 TIMES A DAY FOR DIABETES oxycodone-acetaminophen [Percocet] 10-325 mg tablet 1 tab PO QID Qty: 120 0RF aspirin 81 MG tablet,delayed release (DR/EC) 81 mg PO DAILY furosemide 20 mg tablet 20 mg PO BID Rx Instructions: TAKE ONE TABLET BY MOUTH bid isosorbide mononitrate 30 mg tablet extended release 24 hr 30 mg PO DAILY levothyroxine 88 mcg tablet See Rx Instructions .ROUTE .COMPLEX Rx Instructions: TAKE ONE TABLET BY MOUTH ONCE A DAY FOR HYPOTHYROID prednisone 20 mg tablet 20 mg PO BID Qty: 14 0RF methocarbamol 750 mg tablet 750 mg PO TID PRN (Reason: muscle pain) Qty: 90 0RF Referrals Follow up/Referrals: Curry Stahl MD [Primary Care Provider] - See instructions Activity Restrictions/Add. Instructions Additional Instructions/Restrictions: [place] [facility] (at [facility]) [address], [address]; [place] [address] You have a 40% compression fracture of your L2 vertebra. Call Dr. Horvath about further care including possible kyphoplasty versus bracing. Call your family doctor to establish care for this visit to the emergency department and schedule follow-up within 48 hours to ensure improvement. If you have any worsening of your condition or any other concerning signs or symptoms, return to the emergency department or your primary care doctor for further evaluation. Continue following with Dr. Horvath for pain control, but if pain control Dr. Horvath is not working, you may need to contact spine surgery sooner rather than later for improvement. Information above. Clinical Impressions Clinical Impression: Acute exacerbation of chronic low back pain Closed compression fracture of lumbar vertebra Qualifiers: Encounter type: initial encounter Lumbar vertebra fracture level: L2 Qualified Code(s): S32.020A - Wedge compression fracture of second lumbar vertebra, initial encounter for closed fracture Instructions Patient Instructions: DI for Low Back Pain Discharge ED Provider: Conrad Tam General Adult HPI General Chief complaint: Back Pain/Injury Stated complaint: AO Time Seen by Provider: 07/16/23 09:23 Mode of Arrival: Ambulatory Source of Information: Patient Limitations: No Limitations Description of Symptoms (Recalled from ER Triage Doc. by RN): Pt arrives to ed via private vehicle. C/o fall 7 days ago. States that he was pulling on a limb when he tripped and fell down an incline. Denies any LOC. Endorses aspirin use, denies other blood thinners. States that he has since had right sided back and hip pain with difficulty walking, states that his right side locks up and he is unable to dress independently since the accident. Does report chronic back pain but reports that this is worse than normal. History of Present Illness HPI narrative: This is a very pleasant 73-year-old gentleman with history of chronic back pain, type 2 diabetes, hypertension, hyperlipidemia, hypothyroidism, CAD status post CABG, CHF, aortic stenosis presenting with back pain. Patient states that he fell about a week ago. He was trimming trees when he tripped backward over a branch and then over an incline landed directly on his back. No loss of consciousness, but patient said it knocked the wind out of me. He has been in severe, waxing and waning pain since that time. Made better with standing up and walking around made worse with sitting. Denies bowel or bladder dysfunction, weakness in his lower extremities, neurologic deficits. Pain is stabbing, sharp, located just right of spine at SI joint, but no overlying skin changes that he has noticed. Has been taking Percocet, gabapentin, Tylenol, Motrin, applying lidocaine patches, and taking hot baths without relief. Related Data Home Medications Medication Instructions Recorded Confirmed aspirin 81 mg tablet,delayed 81 mg PO DAILY prevention 12/20/18 07/16/23 release furosemide 20 mg tablet 20 mg PO BID swelling 03/23/21 07/16/23 sitagliptin phosphate 100 mg See Rx Instructions .Route 09/14/22 07/16/23 tablet (Januvia) .COMPLEX Diabetes simvastatin 80 mg tablet 80 mg PO DAILY Cholesterol 09/26/22 07/16/23 canagliflozin 100 mg tablet See Rx Instructions .Route 12/19/22 07/16/23 (Invokana) .COMPLEX . omeprazole 20 mg capsule,delayed See Rx Instructions .Route 04/06/23 07/16/23 release .COMPLEX GERD carvedilol 6.25 mg tablet 6.25 mg PO BID heart rate 04/17/23 07/16/23 isosorbide mononitrate 30 mg 30 mg PO DAILY BLOOD PRESSURE 05/07/23 07/16/23 tablet,extended release 24 hr levothyroxine 88 mcg tablet See Rx Instructions .Route 05/07/23 07/16/23 .COMPLEX THYROID losartan 50 mg tablet See Rx Instructions .Route 06/06/23 07/16/23 .COMPLEX BLOOD PRESSURE metformin 1,000 mg tablet See Rx Instructions .Route 06/06/23 07/16/23 .COMPLEX Diabetes Previous Rx's Medication Instructions Recorded ergocalciferol (vitamin D2) 1,250 50,000 unit PO QWEEK Supplement 06/26/22 mcg (50,000 unit) capsule #14 caps nitroglycerin 0.4 mg sublingual 0.4 mg sublingual Q5M PRN chest 06/26/22 tablet pain #20 tabs glimepiride 4 mg tablet See Rx Instructions .Route 10/23/22 .COMPLEX Diabetes #180 tabs oxycodone-acetaminophen 10 mg-325 1 tab PO QID . #120 tabs 06/06/23 mg tablet (Percocet) methocarbamol 750 mg tablet 750 mg PO TID PRN muscle pain #90 07/11/23 tabs prednisone 20 mg tablet 20 mg PO BID #14 tabs 07/11/23 Allergies Allergy/AdvReac Type Severity Reaction Status Date / Time lisinopril Allergy Intermediate I-HIVES Verified 06/19/23 08:59 morphine Allergy Unknown Verified 06/19/23 08:59 [facility] Disclaimer: The information contained in this section may have been updated after the patient was seen, as this information can be updated by other users. Medical History Diabetes GERD (gastroesophageal reflux disease) Family History Other No significant family history Social History Smoking Status: Never smoker second hand exposure: No alcohol intake: never substance use type: denies use current occupational status: retired Travel in the last 8 weeks: None household members: spouse housing: house current occupation: [employer] current occupational exposures/hazards: No caffeine: Yes ROS Obtained: Yes All systems reviewed & no additional complaints except as documented Physical Exam General General appearance: alert, in no apparent distress and anxious (secondary to pain) Head Head exam: atraumatic and normocephalic Eye Eye exam: Present normal appearance, PERRL and EOMI ENT ENT exam: Present mucous membranes moist Neck Neck exam: Present normal inspection, full ROM and trachea midline Respiratory Respiratory exam: Absent respiratory distress, wheezes, stridor, accessory muscle use or prolonged expiratory phase Cardiovascular Cardiovascular exam: Present normal rhythm Abdominal Exam Abdominal exam: Present soft; Absent distention, tenderness, guarding, rebound, rigidity or normal bowel sounds Extremities Exam Extremities exam: Present normal inspection and full ROM; Absent edema Back Exam Back exam: Present tenderness (With changes in position, plantarflexion bilateral feet.), CVA tenderness (R), vertebral tenderness, sciatic notch tenderness (R), straight leg raise (R) and straight leg raise (L); Absent CVA tenderness (L) or sciatic notch tenderness (L) Neurological Exam Neurological exam: Present alert, oriented X3, CN II-XII intact and normal gait; Absent motor sensory deficit Skin Skin exam: Present warm and dry; Absent diaphoresis or erythema Medical Decision Making Medical Records Medical records reviewed: Yes I reviewed the patient's medical records. Asim Inquiry Pt receiving controlled substance: No Asim was queried for this patient: No Vital Signs: 07/16/23 09:32 Temperature 98.0 F Temperature Source Oral Pulse Rate [Apical] 71 Respiratory Rate 16 Blood Pressure [Right Arm] 150/73 H Blood Pressure Mean [Right Arm] 98 Blood Pressure Source [Right Arm] Automatic Cuff Blood Pressure Position [Right Arm] Sitting 02 Sat by Pulse Oximetry 98 Oxygen Delivery Method Room Air Orders (Tests/Meds): ED MEDICATIONS Discontinued Medications Generic Name Dose Route Start Last Admin Trade Name Catherine PRN Reason Stop Dose Admin Acetaminophen 1,000 mg 07/16/23 10:02 07/16/23 10:24 Acetaminophen 1,000mg/100ml Vial IV 07/16/23 10:03 1,000 mg ONCE ONE Administration Lidocaine HCl 200 mg/ Sodium 110 mls @ 220 mls/hr 07/16/23 10:45 07/16/23 11:21 Chloride IV 07/16/23 11:14 Not Given ONCE ONE Lidocaine HCl 150 mg/ Sodium 107.5 mls @ 215 mls/hr 07/16/23 10:48 07/16/23 10:58 Chloride IV 07/16/23 11:14 215 mls/hr ONCE ONE Administration Ketorolac Tromethamine 15 mg 07/16/23 10:02 07/16/23 10:24 Ketorolac 30mg/Ml Vial IV 07/16/23 10:03 15 mg ONCE ONE Administration ORDERS Category Date Time Status CT lumbar spine wo con Stat Cat Scan 07/16/23 09:[address] pelvis wo con Stat Cat Scan 07/16/23 09:[address] thoracic spine wo con Stat Cat Scan 07/16/23 09:45 Completed Medical Decision Narrative: This is a very pleasant 73-year-old gentleman with history of chronic back pain, type 2 diabetes, hypertension, hyperlipidemia, hypothyroidism, CAD status post CABG, CHF, aortic stenosis presenting with back pain. Patient states that he fell about a week ago. He was trimming trees when he tripped backward over a branch and then over an incline landed directly on his back. No loss of consciousness, but patient said it knocked the wind out of me. He has been in severe, waxing and waning pain since that time. Made better with standing up and walking around made worse with sitting. Denies bowel or bladder dysfunction, weakness in his lower extremities, neurologic deficits. Pain is stabbing, sharp, located just right of spine at SI joint, but no overlying skin changes that he has noticed. Has been taking Percocet, gabapentin, Tylenol, Motrin, applying lidocaine patches, and taking hot baths without relief. History was obtained via conversation with patient and chart review. On arrival, patient hemodynamically stable, alert, oriented x4, appropriate, GCS 15, moving all extremities spontaneously, pupils equal and reactive to light. Full physical exam performed and significant for well-appearing male no acute distress, but anxious secondary to pain. Pain primarily midline lumbar spine without overlying skin changes. He is also having significant pain overlying his right SI joint. Neurovascular intact distally and patient able to ambulate, but rising from sitting require significant work and patient appears to be in significant pain. Straight leg test bilaterally Differential includes sprain, strain, fracture, spinal stenosis, degenerative disc disease, osteoarthritis, MSK pain, among others. Patient was given IV acetaminophen, IV Toradol, IV lidocaine for symptomatic management and correction of underlying abnormalities. Workup independently interpreted and significant for compression fracture at L2, approximately 40 to 50% height loss. See radiology read for full review of final results. On reevaluation, patient feeling much better after medications. Given patient presentation, workup, history, this most likely represents lumbar spine compression fracture. Because patient neurologically intact, deemed appropriate for outpatient management and patient feels comfortable going home with pain care he has at home already. Information for [facility] was given and Dr. Horvath referral information placed. Because patient at baseline without signs or symptoms of clinical decompensation, deemed appropriate for discharge. Results were relayed to patient who voiced understanding and were agreeable to outpatient management and follow up. Patient was discharged in hemodynamically stable condition with recommended primary care follow-up. Critical Care Critical Care Time Critical Care Time: No
[2023-07-16] MEDS: ACETAMINOPHEN 1,000MG/100ML VIAL 1000 MG IV (10:24)
[2023-07-16] MEDS: KETOROLAC 30MG/ML VIAL 15 MG IV (10:24)
--- NOTE | 2023-07-16 10:44 | PC.NURSE ---
Called Sweta Allen in pharmacy to verify lidocaine IV drip for pt. Sweta asked for clarification from md regarding the amount of dilutent he would like for the lidocaine. MD verified that he would prefer 250ml of NS be given as dilutent for 150mg of lidocaine given over 30 minutes.
[2023-07-16] MEDS: LIDOCAINE HCL IV (10:58)
[2023-07-16] MEDS: SODIUM CHLORIDE 0.9% IV (10:58)
--- NOTE | 2023-07-16 11:39 | PC.NURSE ---
Rounded on pt. No needs voiced at this time. Call light within reach
--- NOTE | 2023-07-16 11:49 | PC.NURSE ---
Dr. Tam at [facility] to update pt on results and POC
[2023-07-16 11:54] VITALS: BP 145/68; PULSE 68; RESP 18; TEMP 36.6; O2SAT 98
== END 2023-07-16 12:00 | disposition home or self-care (01) ==
PROVIDERS: Emergency Provider Emergency Medicine; PCP Emergency Medicine
DX: M54.50 Low back pain, unspecified (principal); S32.020A Wedge compression fracture of second lumbar vertebra, initial encounter for closed fracture; E11.9 Type 2 diabetes mellitus without complications; I11.0 Hypertensive heart disease with heart failure; I50.9 Heart failure, unspecified; I25.10 Atherosclerotic heart disease of native coronary artery without angina pectoris; I65.29 Occlusion and stenosis of unspecified carotid artery; E78.5 Hyperlipidemia, unspecified; E03.9 Hypothyroidism, unspecified; K21.9 Gastro-esophageal reflux disease without esophagitis; Z95.5 Presence of coronary angioplasty implant and graft; Z79.84 Long term (current) use of oral hypoglycemic drugs; W19.XXXA Unspecified fall, initial encounter
CPT/HCPCS: 72128; 72131; 72192; 96361; 96374; 96375; 99212; 99285; G0463; J0131; J2001

== ENCOUNTER → 2023-07-16 13:07 | Outpatient (POV) | payer MEDICARE, SELFPAY ==
--- NOTE | 2023-07-16 14:28 | A.OFFVIS_ITS ---
[facility] Pain Management SOAP Note Subjective:: This patient is a very pleasant 73-year-old male that comes our clinic today for medication refills. We currently manage the patient for chronic cervical neck pain with cervical radiculopathy. Chronic low back pain with lumbar radiculopathy. Bilateral sacroiliitis. Right greater than left. Myofascial pain. He rates his pain today 10/10. Patient comes to our office today after visiting the ER this morning with a complaint of intense low lumbar right-sided back pain. Right posterior hip pain. Patient does have confirmed L2 compression fracture. However, patient does not complain of any midline lumbar back pain. Patient had right sacroiliac joint injection on 06/19/2023. Patient reports 90% improvement terms of his right low lumbar back pain as well as right posterior hip pain following injection. However, patient fell on an embankment 1 week following the injection. His pain is returned in its entirety with some increase in intensity. Upon examination the patient's pain is right low lumbar back pain. Right posterior hip pain. Extreme point tenderness over the right sacroiliac joint. We fitted the patient with a lumbar brace. We medically manage the patient with Percocet 10 mg 1 p.o. 4 times daily. Robaxin-750 milligrams 1 p.o. twice daily. Patient states the medication is helping to some degree with his overall pain. Objective:: Patient is awake alert [place] x3. In no acute distress. Flexion-extension lumbar spine somewhat guarded secondary to pain. Deep tendon reflexes upper and lower extremities normal. Motor strength upper and lower extremities normal. There is no gross sensory deficit. Gait is normal. Assessment:: Degenerative disc lumbar spine multilevels. Lumbar radiculopathy. Degenerative disc cervical spine cervical radiculopathy. Right sacroiliitis. L2 compression fracture Plan:: We will refill the patient's pain medication. Percocet 10 mg 1 p.o. 4 times daily. Robaxin-750 milligrams 1 p.o. twice daily. I recommend a right low lumbar paraspinous muscle trigger point injections. Discussed in detail with the patient regarding injection intervention. He wishes to proceed. [facility] Disclaimer: The information contained in this section may have been updated after the antoni boss was seen, as this information can be updated by other users. 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
[2023-07-16 14:34] VITALS: BP 139/75; PULSE 72; RESP 18; O2SAT 98; BMI 29.2
== END | disposition home or self-care (01) ==
PROVIDERS: Visit Provider Nurse Anesthetist, Certified Registered
DX: M51.16 Intervertebral disc disorders with radiculopathy, lumbar region (principal); M50.10 Cervical disc disorder with radiculopathy, unspecified cervical region; M46.1 Sacroiliitis, not elsewhere classified; S32.029S Unspecified fracture of second lumbar vertebra, sequela
CPT/HCPCS: 99212; G0463

== ENCOUNTER 2023-07-17 10:16 | Day surgery (SDC) | payer MEDICARE, SELFPAY ==
[2023-07-17 10:45] VITALS: BP 162/76; PULSE 69; RESP 18; TEMP 36.2; O2SAT 98; BMI 29.2
[2023-07-17 10:48] VITALS: BP 144/71; PULSE 69; RESP 18; O2SAT 97
[2023-07-17 10:50] VITALS: BP 172/75; PULSE 59; RESP 18; O2SAT 98
--- NOTE | 2023-07-17 11:50 | EXP.PAIN.PRO ---
Procedure Date: 07/17/23 Time: 11:15 Anesthesiologist:: Lexa Leavitt CRNA Complications:: None Pre-procedure Diagnosis:: Myofascial pain right lumbar paraspinous muscle. Post-procedure Diagnosis:: Same. Indications for Procedure:: Patient is a pleasant 73-year-old male that comes our clinic today for right lumbar paraspinous muscle trigger point injections. Patient describes low right lumbar back pain as constant, dull, sharp, stabbing at times. Patient is having difficulty with flexion, extension, left and right rotation. Patient suffered a fall onto his back which precipitated his visit to our clinic. He rates his pain 9/10. Procedure Details:: Details of the procedure explained to the patient. The patient taken to procedure room placed in sitting position. The area over the low lumbar spine was cleaned using chlorhexidine as a cleansing solution. Using a 25-gauge inch and half needle the right lumbar paraspinous muscle was accessed in 3 separate areas. Each area was injected with 4 cc of a solution containing 0.25% Marcaine +1% lidocaine and 40 mg of Depo-Medrol. Patient tolerated procedure without difficulty. There are no complications. Plan and Disposition:: Patient was discharged without incident.
== END 2023-07-17 10:50 | disposition home or self-care (01) ==
PROVIDERS: PCP Emergency Medicine; Visit Provider Nurse Anesthetist, Certified Registered
DX: M79.18 Myalgia, other site (principal)
CPT/HCPCS: 20552; J1040

== ENCOUNTER → 2023-07-26 08:31 | Outpatient (POV) | payer MEDICARE, SELFPAY ==
[2023-07-26 09:25] VITALS: BP 147/69; PULSE 70; RESP 18; O2SAT 98; BMI 28.8
--- NOTE | 2023-07-26 09:30 | EXP.PAIN.SOA ---
[facility] Pain Management SOAP Note Subjective:: Patient is a pleasant 73-year-old male who presents today for follow-up of trigger point injections of right lumbar paraspinous muscles on 07/17/2023. We are currently treating the patient for degenerative disc disease of cervical and lumbar spine with cervical and lumbar radiculopathy symptoms, myofascial pain, sacroiliitis. Today he rates his pain a 8 out of 10. Patient denies any new fall or injury. He does state that he continues to be dealing with pain related to his fall while pulling on a tree branch and ending up going down an embankment. He does describe this as an aching, throbbing sensation with some numbness and tingling in and around his low back along the right side. Patient does state the pain interferes with his ability perform activities of daily living such as cooking and cleaning. He states that the trigger point injections did help however only provided approximately 40% relief lasting a couple of days. 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 Patient did have updated imaging from her last visit that showed a L2 compression fracture however the patient has no complaints of pain midline of his lumbar spine. Patient is currently managed with Percocet 10 mg 4 times a day and methocarbamol 750 mg twice a day. He denies any side effects from this medication. His Asim has been reviewed and is appropriate. Review of Systems: General: No recent weight changes, no fever, no sleep disturbances Respiratory: No cough, no shortness of air, no recurring pulmonary infections Cardiovascular/peripheral vascular: No chest pain, no palpitations, no edema, no shortness of breath Gastrointestinal: No new onset incontinence, normal bowel movements reported Genitourinary: No new onset incontinence Musculoskeletal: Low back pain, right hip pain Psychiatric: [Normal mood/affect] Neurological: [Denies weakness in extremities], [denies balance issues] Objective:: Physical Exam: General: Alert and oriented x3, no acute distress, pleasant and cooperative Lungs: Respirations even and unlabored, symmetrical chest expansion Eyes: PERRL Musculoskeletal: Flexion and extension of lumbar [spine] somewhat guarded secondary to pain, [antalgic gait noted] point tenderness along right SI with positive right Patricia's, Zayra's, Gaenslen's, compression and distraction exam Neurological: Speech clear, no gross sensory deficit Assessment:: Degenerative disc disease of cervical and lumbar spine with cervical and lumbar radiculopathy symptoms, sacroiliitis, myofascial pain Plan:: Patient continues to experience significant pain related to a recent fall. Patient did have limited range of motion of his lumbar spine along with extreme point tenderness at his right SI and a positive right Patricia's, Zayra's, Gaenslen's, compression and distraction exam. I have discussed with the patient that he may benefit from SI injection. Patient has had these injections in the past and did provide upwards of 90% improvement. Patient will be scheduled for a diagnostic right SI injection. Patient did have his Percocet and muscle relaxer refilled on 1023 and does not require any refills at this time. Patient has been instructed to contact the clinic with any concerns before the next appointment. Dr. Horvath has reviewed this note and agrees with this plan of care. This note was dictated using voice recognition software and make contain errors or omissions. [facility] Disclaimer: The information contained in this section may have been updated after the patient was seen, as this information can be updated by other users. Medical History Diabetes GERD (gastroesophageal reflux disease) Family History Other No significant family history Social History
== END | disposition home or self-care (01) ==
PROVIDERS: PCP Emergency Medicine; Visit Provider Nurse Practitioner Family
DX: M50.10 Cervical disc disorder with radiculopathy, unspecified cervical region (principal); M51.16 Intervertebral disc disorders with radiculopathy, lumbar region; M46.1 Sacroiliitis, not elsewhere classified; M79.10 Myalgia, unspecified site
CPT/HCPCS: 99212; G0463

== ENCOUNTER → 2023-08-10 10:15 | Outpatient (CLI) | payer MEDICARE, SELFPAY ==
--- NOTE | 2023-08-10 10:19 | XR_ITS ---
FINAL REPORT CLINICAL HISTORY: right ankle pain FINDINGS: Right ankle Three views were obtained. There is no acute fracture or dislocation. The joint spaces appear normal. There is a small plantar spur. There is mild vascular calcification of the tibial vessels. IMPRESSION: No acute process. Reviewed, Interpreted and Dictated by Rafat Serrano MD Transcribed by Melodie Uribe Authenticated and [facility][1]
== END ==
LOC: RAD 10:16
PROVIDERS: PCP Emergency Medicine; Visit Provider Orthopaedic Surgery
DX: S82.891A Other fracture of right lower leg, initial encounter for closed fracture (principal)
CPT/HCPCS: 73610

== ENCOUNTER → 2023-08-29 08:10 | Outpatient (POV) | payer MEDICARE, SELFPAY ==
[2023-08-29 08:37] VITALS: BP 146/77; PULSE 72; RESP 18; O2SAT 99; BMI 28.7
--- NOTE | 2023-08-29 09:13 | EXP.PAIN.SOA ---
[facility] Pain Management SOAP Note Subjective:: Patient is a pleasant 73-year-old male who presents today for follow-up of insurance denial of SI injection. We are currently treating the patient for degenerative disc disease of cervical and lumbar spine with cervical and lumbar radiculopathy symptoms, myofascial pain, sacroiliitis, L2 compression fracture. Today he rates his pain a 8 out of 10. Patient denies any new trauma or injury. He does state that he is starting to experience more pain in his low back around the area of his compression site and radiating symptoms into his legs. Patient does describe this as an aching, throbbing sensation that is worse with increased activity. Patient does state the pain interferes with his ability perform activities of daily living such as cooking or cleaning. Patient is interested in injection therapy at today's visit. Patient is currently managed with Percocet 10 mg 4 times a day and methocarbamol 750 mg twice a day. Patient denies any side effects from this medication. His Asim has been reviewed and is appropriate. Review of Systems: General: No recent weight changes, no fever, no sleep disturbances Respiratory: No cough, no shortness of air, no recurring pulmonary infections Cardiovascular/peripheral vascular: No chest pain, no palpitations, no edema, no shortness of breath Gastrointestinal: No new onset incontinence, normal bowel movements reported Genitourinary: No new onset incontinence Musculoskeletal: Low back pain, leg pain Psychiatric: [Normal mood/affect] Neurological: [Denies weakness in extremities], [denies balance issues] Objective:: Physical Exam: General: Alert and oriented x3, no acute distress, pleasant and cooperative Lungs: Respirations even and unlabored, symmetrical chest expansion Eyes: PERRL Musculoskeletal: Flexion and extension of lumbar [spine] somewhat guarded secondary to pain, [antalgic gait noted] Neurological: Speech clear, no gross sensory deficit Assessment:: Degenerative disc disease of cervical and lumbar spine with cervical and lumbar radiculopathy symptoms, myofascial pain, sacroiliitis, L2 compression fractu Plan:: Patient is experiencing worsening pain around his L2 compression fracture with radiating symptoms into his legs. Patient had limited range of motion of his lumbar spine and point tenderness during today's exam. I have discussed with the patient that he may benefit from lumbar epidural steroid injection. Risk and benefits were discussed with the patient and the patient would like to proceed forward with this plan of care. Patient is not on any blood thinners. Patient will be scheduled for a LESI L2-L3. I will also refill the patient's Percocet 10 mg 4 times a day and methocarbamol 750 mg twice a day and provide a 1 month supply of this medication. Patient has been advised of risks of oversedation with the prescribed medication. Narcan has been offered to the patient in the event of oversedation. Patient has been advised that a family member should also be educated regarding administration of Narcan. Patient has been instructed to contact the clinic with any concerns before the next appointment. Dr. Horvath has reviewed this note and agrees with this plan of care. This note was dictated using voice recognition software and make contain errors or omissions. [facility] Disclaimer: The information contained in this section may have been updated after the patient was seen, as this information can be updated by other users. Medical History Diabetes GERD (gastroesophageal reflux disease) Family History Other No significant family history Social History Smoking Status: Never smoker second hand exposure: No alcohol intake: never substance use type: denies use current occupational st
== END | disposition home or self-care (01) ==
PROVIDERS: PCP Physician Assistant; Visit Provider Nurse Practitioner Family
DX: M50.10 Cervical disc disorder with radiculopathy, unspecified cervical region (principal); M51.16 Intervertebral disc disorders with radiculopathy, lumbar region; M79.10 Myalgia, unspecified site; M46.1 Sacroiliitis, not elsewhere classified; M84.48XS Pathological fracture, other site, sequela
CPT/HCPCS: 99212; G0463

== ENCOUNTER → 2023-08-31 09:40 | Outpatient (CLI) | payer MEDICARE, SELFPAY ==
[2023-08-31 18:14] LABS: Basophils % 0.5 % (0.1-2.0); Eosinophils # 0.4 K/mm3 (0.0-0.4); Hematocrit 42.9 % (42.0-52.0); Lymphocytes # 2.4 K/mm3 (0.7-4.5); Lymphocytes % 26.5 % (10-50); Mean Corpuscular HGB Conc 32.6 g/dL (31.8-35.4); Mean Corpuscular Hemoglobin 30.6 pg (27.0-31.2); Mean Corpuscular Volume 93.9 fl (80-94); Mean Platelet Volume 10.2 fl (7.4-10.4); Monocytes # 0.6 K/mm3 (0.1-1.0); Monocytes % 6.8 % (1.7-9.3); Neutrophils # 5.7 K/mm3 (1.8-7.8); Neutrophils % 62.3 % (37.0-80.0); Platelet Count 234 K/mm3 (142-424); Red Blood Count 4.57 M/mm3 (4.60-6.20); White Blood Count 9.1 K/mm3 (4.8-10.8)
[2023-08-31 18:40] LABS: Alanine Aminotransferase 44 U/L (12-78); Alkaline Phosphatase 70 U/L (38-126); Aspartate Amino Transferase 49 U/L (17-59); Bilirubin,Total 0.8 mg/dl (0.2-1.3); Blood Urea Nitrogen 6 mg/dl (9-20); Calcium 8.8 mg/dl (8.4-10.2); Carbon Dioxide 25 mmol/L (22.0-30.0); Chloride 105 mmol/L (98-107); Cholesterol 114 mg/dl (140-200); Estimated Glomerular Filt Rate 111 ml/min (>60); GFR (African American) 134 ML/MIN (>60); Glucose 107 mg/dl (74-100); Triglycerides 102 mg/dl (30-150); VLDL Cholesterol 20 mg/dL (0-40)
[2023-08-31 18:42] LABS: Albumin Level 4.1 g/dl (3.5-5.0); Albumin/Globulin Ratio 1.5 (1.1-1.8); Anion Gap 12.5 mEq/L (5-15); Chol/HDL Ratio 3.5 (1-3.5); Globulin 2.7 g/dL (1.3-3.2); HDL Cholesterol 33 mg/dl (40-60); Potassium 4.5 mmoL/L (3.5-5.1); Sodium 138 mmol/L (136-145); Total Protein,Serum 6.8 g/dl (6.3-8.2)
[2023-08-31 18:51] LABS: Direct LDL Cholesterol 69.15 mg/dL (100-129)
[2023-08-31 18:57] LABS: 25-OH Vitamin D, Total 40.9 ng/mL (30-100)
[2023-08-31 19:11] LABS: Prostate Specific Ag Screen 3.2 ng/ml (0.0-4.0); Thyroid Stimulating Hormone 0.83 uIU/mL (0.465-4.68)
[2023-08-31 20:09] LABS: Amphetamine/Metha Screen,Urine Negative ng/ml (<1000); Barbiturates Screen,Urine Negative ng/ml (<200)
[2023-08-31 20:10] LABS: Benzodiazepines Screen,Urine Negative ng/ml (<200)
[2023-08-31 20:11] LABS: Cannabinoid Screen,Urine Negative ng/ml (<50); Cocaine Screen,Urine Negative ng/ml (<300)
[2023-08-31 20:12] LABS: Methadone Screen,Urine Negative ng/ml (<300)
[2023-08-31 20:13] LABS: Opiate Screen,Urine Negative ng/ml (<300)
[2023-08-31 20:14] LABS: Phencyclidine Screen,Urine Negative ng/ml (<25)
== END ==
PROVIDERS: PCP Nurse Practitioner Family; Visit Provider Nurse Practitioner Family
DX: E10.9 Type 1 diabetes mellitus without complications (principal); E55.9 Vitamin D deficiency, unspecified; E78.5 Hyperlipidemia, unspecified; Z12.5 Encounter for screening for malignant neoplasm of prostate; Z79.899 Other long term (current) drug therapy; Z79.84 Long term (current) use of oral hypoglycemic drugs
CPT/HCPCS: 80053; 80061; 80305; 82306; 84443; 85025; G0103

== ENCOUNTER 2023-09-11 07:53 | Day surgery (SDC) | payer MEDICARE, SELFPAY ==
[2023-09-11 08:20] VITALS: BP 160/70; PULSE 65; O2SAT 99; BMI 24.3
[2023-09-11 08:57] VITALS: BP 94/64; PULSE 64; RESP 18; O2SAT 97
--- NOTE | 2023-09-11 08:59 | EXP.PAIN.PRO ---
Procedure Date: 09/11/23 Time: 08:45 Anesthesiologist:: Lexa Leavitt CRNA Complications:: None Pre-procedure Diagnosis:: Degenerative disc lumbar spine multilevels. Lumbar radicular. Generative disc cervical spine multilevels. Cervical radiculopathy L2 compression fracture. Chronic back pain. Post-procedure Diagnosis:: Same. Indications for Procedure:: Patient is a very pleasant 73-year-old male that comes our clinic today for lumbar L2-3 epidural steroid injection. Patient has chronic L2 compression fracture. He has chronic thoracolumbar pain as well as low back pain. Lumbar radiculopathy. Procedure Details:: Procedure: Lumbar epidural steroid injection under fluoroscopy Informed consent was obtained and the risks and benefits of the procedure were explained to the patient. The patient was taken to the procedure room and noninvasive monitors placed, including noninvasive blood pressure cuff and pulse oximeter. The back was viewed using C-arm Fluoroscopy and prepped using Chloraprep as a cleansing solution and the L2-3 interspace was palpated. Skin and subcutaneous tissues were anesthetized using lidocaine 1.5% and a 25-gauge needle. After this, an 18-gauge Touhy epidural needle was placed into the L2-3 interspace and advanced using fluoroscopic guidance and loss of resistance to air until the epidural space was encountered. After confirmation of needle placement in the epidural space, with dye, a solution containing normal saline, 3 mL and Depo-Medrol 80 mg were incrementally injected into the lumbar epidural space. The patient tolerated the procedure well with no complications. The patient was observed in the Pain Clinic and then discharged home neurologically intact. Plan and Disposition:: Patient was discharged without incident.
[2023-09-11 09:00] VITALS: BP 94/64; PULSE 64; RESP 18; O2SAT 97
[2023-09-11 09:03] VITALS: BP 150/65; PULSE 59; O2SAT 99
== END 2023-09-11 09:00 | disposition home or self-care (01) ==
PROVIDERS: PCP Nurse Practitioner Family; Visit Provider Nurse Anesthetist, Certified Registered
DX: M51.16 Intervertebral disc disorders with radiculopathy, lumbar region (principal); M50.10 Cervical disc disorder with radiculopathy, unspecified cervical region; M84.48XS Pathological fracture, other site, sequela; G89.29 Other chronic pain
CPT/HCPCS: 62323; J1040

== ENCOUNTER → 2023-09-28 08:50 | Outpatient (POV) | payer MEDICARE, SELFPAY ==
--- NOTE | 2023-09-28 09:14 | EXP.PAIN.SOA ---
[facility] Pain Management SOAP Note Subjective:: Patient is a pleasant 73-year-old male who presents today for follow-up of lumbar epidural steroid injection L2-L3 on 09/11/2023. We are currently treating the patient for degenerative disc disease of cervical and lumbar spine with cervical and lumbar radiculopathy symptoms, myofascial pain, sacroiliitis, L2 compression fracture. Today he rates his pain a 6 out of 10. Patient states that he did have approximately 80% improvement following this injection and states that it was working very well up until last Sunday. Patient states that he did have to do some work with the bowl and it required him to climb over a couple of fences which irritated his pain symptoms. He does state that it is getting better again however he has still a little soreness. Patient states that this injection has allowed him to move around easier and feels more functional with decreased pain. Patient is currently managed with Percocet 10 mg 4 times a day and methocarbamol 750 mg twice a day. He denies any side effects from these medications. His Asim has been reviewed and is appropriate. Review of Systems: General: No recent weight changes, no fever, no sleep disturbances Respiratory: No cough, no shortness of air, no recurring pulmonary infections Cardiovascular/peripheral vascular: No chest pain, no palpitations, no edema, no shortness of breath Gastrointestinal: No new onset incontinence, normal bowel movements reported Genitourinary: No new onset incontinence Musculoskeletal: Low back pain Psychiatric: [Normal mood/affect] Neurological: [Denies weakness in extremities], [denies balance issues] Objective:: Physical Exam: General: Alert and oriented x3, no acute distress, pleasant and cooperative Lungs: Respirations even and unlabored, symmetrical chest expansion Eyes: PERRL Musculoskeletal: Flexion and extension of lumbar [spine] somewhat guarded secondary to pain, [antalgic gait noted] Neurological: Speech clear, no gross sensory deficit Assessment:: Degenerative disc disease of cervical and lumbar spine with cervical and lumbar radiculopathy symptoms, pain, sacroiliitis, L2 compression fracture Plan:: Patient has had significant improvement following his lumbar epidural. I will refill his Percocet 10 mg 4 times a day methocarbamol 750 mg twice a day and provide a 1 month supply of this medication. Patient will return to clinic in 1 month for reevaluation of symptoms and follow-up. Patient has been advised of risks of oversedation with the prescribed medication. Narcan has been offered to the patient in the event of oversedation. Patient has been advised that a family member should also be educated regarding administration of Narcan. Patient has been instructed to contact the clinic with any concerns before the next appointment. Dr. Horvath has reviewed this note and agrees with this plan of care. This note was dictated using voice recognition software and make contain errors or omissions. [facility] Disclaimer: The information contained in this section may have been updated after the patient was seen, as this information can be updated by other users. Medical History Diabetes GERD (gastroesophageal reflux disease) Family History Other No significant family history Social History (Updated 09/11/23 @ 08:20 by Dianne Mckeon RN) Smoking Status: Never smoker second hand exposure: No alcohol intake: never substance use type: denies use current occupational status: retired Travel in the last 8 weeks: None household members: spouse housing: house current occupation: [employer] current occupational exposures/hazards: No caffeine: Yes
[2023-09-28 09:35] VITALS: BP 161/72; PULSE 68; RESP 18; O2SAT 99; BMI 28.7
[2023-09-28 10:12] LABS: Amphetamine/Metha Screen,Urine Negative ng/ml (<1000); Barbiturates Screen,Urine Negative ng/ml (<200); Benzodiazepines Screen,Urine Negative ng/ml (<200); Cannabinoid Screen,Urine Positive ng/ml (<50); Cocaine Screen,Urine Negative ng/ml (<300); Methadone Screen,Urine Negative ng/ml (<300); Opiate Screen,Urine Negative ng/ml (<300); Phencyclidine Screen,Urine Negative ng/ml (<25)
[2023-10-02 11:17] LABS: Opiates Negative (Cutoff=100); Oxycodone (GC/MS) 614 ng/mL (Cutoff=100)
[2023-10-06 17:15] LABS: Cannabinoid Negative (Cutoff=10)
== END | disposition home or self-care (01) ==
PROVIDERS: PCP Physician Assistant; Visit Provider Nurse Practitioner Family
DX: Z79.891 Long term (current) use of opiate analgesic (principal); M50.10 Cervical disc disorder with radiculopathy, unspecified cervical region; M51.16 Intervertebral disc disorders with radiculopathy, lumbar region; M46.1 Sacroiliitis, not elsewhere classified; M48.56XS Collapsed vertebra, not elsewhere classified, lumbar region, sequela of fracture
CPT/HCPCS: 80307; 80349; 80361; 80365; 99212; G0463; G0480

== ENCOUNTER → 2023-10-25 10:35 | Outpatient (POV) | payer MEDICARE, SELFPAY ==
--- NOTE | 2023-10-25 10:58 | A.OFFVIS_ITS ---
[facility] Pain Management SOAP Note Subjective:: Patient is a pleasant 73-year-old male who presents today for medication refill and follow-up. We are currently treating the patient for degenerative disc disease of cervical and lumbar symptoms, myofascial pain, sacroiliitis, L2 compression fracture. Today he rates his pain a 7 out of 10. Patient denies any new trauma or injury. He states he continues to have pain all along his neck and shoulder along the left side. Patient is currently managed with Percocet 10 mg 4 times a day and Methocarbamol 750 mg twice a day. He denies any side effects from these medications. He states he does not need refills on the muscle relaxer. Patient is requesting if we can try a lidocaine pain patch. His Asim has been reviewed and is appropriate. Review of Systems: General: No recent weight changes, no fever, no sleep disturbances Respiratory: No cough, no shortness of air, no recurring pulmonary infections Cardiovascular/peripheral vascular: No chest pain, no palpitations, no edema, no shortness of breath Gastrointestinal: No new onset incontinence, normal bowel movements reported Genitourinary: No new onset incontinence Musculoskeletal: Neck pain, left shoulder pain Psychiatric: [Normal mood/affect] Neurological: [Denies weakness in extremities], [denies balance issues] Objective:: Physical Exam: General: Alert and oriented x3, no acute distress, pleasant and cooperative Lungs: Respirations even and unlabored, symmetrical chest expansion Eyes: PERRL Musculoskeletal: Flexion and extension of cervical [spine] somewhat guarded secondary to pain, [antalgic gait noted] Neurological: Speech clear, no gross sensory deficit Assessment:: Degenerative disc disease of cervical and lumbar spine with cervical and lumbar radiculopathy symptoms, myofascial pain, sacroiliitis, L2 compression fracture Plan:: I will refill the patient's Percocet 10 mg 4 times a day and provide a 1 month supply of this medication. I will send in a prescription for lidocaine 5% patches and provide a 1 month supply of this medication as well. Patient will return to clinic in 1 month for reevaluation of symptoms and plan of care. Risks and benefits of the medication have been explained in detail to the patient. The patient does understand the risk of dependence on the medication when given over a prolonged period. Patient has been advised of risks of oversedation with the prescribed medication. Narcan has been offered to the paitent in the event of oversedation. Patient has been advised that a family member should also be educated regarding administration of Narcan. The patient has been advised to consult with his/her primary care provider and pharmacist regarding drug-drug interaction of medications currently prescribed. Patient has been prescribed a controlled substance after being counseled on the medication, medication safety, and possible side effects. Opioid contract was reviewed and signed by the patient, and that they have agreed to all of the terms set forth by our compliance program. Patient has been instructed to contact the clinic with any concerns before the next appointment. Dr. Horvath has reviewed this note and agrees with this plan of care. This note was dictated using voice recognition software and make contain errors or omissions. [facility] Disclaimer: The information contained in this section may have been updated after the patient was seen, as this information can be updated by other users. Medical History Diabetes GERD (gastroesophageal reflux disease) Family History Other No significant family history Social History (Updated 09/11/23 @ 08:20 by Dianne Mckeon RN) Smoking Status: Never smoker second hand exposure: No alcohol intake: never substance use type: denies use current occupational status: retired Travel in the last 8 weeks: None household members: spouse housing: house current occupation: H[employer] current occupational exposures/hazards: No caffeine: Yes
[2023-10-25 12:10] VITALS: BP 135/67; PULSE 77; RESP 18; O2SAT 98; BMI 28.7
== END | disposition home or self-care (01) ==
PROVIDERS: PCP Physician Assistant; Visit Provider Nurse Practitioner Family
DX: M50.10 Cervical disc disorder with radiculopathy, unspecified cervical region (principal); M51.16 Intervertebral disc disorders with radiculopathy, lumbar region; M79.10 Myalgia, unspecified site; M46.1 Sacroiliitis, not elsewhere classified; M84.48XS Pathological fracture, other site, sequela
CPT/HCPCS: 99212; G0463

== ENCOUNTER → 2023-11-26 08:11 | Outpatient (POV) | payer MEDICARE, SELFPAY ==
[2023-11-26 08:19] VITALS: BP 144/70; PULSE 71; RESP 18; TEMP 36.6; O2SAT 99; BMI 32.8
--- NOTE | 2023-11-26 08:49 | EXP.PAIN.SOA ---
[facility] Pain Management SOAP Note Subjective:: Patient is a pleasant 73-year-old male who presents today for follow-up and medication refill. Today he rates his pain a 9 out of 10. Patient is experiencing more pain into his low back and denies any radiating symptoms into his extremities. He does describe this as a constant aching, throbbing sensation that is worse with certain movements such as bending twisting or lifting. Patient states the pain is interfering with his ability perform activities of daily living such as cooking and cleaning. He does state that he was having some left-sided neck pain however it is now resolved. Patient is interested in injection therapy for his current pain. Patient is currently managed with Percocet 10 mg 4 times a day, lidocaine patches and methocarbamol 750 mg twice a day. He denies any side effects to these medications. His Asim has been reviewed and is appropriate. Review of Systems: General: No recent weight changes, no fever, no sleep disturbances Respiratory: No cough, no shortness of air, no recurring pulmonary infections Cardiovascular/peripheral vascular: No chest pain, no palpitations, no edema, no shortness of breath Gastrointestinal: No new onset incontinence, normal bowel movements reported Genitourinary: No new onset incontinence Musculoskeletal: Low back pain Psychiatric: [Normal mood/affect] Neurological: [Denies weakness in extremities], [denies balance issues] Objective:: Physical Exam: General: Alert and oriented x3, no acute distress, pleasant and cooperative Lungs: Respirations even and unlabored, symmetrical chest expansion Eyes: PERRL Musculoskeletal: Flexion and extension of lumbar [spine] somewhat guarded secondary to pain, [antalgic gait noted] positive Kemps test Neurological: Speech clear, no gross sensory deficit Assessment:: Degenerative disc disease of cervical and lumbar spine with cervical and lumbar radiculopathy symptoms, myofascial pain, sacroiliitis, L2 compression fracture, lumbar facet arthropathy Plan:: Patient is experiencing more pain in his low back with limited motion and a positive Kemps test. I have discussed with the patient that he may benefit from a lumbar medial branch block bilaterally. Risk and benefits were discussed with the patient and he would like to proceed forward with this plan of care. Patient is not on any blood thinners. I will also refill the patient's Percocet 10 mg 4 times a day, methocarbamol 750 mg twice a day and lidocaine patches and provide a 1 month supply of these medications. Patient will return to clinic for his lumbar medial branch block bilaterally L4-L5 and L5-S1 under fluoroscopy. Risks and benefits of the medication have been explained in detail to the patient. The patient does understand the risk of dependence on the medication when given over a prolonged period. Patient has been advised of risks of oversedation with the prescribed medication. Narcan has been offered to the paitent in the event of oversedation. Patient has been advised that a family member should also be educated regarding administration of Narcan. The patient has been advised to consult with his/her primary care provider and pharmacist regarding drug-drug interaction of medications currently prescribed. Patient has been prescribed a controlled substance after being counseled on the medication, medication safety, and possible side effects. Opioid contract was reviewed and signed by the patient, and that they have agreed to all of the terms set forth by our compliance program. Patient has been instructed to contact the clinic with any concerns before the next appointment. Dr. Horvath has reviewed this note and agrees with this plan of care. This note was dictated using voice recognition software and make contain errors or omissions. [facility] Disclaimer: The information contained in this section may have been updated after the patient was seen, as this information can be updated by other users. Medical History Diabetes GERD (gastroesophageal reflux disease) Family History Other No significant family history Social History (Updated 09/11/23 @ 08:20 by Dianne Mckeon RN) Smoking Status: Never smoker second hand exposure: No alcohol intake: never substance use type: denies use current occupational status: retired Travel in the last 8 weeks: None household members: spouse housing: house current occupation: [employer] current occupational exposures/hazards: No caffeine: Yes
== END | disposition home or self-care (01) ==
PROVIDERS: PCP Physician Assistant; Visit Provider Nurse Practitioner Family
DX: M50.10 Cervical disc disorder with radiculopathy, unspecified cervical region (principal); M51.16 Intervertebral disc disorders with radiculopathy, lumbar region; M79.10 Myalgia, unspecified site; M46.1 Sacroiliitis, not elsewhere classified; M84.48XS Pathological fracture, other site, sequela; M47.26 Other spondylosis with radiculopathy, lumbar region
CPT/HCPCS: 99212; G0463

== ENCOUNTER 2023-12-18 07:44 | Day surgery (SDC) | payer MEDICARE, SELFPAY ==
[2023-12-18 08:25] VITALS: BP 160/73; PULSE 64; RESP 16; O2SAT 98; BMI 28.1
[2023-12-18] MEDS: methylPREDNISolone ACETATE 80MG/ML VIAL 80 MG (08:40)
[2023-12-18] MEDS: LIDOCAINE 1% 5ML PF VIAL 5 ML (08:40)
[2023-12-18] MEDS: BUPIVACAINE 0.25% 10ML INJ 25 MG IJ (08:40)
[2023-12-18 08:41] VITALS: BP 139/76; PULSE 67; RESP 18; O2SAT 97
[2023-12-18 08:42] VITALS: BP 139/76; PULSE 73; RESP 18; O2SAT 96
--- NOTE | 2023-12-18 08:47 | EXP.PAIN.PRO ---
Procedure Date: 12/18/23 Time: 08:40 Anesthesiologist:: Lexa Leavitt CRNA Complications:: None Pre-procedure Diagnosis:: Degenerative disc lumbar spine multilevels. Lumbar radiculopathy. Lumbar spondylosis. Multilevel lumbar facet arthropathy Post-procedure Diagnosis:: Same. Indications for Procedure:: Patient is a very pleasant 73-year-old male comes our clinic today for lumbar L4-5, L5-S1 bilateral medial range block/facet injection. Patient reports low back pain is constant, dull, aching. Pain intensifies with standing for even 3 to 4 minutes. Pain increases significantly with ambulation. He is continue to be managed with Percocet 10 mg 1 p.o. 4 times daily. Lidocaine patches as well as Robaxin-750 milligrams 1 p.o. twice daily. Procedure Details:: Informed consent was obtained and the risk and benefits of the procedure was explained to the patient. Patient was taken to the procedure room where noninvasive monitors were placed, including noninvasive blood pressure cuff as well as pulse oximeter. The area over the lumbar spine was cleansed using chlorhexidine as a cleansing solution. I anesthetized the skin and subcutaneous tissues with 1% Lidocaine. I placed 22-gauge spinal needles into the facet joint/ medial branches of [L3-L4, L4-L5, and L5-S1] bilaterally. Needle placement was confirmed with fluoroscopy. After confirmation of needle placement, each site was injected with 1 mL of 1% lidocaine and 0.25 % Marcaine and 10 mg of Depo-Medrol. A total of 80 mg of depo medrol was used for bilateral medial branch blocks of [L3-L4, L4-L5, and L5-S1] bilaterally. Patient tolerated the procedure without difficulty. There were no complications. Plan and Disposition:: Patient was discharged without incident.
[2023-12-18 08:48] VITALS: BP 154/79; PULSE 63; RESP 18; O2SAT 98
== END 2023-12-18 08:48 | disposition home or self-care (01) ==
PROVIDERS: PCP Physician Assistant; Visit Provider Nurse Anesthetist, Certified Registered
DX: M47.896 Other spondylosis, lumbar region (principal); M51.16 Intervertebral disc disorders with radiculopathy, lumbar region
CPT/HCPCS: 64493; 64494; J1040

== ENCOUNTER 2023-12-24 08:30 | Outpatient (POV) | payer MEDICARE, SELFPAY ==
[2023-12-24 08:38] VITALS: BP 156/55; PULSE 60; RESP 18; O2SAT 99; BMI 28.4
--- NOTE | 2023-12-24 09:07 | A.OFFVIS_ITS ---
[facility] Pain Management SOAP Note Subjective:: Patient is a pleasant 73-year-old male who presents today for follow-up of lumbar medial branch block bilaterally L4-L5 and L5-S1 on 12/18/2023. And medication refill. He rates his pain a 6 out of 10. He denies any new trauma or injury. He does state that he has had significant improvement following this injection of at least 50%. He states that he felt like even his neck pain symptoms have been improved since having this done. He states he is able to move around easier with decreased low back pain. He does state that he still has some soreness in the back but it is not the pain like what it was before. He states that he does notice the more sore on days that it is cool and rainy. Patient states that he does still feel more functional following this injection and has been able to decrease his overall pain medicine. He states that he does not need refills on his lidocaine patches and methocarbamol 750 mg twice a day because he has not needed to take these as often. He is also managed with Percocet 10 mg 4 times a day. He states he will need a refill on this medication. His Asim has been reviewed and is appropriate. Review of Systems: General: No recent weight changes, no fever, no sleep disturbances Respiratory: No cough, no shortness of air, no recurring pulmonary infections Cardiovascular/peripheral vascular: No chest pain, no palpitations, no edema, no shortness of breath Gastrointestinal: No new onset incontinence, normal bowel movements reported Genitourinary: No new onset incontinence Musculoskeletal: Low back pain Psychiatric: [Normal mood/affect] Neurological: [Denies weakness in extremities], [denies balance issues] Objective:: Physical Exam: General: Alert and oriented x3, no acute distress, pleasant and cooperative Lungs: Respirations even and unlabored, symmetrical chest expansion Eyes: PERRL Musculoskeletal: Flexion and extension of lumbar [spine] somewhat guarded secondary to pain, [antalgic gait noted] Neurological: Speech clear, no gross sensory deficit Assessment:: Degenerative disc disease of cervical and lumbar spine with cervical and lumbar radiculopathy symptoms, myofascial pain, sacroiliitis, L2 compression fracture, lumbar facet arthropathy Plan:: Patient has had significant improvement following his lumbar medial branch block and does not require any additional injection therapy at this time. I will refill his Percocet 10 mg 4 times a day and provide a 1 month supply of this medication. Patient will return to clinic in 1 month for reevaluation of symptoms and plan of care. Risks and benefits of the medication have been explained in detail to the patient. The patient does understand the risk of dependence on the medication when given over a prolonged period. Patient has been advised of risks of oversedation with the prescribed medication. Narcan has been offered to the paitent in the event of oversedation. Patient has been advised that a family member should also be educated regarding administration of Narcan. The patient has been advised to consult with his/her primary care provider and pharmacist regarding drug-drug interaction of medications currently prescribed. Patient has been prescribed a controlled substance after being counseled on the medication, medication safety, and possible side effects. Opioid contract was reviewed and signed by the patient, and that they have agreed to all of the terms set forth by our compliance program. Patient has been instructed to contact the clinic with any concerns before the next appointment. Dr. Horvath has reviewed this note and agrees with this plan of care. This note was dictated using voice recognition software and make contain errors or omissions. [facility] Disclaimer: The information contained in this section may have been updated after the patient was seen, as this information can be updated by other users. 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
== END 2023-12-24 23:59 | disposition home or self-care (01) ==
PROVIDERS: PCP Physician Assistant; Visit Provider Nurse Practitioner Family
DX: M50.10 Cervical disc disorder with radiculopathy, unspecified cervical region (principal); M51.16 Intervertebral disc disorders with radiculopathy, lumbar region; M79.10 Myalgia, unspecified site; M46.1 Sacroiliitis, not elsewhere classified; M47.26 Other spondylosis with radiculopathy, lumbar region; M48.56XS Collapsed vertebra, not elsewhere classified, lumbar region, sequela of fracture
CPT/HCPCS: 99212; G0463

== ENCOUNTER 2024-01-23 08:31 | Outpatient (POV) | payer MEDICARE, SELFPAY ==
[2024-01-23 08:44] VITALS: BP 141/70; PULSE 62; RESP 16; O2SAT 99; BMI 28.5
--- NOTE | 2024-01-23 09:09 | A.OFFVIS_ITS ---
[facility] Pain Management SOAP Note Subjective:: Patient is a pleasant 73-year-old male who presents today for medication refill and follow-up. Today he rates his pain a 6 out of 10. Patient denies any new trauma or injury. He does state that he feels like he still gotten good relief from his last medial branch block lumbar injection that was done at the end of November. Patient does state that he did have to get the tiller out on Sunday and this may have aggravated some of his back symptoms but overall it still manageable. He is currently using [id number] lidocaine patches along with methocarbamol 750 mg twice a day and Percocet 10 mg 4 times a day. He denies any side effects from this medication. He does state he only needs the pain medicine refilled today. His Asim has been reviewed and is appropriate. Review of Systems: General: No recent weight changes, no fever, no sleep disturbances Respiratory: No cough, no shortness of air, no recurring pulmonary infections Cardiovascular/peripheral vascular: No chest pain, no palpitations, no edema, no shortness of breath Gastrointestinal: No new onset incontinence, normal bowel movements reported Genitourinary: No new onset incontinence Musculoskeletal: Low back pain Psychiatric: [Normal mood/affect] Neurological: [Denies weakness in extremities], [denies balance issues] Objective:: Physical Exam: General: Alert and oriented x3, no acute distress, pleasant and cooperative Lungs: Respirations even and unlabored, symmetrical chest expansion Eyes: PERRL Musculoskeletal: Flexion and extension of lumbar [spine] somewhat guarded secondary to pain, [antalgic gait noted] Neurological: Speech clear, no gross sensory deficit Assessment:: Degenerative disc disease of cervical and lumbar spine with cervical and lumbar radiculopathy symptoms, myofascial pain, sacroiliitis, L2 compression fracture, lumbar facet arthropathy Plan:: I will refill the patient's Percocet 10 mg 4 times a day and provide a 1 month supply of this medication. Patient will return to clinic in 1 month for reevaluation of symptoms and plan of care. Risks and benefits of the medication have been explained in detail to the patient. The patient does understand the risk of dependence on the medication when given over a prolonged period. Patient has been advised of risks of oversedation with the prescribed medication. Narcan has been offered to the paitent in the event of oversedation. Patient has been advised that a family member should also be educated regarding administration of Narcan. The patient has been advised to consult with his/her primary care provider and pharmacist regarding drug-drug interaction of medications currently prescribed. Patient has been prescribed a controlled substance after being counseled on the medication, medication safety, and possible side effects. Opioid contract was reviewed and signed by the patient, and that they have agreed to all of the terms set forth by our compliance program. Patient has been instructed to contact the clinic with any concerns before the next appointment. Dr. Horvath has reviewed this note and agrees with this plan of care. This note was dictated using voice recognition software and make contain errors or omissions. [facility] Disclaimer: The information contained in this section may have been updated after the patient was seen, as this information can be updated by other users. 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
== END 2024-01-23 23:59 | disposition home or self-care (01) ==
PROVIDERS: Visit Provider Nurse Practitioner Family
DX: M50.10 Cervical disc disorder with radiculopathy, unspecified cervical region (principal); M51.16 Intervertebral disc disorders with radiculopathy, lumbar region; M79.10 Myalgia, unspecified site; M46.1 Sacroiliitis, not elsewhere classified; S32.020S Wedge compression fracture of second lumbar vertebra, sequela; M47.896 Other spondylosis, lumbar region
CPT/HCPCS: 99212; G0463

== ENCOUNTER 2024-02-25 08:36 | Outpatient (POV) | payer MEDICARE, SELFPAY ==
[2024-02-25 08:52] VITALS: BP 128/65; PULSE 63; RESP 18; O2SAT 99; BMI 28.3
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
== END 2024-02-25 23:59 | disposition home or self-care (01) ==
PROVIDERS: PCP Internal Medicine; Visit Provider Nurse Practitioner Family
DX: M54.50 Low back pain, unspecified (principal); M50.10 Cervical disc disorder with radiculopathy, unspecified cervical region; M51.16 Intervertebral disc disorders with radiculopathy, lumbar region; M79.10 Myalgia, unspecified site; M46.1 Sacroiliitis, not elsewhere classified; M84.48XS Pathological fracture, other site, sequela; M47.26 Other spondylosis with radiculopathy, lumbar region; Z79.891 Long term (current) use of opiate analgesic
CPT/HCPCS: 99212; G0463

== ENCOUNTER 2024-02-25 09:17 | Outpatient (CLI) | payer MEDICARE, SELFPAY ==
[2024-02-25 10:11] LABS: Amphetamine/Metha Screen,Urine Negative ng/ml (<1000)
[2024-02-25 10:12] LABS: Barbiturates Screen,Urine Negative ng/ml (<200)
[2024-02-25 10:13] LABS: Benzodiazepines Screen,Urine Negative ng/ml (<200); Cannabinoid Screen,Urine Negative ng/ml (<50)
[2024-02-25 10:14] LABS: Cocaine Screen,Urine Negative ng/ml (<300); Methadone Screen,Urine Negative ng/ml (<300)
[2024-02-25 10:15] LABS: Opiate Screen,Urine Negative ng/ml (<300)
[2024-02-25 10:16] LABS: Phencyclidine Screen,Urine Negative ng/ml (<25)
[2024-02-29 12:04] LABS: Opiates Negative (Cutoff=100); Oxycodone (GC/MS) 2500 ng/mL (Cutoff=100)
== END 2024-02-25 23:59 | disposition home or self-care (01) ==
LOC: LAB 09:19
PROVIDERS: PCP Physician Assistant; Visit Provider Nurse Practitioner Family
DX: Z79.891 Long term (current) use of opiate analgesic (principal); M50.10 Cervical disc disorder with radiculopathy, unspecified cervical region; M51.16 Intervertebral disc disorders with radiculopathy, lumbar region; M79.10 Myalgia, unspecified site; M46.1 Sacroiliitis, not elsewhere classified; M84.48XS Pathological fracture, other site, sequela; M47.26 Other spondylosis with radiculopathy, lumbar region
CPT/HCPCS: 80307; 80361; 80365; 99212; G0463; G0480

== ENCOUNTER 2024-03-11 08:19 | Day surgery (SDC) | payer MEDICARE, SELFPAY ==
[2024-03-11 08:28] VITALS: BP 149/67; PULSE 65; RESP 18; TEMP 36.3; O2SAT 97; BMI 28.4
--- NOTE | 2024-03-11 08:54 | EXP.PAIN.PRO ---
Procedure Date: 03/11/24 Time: 08:40 Anesthesiologist:: Lexa Leavitt CRNA Complications:: None Pre-procedure Diagnosis:: Right sacroiliitis Post-procedure Diagnosis:: Same Indications for Procedure:: Patient is a very pleasant 73-year-old male comes to clinic today for right sacroiliac joint injection of cortisone. Patient has extreme point tenderness over the right sacroiliac joint. He describes right posterior hip pain as well as right low lumbar back pain is constant, dull, aching. Patient also reports right anterior thigh pain. He describes having difficulty transitioning from sitting to standing due to the right posterior hip pain. He rates his pain today 8/10. Procedure Details:: Procedure: Right sacroliliac joint injection under fluoroscopy Informed consent was obtained and the risk and benefits of the procedure were explained to the patient.~ The patient was taken to the procedure room and noninvasive monitors were placed including noninvasive blood pressure cuff and pulse oximeter.~ The patient was placed prone on the procedure table.~ The~ right hip was cleansed using Betadine as a cleansing solution.~ C-arm fluorosocpy was used to view the right SI joint.~ The skin and subcutaneous tissues were anesthetized using Lidocaine 1.5% and a 25-gauge needle.~ After this, a 22-gauge spinal needle was inserted under fluoroscopic guidance into the inferior aspect of the right SI joint.~ Omnipaque dye was injected and a good spread was seen throughout the joint.~ After this, approximately 5 mL of bupivacaine 0.25% and Depo-Medrol 40 mg was incrementally injected into the sacroiliac joint.~ The patient tolerated the procedure well with no complications.~ The patient was observed in the Pain Clinic, then discharged home neurologically intact.~ Plan and Disposition:: Patient was discharged out incident.
[2024-03-11 08:58] VITALS: BP 112/89; PULSE 67; RESP 18; O2SAT 97
[2024-03-11] MEDS: BUPIVACAINE 0.25% 10ML INJ 25 MG IJ (08:58)
[2024-03-11] MEDS: LIDOCAINE 1% 5ML PF VIAL 5 ML (08:58)
[2024-03-11 08:59] VITALS: BP 112/89; PULSE 67; RESP 18; O2SAT 97
[2024-03-11 09:02] VITALS: BP 133/70; PULSE 57; RESP 16; O2SAT 98
== END 2024-03-11 09:03 | disposition home or self-care (01) ==
PROVIDERS: PCP Physician Assistant; Visit Provider Nurse Anesthetist, Certified Registered
DX: M46.1 Sacroiliitis, not elsewhere classified (principal)
CPT/HCPCS: 27096; G0260; J1010

== ENCOUNTER 2024-03-31 08:24 | Outpatient (POV) | payer MEDICARE, SELFPAY ==
[2024-03-31 08:36] VITALS: BP 145/66; PULSE 67; RESP 16; O2SAT 97; BMI 28.0
--- NOTE | 2024-03-31 08:50 | EXP.PAIN.SOA ---
[facility] Disclaimer: The information contained in this section may have been updated after the patient was seen, as this information can be updated by other users. 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 current occupational exposures/hazards: No caffeine: Yes PM Subjective & Objective Subjective Subjective:: Patient is a pleasant 73-year-old male who presents today for follow-up of right SI injection on 03/11/2024. Today he rates his pain a 4 out of 10. He denies any new trauma or injury. He does state that he has had at least 80% improvement following this injection and feels like it still helping. Patient states he has been able to increase his activity with overall decreased pain and improved function. Patient is currently managed with lidocaine patches, methocarbamol 750 mg twice a day and Percocet 10 mg 4 times a day. He denies any side effects from this medication. His Asim has been reviewed and is appropriate. Review of Systems: General: No recent weight changes, no fever, no sleep disturbances Respiratory: No cough, no shortness of air, no recurring pulmonary infections Cardiovascular/peripheral vascular: No chest pain, no palpitations, no edema, no shortness of breath Gastrointestinal: No new onset incontinence, normal bowel movements reported Genitourinary: No new onset incontinence Musculoskeletal: Low back pain Psychiatric: [Normal mood/affect] Neurological: [Denies weakness in extremities], [denies balance issues] Pain at rest (0-10 scale): 8 Objective Objective:: Physical Exam: General: Alert and oriented x3, no acute distress, pleasant and cooperative Lungs: Respirations even and unlabored, symmetrical chest expansion Eyes: PERRL Musculoskeletal: Flexion and extension of lumbar [spine] somewhat guarded secondary to pain, [antalgic gait noted] Neurological: Speech clear, no gross sensory deficit Has patient had previous pain injection?: Yes Percent improvement in pain since last injection: 80% Conservative treatment options previously tried: Home exercise plan Length of treatment: Longer than 6 weeks and Prescription medications Length of treatment: Longer than 6 weeks Meds Home Medications and Allergies Home Medications Medication Instructions Recorded Confirmed Type aspirin 81 mg tablet,delayed 81 mg PO DAILY prevention 12/20/18 03/31/24 History release furosemide 20 mg tablet 20 mg PO BID swelling 03/23/21 03/31/24 History ergocalciferol (vitamin D2) 1,250 50,000 unit PO QWEEK Supplement 06/26/22 03/31/24 Rx mcg (50,000 unit) capsule #14 caps nitroglycerin 0.4 mg sublingual 0.4 mg sublingual Q5M PRN chest 06/26/22 03/31/24 Rx tablet pain #20 tabs isosorbide mononitrate 30 mg 30 mg PO DAILY BLOOD PRESSURE 05/07/23 03/31/24 History tablet,extended release 24 hr prednisone 20 mg tablet 20 mg PO BID #14 tabs 07/11/23 03/31/24 Rx metformin 1,000 mg tablet See Rx Instructions .Route 11/19/23 03/31/24 Rx .COMPLEX #180 tabs canagliflozin 100 mg tablet See Rx Instructions .Route 11/26/23 03/31/24 Rx (Invokana) .COMPLEX #90 tabs lidocaine 5 % topical patch 1 patch topical DAILY #30 ea 11/26/23 03/31/24 Rx losartan 100 mg tablet See Rx Instructions .Route 11/26/23 03/31/24 Rx .COMPLEX #90 tabs omeprazole 20 mg capsule,delayed See Rx Instructions .Route 01/07/24 03/31/24 Rx release .COMPLEX #90 caps glimepiride 4 mg tablet See Rx Instructions .Route 01/21/24 03/31/24 Rx .COMPLEX #180 tabs levothyroxine 88 mcg tablet See Rx Instructions .Route 01/21/24 03/31/24 Rx .COMPLEX #90 tabs rosuvastatin 40 mg tablet See Rx Instructions .Route 02/19/24 03/31/24 Rx .COMPLEX #90 tabs methocarbamol 750 mg tablet 750 mg PO TID PRN muscle pain #90 02/25/24 03/31/24 Rx tabs sitagliptin phosphate 100 mg See Rx Instructions .Route 02/29/24 03/31/24 Rx tablet (Januvia) .COMPLEX #90 tabs oxycodone-acetaminophen 10 mg-325 1 tab PO QID . #28 tabs 03/19/24 03/31/24 Rx mg tablet (Percocet) carvedilol 6.25 mg tablet See Rx Instructions .Route 03/20/24 03/31/24 Rx .COMPLEX #180 tabs New Prescriptions to Start Prescriptions: Allergies Allergy/AdvReac Type Severity Reaction Status Date / Time lisinopril Allergy Intermediate I-HIVES Verified 03/11/24 08:29 morphine Allergy Unknown Verified 03/11/24 08:29 Assessment and Plan *Assessment and plan (1) Lumbar disc disease: Status: Acute Category: Medical Code(s): M51.9 - Unspecified thoracic, thoracolumbar and lumbosacral intervertebral disc disorder Plan Patient has had significant improvement following his right SI injection and does not require any additional injection therapy at this time. I will refill the patient's methocarbamol and Percocet and provide a 1 month supply of these medications. Patient will return to clinic in 1 month for reevaluation of symptoms and plan of care. Risks and benefits of the medication have been explained in detail to the patient. The patient does understand the risk of dependence on the medication when given over a prolonged period. Patient has been advised of risks of oversedation with the prescribed medication. Narcan has been offered to the paitent in the event of oversedation. Patient has been advised that a family member should also be educated regarding administration of Narcan. The patient has been advised to consult with his/her primary care provider and pharmacist regarding drug-drug interaction of medications currently prescribed. Patient has been prescribed a controlled substance after being counseled on the medication, medication safety, and possible side effects. Opioid contract was reviewed and signed by the patient, and that they have agreed to all of the terms set forth by our compliance program. Patient has been instructed to contact the clinic with any concerns before the next appointment. Dr. Horvath has reviewed this note and agrees with this plan of care. This note was dictated using voice recognition software and make contain errors or omissions.
== END 2024-03-31 23:59 | disposition home or self-care (01) ==
PROVIDERS: PCP Physician Assistant; Visit Provider Nurse Practitioner Family
DX: M51.36 Other intervertebral disc degeneration, lumbar region (principal)
CPT/HCPCS: 99212; G0463

== ENCOUNTER 2024-05-01 08:29 | Outpatient (POV) | payer MEDICARE, SELFPAY ==
[2024-05-01 08:45] VITALS: BP 116/59; PULSE 65; RESP 16; O2SAT 98; BMI 28.5
--- NOTE | 2024-05-01 09:04 | A.OFFVIS_ITS ---
[facility] Disclaimer: The information contained in this section may have been updated after the patient was seen, as this information can be updated by other users. Medical History Diabetes GERD (gastroesophageal reflux disease) Family History Other No significant family history Social History Smoking Status: Never smoker second hand exposure: No alcohol intake: never substance use type: denies use current occupational status: retired Travel in the last 8 weeks: None household members: spouse housing: house current occupation: [employer] current occupational exposures/hazards: No caffeine: Yes PM Subjective & Objective Subjective Subjective:: Patient is a pleasant 74-year-old male who presents today for medication refill and follow-up. Today he rates his pain a 6 out of 10. Patient denies any new trauma or injury. He does state that he has been having more neck pain and describes it as an aching, throbbing sensation. He does state that when it flares up it does interfere with his ability perform activities of daily living. He does state the pain goes into his upper extremities. Patient does states that he is going to give it a few more days to see how it goes before deciding about a possible injection. Patient did previously have a cervical epidural at C6-C7 back in April 2023 that did provide significant relief. Patient is currently managed with lidocaine patches, methocarbamol 750 mg twice a day and Percocet 10 mg 4 times a day. He denies any side effects from this medication and states he only needs the Percocet refilled. His Asim has been reviewed and is appropriate. Review of Systems: General: No recent weight changes, no fever, no sleep disturbances Respiratory: No cough, no shortness of air, no recurring pulmonary infections Cardiovascular/peripheral vascular: No chest pain, no palpitations, no edema, no shortness of breath Gastrointestinal: No new onset incontinence, normal bowel movements reported Genitourinary: No new onset incontinence Musculoskeletal: Neck pain, upper arm pain Psychiatric: [Normal mood/affect] Neurological: [Denies weakness in extremities], [denies balance issues] Pain at rest (0-10 scale): 6 Objective Objective:: Physical Exam: General: Alert and oriented x3, no acute distress, pleasant and cooperative Lungs: Respirations even and unlabored, symmetrical chest expansion Eyes: PERRL Musculoskeletal: Flexion and extension of cervical [spine] somewhat guarded secondary to pain, [antalgic gait noted] positive Spurling's test Neurological: Speech clear, no gross sensory deficit Has patient had previous pain injection?: No Conservative treatment options previously tried: Home exercise plan Length of treatment: Longer than 6 weeks and Prescription medications Length of treatment: Longer than 6 weeks Meds Home Medications and Allergies Home Medications ?Medication ?Instructions ?Recorded ?Confirmed ?Type aspirin 81 mg tablet,delayed 81 mg PO DAILY prevention 12/20/18 05/01/24 History release furosemide 20 mg tablet 20 mg PO BID swelling 03/23/21 05/01/24 History ergocalciferol (vitamin D2) 1,250 50,000 unit PO QWEEK Supplement 06/26/22 05/01/24 Rx mcg (50,000 unit) capsule #14 caps nitroglycerin 0.4 mg sublingual 0.4 mg sublingual Q5M PRN chest 06/26/22 05/01/24 Rx tablet pain #20 tabs isosorbide mononitrate 30 mg 30 mg PO DAILY BLOOD PRESSURE 05/07/23 05/01/24 History tablet,extended release 24 hr prednisone 20 mg tablet 20 mg PO BID #14 tabs 07/11/23 05/01/24 Rx metformin 1,000 mg tablet See Rx Instructions .Route 11/19/23 05/01/24 Rx .COMPLEX #180 tabs canagliflozin 100 mg tablet See Rx Instructions .Route 11/26/23 05/01/24 Rx (Invokana) .COMPLEX #90 tabs lidocaine 5 % topical patch 1 patch topical DAILY #30 ea 11/26/23 05/01/24 Rx losartan 100 mg tablet See Rx Instructions .Route 11/26/23 05/01/24 Rx .COMPLEX #90 tabs glimepiride 4 mg tablet See Rx Instructions .Route 01/21/24 05/01/24 Rx .COMPLEX #180 tabs levothyroxine 88 mcg tablet See Rx Instructions .Route 01/21/24 05/01/24 Rx .COMPLEX #90 tabs rosuvastatin 40 mg tablet See Rx Instructions .Route 02/19/24 05/01/24 Rx .COMPLEX #90 tabs sitagliptin phosphate 100 mg See Rx Instructions .Route 02/29/24 05/01/24 Rx tablet (Januvia) .COMPLEX #90 tabs carvedilol 6.25 mg tablet See Rx Instructions .Route 03/20/24 05/01/24 Rx .COMPLEX #180 tabs methocarbamol 750 mg tablet 750 mg PO TID PRN muscle pain #90 03/31/24 05/01/24 Rx tabs oxycodone-acetaminophen 10 mg-325 1 tab PO QID . #120 tabs 03/31/24 05/01/24 Rx mg tablet (Percocet) omeprazole 20 mg capsule,delayed See Rx Instructions .Route 04/05/24 05/01/24 Rx release .COMPLEX #90 caps New Prescriptions to Start Prescriptions: Allergies Allergy/AdvReac Type Severity Reaction Status Date / Time lisinopril Allergy Intermediate I-HIVES Verified 03/11/24 08:29 morphine Allergy Unknown Verified 03/11/24 08:29 Assessment and Plan *Assessment and plan (1) Degenerative disc disease, cervical: Status: Acute Category: Medical Code(s): M50.30 - Other cervical disc degeneration, unspecified cervical region (2) Cervical radiculopathy: Status: Acute Category: Medical Code(s): M54.12 - Radiculopathy, cervical region Plan Patient is experiencing worsening pain in his neck and upper extremities with numbness and tingling. Patient did have limited range of motion and a positive Spurling's test. Patient would like to wait a few more days to see how his neck pain continues before deciding that an injection. Patient can call and schedule his cervical epidural between now and his next visit if needed. Patient has previously had a cervical epidural back in April that did provide 50% improvement lasting at least 2 months. Patient did not have as significant improvement in his right hand numbness with this injection however overall it was very beneficial. Patient has tried and failed conservative therapy including continued at home exercising and stretching for longer than 6 weeks. I will refill the patient's Percocet provide a 1 month supply of this medication. Risks and benefits of the medication have been explained in detail to the patient. The patient does understand the risk of dependence on the medication when given over a prolonged period. Patient has been advised of risks of oversedation with the prescribed medication. Narcan has been offered to the paitent in the event of oversedation. Patient has been advised that a family member should also be educated regarding administration of Narcan. The patient has been advised to consult with his/her primary care provider and pharmacist regarding drug-drug interaction of medications currently prescribed. Patient has been prescribed a controlled substance after being counseled on the medication, medication safety, and possible side effects. Opioid contract was reviewed and signed by the patient, and that they have agreed to all of the terms set forth by our compliance program. Patient has been instructed to contact the clinic with any concerns before the next appointment. Dr. Horvath has reviewed this note and agrees with this plan of care. This note was dictated using voice recognition software and make contain errors or omissions.
== END 2024-05-01 23:59 | disposition home or self-care (01) ==
PROVIDERS: PCP Physician Assistant; Visit Provider Nurse Practitioner Family
DX: M50.10 Cervical disc disorder with radiculopathy, unspecified cervical region (principal); Z73.89 Other problems related to life management difficulty; Z79.899 Other long term (current) drug therapy
CPT/HCPCS: 99212; G0463

== ENCOUNTER 2024-06-10 11:22 | Day surgery (SDC) | payer MEDICARE, SELFPAY ==
[2024-06-10 11:41] VITALS: BP 118/58; PULSE 66; RESP 16; TEMP 36.3; O2SAT 97; BMI 29.2
[2024-06-10] MEDS: IOPAMIDOL-200 (41%);10ML VIAL 10 ML IV (11:50)
[2024-06-10] MEDS: methylPREDNISolone ACETATE 80MG/ML VIAL 80 MG (11:53)
[2024-06-10 11:54] VITALS: BP 135/72; PULSE 65; PULSE 66; RESP 18; O2SAT 97
--- NOTE | 2024-06-10 11:58 | P.PCN_ITS ---
Procedure Date: 06/10/24 Time: 11:50 Anesthesiologist:: Lexa Leavitt CRNA Complications:: None Pre-procedure Diagnosis:: Degenerative disc cervical spine multilevels. Cervical radiculopathy. Cervical spondylosis. Multilevel cervical facet arthropathy. Post-procedure Diagnosis:: Same. Indications for Procedure:: Patient is a very pleasant 74-year-old male who comes our clinic today for cervical epidural steroid injection. Patient had good success in terms of his symptoms with previous injections in the cervical spine. His main complaint is posterior cervical spine pain. He reports having difficulty sleeping due to bilateral posterior neck pain. Discussed in detail with the patient regarding the need for cervical facet joint injections of cortisone if in fact he does not receive the relief with the cervical epidural. He voices understanding. Procedure Details:: Procedure:Cervical epidural steroid injection Informed consent was obtained and the risks and benefits of the procedure were explained to the patient. The patient was taken to the procedure room and noninvasive monitors placed, including noninvasive blood pressure cuff and pulse oximeter. The neck was prepped using Chloraprep as a cleansing solution. The C6- C7 interspace was viewed using fluroscopy. The skin and subcutaneous tissues were anesthetized using lidocaine 1.5% and a 25-gauge needle. After this an 18- gauge Touhy epidural needle was placed into the C6-C7 interspace under fluroscopy guidance and advanced using loss of resistance to air until the epidural space was encountered. After confirmation of needle placement in the epidural space using contrast dye, a solution containing normal saline, 2 mL and Depo-Medrol 80 mg was incrementally injected into the cervical epidural space.~ The patient tolerated the procedure well with no complications. The patient was observed in the Pain Clinic and then discharged home neurologically intact. Plan and Disposition:: Patient was discharged without incident.
[2024-06-10 12:05] VITALS: BP 142/70; PULSE 62; RESP 18; O2SAT 99
[2024-06-10 13:15] LABS: Basophils % 0.5 % (0.1-2.0); Eosinophils # 0.3 K/mm3 (0.0-0.4); Eosinophils % 4.1 % (0.1-12.0); Hematocrit 44.2 % (42.0-52.0); Hemoglobin 13.7 g/dL (14.1-18.0); Lymphocytes # 1.9 K/mm3 (0.7-4.5); Lymphocytes % 26.9 % (10-50); Mean Corpuscular Hemoglobin 29.8 pg (27.0-31.2); Mean Corpuscular Volume 96.2 fl (80-94); Mean Platelet Volume 8.1 fl (7.4-10.4); Monocytes # 0.4 K/mm3 (0.1-1.0); Monocytes % 5.6 % (1.7-9.3); Neutrophils # 4.3 K/mm3 (1.8-7.8); Neutrophils % 62.9 % (37.0-80.0); Platelet Count 252 K/mm3 (142-424); Red Cell Distribution Width 13.3 % (11.5-17.5); White Blood Count 6.9 K/mm3 (4.8-10.8)
[2024-06-10 13:52] LABS: Alanine Aminotransferase 33 U/L (12-78); Albumin Level 4.3 g/dl (3.5-5.0); Albumin/Globulin Ratio 1.7 (1.1-1.8); Alkaline Phosphatase 60 U/L (38-126); Anion Gap 9.8 mEq/L (5-15); Aspartate Amino Transferase 34 U/L (17-59); Bilirubin,Total 0.8 mg/dl (0.2-1.3); Blood Urea Nitrogen 11 mg/dl (9-20); Calcium 9.4 mg/dl (8.4-10.2); Carbon Dioxide 27 mmol/L (22.0-30.0); Chloride 107 mmol/L (98-107); Chol/HDL Ratio 3.2 (1-3.5); Cholesterol 139 mg/dl (140-200); Creatinine Clearance Estimated 89 mL/min (50-200); Estimated Glomerular Filt Rate 111 ml/min (>60); GFR (African American) 134 ML/MIN (>60); Globulin 2.5 g/dL (1.3-3.2); Glucose 97 mg/dl (74-100); HDL Cholesterol 43 mg/dl (40-60); Potassium 4.8 mmoL/L (3.5-5.1); Sodium 139 mmol/L (136-145); Total Protein,Serum 6.8 g/dl (6.3-8.2); Triglycerides 97 mg/dl (30-150); VLDL Cholesterol 19 mg/dL (0-40)
[2024-06-10 13:54] LABS: Hemoglobin A1C 6.5 % (4.0-6.0)
[2024-06-10 14:02] LABS: Direct LDL Cholesterol 74.49 mg/dL (100-129)
[2024-06-10 14:05] LABS: 25-OH Vitamin D, Total 33.8 ng/mL (30-100)
[2024-06-10 14:19] LABS: Thyroid Stimulating Hormone 0.86 uIU/mL (0.465-4.68)
== END 2024-06-10 12:05 | disposition home or self-care (01) ==
PROVIDERS: PCP Internal Medicine; Visit Provider Nurse Anesthetist, Certified Registered
DX: M50.30 Other cervical disc degeneration, unspecified cervical region (principal); M47.22 Other spondylosis with radiculopathy, cervical region; D64.9 Anemia, unspecified; E03.9 Hypothyroidism, unspecified; E55.9 Vitamin D deficiency, unspecified; I25.10 Atherosclerotic heart disease of native coronary artery without angina pectoris; I10 Essential (primary) hypertension; Z13.1 Encounter for screening for diabetes mellitus; Z00.00 Encounter for general adult medical examination without abnormal findings; Z13.29 Encounter for screening for other suspected endocrine disorder; Z13.21 Encounter for screening for nutritional disorder; E78.5 Hyperlipidemia, unspecified
CPT/HCPCS: 62321; 80053; 80061; 82306; 83036; 84439; 84443; 85025; J1010; Q9966

== ENCOUNTER 2024-06-26 08:44 | Outpatient (POV) | payer MEDICARE, SELFPAY ==
[2024-06-26 08:57] VITALS: BP 141/67; PULSE 64; RESP 16; O2SAT 99; BMI 29.0
--- NOTE | 2024-06-26 09:34 | EXP.PAIN.SOA ---
[facility] Disclaimer: The information contained in this section may have been updated after the patient was seen, as this information can be updated by other users. 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 current occupational exposures/hazards: No caffeine: Yes PM Subjective & Objective Subjective Subjective:: Patient is a pleasant 74-year-old male who presents today for medication refill and follow-up of cervical epidural steroid injections C6-C7 on 06/10/2024. Patient rates his pain today a 10 out of 10. He states that this is the first injection he really has not noticed significant relief they are at his neck. Patient states he is not really noticing as much the numbness and tingling into his hands and fingers. Patient does state however that he is having worsening pain all throughout his neck that does primarily stay right in that area. He states with certain movements it seems to be aggravated such as twisting his neck [id number] or looking down. Patient does state the pain is constant and describes it as an aching, throbbing sensation and does state it interferes with his ability perform activities of daily living such as cooking and cleaning. Patient is interested in additional injection therapy. Patient is currently managed with methocarbamol 750 mg twice a day and Percocet 10 mg 4 times a day. He denies any side effects from this medication. He is requesting refills of the pain medication only. His Asim has been reviewed and is appropriate. Review of Systems: General: No recent weight changes, no fever, no sleep disturbances Respiratory: No cough, no shortness of air, no recurring pulmonary infections Cardiovascular/peripheral vascular: No chest pain, no palpitations, no edema, no shortness of breath Gastrointestinal: No new onset incontinence, normal bowel movements reported Genitourinary: No new onset incontinence Musculoskeletal: Neck pain Psychiatric: [Normal mood/affect] Neurological: [Denies weakness in extremities], [denies balance issues] Pain at rest (0-10 scale): 10 Objective Objective:: Physical Exam: General: Alert and oriented x3, no acute distress, pleasant and cooperative Lungs: Respirations even and unlabored, symmetrical chest expansion Eyes: PERRL Musculoskeletal: Flexion and extension of cervical [spine] somewhat guarded secondary to pain, [antalgic gait noted] positive Kemps test Neurological: Speech clear, no gross sensory deficit Has patient had previous pain injection?: Yes Percent improvement in pain since last injection: Minimal Conservative treatment options previously tried: Home exercise plan Length of treatment: Longer than 12 weeks Meds Home Medications and Allergies Home Medications ?Medication ?Instructions ?Recorded ?Confirmed ?Type aspirin 81 mg tablet,delayed 81 mg PO DAILY prevention 12/20/18 06/26/24 History release furosemide 20 mg tablet 20 mg PO BID swelling 03/23/21 06/26/24 History ergocalciferol (vitamin D2) 1,250 50,000 unit PO QWEEK Supplement 06/26/22 06/26/24 Rx mcg (50,000 unit) capsule #14 caps nitroglycerin 0.4 mg sublingual 0.4 mg sublingual Q5M PRN chest 06/26/22 06/26/24 Rx tablet pain #20 tabs isosorbide mononitrate 30 mg 30 mg PO DAILY BLOOD PRESSURE 05/07/23 06/26/24 History tablet,extended release 24 hr metformin 1,000 mg tablet See Rx Instructions .Route 11/19/23 06/26/24 Rx .COMPLEX #180 tabs canagliflozin 100 mg tablet See Rx Instructions .Route 11/26/23 06/26/24 Rx (Invokana) .COMPLEX #90 tabs lidocaine 5 % topical patch 1 patch topical DAILY #30 ea 11/26/23 06/26/24 Rx losartan 100 mg tablet See Rx Instructions .Route 11/26/23 06/26/24 Rx .COMPLEX #90 tabs glimepiride 4 mg tablet See Rx Instructions .Route 01/21/24 06/26/24 Rx .COMPLEX #180 tabs levothyroxine 88 mcg tablet See Rx Instructions .Route 01/21/24 06/26/24 Rx .COMPLEX #90 tabs rosuvastatin 40 mg tablet See Rx Instructions .Route 02/19/24 06/26/24 Rx .COMPLEX #90 tabs sitagliptin phosphate 100 mg See Rx Instructions .Route 02/29/24 06/26/24 Rx tablet (Januvia) .COMPLEX #90 tabs methocarbamol 750 mg tablet 750 mg PO TID PRN muscle pain #90 03/31/24 06/26/24 Rx tabs omeprazole 20 mg capsule,delayed See Rx Instructions .Route 04/05/24 06/26/24 Rx release .COMPLEX #90 caps oxycodone-acetaminophen 10 mg-325 1 tab PO QID . #120 tabs 06/04/24 06/26/24 Rx mg tablet (Percocet) simvastatin 80 mg tablet 80 mg PO HS 06/10/24 06/26/24 History carvedilol 6.25 mg tablet See Rx Instructions .Route 06/17/24 06/26/24 Rx .COMPLEX #180 tabs New Prescriptions to Start Prescriptions: Allergies Allergy/AdvReac Type Severity Reaction Status Date / Time lisinopril Allergy Intermediate I-HIVES Verified 06/10/24 09:39 morphine Allergy Unknown Verified 06/10/24 09:39 Assessment and Plan *Assessment and plan (1) Cervical spondylosis: Status: Acute Category: Medical Code(s): M47.812 - Spondylosis without myelopathy or radiculopathy, cervical region (2) Degenerative disc disease, cervical: Status: Acute Category: Medical Code(s): M50.30 - Other cervical disc degeneration, unspecified cervical region (3) Facet arthropathy, cervical: Status: Acute Category: Medical Code(s): M47.812 - Spondylosis without myelopathy or radiculopathy, cervical region Plan Patient is experiencing worsening pain throughout his neck with limited range of motion and a positive Kemps test. I did discuss with patient that he may benefit from a cervical medial branch block. Risk and benefits were discussed with the patient and he would like to proceed forward with this plan of care. Patient is not on any blood thinners. Patient has tried and failed conservative therapy including continued at home exercising and stretching for longer than 12 weeks. I will refill the patient's Percocet and provide a 1 month supply of this medication. Patient will be scheduled for a cervical medial branch block bilaterally C5-C6 and C6-C7 under fluoroscopy. If he does get significant relief we will plan on repeating this injection with the plan to proceed forward with a cervical RFA at a later date. Risks and benefits of the medication have been explained in detail to the patient. The patient does understand the risk of dependence on the medication when given over a prolonged period. Patient has been advised of risks of oversedation with the prescribed medication. Narcan has been offered to the paitent in the event of oversedation. Patient has been advised that a family member should also be educated regarding administration of Narcan. The patient has been advised to consult with his/her primary care provider and pharmacist regarding drug-drug interaction of medications currently prescribed. Patient has been prescribed a controlled substance after being counseled on the medication, medication safety, and possible side effects. Opioid contract was reviewed and signed by the patient, and that they have agreed to all of the terms set forth by our compliance program. Patient has been instructed to contact the clinic with any concerns before the next appointment. Dr. Horvath has reviewed this note and agrees with this plan of care. This note was dictated using voice recognition software and make contain errors or omissions.
== END 2024-06-26 23:59 | disposition home or self-care (01) ==
PROVIDERS: PCP Internal Medicine; Visit Provider Nurse Practitioner Family
DX: M47.812 Spondylosis without myelopathy or radiculopathy, cervical region (principal); M50.30 Other cervical disc degeneration, unspecified cervical region; Z73.89 Other problems related to life management difficulty; Z79.899 Other long term (current) drug therapy
CPT/HCPCS: 99212; G0463

== ENCOUNTER 2024-07-22 08:55 | Day surgery (SDC) | payer MEDICARE, SELFPAY ==
[2024-07-22 09:24] VITALS: BP 141/56; PULSE 60; RESP 16; TEMP 36.6; O2SAT 100; BMI 29.2
[2024-07-22] MEDS: IOPAMIDOL-200 (41%);10ML VIAL 10 ML IV (09:54)
[2024-07-22 09:55] VITALS: BP 167/72; PULSE 61; RESP 16; O2SAT 100
[2024-07-22] MEDS: methylPREDNISolone ACETATE 80MG/ML VIAL 80 MG (09:57)
[2024-07-22] MEDS: BUPIVACAINE 0.25% 10ML INJ 25 MG IJ (09:57)
[2024-07-22 09:58] VITALS: BP 143/60; PULSE 62; RESP 18; O2SAT 95
[2024-07-22] MEDS: LIDOCAINE 1% 5ML PF VIAL 5 ML (09:58)
[2024-07-22 09:59] VITALS: BP 143/60; PULSE 62; RESP 18; O2SAT 95
--- NOTE | 2024-07-22 10:11 | P.PCN_ITS ---
Procedure Date: 07/22/24 Time: 09:30 Anesthesiologist:: Lexa Leavitt CRNA Complications:: None Pre-procedure Diagnosis:: Degenerative disc cervical spine multilevels. Cervical radiculopathy. Cervical spondylosis. Multilevel cervical facet arthropathy. Post-procedure Diagnosis:: Same. Indications for Procedure:: Patient is a pleasant 74-year-old male who comes our clinic today for repeat round 2 cervical medial branch blocks/facet injection at the C5-6, C6-7 levels bilaterally. Patient reports significant improvement from previous injections at the same levels. Patient describes posterior cervical neck pain as constant, dull, sharp, stabbing. He reports having extreme difficulty with cervical flexion, extension, left and right rotation. Difficulty sleeping due to the pain. He rates his pain 9/10. Procedure Details:: Informed consent was obtained and the risk and benefits of the procedure was explained to the patient. Patient was taken to the procedure room where noninvasive monitors were placed, including noninvasive blood pressure cuff as well as pulse oximeter. The area over the posterior cervical spine was cleansed using chlorhexidine as a cleansing solution. I anesthetized the skin and subcutaneous tissues with 1% Lidocaine. I placed 25 -gauge spinal needles into the facet joint/ medial branches of C5-6, C6-7 bilaterally. Needle placement was confirmed with fluoroscopy. After confirmation of needle placement, each site was injected with 1 mL of 1% lidocaine and 0.25 % Marcaine and 10 mg of Depo- Medrol. A total of 20 mg of depo medrol was used for bilateral medial branch blocks of C5-6, C6-7 bilaterally. Patient tolerated the procedure without difficulty. There were no complications. Plan and Disposition:: Patient was discharged without incident.
== END 2024-07-22 09:55 | disposition home or self-care (01) ==
PROVIDERS: PCP Internal Medicine; Visit Provider Nurse Anesthetist, Certified Registered
DX: M47.812 Spondylosis without myelopathy or radiculopathy, cervical region (principal); M50.30 Other cervical disc degeneration, unspecified cervical region
CPT/HCPCS: 64490; 64491; J1010; Q9966

== ENCOUNTER 2024-08-04 08:33 | Outpatient (POV) | payer MEDICARE, SELFPAY ==
--- NOTE | 2024-08-04 08:59 | A.OFFVIS_ITS ---
[facility] Disclaimer: The information contained in this section may have been updated after the patient was seen, as this information can be updated by other users. 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 current occupational exposures/hazards: No caffeine: Yes PM Subjective & Objective Subjective Subjective:: Patient is a pleasant 74-year-old male who presents today for medication refill and 1 month follow-up as well as cervical medial branch block bilaterally C5-C6 and C6-C7 on 07/22/2024. Today he rates his pain a 7 out of 10. He denies any new trauma or injury. He does state that he has had significant improvement following this injection. He states he is now able to turn his head [id number] much better and that he has been able to sleep more at night. He does state he still has numbness in his to pinkies bilaterally. He does state that he still cannot do sudden movements with his neck due to worsening pain however the pain is definitely not as severe and feels much more functional. Patient would rate improvement at least 80% initially and now is stating 60%. He feels like it is still working. Patient does state that he is having more knee pain but feels like he is favoring these joints due to his low back pain. Patient has had injections in the past for his back however it has been sometime. Patient is currently managed with Percocet 10 mg 4 times a day and methocarbamol 750 mg twice a day. He denies any side effects from this medication. He is just requesting refills of his pain medicine. His Asim has been reviewed and is appropriate. Review of Systems: General: No recent weight changes, no fever, no sleep disturbances Respiratory: No cough, no shortness of air, no recurring pulmonary infections Cardiovascular/peripheral vascular: No chest pain, no palpitations, no edema, no shortness of breath Gastrointestinal: No new onset incontinence, normal bowel movements reported Genitourinary: No new onset incontinence Musculoskeletal: Low back pain, knee pain Psychiatric: [Normal mood/affect] Neurological: [Denies weakness in extremities], [denies balance issues] Pain at rest (0-10 scale): 7 Objective Objective:: Physical Exam: General: Alert and oriented x3, no acute distress, pleasant and cooperative Lungs: Respirations even and unlabored, symmetrical chest expansion Eyes: PERRL Musculoskeletal: Flexion and extension of lumbar [spine] somewhat guarded secondary to pain, [antalgic gait noted] Neurological: Speech clear, no gross sensory deficit Has patient had previous pain injection?: Yes Percent improvement in pain since last injection: 80 to 60% Conservative treatment options previously tried: Home exercise plan Length of treatment: Longer than 12 weeks Meds Home Medications and Allergies Home Medications ?Medication ?Instructions ?Recorded ?Confirmed ?Type aspirin 81 mg tablet,delayed 81 mg PO DAILY prevention 12/20/18 07/22/24 History release furosemide 20 mg tablet 20 mg PO BID swelling 03/23/21 07/22/24 History ergocalciferol (vitamin D2) 1,250 50,000 unit PO QWEEK Supplement 06/26/22 07/22/24 Rx mcg (50,000 unit) capsule #14 caps nitroglycerin 0.4 mg sublingual 0.4 mg sublingual Q5M PRN chest 06/26/22 07/22/24 Rx tablet pain #20 tabs metformin 1,000 mg tablet See Rx Instructions .Route 11/19/23 07/22/24 Rx .COMPLEX #180 tabs canagliflozin 100 mg tablet See Rx Instructions .Route 11/26/23 07/22/24 Rx (Invokana) .COMPLEX #90 tabs lidocaine 5 % topical patch 1 patch topical DAILY #30 ea 11/26/23 07/22/24 Rx losartan 100 mg tablet See Rx Instructions .Route 11/26/23 07/22/24 Rx .COMPLEX #90 tabs glimepiride 4 mg tablet See Rx Instructions .Route 01/21/24 07/22/24 Rx .COMPLEX #180 tabs levothyroxine 88 mcg tablet See Rx Instructions .Route 01/21/24 07/22/24 Rx .COMPLEX #90 tabs rosuvastatin 40 mg tablet See Rx Instructions .Route 02/19/24 07/22/24 Rx .COMPLEX #90 tabs sitagliptin phosphate 100 mg See Rx Instructions .Route 02/29/24 07/22/24 Rx tablet (Januvia) .COMPLEX #90 tabs methocarbamol 750 mg tablet 750 mg PO TID PRN muscle pain #90 03/31/24 07/22/24 Rx tabs simvastatin 80 mg tablet 80 mg PO HS 06/10/24 07/22/24 History carvedilol 6.25 mg tablet See Rx Instructions .Route 06/17/24 07/22/24 Rx .COMPLEX #180 tabs oxycodone-acetaminophen 10 mg-325 1 tab PO QID . #120 tabs 06/26/24 07/22/24 Rx mg tablet (Percocet) isosorbide mononitrate 30 mg See Rx Instructions .Route 07/07/24 07/22/24 Rx tablet,extended release 24 hr .COMPLEX #90 tabs omeprazole 20 mg capsule,delayed See Rx Instructions .Route 07/08/24 07/22/24 Rx release .COMPLEX #90 caps New Prescriptions to Start Prescriptions: Allergies Allergy/AdvReac Type Severity Reaction Status Date / Time lisinopril Allergy Intermediate I-HIVES Verified 06/10/24 09:39 morphine Allergy Unknown Verified 06/10/24 09:39 Assessment and Plan *Assessment and plan (1) Facet arthropathy, cervical: Status: Acute Category: Medical Code(s): M47.812 - Spondylosis without myelopathy or radiculopathy, cervical region (2) Cervical spondylosis: Status: Acute Category: Medical Code(s): M47.812 - Spondylosis without myelopathy or radiculopathy, cervical region (3) Cervical radiculopathy: Status: Acute Category: Medical Code(s): M54.12 - Radiculopathy, cervical region (4) Degenerative disc disease, cervical: Status: Acute Category: Medical Code(s): M50.30 - Other cervical disc degeneration, unspecified cervical region (5) Lumbar disc disease: Status: Acute Category: Medical Code(s): M51.9 - Unspecified thoracic, thoracolumbar and lumbosacral intervertebral disc disorder Plan I will refill the patient's Percocet and provide a 1 month supply of this medication. Patient will return to clinic in 1 month for reevaluation of symptoms and plan of care. Risks and benefits of the medication have been explained in detail to the patient. The patient does understand the risk of dependence on the medication when given over a prolonged period. Patient has been advised of risks of oversedation with the prescribed medication. Narcan has been offered to the paitent in the event of o versedation. Patient has been advised that a family member should also be educated regarding administration of Narcan. The patient has been advised to consult with his/her primary care provider and pharmacist regarding drug-drug interaction of medications currently prescribed. Patient has been prescribed a controlled substance after being counseled on the medication, medication safety, and possible side effects. Opioid contract was reviewed and signed by the patient, and that they have agreed to all of the terms set forth by our compliance program. Patient has been instructed to contact the clinic with any concerns before the next appointment. Dr. Horvath has reviewed this note and agrees with this plan of care. This note was dictated using voice recognition software and make contain errors or omissions.
[2024-08-04 11:49] VITALS: BP 123/77; PULSE 59; RESP 16; O2SAT 98; BMI 29.2
== END 2024-08-04 23:59 | disposition home or self-care (01) ==
PROVIDERS: PCP Internal Medicine; Visit Provider Nurse Practitioner Family
DX: M51.9 Unspecified thoracic, thoracolumbar and lumbosacral intervertebral disc disorder; M47.22 Other spondylosis with radiculopathy, cervical region; M50.10 Cervical disc disorder with radiculopathy, unspecified cervical region; Z79.899 Other long term (current) drug therapy
CPT/HCPCS: 99212; G0463

== ENCOUNTER 2024-09-01 09:09 | Outpatient (POV) | payer MEDICARE, SELFPAY ==
--- NOTE | 2024-09-01 09:51 | A.OFFVIS_ITS ---
[facility] Disclaimer: The information contained in this section may have been updated after the patient was seen, as this information can be updated by other users. 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 current occupational exposures/hazards: No caffeine: Yes PM Subjective & Objective Subjective Subjective:: Patient is a pleasant 74-year-old male who presents today for medication refill. Today he rates his pain a 8 out of 10. Patient does state that he has not had any new falls or injuries. He does say that certain days are better than others. Overall he states he is doing well. Patient is currently managed with Percocet 10 mg 4 times a day and methocarbamol 750 mg twice a day. He denies any side effects from this medication and states he just needs the pain medication refill his Aism has been reviewed and is appropriate. Review of Systems: General: No recent weight changes, no fever, no sleep disturbances Respiratory: No cough, no shortness of air, no recurring pulmonary infections Cardiovascular/peripheral vascular: No chest pain, no palpitations, no edema, no shortness of breath Gastrointestinal: No new onset incontinence, normal bowel movements reported Genitourinary: No new onset incontinence Musculoskeletal: Low back pain, neck pain Psychiatric: [Normal mood/affect] Neurological: [Denies weakness in extremities], [denies balance issues] Pain at rest (0-10 scale): 8 Objective Objective:: Physical Exam: General: Alert and oriented x3, no acute distress, pleasant and cooperative Lungs: Respirations even and unlabored, symmetrical chest expansion Eyes: PERRL Musculoskeletal: Flexion and extension of lumbar [spine] somewhat guarded secon griffin to pain, [antalgic gait noted] Neurological: Speech clear, no gross sensory deficit Has patient had previous pain injection?: No Conservative treatment options previously tried: Home exercise plan Length of treatment: Longer than 12 weeks Meds Home Medications and Allergies Home Medications ?Medication ?Instructions ?Recorded ?Confirmed ?Type aspirin 81 mg tablet,delayed 81 mg PO DAILY prevention 12/20/18 07/22/24 History release furosemide 20 mg tablet 20 mg PO BID swelling 03/23/21 07/22/24 History ergocalciferol (vitamin D2) 1,250 50,000 unit PO QWEEK Supplement 06/26/22 07/22/24 Rx mcg (50,000 unit) capsule #14 caps nitroglycerin 0.4 mg sublingual 0.4 mg sublingual Q5M PRN chest 06/26/22 07/22/24 Rx tablet pain #20 tabs canagliflozin 100 mg tablet See Rx Instructions .Route 11/26/23 07/22/24 Rx (Invokana) .COMPLEX #90 tabs lidocaine 5 % topical patch 1 patch topical DAILY #30 ea 11/26/23 07/22/24 Rx losartan 100 mg tablet See Rx Instructions .Route 11/26/23 07/22/24 Rx .COMPLEX #90 tabs glimepiride 4 mg tablet See Rx Instructions .Route 01/21/24 07/22/24 Rx .COMPLEX #180 tabs levothyroxine 88 mcg tablet See Rx Instructions .Route 01/21/24 07/22/24 Rx .COMPLEX #90 tabs rosuvastatin 40 mg tablet See Rx Instructions .Route 02/19/24 07/22/24 Rx .COMPLEX #90 tabs sitagliptin phosphate 100 mg See Rx Instructions .Route 02/29/24 07/22/24 Rx tablet (Januvia) .COMPLEX #90 tabs methocarbamol 750 mg tablet 750 mg PO TID PRN muscle pain #90 03/31/24 07/22/24 Rx tabs simvastatin 80 mg tablet 80 mg PO HS 06/10/24 07/22/24 History carvedilol 6.25 mg tablet See Rx Instructions .Route 06/17/24 07/22/24 Rx .COMPLEX #180 tabs isosorbide mononitrate 30 mg See Rx Instructions .Route 07/07/24 07/22/24 Rx tablet,extended release 24 hr .COMPLEX #90 tabs omeprazole 20 mg capsule,delayed See Rx Instructions .Route 07/08/24 07/22/24 Rx release .COMPLEX #90 caps oxycodone-acetaminophen 10 mg-325 1 tab PO QID . #120 tabs 08/04/24 Rx mg tablet (Percocet) metformin 1,000 mg tablet See Rx Instructions .Route 08/14/24 Rx .COMPLEX #180 tabs New Prescriptions to Start Prescriptions: Allergies Allergy/AdvReac Type Severity Reaction Status Date / Time lisinopril Allergy Intermediate I-HIVES Verified 06/10/24 09:39 morphine Allergy Unknown Verified 06/10/24 09:39 Assessment and Plan *Assessment and plan (1) Facet arthropathy, cervical: Status: Acute Category: Medical Code(s): M47.812 - Spondylosis without myelopathy or radiculopathy, cervical region (2) Cervical spondylosis: Status: Acute Category: Medical Code(s): M47.812 - Spondylosis without myelopathy or radiculopathy, cervical region (3) Cervical radiculopathy: Status: Acute Category: Medical Code(s): M54.12 - Radiculopathy, cervical region (4) Degenerative disc disease, cervical: Status: Acute Category: Medical Code(s): M50.30 - Other cervical disc degeneration, unspecified cervical region Plan We will refill the patient's Percocet and provide a 1 month supply of this medication. Patient will return to clinic in 1 month for reevaluation of symptoms and plan of care. Risks and benefits of the medication have been explained in detail to the patient. The patient does understand the risk of dependence on the medication when given over a prolonged period. Patient has been advised of risks of oversedation with the prescribed medication. Narcan has been offered to the paitent in the event of oversedation. Patient has been advised that a family member should also be educated regarding administration of Narcan. The patient has been advised to consult with his/her primary care provider and pharmacist regarding drug-drug interaction of medications currently prescribed. Patient has been prescribed a controlled substance after being counseled on the medication, medication safety, and possible side effects. Opioid contract was reviewed and signed by the patient, and that they have agreed to all of the terms set forth by our compliance program. Patient has been instructed to contact the clinic with any concerns before the next appointment. Dr. Horvath has reviewed this note and agrees with this plan of care. This note was dictated using voice recognition software and make contain errors or omissions.
[2024-09-01 10:22] VITALS: BP 147/71; PULSE 70; RESP 16; O2SAT 98; BMI 29.2
== END 2024-09-01 23:59 | disposition home or self-care (01) ==
PROVIDERS: PCP Internal Medicine; Visit Provider Nurse Practitioner Family
DX: M47.22 Other spondylosis with radiculopathy, cervical region (principal); M50.10 Cervical disc disorder with radiculopathy, unspecified cervical region; Z79.899 Other long term (current) drug therapy
CPT/HCPCS: 99212; G0463

== ENCOUNTER 2024-09-07 09:29 | Emergency (ER) | payer MEDICARE, SELFPAY ==
[2024-09-07 09:30] VITALS: BP 184/91; PULSE 66; RESP 18; TEMP 37; O2SAT 97; BMI 29.2
--- NOTE | 2024-09-07 09:48 | CT_ITS ---
PROCEDURE INFORMATION: Exam: CT Neck With Contrast Exam date and time: 09/07/2024 10:37 AM Age: 74 years old Clinical indication: Mass, lump, or swelling in neck; Posterior; Additional info: Posterior soft tissue mass c6-7 TECHNIQUE: Imaging protocol: Computed tomography of the neck with contrast. Radiation optimization: All CT scans at this facility use at least one of these dose optimization techniques: automated exposure control; mA and/or kV adjustment per patient size (includes targeted exams where dose is matched to clinical indication); or iterative reconstruction. Contrast material: ISOVUE; Contrast volume: 75 ml; Contrast route: IV; COMPARISON: CT CERVICAL SPINE WO CON 09/07/2024 10:34 AM FINDINGS: Salivary glands: Normal. Glands are normal in size. Pharynx: Unremarkable. No significant tonsillar enlargement. Prevertebral and retropharyngeal spaces: Unremarkable. Larynx: Unremarkable. Epiglottis is normal. Thyroid: Normal. No enlarged or calcified nodules. Trachea: Visualized trachea is unremarkable. Lungs: Unremarkable as visualized. Lymph nodes: Unremarkable. No lymphadenopathy. Bones/joints: Unremarkable. No acute fracture. Soft tissues: Fat density ovoid lesion within the posterior subcutaneous fat at the level of the lower cervical spine to the right of midline measures 2.3 x 5.4 x 6.2 cm (AP/TV/SI). No internal septations or soft tissue component. Compatible with lipoma. IMPRESSION: Fat density ovoid lesion within the posterior subcutaneous fat at the level of the lower cervical spine to the right of midline measures 2.3 x 5.4 x 6.2 cm (AP/TV/SI). No internal septations or soft tissue component. Compatible with lipoma.
--- NOTE | 2024-09-07 09:48 | CT_ITS ---
PROCEDURE INFORMATION: Exam: CT Cervical Spine Without Contrast Exam date and time: 09/07/2024 10:34 AM Age: 74 years old Clinical indication: Neck pain; Additional info: Acute on chronic pain TECHNIQUE: Imaging protocol: Computed tomography of the cervical spine without contrast. Radiation optimization: All CT scans at this facility use at least one of these dose optimization techniques: automated exposure control; mA and/or kV adjustment per patient size (includes targeted exams where dose is matched to clinical indication); or iterative reconstruction. COMPARISON: CT THORACIC SPINE WO CON 07/16/2023 10:07 AM FINDINGS: Bones: Normal alignment. No acute fracture. Severe disc space narrowing at C5-C6 and moderate disc space narrowing at C6-C7. No significant disc herniation. No severe canal stenosis. Multilevel facet arthropathy. Lungs: Lung apices are normal. Soft tissues: Subcutaneous lipoma within the posterior soft tissues as detailed on CT neck same day. IMPRESSION: 1. Subcutaneous lipoma within the posterior soft tissues as detailed on CT neck same day. 2. Degenerative changes of the cervical spine as detailed above.
[2024-09-07] MEDS: ACETAMINOPHEN 1,000MG/100ML VIAL 1000 MG IV (09:58)
[2024-09-07] MEDS: LIDOCAINE 5% TRANSDERMAL PATCH 1 EACH TP (09:58)
[2024-09-07] MEDS: 0.9 % SODIUM CHLORIDE 1000ML 500 ML 999 ML IV (09:58)
[2024-09-07] MEDS: KETOROLAC 30MG/ML VIAL 15 MG IV (09:58)
--- NOTE | 2024-09-07 09:59 | HMH.EDGENADL ---
Discharge Plan Disposition Chief Complaint: PAIN Prescriptions Prescriptions: No Action ergocalciferol (vitamin D2) 1,250 mcg (50,000 unit) capsule 50,000 unit PO QWEEK Qty: 14 0RF nitroglycerin 0.4 mg tablet, sublingual 0.4 mg SL Q5M PRN (Reason: chest pain) Qty: 20 2RF Rx Instructions: do not exceed 3 doses per episode simvastatin 80 mg tablet 80 mg PO HS Invokana 100 mg tablet See Rx Instructions .ROUTE .COMPLEX Qty: 90 0RF Dose Instruction: TAKE ONE TABLET BY MOUTH ONCE A DAY FOR DIABETES Rx Instructions: TAKE ONE TABLET BY MOUTH ONCE A DAY FOR DIABETES losartan 100 mg tablet See Rx Instructions .ROUTE .COMPLEX Qty: 90 3RF Dose Instruction: TAKE ONE TABLET BY MOUTH ONCE A DAY Rx Instructions: TAKE ONE TABLET BY MOUTH ONCE A DAY glimepiride 4 mg tablet See Rx Instructions .ROUTE .COMPLEX Qty: 180 2RF Dose Instruction: TAKE TWO TABLETS BY MOUTH EVERY MORNING WITH BREAKFAST FOR DIABETES Rx Instructions: TAKE TWO TABLETS BY MOUTH EVERY MORNING WITH BREAKFAST FOR DIABETES levothyroxine 88 mcg tablet See Rx Instructions .ROUTE .COMPLEX Qty: 90 2RF Dose Instruction: TAKE ONE TABLET BY MOUTH ONCE A DAY FOR HYPOTHYROID Rx Instructions: TAKE ONE TABLET BY MOUTH ONCE A DAY FOR HYPOTHYROID rosuvastatin 40 mg tablet See Rx Instructions .ROUTE .COMPLEX Qty: 90 3RF Dose Instruction: TAKE ONE TABLET BY MOUTH ONCE A DAY Rx Instructions: TAKE ONE TABLET BY MOUTH ONCE A DAY Januvia 100 mg tablet See Rx Instructions .ROUTE .COMPLEX Qty: 90 2RF Dose Instruction: TAKE ONE TABLET BY MOUTH ONCE A DAY Rx Instructions: TAKE ONE TABLET BY MOUTH ONCE A DAY carvedilol 6.25 mg tablet See Rx Instructions .ROUTE .COMPLEX Qty: 180 0RF Dose Instruction: TAKE ONE TABLET BY MOUTH 2 TIMES A DAY Rx Instructions: TAKE ONE TABLET BY MOUTH 2 TIMES A DAY isosorbide mononitrate 30 mg tablet extended release 24 hr See Rx Instructions .ROUTE .COMPLEX Qty: 90 3RF Dose Instruction: TAKE ONE TABLET BY MOUTH ONCE A DAY Rx Instructions: TAKE ONE TABLET BY MOUTH ONCE A DAY omeprazole 20 mg capsule,delayed release(DR/EC) See Rx Instructions .ROUTE .COMPLEX Qty: 90 0RF Dose Instruction: TAKE 1 CAPSULE BY MOUTH ONCE A DAY FOR GERD Rx Instructions: TAKE 1 CAPSULE BY MOUTH ONCE A DAY FOR GERD metformin 1,000 mg tablet See Rx Instructions .ROUTE .COMPLEX Qty: 180 2RF Dose Instruction: TAKE ONE TABLET BY MOUTH 2 TIMES A DAY FOR DIABETES Rx Instructions: TAKE ONE TABLET BY MOUTH 2 TIMES A DAY FOR DIABETES aspirin 81 MG tablet,delayed release (DR/EC) 81 mg PO DAILY furosemide 20 mg tablet 20 mg PO BID Rx Instructions: TAKE ONE TABLET BY MOUTH bid lidocaine 5 % adhesive patch,medicated 1 patch topical DAILY Qty: 30 0RF Rx Instructions: leave on most painful area for up to 12 hrs methocarbamol 750 mg tablet 750 mg PO TID PRN (Reason: muscle pain) Qty: 90 0RF oxycodone-acetaminophen [Percocet] 10-325 mg tablet 1 tab PO QID Qty: 120 0RF Referrals Follow up/Referrals: Carlos Enrique Fernandez [Primary Care Provider] - See instructions Activity Restrictions/Add. Instructions Additional Instructions/Restrictions: Please call [phone] to make an appointment with Dr. Rutherford with spine surgery unless you already have an established relationship with a spine surgeon. No emergent medical condition identified today your symptoms are likely secondary to the chronic degenerative changes in your neck with cervical radiculopathy and compressive pathology associated with nerve impingement. I recommend that you follow-up with a spine surgeon of given you a referral above to see Dr. Rojas [facility] but you may go to any spine surgeon of your choice. Regarding her chronic pain in the I recommend he follow-up with Dr. Horvath for further escalation of your chronic pain regimen. Clinical Impressions Clinical Impression: Chronic neck pain, Lipoma of neck Print Language Print Language: [place] Discharge ED Provider: Sherrie Carroll General Adult HPI General Chief complaint: PAIN Stated complaint: neck pain, no recent accident Time Seen by Provider: 09/07/24 09:36 Mode of Arrival: Ambulatory Source of Information: Patient Limitations: No Limitations Description of Symptoms (Recalled from ER Triage Doc. by RN): neck and back pain. History of Present Illness HPI narrative: Patient is a 74-year-old with chronic cervical radiculopathy and degenerative disc disease presents today with acute worsening of his pain. States he has not had any cervical imaging for years believes that his last MRI was many years ago done at a radiology outpatient facility that was close to [facility]. He has been following with Dr. Horvath for many years and has been getting Percocet tens methocarbamol steroid injections and cervical spine blocks with some relief but persistently worsening pain. States he is to the point where he over the last several days has been unable to sleep and unable to get in a position of comfort. He also tells me that he has a soft tissue mass on the upper portion of his neck which he has been told was a fatty mass but wonders if this is contributory. Denies any progressive weakness in his upper extremities any history of malignancy etc. Does state that he has a history of diabetes and that steroids in the past have worsened his blood sugar and request that we not give him that today. Related Data Home Medications ?Medication ?Instructions ?Recorded ?Confirmed aspirin 81 mg tablet,delayed 81 mg PO DAILY prevention 12/20/18 09/01/24 release furosemide 20 mg tablet 20 mg PO BID swelling 03/23/21 09/01/24 simvastatin 80 mg tablet 80 mg PO HS 06/10/24 09/01/24 Previous Rx's ?Medication ?Instructions ?Recorded ergocalciferol (vitamin D2) 1,250 50,000 unit PO QWEEK Supplement 06/26/22 mcg (50,000 unit) capsule #14 caps nitroglycerin 0.4 mg sublingual 0.4 mg sublingual Q5M PRN chest 06/26/22 tablet pain #20 tabs canagliflozin 100 mg tablet See Rx Instructions .Route 11/26/23 (Invokana) .COMPLEX #90 tabs lidocaine 5 % topical patch 1 patch topical DAILY #30 ea 11/26/23 losartan 100 mg tablet See Rx Instructions .Route 11/26/23 .COMPLEX #90 tabs glimepiride 4 mg tablet See Rx Instructions .Route 01/21/24 .COMPLEX #180 tabs levothyroxine 88 mcg tablet See Rx Instructions .Route 01/21/24 .COMPLEX #90 tabs rosuvastatin 40 mg tablet See Rx Instructions .Route 02/19/24 .COMPLEX #90 tabs sitagliptin phosphate 100 mg See Rx Instructions .Route 02/29/24 tablet (Januvia) .COMPLEX #90 tabs methocarbamol 750 mg tablet 750 mg PO TID PRN muscle pain #90 03/31/24 tabs carvedilol 6.25 mg tablet See Rx Instructions .Route 06/17/24 .COMPLEX #180 tabs isosorbide mononitrate 30 mg See Rx Instructions .Route 07/07/24 tablet,extended release 24 hr .COMPLEX #90 tabs omeprazole 20 mg capsule,delayed See Rx Instructions .Route 07/08/24 release .COMPLEX #90 caps metformin 1,000 mg tablet See Rx Instructions .Route 08/14/24 .COMPLEX #180 tabs oxycodone-acetaminophen 10 mg-325 1 tab PO QID . #120 tabs 09/01/24 mg tablet (Percocet) Allergies Allergy/AdvReac Type Severity Reaction Status Date / Time lisinopril Allergy Intermediate I-HIVES Verified 06/10/24 09:39 morphine Allergy Unknown Verified 06/10/24 09:39 [facility] Disclaimer: The information contained in this section may have been updated after the patient was seen, as this information can be updated by other users. 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 current occupational exposures/hazards: No caffeine: Yes Have you lived/traveled outside [place] in past 30 days?: No Contact w/someone who lives/traveled outside US past 30 days?: No Exposure to someone with infectious disease in past 14 days?: No Do you have a fever (greater than 100.4 F or 38 C)?: No Have you tested positive for COVID-19: No Exposed to someone with COVID-19 in past 14 days?: No Do you have a sore throat?: No Do you have a cough?: No Do you have any weakness?: No Do you have any diarrhea?: No Are you experiencing any unusual bleeding?: No Do you have any muscle aches/pain?: No Do you have any abdominal pain?: No Are you experiencing loss of taste or smell?: No Other Medical History Have you received the Flu Vaccine for this season: Yes Have you received the Pneumonia Vaccine: Yes ROS Obtained: Yes All systems reviewed & no additional complaints except as documented Physical Exam General General appearance: alert and in no apparent distress Neck Neck exam: Present other (Soft tissue mass noted around C6-C7 just off to the midline to the right he is also having significant midline cervical spine tenderness bilateral upper extremity neurovascular exam is normal with good strength) Respiratory Respiratory exam: Present normal lung sounds bilaterally Cardiovascular Cardiovascular exam: Present regular rate Neurological Exam Neurological exam: Present alert, oriented X3 and other (Median ulnar radial and axillary motor and sensory upper extremity exam normal) Medical Decision Making Medical Records Screening: Per USPSTF and CDC recommendations, given the prevalence of disease in our region, it is our hospital?s policy to screen for HIV and viral Hepatitis for all patients aged 18 and over and those with ongoing risk factors. Asim Inquiry Pt receiving controlled substance: No Vital Signs: 09/07/24 09:30 09/07/24 11:20 Temperature 98.6 F 98.2 F Temperature Source Oral Oral Pulse Rate 85 Pulse Rate [Right] 66 Respiratory Rate 18 20 Blood Pressure 170/88 H Blood Pressure [Right Arm] 184/91 H Blood Pressure Mean [Right Arm] 122 Blood Pressure Source Automatic Cuff 02 Sat by Pulse Oximetry 97 Oxygen Delivery Method Room Air Room Air Lab Data Lab results reviewed: Yes I reviewed the patient's lab results. Lab Results 09/07/24 09:57: WBC 6.9, RBC 4.66, Hgb 13.9 L, Hct 41.7 L, MCV 89.3, MCH 29.8, MCHC 33.4, RDW 14.0, Plt Count 178, MPV 7.8, Neut % (Auto) 54.5, Lymph % (Auto) 32.1, [place] % (Auto) 6.8, Eos % (Auto) 5.2, Baso % (Auto) 1.3, Neut # (Auto) 3.8, Lymph # (Auto) 2.2, [place] # (Auto) 0.5, Eos # (Auto) 0.4, Baso # (Auto) 0.1, Sodium 140, Potassium 4.4, Chloride 107, Carbon Dioxide 28, Anion Gap 9.4, BUN 13, Creatinine 0.80, Estimated Creat Clear 89, Estimated GFR 95, Est GFR ( Amer) 115, Glucose 172 H, Calcium 9.2, C-Reactive Protein 1.1 09/07/24 09:57 09/07/24 09:57 Orders (Tests/Meds): ED MEDICATIONS Discontinued Medications Generic Name Dose Route Start Last Admin Trade Name Catherine PRN Reason Stop Dose Admin Acetaminophen 1,000 mg 09/07/24 09:50 09/07/24 09:58 Acetaminophen 1,000mg/100ml Vial IV 09/07/24 09:51 1,000 mg ONCE ONE Administration Sodium Chloride 500 mls @ 999 mls/hr 09/07/24 09:50 09/07/24 09:58 Sod Chlor 0.9% 1000ml Bag IV 09/07/24 10:20 999 mls/hr .Q31M ONE Administration Iopamidol 75 ml 09/07/24 10:45 09/07/24 10:46 Iopamidol-370 (76%);100ml Bottle IV 09/07/24 10:46 75 ml ONCE ONE Administration Ketorolac Tromethamine 15 mg 09/07/24 09:48 09/07/24 09:58 Ketorolac 30mg/Ml Vial IV 09/07/24 09:49 15 mg ONCE ONE Administration Lidocaine 1 each 09/07/24 09:48 09/07/24 09:58 Lidocaine 5% Transdermal Patch TP 09/07/24 09:49 1 each ONCE ONE Administration Sodium Chloride 10 ml 09/07/24 10:45 09/07/24 10:46 Sodium Chloride 0.9% 10ml Syr (Rad Only) IV 09/07/24 10:46 10 ml ONCE ONE Administration ORDERS Category Date Time Status CT cervical spine wo con Stat Cat Scan 09/07/24 09:[address] soft tissue neck w con Stat Cat Scan 09/07/24 09:48 Completed BMP [Basic Metabolic Panel] Stat Lab 09/07/24 09:57 Completed CBC w/Auto Diff [Complete Blood Count Auto Diff] Stat Lab 09/07/24 09:57 Completed CRP [C-Reactive Protein] Stat Lab 09/07/24 09:57 Completed HIV (1&2) Antibody Rapid Stat Lab 09/07/24 09:57 Received Hep C Ab with Reflex to RNA Stat Lab 09/07/24 09:57 Received Medical Decision Narrative: 74-year-old with above history and physical with acute on chronic cervical spine pain. He has midline cervical spine tenderness as well as a soft tissue mass and has not had any imaging for years we will proceed with a CT scan without contrast of the cervical spine and with contrast of the soft tissue neck to further evaluate this. Differential includes chronic pain from degenerative cervical spine disease, destructive bony pathology associated with a cancerous lesion or metastatic cancer, etc. IV Tylenol and Toradol and a superficial lidocaine patch have been administered and will reassess. I do not plan on escalating with opiates given patient's chronicity with that modality of pain medication. CT scans were performed which I personally interpreted which show no evidence of acute fracture dislocation or bony destruction there is a lipoma that is well-circumscribed and not invasive for concerning for malignancy. This is not contributory to the patient's pain. I have given the patient a referral to [facility] surgeon Dr. Rojas. Symptoms are somewhat improved he has been advised to follow-up with Dr. Horvath for further escalation of chronic pain control. Critical Care Critical Care Time Critical Care Time: No
[2024-09-07 10:13] LABS: Basophils # 0.1 K/mm3 (0-0.2); Basophils % 1.3 % (0.1-2.0); Eosinophils # 0.4 K/mm3 (0.0-0.4); Eosinophils % 5.2 % (0.1-12.0); Hematocrit 41.7 % (42.0-52.0); Hemoglobin 13.9 g/dL (14.1-18.0); Lymphocytes # 2.2 K/mm3 (0.7-4.5); Lymphocytes % 32.1 % (10-50); Mean Corpuscular HGB Conc 33.4 g/dL (31.8-35.4); Mean Corpuscular Hemoglobin 29.8 pg (27.0-31.2); Mean Corpuscular Volume 89.3 fl (80-94); Mean Platelet Volume 7.8 fl (7.4-10.4); Monocytes # 0.5 K/mm3 (0.1-1.0); Monocytes % 6.8 % (1.7-9.3); Neutrophils # 3.8 K/mm3 (1.8-7.8); Neutrophils % 54.5 % (37.0-80.0); Platelet Count 178 K/mm3 (142-424); Red Blood Count 4.66 M/mm3 (4.60-6.20); White Blood Count 6.9 K/mm3 (4.8-10.8)
[2024-09-07 10:18] LABS: Chloride 107 mmol/L (98-107); Potassium 4.4 mmoL/L (3.5-5.1); Sodium 140 mmol/L (136-145)
[2024-09-07 10:21] LABS: Anion Gap 9.4 mEq/L (5-15); Blood Urea Nitrogen 13 mg/dl (9-20); Carbon Dioxide 28 mmol/L (22.0-30.0); Creatinine Clearance Estimated 89 mL/min (50-200); Estimated Glomerular Filt Rate 95 ml/min (>60); GFR (African American) 115 ML/MIN (>60)
[2024-09-07 10:22] LABS: Calcium 9.2 mg/dl (8.4-10.2); Glucose 172 mg/dl (74-100)
[2024-09-07 10:27] LABS: C-Reactive Protein 1.1 mg/L (0-4)
[2024-09-07] MEDS: SODIUM CHLORIDE 0.9% 10ML SYR (RAD ONLY) 10 ML IV (10:46)
[2024-09-07] MEDS: IOPAMIDOL-370 (76%);100ML BOTTLE 75 ML IV (10:46)
--- NOTE | 2024-09-07 11:19 | PC.NURSE ---
Dr. Carroll discussing results and POC with pt
[2024-09-07 11:20] VITALS: BP 152/92; PULSE 59; RESP 20; TEMP 36.8; O2SAT 98
[2024-09-07 13:55] LABS: HIV Combo NEGATIVE (Negative)
[2024-09-08 10:08] LABS: HCV Ab Non Reactive (Non Reactive)
== END 2024-09-07 11:29 | disposition home or self-care (01) ==
PROVIDERS: Emergency Provider Student in an Organized Health Care Education/Training Program; PCP Psychiatry & Neurology Neurology
DX: D17.0 Benign lipomatous neoplasm of skin and subcutaneous tissue of head, face and neck (principal); M54.2 Cervicalgia; M54.9 Dorsalgia, unspecified
CPT/HCPCS: 70491; 72125; 80048; 85025; 86140; 86803; 87389; 96361; 96374; 96375; 99285; J0131; J1885; J7030; Q9967

== ENCOUNTER 2024-10-02 08:08 | Outpatient (POV) | payer MEDICARE, SELFPAY ==
[2024-10-02 09:19] VITALS: BP 166/81; PULSE 69; RESP 14; O2SAT 100; BMI 29.5
--- NOTE | 2024-10-02 09:27 | A.OFFVIS_ITS ---
[facility] Disclaimer: The information contained in this section may have been updated after the patient was seen, as this information can be updated by other users. 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 Today he does rate his pain a 9 out of 10. Patient denies any new injury or trauma however states he ended up having to go to the ER a couple weekends ago due to worsening neck pain. He does state that he was very upset with how his treatment was by the practitioner who we saw. He does state that he was very rude and treated him like a drug seeker. Patient states that the pain is constant and describes it as an aching, throbbing sensation with numbness and tingling into his upper extremities. Patient does state the pain interferes with his ability perform activities of daily living such as cooking and cleaning. Patient is very active and has continued conservative treatment including oral medications, heat and ice, topicals, massage therapy and co ntinued at home stretching exercise for longer than 12 weeks that was physician guided with no additional changes. Patient does state that from the updated CT they did end up sending him to to be seen by neurosurgery however that he ended up getting a phone call from [facility] that they sent it on over to this physician office. He states that they did tell him I do not have any neurosurgeons at that location currently. Patient is currently managed with Percocet 10 mg 4 times a day and methocarbamol 750 mg twice a day. He denies any side effects from this medication. He does state that he only takes the methocarbamol as needed and that he cannot take it at night because it seems to keep him awake. He does state at bedtime it just seems like it is the worst and he has trouble sleeping due to the pain. His Asim has been reviewed and is appropriate. Review of Systems: General: No recent weight changes, no fever, no sleep disturbances Respiratory: No cough, no shortness of air, no recurring pulmonary infections Cardiovascular/peripheral vascular: No chest pain, no palpitations, no edema, no shortness of breath Gastrointestinal: No new onset incontinence, normal bowel movements reported Genitourinary: No new onset incontinence Musculoskeletal: Neck pain, upper extremity numbness tingling Psychiatric: [Normal mood/affect] Neurological: [Denies weakness in extremities], [denies balance issues] Pain at rest (0-10 scale): 9 Objective Objective:: Physical Exam: General: Alert and oriented x3, no acute distress, pleasant and cooperative Lungs: Respirations even and unlabored, symmetrical chest expansion Eyes: PERRL Musculoskeletal: Flexion and extension of cervical [spine] somewhat guarded secondary to pain, [antalgic gait noted] positive Spurling's test Neurological: Speech clear, no gross sensory deficit Has patient had previous pain injection?: No Conservative treatment options previously tried: Home exercise plan Length of treatment: Longer than 12 weeks Meds Home Medications and Allergies Home Medications ?Medication ?Instructions ?Recorded ?Confirmed ?Type aspirin 81 mg tablet,delayed 81 mg PO DAILY prevention 12/20/18 10/02/24 History release furosemide 20 mg tablet 20 mg PO BID swelling 03/23/21 10/02/24 History ergocalciferol (vitamin D2) 1,250 50,000 unit PO QWEEK Supplement 06/26/22 10/02/24 Rx mcg (50,000 unit) capsule #14 caps nitroglycerin 0.4 mg sublingual 0.4 mg sublingual Q5M PRN chest 06/26/22 10/02/24 Rx tablet pain #20 tabs canagliflozin 100 mg tablet See Rx Instructions .Route 11/26/23 10/02/24 Rx (Invokana) .COMPLEX #90 tabs lidocaine 5 % topical patch 1 patch topical DAILY #30 ea 11/26/23 10/02/24 Rx losartan 100 mg tablet See Rx Instructions .Route 11/26/23 10/02/24 Rx .COMPLEX #90 tabs glimepiride 4 mg tablet See Rx Instructions .Route 01/21/24 10/02/24 Rx .COMPLEX #180 tabs levothyroxine 88 mcg tablet See Rx Instructions .Route 01/21/24 10/02/24 Rx .COMPLEX #90 tabs rosuvastatin 40 mg tablet See Rx Instructions .Route 02/19/24 10/02/24 Rx .COMPLEX #90 tabs sitagliptin phosphate 100 mg See Rx Instructions .Route 02/29/24 10/02/24 Rx tablet (Januvia) .COMPLEX #90 tabs methocarbamol 750 mg tablet 750 mg PO TID PRN muscle pain #90 03/31/24 10/02/24 Rx tabs simvastatin 80 mg tablet 80 mg PO HS 06/10/24 10/02/24 History isosorbide mononitrate 30 mg See Rx Instructions .Route 07/07/24 10/02/24 Rx tablet,extended release 24 hr .COMPLEX #90 tabs metformin 1,000 mg tablet See Rx Instructions .Route 08/14/24 10/02/24 Rx .COMPLEX #180 tabs carvedilol 6.25 mg tablet See Rx Instructions .Route 09/18/24 10/02/24 Rx .COMPLEX #180 tabs omeprazole 20 mg capsule,delayed See Rx Instructions .Route 10/01/24 10/02/24 Rx release .COMPLEX #90 caps oxycodone-acetaminophen 10 mg-325 1 tab PO QID . #120 tabs 10/02/24 Rx mg tablet (Percocet) tizanidine 4 mg tablet (Zanaflex) 4 mg PO HS #30 tabs 10/02/24 Rx New Prescriptions to Start Prescriptions: oxycodone-acetaminophen [Percocet] Rosey Horvathjum tizanidine [Zanaflex] Windy Purcell Allergies Allergy/AdvReac Type Severity Reaction Status Date / Time lisinopril Allergy Intermediate I-HIVES Verified 06/10/24 09:39 morphine Allergy Unknown Verified 06/10/24 09:39 Assessment and Plan *Assessment and plan (1) Chronic neck pain: Status: Acute Category: Medical Code(s): M54.2 - Cervicalgia; G89.29 - Other chronic pain (2) Facet arthropathy, cervical: Status: Acute Category: Medical Code(s): M47.812 - Spondylosis without myelopathy or radiculopathy, cervical region (3) Cervical spondylosis: Status: Acute Category: Medical Code(s): M47.812 - Spondylosis without myelopathy or radiculopathy, cervical region (4) Cervical radiculopathy: Status: Acute Category: Medical Code(s): M54.12 - Radiculopathy, cervical region (5) Degenerative disc disease, cervical: Status: Acute Category: Medical Code(s): M50.30 - Other cervical disc degeneration, unspecified cervical region Plan Patient is experiencing worsening pain in his neck with radiating numbness in his upper extremities. 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 I did discuss with the patient that he may benefit from repeat epidural steroid injection. Patient's latest updated CT did show more severe narrowing at the C5-C6 level. I did review over with him that I would like to do the epidural at this location. Risk and benefits were discussed with the patient and he would like to proceed forward with this plan of care. Patient has had prior cervical epidurals in the past that did provide significant relief of of more than 50% but generally varies how well it improves his right hand numbness. Patient in the past has be en sent to hand specialist for extremity. Patient's last cervical epidural was in May however was at the C6-C7 level. We will submit to insurance for the MAX C5-C6 under fluoroscopy. I will refill the patient's Percocet and send in a new prescription of tizanidine 4 mg at bedtime. Risks and benefits of the medication have been explained in detail to the patient. The patient does understand the risk of dependence on the medication when given over a prolonged period. Patient has been advised of risks of oversedation with the prescribed medication. Narcan has been offered to the paitent in the event of oversedation. Patient has been advised that a family member should also be educated regarding administration of Narcan. The patient has been advised to consult with his/her primary care provider and pharmacist regarding drug-drug interaction of medications currently prescribed. Patient has been prescribed a controlled substance after being counseled on the medication, medication safety, and possible side effects. Opioid contract was reviewed and signed by the patient, and that they have agreed to all of the terms set forth by our compliance program. A UDS is needed to verify patient's compliance with our office pain contract. This is ordered based off specific treatments related to chronic pain with the potential to abuse certain medications. Patient has been instructed to contact the clinic with any concerns before the next appointment. Dr. Horvath has reviewed this note and agrees with this plan of care. This note was dictated using voice recognition software and make contain errors or omissions.
== END 2024-10-02 23:59 | disposition home or self-care (01) ==
PROVIDERS: PCP Internal Medicine; Visit Provider Nurse Practitioner Family
DX: M47.26 Other spondylosis with radiculopathy, lumbar region (principal); M50.10 Cervical disc disorder with radiculopathy, unspecified cervical region; G89.29 Other chronic pain; Z73.89 Other problems related to life management difficulty; Z79.899 Other long term (current) drug therapy
CPT/HCPCS: 99212; G0463

== ENCOUNTER 2024-10-14 10:56 | Day surgery (SDC) | payer MEDICARE, SELFPAY ==
[2024-10-14 11:40] VITALS: BP 148/66; PULSE 62; RESP 18; TEMP 36.9; O2SAT 97; BMI 29.4
[2024-10-14 12:00] VITALS: BP 133/70; PULSE 67; RESP 18; O2SAT 99
[2024-10-14] MEDS: IOPAMIDOL-200 (41%);10ML VIAL IV (12:04)
--- NOTE | 2024-10-14 12:07 | P.PCN_ITS ---
Procedure Date: 10/14/24 Time: 11:40 Anesthesiologist:: Lexa Leavitt CRNA Complications:: None Pre-procedure Diagnosis:: Degenerative disc cervical spine multilevels. Cervical radiculopathy. Disc bulge cervical spine multilevel. Cervical spondylosis. Multilevel cervical facet arthropathy. Post-procedure Diagnosis:: Same. Indications for Procedure:: Patient is a very pleasant 74-year-old male who comes our clinic today for cervical epidural steroid injection. Patient describes posterior cervical neck pain that is constant, dull, aching. Patient having difficulty with cervical flexion, extension, left and right rotation. Patient also reporting some bilateral shoulder and arm radicular symptoms at times. This includes his hands at times in terms of numbness and tingling. He rates his pain 7/10. Procedure Details:: Procedure:Cervical epidural steroid injection Informed consent was obtained and the risks and benefits of the procedure were explained to the patient. The patient was taken to the procedure room and noninvasive monitors placed, including noninvasive blood pressure cuff and pulse oximeter. The neck was prepped using Chloraprep as a cleansing solution. The C6- C7 interspace was viewed using fluroscopy. The skin and subcutaneous tissues were anesthetized using lidocaine 1.5% and a 25-gauge needle. After this an 18- gauge Touhy epidural needle was placed into the C6-C7 interspace under fluroscopy guidance and advanced using loss of resistance to air until the epidural space was encountered. After confirmation of needle placement in the epidural space using contrast dye, a solution containing normal saline, 2 mL and Depo-Medrol 80 mg was incrementally injected into the cervical epidural space.~ The patient tolerated the procedure well with no complications. The patient was observed in the Pain Clinic and then discharged home neurologically intact. Plan and Disposition:: Patient was discharged without incident.
[2024-10-14 12:41] VITALS: BP 188/89; PULSE 75; RESP 18; O2SAT 96
[2024-10-14] MEDS: methylPREDNISolone ACETATE 80MG/ML VIAL 80 MG (12:41)
[2024-10-14 12:42] VITALS: BP 188/89; PULSE 75; RESP 18; O2SAT 96
== END 2024-10-14 12:00 | disposition home or self-care (01) ==
LOC: SC.PAINP 10:59
PROVIDERS: PCP Internal Medicine; Visit Provider Nurse Anesthetist, Certified Registered
DX: M50.30 Other cervical disc degeneration, unspecified cervical region (principal); M47.22 Other spondylosis with radiculopathy, cervical region
CPT/HCPCS: 62321; J1010; Q9966

== ENCOUNTER 2024-10-29 13:29 | Outpatient (POV) | payer MEDICARE, SELFPAY ==
[2024-10-29 14:09] VITALS: BP 114/60; PULSE 70; RESP 14; O2SAT 97; BMI 29.0
--- NOTE | 2024-10-29 14:14 | A.OFFVIS_ITS ---
[facility] Disclaimer: The information contained in this section may have been updated after the patient was seen, as this information can be updated by other users. 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 current occupational exposures/hazards: No caffeine: Yes PM Subjective & Objective Subjective Subjective:: Patient is a pleasant 74-year-old male who presents today for follow-up of his cervical epidural steroid injection C6 or C7 on 10/14/2024. He does rate his pain today a 5 out of 10. He denies any new falls or injuries. He does state that it took about 3 days for it to kick in however it has provided 80 to 85% improvement. He states he is much better regarding his range of motion with his neck and that the symptoms are not nearly the severity that they were. He st ates the pain is much more manageable now. Patient is currently managed with Percocet 10 mg 4 times a day and tizanidine 4 mg at bedtime. He denies any side effects. He is requesting refills. His Asim has been reviewed and is appropriate. Review of Systems: General: No recent weight changes, no fever, no sleep disturbances Respiratory: No cough, no shortness of air, no recurring pulmonary infections Cardiovascular/peripheral vascular: No chest pain, no palpitations, no edema, no shortness of breath Gastrointestinal: No new onset incontinence, normal bowel movements reported Genitourinary: No new onset incontinence Musculoskeletal: Neck pain, low back pain Psychiatric: [Normal mood/affect] Neurological: [Denies weakness in extremities], [denies balance issues] Pain at rest (0-10 scale): 5 Objective Objective:: Physical Exam: General: Alert and oriented x3, no acute distress, pleasant and cooperative Lungs: Respirations even and unlabored, symmetrical chest expansion Eyes: PERRL Musculoskeletal: Flexion and extension of lumbar [spine] somewhat guarded secondary to pain, [antalgic gait noted] Neurological: Speech clear, no gross sensory deficit Has patient had previous pain injection?: Yes Percent improvement in pain since last injection: 80 to 85% Conservative treatment options previously tried: Home exercise plan Length of treatment: Longer than 12 weeks Meds Home Medications and Allergies Home Medications ?Medication ?Instructions ?Recorded ?Confirmed ?Type aspirin 81 mg tablet,delayed 81 mg PO DAILY prevention 12/20/18 10/29/24 History release furosemide 20 mg tablet 20 mg PO BID swelling 03/23/21 10/29/24 History ergocalciferol (vitamin D2) 1,250 50,000 unit PO QWEEK Supplement 06/26/22 10/29/24 Rx mcg (50,000 unit) capsule #14 caps nitroglycerin 0.4 mg sublingual 0.4 mg sublingual Q5M PRN chest 06/26/22 10/29/24 Rx tablet pain #20 tabs lidocaine 5 % topical patch 1 patch topical DAILY #30 ea 11/26/23 10/29/24 Rx losartan 100 mg tablet See Rx Instructions .Route 11/26/23 10/29/24 Rx .COMPLEX #90 tabs rosuvastatin 40 mg tablet See Rx Instructions .Route 02/19/24 10/29/24 Rx .COMPLEX #90 tabs methocarbamol 750 mg tablet 750 mg PO TID PRN muscle pain #90 03/31/24 10/29/24 Rx tabs simvastatin 80 mg tablet 80 mg PO HS 06/10/24 10/29/24 History isosorbide mononitrate 30 mg See Rx Instructions .Route 07/07/24 10/29/24 Rx tablet,extended release 24 hr .COMPLEX #90 tabs metformin 1,000 mg tablet See Rx Instructions .Route 08/14/24 10/29/24 Rx .COMPLEX #180 tabs carvedilol 6.25 mg tablet See Rx Instructions .Route 09/18/24 10/29/24 Rx .COMPLEX #180 tabs omeprazole 20 mg capsule,delayed See Rx Instructions .Route 10/01/24 10/29/24 Rx release .COMPLEX #90 caps oxycodone-acetaminophen 10 mg-325 1 tab PO QID . #120 tabs 10/02/24 10/29/24 Rx mg tablet (Percocet) tizanidine 4 mg tablet (Zanaflex) 4 mg PO HS #30 tabs 10/02/24 10/29/24 Rx canagliflozin 100 mg tablet See Rx Instructions .Route 10/22/24 10/29/24 Rx (Invokana) .COMPLEX #90 tabs glimepiride 4 mg tablet See Rx Instructions .Route 10/22/24 10/29/24 Rx .COMPLEX #180 tabs levothyroxine 88 mcg tablet See Rx Instructions .Route 10/22/24 10/29/24 Rx .COMPLEX #90 tabs sitagliptin phosphate 100 mg See Rx Instructions .Route 10/22/24 10/29/24 Rx tablet (Januvia) .COMPLEX #90 tabs New Prescriptions to Start Prescriptions: Allergies Allergy/AdvReac Type Severity Reaction Status Date / Time lisinopril Allergy Intermediate I-HIVES Verified 06/10/24 09:39 morphine Allergy Unknown Verified 06/10/24 09:39 Assessment and Plan *Assessment and plan (1) Chronic neck pain: Status: Acute Category: Medical Code(s): M54.2 - Cervicalgia; G89.29 - Other chronic pain (2) Facet arthropathy, cervical: Status: Acute Category: Medical Code(s): M47.812 - Spondylosis without myelopathy or radiculopathy, cervical region (3) Cervical spondylosis: Status: Acute Category: Medical Code(s): M47.812 - Spondylosis without myelopathy or radiculopathy, cervical region (4) Degenerative disc disease, cervical: Status: Acute Category: Medical Code(s): M50.30 - Other cervical disc degeneration, unspecified cervical region (5) Lumbar disc disease: Status: Acute Category: Medical Code(s): M51.9 - Unspecified thoracic, thoracolumbar and lumbosacral intervertebral disc disorder Plan Patient has had significant improvement following his cervical epidural and does not require any additional injection therapy at this time. I will refill the patient's Percocet and tizanidine and provide a 1 month supply of this medication. Patient will return to clinic in 1 month for reevaluation of symptoms and plan of care. Risks and benefits of the medication have been explained in detail to the patient. The patient does understand the risk of dependence on the medication when given over a prolonged period. Patient has been advised of risks of oversedation with the prescribed medication. Narcan has been offered to the paitent in the event of oversedation. Patient has been advised that a family member should also be educated regarding administration of Narcan. The patient has been advised to consult with his/her primary care provider and pharmacist regarding drug-drug interaction of medications currently prescribed. Patient has been prescribed a controlled substance after being counseled on the medication, medication safety, and possible side effects. Opioid contract was reviewed and signed by the patient, and that they have agreed to all of the terms set forth by our compliance program. A UDS is needed to verify patient's compliance with our office pain contract. This is ordered based off specific treatments related to chronic pain with the potential to abuse certain medications. Patient has been instructed to contact the clinic with any concerns before the next appointment. Dr. Horvath has reviewed this note and agrees with this plan of care. This note was dictated using voice recognition software and make contain errors or omissions.
== END 2024-10-29 23:59 | disposition home or self-care (01) ==
PROVIDERS: PCP Internal Medicine; Visit Provider Nurse Practitioner Family
DX: M47.812 Spondylosis without myelopathy or radiculopathy, cervical region (principal); M50.30 Other cervical disc degeneration, unspecified cervical region; M51.369 Other intervertebral disc degeneration, lumbar region without mention of lumbar back pain or lower extremity pain; Z79.899 Other long term (current) drug therapy
CPT/HCPCS: 99212; G0463

== ENCOUNTER 2024-11-26 08:35 | Outpatient (POV) | payer MEDICARE, SELFPAY ==
[2024-11-26 09:35] VITALS: BP 132/69; PULSE 71; RESP 14; O2SAT 98; BMI 29.5
--- NOTE | 2024-11-26 09:37 | A.OFFVIS_ITS ---
[facility] Disclaimer: The information contained in this section may have been updated after the patient was seen, as this information can be updated by other users. 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 current occupational exposures/hazards: No caffeine: Yes PM Subjective & Objective Subjective Subjective:: Patient is a pleasant 74-year-old male who presents today for worsening low back pain along the right side. He rates his pain a 9 out of 10. He denies any new injury or fall. He states that he is having that same pain that he has had in the past that has progressively worsened over the last month. He describes it as an aching, throbbing sensation that goes from his low back to his right hip and upper thigh. He does state that it is interfering with his ability to perform activities of daily living such as cooking and cleaning. Patient is interested in additional injection therapy. He is also managed we had tizanidine 4 mg at bedtime and Percocet 10 mg 4 times a day he denies any side effects and states he just needs refills on the Percocet. He does state that the 4 mg does seem a little strong for him so he has been cutting it in half and does not need refills at this time. His Asim has been reviewed and is appropriate. Review of Systems: General: No recent weight changes, no fever, no sleep disturbances Respiratory: No cough, no shortness of air, no recurring pulmonary infections Cardiovascular/peripheral vascular: No chest pain, no palpitations, no edema, no shortness of breath Gastrointestinal: No new onset incontinence, normal bowel movements reported Genitourinary: No new onset incontinence Musculoskeletal: Right-sided low back pain, right hip pain Psychiatric: [Normal mood/affect] Neurological: [Denies weakness in extremities], [denies balance issues] Pain at rest (0-10 scale): 9 Objective Objective:: Physical Exam: General: Alert and oriented x3, no acute distress, pleasant and cooperative Lungs: Respirations even and unlabored, symmetrical chest expansion Eyes: PERRL Musculoskeletal: Flexion and extension of lumbar [spine] somewhat guarded secondary to pain, [antalgic gait noted] point tenderness along right SI with positive right Patricia's, Zayra's, Gaenslen's, compression and distraction exam Neurological: Speech clear, no gross sensory deficit Has patient had previous pain injection?: No Conservative treatment options previously tried: Home exercise plan Length of treatment: Longer than 12 weeks and Prescription medications Length of treatment: Longer than 12 weeks Meds Home Medications and Allergies Home Medications ?Medication ?Instructions ?Recorded ?Confirmed ?Type aspirin 81 mg tablet,delayed 81 mg PO DAILY prevention 12/20/18 10/29/24 History release furosemide 20 mg tablet 20 mg PO BID swelling 03/23/21 10/29/24 History ergocalciferol (vitamin D2) 1,250 50,000 unit PO QWEEK Supplement 06/26/22 10/29/24 Rx mcg (50,000 unit) capsule #14 caps nitroglycerin 0.4 mg sublingual 0.4 mg sublingual Q5M PRN chest 06/26/22 10/29/24 Rx tablet pain #20 tabs lidocaine 5 % topical patch 1 patch topical DAILY #30 ea 11/26/23 10/29/24 Rx rosuvastatin 40 mg tablet See Rx Instructions .Route 02/19/24 10/29/24 Rx .COMPLEX #90 tabs methocarbamol 750 mg tablet 750 mg PO TID PRN muscle pain #90 03/31/24 10/29/24 Rx tabs simvastatin 80 mg tablet 80 mg PO HS 06/10/24 10/29/24 History isosorbide mononitrate 30 mg See Rx Instructions .Route 07/07/24 10/29/24 Rx tablet,extended release 24 hr .COMPLEX #90 tabs metformin 1,000 mg tablet See Rx Instructions .Route 08/14/24 10/29/24 Rx .COMPLEX #180 tabs carvedilol 6.25 mg tablet See Rx Instructions .Route 09/18/24 10/29/24 Rx .COMPLEX #180 tabs omeprazole 20 mg capsule,delayed See Rx Instructions .Route 10/01/24 10/29/24 Rx release .COMPLEX #90 caps canagliflozin 100 mg tablet See Rx Instructions .Route 10/22/24 10/29/24 Rx (Invokana) .COMPLEX #90 tabs glimepiride 4 mg tablet See Rx Instructions .Route 10/22/24 10/29/24 Rx .COMPLEX #180 tabs levothyroxine 88 mcg tablet See Rx Instructions .Route 10/22/24 10/29/24 Rx .COMPLEX #90 tabs sitagliptin phosphate 100 mg See Rx Instructions .Route 10/22/24 10/29/24 Rx tablet (Januvia) .COMPLEX #90 tabs oxycodone-acetaminophen 10 mg-325 1 tab PO QID . #120 tabs 10/29/24 Rx mg tablet (Percocet) tizanidine 4 mg tablet (Zanaflex) 4 mg PO HS #30 tabs 10/29/24 Rx losartan 100 mg tablet See Rx Instructions .Route 11/26/24 Rx .COMPLEX #90 tabs New Prescriptions to Start Prescriptions: Allergies Allergy/AdvReac Type Severity Reaction Status Date / Time lisinopril Allergy Intermediate I-HIVES Verified 06/10/24 09:39 morphine Allergy Unknown Verified 06/10/24 09:39 Assessment and Plan *Assessment and plan (1) Sacroiliitis: Status: Acute Category: Medical Code(s): M46.1 - Sacroiliitis, not elsewhere classified Plan Patient is experiencing worsening pain along the low back and right hip. They did have limited range of motion of the lumbar spine along with point tenderness along right SI joint and a positive right Patricia's, Zayra's, Gaenslen's, compression and distraction exam. I did discuss with the patient that I do believe they would benefit from right SI injection. Risk and benefits were discussed with the patient and they would like to proceed forward with this option. Patient has tried and failed conservative therapy including continued at home stretching exercise for longer than 12 weeks in between injections. Patient had his last SI injections back in February 2024 that did provide 80% relief and has worked well up until the last month providing more than 7 months of relief. Patient will be scheduled for right SI injection under fluoroscopy. I will also refill his Percocet and provide a 1 month supply of this medication. I did discuss with him that in future when we go to refill his tizanidine we will make at the 2 mg. Patient agrees with this plan of care. Risks and benefits of the medication have been explained in detail to the patient. The patient does understand the risk of dependence on the medication when given over a prolonged period. Patient has been advised of risks of oversedation with the prescribed medication. Narcan has been offered to the paitent in the event of oversedation. Patient has been advised that a family member should also be educated regarding administration of Narcan. The patient has been advised to consult with his/her primary care provider and pharmacist regarding drug-drug interaction of medications currently prescribed. Patient has been prescribed a controlled substance after being counseled on the medication, medication safety, and possible side effects. Opioid contract was reviewed and signed by the patient, and that they have agreed to all of the terms set forth by our compliance program. A UDS is needed to verify patient's compliance with our office pain contract. This is ordered based off specific treatments related to chronic pain with the potential to abuse certain medications. Patient has been instructed to contact the clinic with any concerns before the next appointment. Dr. Horvath has reviewed this note and agrees with this plan of care. This note was dictated using voice recognition software and make contain errors or omissions.
== END 2024-11-26 23:59 | disposition home or self-care (01) ==
PROVIDERS: PCP Internal Medicine; Visit Provider Nurse Practitioner Family
DX: M46.1 Sacroiliitis, not elsewhere classified (principal); Z73.89 Other problems related to life management difficulty; Z79.899 Other long term (current) drug therapy
CPT/HCPCS: 99212; G0463

== ENCOUNTER 2024-12-16 10:19 | Day surgery (SDC) | payer MEDICARE, SELFPAY ==
[2024-12-16 10:38] VITALS: BP 141/65; PULSE 66; RESP 16; TEMP 36.8; O2SAT 97; BMI 29.5
[2024-12-16] MEDS: BUPIVACAINE 0.25% 10ML INJ 25 MG IJ (10:58)
[2024-12-16] MEDS: methylPREDNISolone ACETATE 80MG/ML VIAL 80 MG (10:58)
[2024-12-16] MEDS: LIDOCAINE 1% 5ML PF VIAL 5 ML (10:58)
[2024-12-16 10:59] VITALS: BP 141/65; PULSE 66; RESP 18; O2SAT 97
[2024-12-16 11:00] VITALS: BP 141/65; PULSE 66; RESP 18; O2SAT 97
[2024-12-16 11:01] VITALS: BP 151/70; PULSE 69; RESP 16; O2SAT 98
--- NOTE | 2024-12-16 11:01 | EXP.PAIN.PRO ---
Procedure Date: 12/16/24 Time: 10:45 Anesthesiologist:: Lexa Leavitt CRNA Complications:: None Pre-procedure Diagnosis:: Right sacroiliitis Post-procedure Diagnosis:: Same Indications for Procedure:: Patient is a pleasant 74-year-old male who comes our clinic today for right sacroiliac joint injection of cortisone and local anesthetic. Patient describes right low lumbar back pain. Right posterior hip pain. Difficulty transitioning from sitting to standing. Difficulty with ambulation. He rates his pain 7/10. Procedure Details:: Procedure: Right sacroliliac joint injection under fluoroscopy Informed consent was obtained and the risk and benefits of the procedure were explained to the patient.~ The patient was taken to the procedure room and noninvasive monitors were placed including noninvasive blood pressure cuff and pulse oximeter.~ The patient was placed prone on the procedure table.~ The~ right hip was cleansed using Betadine as a cleansing solution.~ C-arm fluorosocpy was used to view the right SI joint.~ The skin and subcutaneous tissues were anesthetized using Lidocaine 1.5% and a 25-gauge needle.~ After this, a 22-gauge spinal needle was inserted under fluoroscopic guidance into the inferior aspect of the right SI joint.~ Omnipaque dye was injected and a good spread was seen throughout the joint.~ After this, approximately 5 mL of bupivacaine 0.25% and Depo-Medrol 40 mg was incrementally injected into the sacroiliac joint.~ The patient tolerated the procedure well with no complications.~ The patient was observed in the Pain Clinic, then discharged home neurologically intact.~ Plan and Disposition:: Patient was discharged without incident.
== END 2024-12-16 11:01 | disposition home or self-care (01) ==
PROVIDERS: PCP Internal Medicine; Visit Provider Nurse Anesthetist, Certified Registered
DX: M46.1 Sacroiliitis, not elsewhere classified (principal)
CPT/HCPCS: 27096; G0260; J1010

== ENCOUNTER 2024-12-31 08:28 | Outpatient (POV) | payer MEDICARE, SELFPAY ==
[2024-12-31 08:45] VITALS: BP 134/70; PULSE 59; RESP 14; O2SAT 97; BMI 29.5
--- NOTE | 2024-12-31 08:56 | EXP.PAIN.SOA ---
[facility] Disclaimer: The information contained in this section may have been updated after the patient was seen, as this information can be updated by other users. 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 current occupational exposures/hazards: No caffeine: Yes PM Subjective & Objective Subjective Subjective:: Patient is a pleasant 74-year-old male who presents today for follow-up of right SI injection on 12/16/2024. Today he rates his pain a 4 out of 10. He denies any new trauma or injury. He does state that he has had at least 80 to 90% improvement following this injection and feels like it is still helping. He states that the pain is nothing like what it was and that he is able to do more. Patient does state that he will have an occasional sensation along the side but this is very manageable. Patient is currently managed with tizanidine 4 mg at bedtime and Percocet 10 mg 4 times a day. He denies any side effects. He does state that he needs refills on the pain medication. His Asim has been reviewed and is appropriate. Review of Systems: General: No recent weight changes, no fever, no sleep disturbances Respiratory: No cough, no shortness of air, no recurring pulmonary infections Cardiovascular/peripheral vascular: No chest pain, no palpitations, no edema, no shortness of breath Gastrointestinal: No new onset incontinence, normal bowel movements reported Genitourinary: No new onset incontinence Musculoskeletal: Low back pain Psychiatric: [Normal mood/affect] Neurological: [Denies weakness in extremities], [denies balance issues] Pain at rest (0-10 scale): 4 Objective Objective:: Physical Exam: General: Alert and oriented x3, no acute distress, pleasant and cooperative Lungs: Respirations even and unlabored, symmetrical chest expansion Eyes: PERRL Musculoskeletal: Flexion and extension of lumbar [spine] somewhat guarded secondary to pain, [antalgic gait noted] Neurological: Speech clear, no gross sensory deficit Has patient had previous pain injection?: Yes Percent improvement in pain since last injection: 80 to 90% Conservative treatment options previously tried: Home exercise plan Length of treatment: Longer than 12 weeks Meds Home Medications and Allergies Home Medications ?Medication ?Instructions ?Recorded ?Confirmed ?Type aspirin 81 mg tablet,delayed 81 mg PO DAILY prevention 12/20/18 12/31/24 History release furosemide 20 mg tablet 20 mg PO BID swelling 03/23/21 12/31/24 History ergocalciferol (vitamin D2) 1,250 50,000 unit PO QWEEK Supplement 06/26/22 12/31/24 Rx mcg (50,000 unit) capsule #14 caps nitroglycerin 0.4 mg sublingual 0.4 mg sublingual Q5M PRN chest 06/26/22 12/31/24 Rx tablet pain #20 tabs lidocaine 5 % topical patch 1 patch topical DAILY #30 ea 11/26/23 12/31/24 Rx rosuvastatin 40 mg tablet See Rx Instructions .Route 02/19/24 12/31/24 Rx .COMPLEX #90 tabs methocarbamol 750 mg tablet 750 mg PO TID PRN muscle pain #90 03/31/24 12/31/24 Rx tabs simvastatin 80 mg tablet 80 mg PO HS 06/10/24 12/31/24 History isosorbide mononitrate 30 mg See Rx Instructions .Route 07/07/24 12/31/24 Rx tablet,extended release 24 hr .COMPLEX #90 tabs metformin 1,000 mg tablet See Rx Instructions .Route 08/14/24 12/31/24 Rx .COMPLEX #180 tabs omeprazole 20 mg capsule,delayed See Rx Instructions .Route 10/01/24 12/31/24 Rx release .COMPLEX #90 caps canagliflozin 100 mg tablet See Rx Instructions .Route 10/22/24 12/31/24 Rx (Invokana) .COMPLEX #90 tabs glimepiride 4 mg tablet See Rx Instructions .Route 10/22/24 12/31/24 Rx .COMPLEX #180 tabs levothyroxine 88 mcg tablet See Rx Instructions .Route 10/22/24 12/31/24 Rx .COMPLEX #90 tabs sitagliptin phosphate 100 mg See Rx Instructions .Route 10/22/24 12/31/24 Rx tablet (Januvia) .COMPLEX #90 tabs losartan 100 mg tablet See Rx Instructions .Route 11/26/24 12/31/24 Rx .COMPLEX #90 tabs carvedilol 6.25 mg tablet See Rx Instructions .Route 12/16/24 12/31/24 Rx .COMPLEX #180 tabs tizanidine 4 mg tablet See Rx Instructions .Route 12/17/24 12/31/24 Rx .COMPLEX #30 tabs oxycodone-acetaminophen 10 mg-325 1 tab PO QID . #120 tabs 12/31/24 Rx mg tablet (Percocet) New Prescriptions to Start Prescriptions: oxycodone-acetaminophen [Percocet] Bux,Jamal Allergies Allergy/AdvReac Type Severity Reaction Status Date / Time lisinopril Allergy Intermediate I-HIVES Verified 06/10/24 09:39 morphine Allergy Unknown Verified 06/10/24 09:39 Assessment and Plan *Assessment and plan (1) Sacroiliitis: Status: Acute Category: Medical Code(s): M46.1 - Sacroiliitis, not elsewhere classified (2) Lumbar disc disease: Status: Acute Category: Medical Code(s): M51.9 - Unspecified thoracic, thoracolumbar and lumbosacral intervertebral disc disorder Plan Patient has had significant improvement following his right SI injection and does not require any additional injection therapy at this time. Patient will return to clinic in 1 month. I will refill his Percocet. Risks and benefits of the medication have been explained in detail to the patient. The patient does understand the risk of dependence on the medication when given over a prolonged period. Patient has been advised of risks of oversedation with the prescribed medication. Narcan has been offered to the paitent in the event of oversedation. Patient has been advised that a family member should also be educated regarding administration of Narcan. The patient has been advised to consult with his/her primary care provider and pharmacist regarding drug-drug interaction of medications currently prescribed. Patient has been prescribed a controlled substance after being counseled on the medication, medication safety, and possible side effects. Opioid contract was reviewed and signed by the patient, and that they have agreed to all of the terms set forth by our compliance program. A UDS is needed to verify patient's compliance with our office pain contract. This is ordered based off specific treatments related to chronic pain with the potential to abuse certain medications. Patient has been instructed to contact the clinic with any concerns before the next appointment. Dr. Horvath has reviewed this note and agrees with this plan of care. This note was dictated using voice recognition software and make contain errors or omissions.
== END 2024-12-31 23:59 | disposition home or self-care (01) ==
PROVIDERS: PCP Internal Medicine; Visit Provider Nurse Practitioner Family
DX: M46.1 Sacroiliitis, not elsewhere classified (principal); M51.9 Unspecified thoracic, thoracolumbar and lumbosacral intervertebral disc disorder; Z79.899 Other long term (current) drug therapy
CPT/HCPCS: 99212; G0463

== ENCOUNTER 2025-01-26 08:31 | Outpatient (POV) | payer MEDICARE, SELFPAY ==
[2025-01-26 08:46] VITALS: BP 125/66; PULSE 65; RESP 14; O2SAT 97; BMI 29.4
--- NOTE | 2025-01-26 09:00 | A.OFFVIS_ITS ---
[facility] Disclaimer: The information contained in this section may have been updated after the patient was seen, as this information can be updated by other users. Medical History Diabetes GERD (gastroesophageal reflux disease) Family History Other No significant family history Social History Smoking Status: Never smoker second hand exposure: No alcohol intake: never substance use type: denies use current occupational status: other Travel in the last 8 weeks?: None household members: spouse housing: house current occupation: [employer] current occupational exposures/hazards: No caffeine: Yes PM Subjective & Objective Subjective Subjective:: Patient is a pleasant 74-year-old male who presents today for worsening neck and shoulder pain. He rates it a 6 out of 10. He denies a specific injury or trauma related to this pain. 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 He states that he feels like it aggravated some of his chronic back pain they are at his neck and radiating primarily the left shoulder. Patient does state that it has been much more sore however it does seem a little bit better today. Patient does state the pain does interfere with his ability perform activities of daily living such as cooking and cleaning. Patient does state his low back is still doing well from his last SI injection along the right side on December 16. Patient is managed with Percocet 10 mg 4 times a day and tizanidine 4 mg at bedtime. He denies any side effects. He states he only needs refills on his pain meds. His Asim has been reviewed and is appropriate. Review of Systems: General: No recent weight changes, no fever, no sleep disturbances Respiratory: No cough, no shortness of air, no recurring pulmonary infections Cardiovascular/peripheral vascular: No chest pain, no palpitations, no edema, no shortness of breath Gastrointestinal: No new onset incontinence, normal bowel movements reported Genitourinary: No new onset incontinence Musculoskeletal: Neck pain, left shoulder pain Psychiatric: [Normal mood/affect] Neurological: [Denies weakness in extremities], [denies balance issues] Pain at rest (0-10 scale): 6 Objective Objective:: Physical Exam: General: Alert and oriented x3, no acute distress, pleasant and cooperative Lungs: Respirations even and unlabored, symmetrical chest expansion Eyes: PERRL Musculoskeletal: Flexion and extension of cervical [spine] somewhat guarded secondary to pain, [antalgic gait noted] point tenderness along left cervical paraspinous, trapezius muscles Neurological: Speech clear, no gross sensory deficit Has patient had previous pain injection?: No Conservative treatment options previously tried: Home exercise plan Length of treatment: Longer than 12 weeks Meds Home Medications and Allergies Home Medications ?Medication ?Instructions ?Recorded ?Confirmed ?Type aspirin 81 mg tablet,delayed 81 mg PO DAILY prevention 12/20/18 01/26/25 History release furosemide 20 mg tablet 20 mg PO BID swelling 03/23/21 01/26/25 History ergocalciferol (vitamin D2) 1,250 50,000 unit PO QWEEK Supplement 06/26/22 01/26/25 Rx mcg (50,000 unit) capsule #14 caps nitroglycerin 0.4 mg sublingual 0.4 mg sublingual Q5M PRN chest 06/26/22 01/26/25 Rx tablet pain #20 tabs lidocaine 5 % topical patch 1 patch topical DAILY #30 ea 11/26/23 01/26/25 Rx rosuvastatin 40 mg tablet See Rx Instructions .Route 02/19/24 01/26/25 Rx .COMPLEX #90 tabs methocarbamol 750 mg tablet 750 mg PO TID PRN muscle pain #90 03/31/24 01/26/25 Rx tabs simvastatin 80 mg tablet 80 mg PO HS 06/10/24 01/26/25 History isosorbide mononitrate 30 mg See Rx Instructions .Route 07/07/24 01/26/25 Rx tablet,extended release 24 hr .COMPLEX #90 tabs metformin 1,000 mg tablet See Rx Instructions .Route 08/14/24 01/26/25 Rx .COMPLEX #180 tabs canagliflozin 100 mg tablet See Rx Instructions .Route 10/22/24 01/26/25 Rx (Invokana) .COMPLEX #90 tabs glimepiride 4 mg tablet See Rx Instructions .Route 10/22/24 01/26/25 Rx .COMPLEX #180 tabs levothyroxine 88 mcg tablet See Rx Instructions .Route 10/22/24 01/26/25 Rx .COMPLEX #90 tabs sitagliptin phosphate 100 mg See Rx Instructions .Route 10/22/24 01/26/25 Rx tablet (Januvia) .COMPLEX #90 tabs losartan 100 mg tablet See Rx Instructions .Route 11/26/24 01/26/25 Rx .COMPLEX #90 tabs carvedilol 6.25 mg tablet See Rx Instructions .Route 12/16/24 01/26/25 Rx .COMPLEX #180 tabs tizanidine 4 mg tablet See Rx Instructions .Route 12/17/24 01/26/25 Rx .COMPLEX #30 tabs omeprazole 20 mg capsule,delayed See Rx Instructions .Route 12/31/24 01/26/25 Rx release .COMPLEX #90 caps oxycodone-acetaminophen 10 mg-325 1 tab PO QID . #120 tabs 12/31/24 01/26/25 Rx mg tablet (Percocet) New Prescriptions to Start Prescriptions: Allergies Allergy/AdvReac Type Severity Reaction Status Date / Time lisinopril Allergy Intermediate I-HIVES Verified 06/10/24 09:39 morphine Allergy Unknown Verified 06/10/24 09:39 Assessment and Plan *Assessment and plan (1) Myofascial pain on left side: Status: Acute Category: Medical Code(s): M79.18 - Myalgia, other site (2) Degenerative disc disease, cervical: Status: Acute Category: Medical Code(s): M50.30 - Other cervical disc degeneration, unspecified cervical region Plan Patient is experiencing worsening pain in his neck along the left side with radiating symptoms into his left shoulder. Patient did have point tenderness along his left cervical paraspinous and left trapezius muscles. I did discuss with the patient that he may benefit from trigger point injections at these locations. Risk and benefits were discussed with the patient and he would like to proceed forward with this plan of care. I did discuss with the patient that I will refill his Percocet. Patient has continued conservative treatment including oral medications, heat and ice, topicals, at home stretching exercise for longer than 12 weeks that was physician guided. Patient will be scheduled for trigger point injections of his left cervical paraspinous and left trapezius muscles. Risks and benefits of the medication have been explained in detail to the patient. The patient does understand the risk of dependence on the medication when given over a prolonged period. Patient has been advised of risks of oversedation with the prescribed medication. Narcan has been offered to the paitent in the event of oversedation. Patient has been advised that a family member should also be educated regarding administration of Narcan. The patient has been advised to consult with his/her primary care provider and pharmacist regarding drug-drug interaction of medications currently prescribed. Patient has been prescribed a controlled substance after being counseled on the medication, medication safety, and possible side effects. Opioid contract was reviewed and signed by the patient, and that they have agreed to all of the terms set forth by our compliance program. A UDS is needed to verify patient's compliance with our office pain contract. This is ordered based off specific treatments related to chronic pain with the potential to abuse certain medications. Patient has been instructed to contact the clinic with any concerns before the next appointment. Dr. Horvath has reviewed this note and agrees with this plan of care. This note was dictated using voice recognition software and make contain errors or omissions.
== END 2025-01-26 23:59 | disposition home or self-care (01) ==
PROVIDERS: PCP Internal Medicine; Visit Provider Nurse Practitioner Family
DX: M79.18 Myalgia, other site (principal); M50.30 Other cervical disc degeneration, unspecified cervical region; Z73.89 Other problems related to life management difficulty
CPT/HCPCS: 99212; G0463

== ENCOUNTER 2025-02-06 13:35 | Outpatient (CLI) | payer MEDICARE, SELFPAY ==
[2025-02-06 19:08] LABS: Hemoglobin A1C 6.5 % (4.0-6.0)
== END 2025-02-06 23:59 ==
LOC: LAB.DROPOF 02-09 13:36
PROVIDERS: PCP Internal Medicine; Visit Provider Internal Medicine
DX: E11.9 Type 2 diabetes mellitus without complications (principal); Z79.84 Long term (current) use of oral hypoglycemic drugs
CPT/HCPCS: 83036

== ENCOUNTER 2025-02-24 08:28 | Outpatient (POV) | payer MEDICARE, SELFPAY ==
--- NOTE | 2025-02-24 08:52 | A.OFFVIS_ITS ---
[facility] Disclaimer: The information contained in this section may have been updated after the patient was seen, as this information can be updated by other users. Medical History (Updated 02/06/25 @ 09:35 by Amadeo Fernandez DO) Diabetes GERD (gastroesophageal reflux disease) Family History Other No significant family history Social History Smoking Status: Never smoker second hand exposure: No alcohol intake: never substance use type: denies use current occupational status: other Travel in the last 8 weeks?: None household members: spouse housing: house current occupation: [employer] current occupational exposures/hazards: No caffeine: Yes PM Subjective & Objective Subjective Subjective:: Patient is a pleasant 74-year-old male who presents today for medication refill and follow-up. Today he rates his pain as 6 out of 10. He denies any new falls or injuries. 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 Patient does state that he would be interested in additional injections for his neck coming up however he will let us know. Patient is currently managed with Percocet 10 mg 4 times a day and tizanidine 4 mg at bedtime. He denies any side effects. Patient does at least use the tizanidine as needed and does not need refills on this at this time. His Asim has been reviewed and is appropriate. Review of Systems: General: No recent weight changes, no fever, no sleep disturbances Respiratory: No cough, no shortness of air, no recurring pulmonary infections Cardiovascular/peripheral vascular: No chest pain, no palpitations, no edema, no shortness of breath Gastrointestinal: No new onset incontinence, normal bowel movements reported Genitourinary: No new onset incontinence Musculoskeletal: Neck pain Psychiatric: [Normal mood/affect] Neurological: [Denies weakness in extremities], [denies balance issues] Pain at rest (0-10 scale): 6 Objective Objective:: Physical Exam: General: Alert and oriented x3, no acute distress, pleasant and cooperative Lungs: Respirations even and unlabored, symmetrical chest expansion Eyes: PERRL Musculoskeletal: Flexion and extension of cervical [spine] somewhat guarded secondary to pain, [antalgic gait noted] Neurological: Speech clear, no gross sensory deficit Has patient had previous pain injection?: No Conservative treatment options previously tried: Prescription medications Length of treatment: Longer than 12 weeks Meds Home Medications and Allergies Home Medications ?Medication ?Instructions ?Recorded ?Confirmed ?Type aspirin 81 mg tablet,delayed 81 mg PO DAILY prevention 12/20/18 02/06/25 History release furosemide 20 mg tablet 20 mg PO BID swelling 02/06/25 History ergocalciferol (vitamin D2) 1,250 50,000 unit PO QWEEK Supplement 06/26/22 02/06/25 Rx mcg (50,000 unit) capsule #14 caps nitroglycerin 0.4 mg sublingual 0.4 mg sublingual Q5M PRN chest 06/26/22 02/06/25 Rx tablet pain #20 tabs methocarbamol 750 mg tablet 750 mg PO TID PRN muscle p ain #90 03/31/24 02/06/25 Rx tabs isosorbide mononitrate 30 mg See Rx Instructions .Reny lucas 07/07/24 02/06/25 Rx tablet,extended release 24 hr .COMPLEX #90 tabs metformin 1,000 mg tablet See Rx Instructions .Route 1 10/14/23 02/06/25 Rx .COMPLEX #180 tabs glimepiride 4 mg tablet See Rx Instructions .Route 0 10/22/24 02/06/25 Rx .COMPLEX #180 tabs sitagliptin phosphate 100 mg See Rx Instructions .Reny lucas 10/22/24 02/06/25 Rx tablet (Januvia) .COMPLEX #90 tabs losartan 100 mg tablet See Rx Instructions .Route 0 11/26/24 02/06/25 Rx .COMPLEX #90 tabs carvedilol 6.25 mg tablet See Rx Instructions .Route 0 12/16/24 02/06/25 Rx .COMPLEX #180 tabs tizanidine 4 mg tablet See Rx Instructions .Route 0 12/17/24 02/06/25 Rx .COMPLEX #30 tabs omeprazole 20 mg capsule,delayed See Rx Instructions . Route 12/31/24 02/06/25 Rx release .COMPLEX #90 caps oxycodone-acetaminophen 10 mg-325 1 tab PO QID . #120 tabs 01/26/25 02/06/25 Rx mg tablet (Percocet) levothyroxine 88 mcg tablet See Rx Instructions .Route 01/29/25 02/06/25 Rx .COMPLEX #90 tabs canagliflozin 100 mg tablet See Rx Instructions .Route 02/20/25 Rx (Invokana) .COMPLEX #90 tabs rosuvastatin 40 mg tablet 40 mg PO DAILY #90 tabs 01/24 Rx New Prescriptions to Start Prescriptions: Allergies Allergy/AdvReac Type Severity Reaction Status Date / Time lisinopril Allergy Intermediate I-HIVES Verified 02/06/25 08:54 morphine Allergy Unknown Verified 02/06/25 08:54 Assessment and Plan *Assessment and plan (1) Facet arthropathy, cervical: Status: Acute Category: Medical Code(s): M47.812 - Spondylosis without myelopathy or radiculopathy, cervical region (2) Chronic neck pain: Status: Acute Category: Medical Code(s): M54.2 - Cervicalgia; G89.29 - Other chronic pain (3) Degenerative disc disease, cervical: Status: Acute Category: Medical Code(s): M50.30 - Other cervical disc degeneration, unspecified cervical region Plan I will refill his Percocet and provide a 1 month supply of this medication. Patient will return to clinic in 1 month for reevaluation of symptoms and plan of care. Risks and benefits of the medication have been explained in detail to the patient. The patient does understand the risk of dependence on the medication when given over a prolonged period. Patient has been advised of risks of oversedation with the prescribed medication. Narcan has been offered to the paitent in the event of oversedation. Patient has been advised that a family member should also be educated regarding administration of Narcan. The patient has been advised to consult with his/her primary care provider and pharmacist regarding drug-drug interaction of medications currently prescribed. Patient has been prescribed a controlled substance after being counseled on the medication, medication safety, and possible side effects. Opioid contract was reviewed and signed by the patient, and that they have agreed to all of the terms set forth by our compliance program. A UDS is needed to verify patient's compliance with our office pain contract. This is ordered based off specific treatments related to chronic pain with the potential to abuse certain medications. Patient has been instructed to contact the clinic with any concerns before the next appointment. Dr. Horvath has reviewed this note and agrees with this plan of care. This note was dictated using voice recognition software and make contain errors or omissions.
[2025-02-24 09:11] VITALS: BP 140/74; PULSE 86; RESP 14; O2SAT 97; BMI 29.2
== END 2025-02-24 23:59 | disposition home or self-care (01) ==
PROVIDERS: PCP Internal Medicine; Visit Provider Nurse Practitioner Family
DX: M47.812 Spondylosis without myelopathy or radiculopathy, cervical region (principal); M50.30 Other cervical disc degeneration, unspecified cervical region; G89.29 Other chronic pain; Z79.891 Long term (current) use of opiate analgesic; Z79.899 Other long term (current) drug therapy
CPT/HCPCS: 99212; G0463

== ENCOUNTER 2025-03-26 21:09 | Emergency (ER) | payer MEDICARE, SELFPAY ==
[2025-03-26 21:23] VITALS: BP 161/67; PULSE 61; RESP 15; TEMP 36.8; O2SAT 100; BMI 28.1
--- OUTSIDE RECORDS SUMMARY | 2025-03-26 21:28 | XMS_ITS | Clinical Summary ---
Author Organization Healthcare Address [address] [place] [address] Care Team Providers Care Park Services Specialist Name Role Phone Curry Stahl MD Primary Care Provider + [phone] Social History Tobacco Use Types Packs/Day Years Used Date Smoking Tobacco: Never Assessed Sex and Gender Information Value Date Recorded Sex Assigned at Not on file Legal Sex Male 7:46 PM EDT Gender Identity Not on file Sexual Orientation Not on file Plan of Treatment Health Maintenance Due Date Last Done Comments [facility]-Depression Screening 1951 [facility]-/Child/Adol SDOH Screenings 1950 [facility]- SDOH Screenings 1969 [facility]-Adult SDOH Screenings 1969 [facility]-DTaP,Tdap,and Td Vaccines (1 - Tdap) 1970 CT Colonography 1996 Colonoscopy 1996 FIT-DNA 1996 FIT 1996 FOBT 1996 Sigmoidoscopy 1996 [facility]-Colorectal Cancer Screening 1996 [facility]-Zoster Vaccines (1 of 2) 2001 [id number] Vaccine ( - season) 2024 [facility]-Influenza Vaccine (Season Ended) 2025 07/06/2022, 06/07/2021, 06/03/2020, Additional history exists [facility]-RSV Vaccine: 60+ Years or (1 - 1-dose 75+ series) 2026 [facility]-Pneumococcal Vaccine: 50+ Years Completed 11/20/2017, 11/08/2016 HPV Vaccines Aged Out No longer eligi ble based on patient's age to complete this topic [facility]-HIB Vaccines Aged Out No longer e ligible based on patient's age to complete this topic [facility]-Hepatitis A Vaccines Aged Out No longer eligible based on patient's age to complete this topic [facility]-IPV Vaccines Aged Out No longer e ligible based on patient's age to complete this topic [facility]-Rotavirus Vaccines Aged Out No lo nger eligible based on patient's age to complete this topic Insurance [employer] MEDICARE Care Teams Park Services Specialist Relationship Specialty Start Date End Date Curry Stahl MD [address] [place] [address] DARNELL Madrigal [id number] PCP - General 02/04/21
--- OUTSIDE RECORDS SUMMARY | 2025-03-26 21:28 | XMS_ITS ---
Author Organization Unknown Plan of Treatment Description Planned Activity Planned Timing - Telephone encounter Nov 23, 2023 Patient Care team information Name Category Status Period Participants - - Proposed period not known -
--- NOTE | 2025-03-26 21:41 | ED_ITS ---
<Statement entered by Windy Pretty DO - 03/27/25 00:12> I was consulted by the FILEMON, and we discussed the complexity of the problems being addressed. I approved the treatment and management plan for this patient's care in the emergency department, thus performing a substantive portion of the medical decision making. 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 He has acute localizable point tenderness. I independently interpreted CT scan prior to radiology read and noted no rib fracture. Radiology did note concerns for pulmonary edema. Patient does have history of fluid retention for which he is on Lasix. He reports compliance. He is not volume overloaded on clinical exam and denies any shortness of breath. Vitals are normal on cardiac telemetry. He is ambulatory without issue and declines need for pain medication. Given this, I feel that he is appropriate for discharge home with diagnosis of rib contusion and instructions for close PCP follow-up and strict return precautions. Windy Pretty DO Discharge Plan Disposition Chief Complaint: PAIN Prescriptions Prescriptions: No Action ergocalciferol (vitamin D2) 1,250 mcg (50,000 unit) capsule 50,000 unit PO QWEEK Qty: 14 0RF nitroglycerin 0.4 mg tablet, sublingual 0.4 mg SL Q5M PRN (Reason: chest pain) Qty: 20 2RF Rx Instructions: do not exceed 3 doses per episode isosorbide mononitrate 30 mg tablet extended release 24 hr See Rx Instructions .ROUTE .COMPLEX Qty: 90 3RF Dose Instruction: TAKE ONE TABLET BY MOUTH ONCE A DAY Rx Instructions: TAKE ONE TABLET BY MOUTH ONCE A DAY metformin 1,000 mg tablet See Rx Instructions .ROUTE .COMPLEX Qty: 180 2RF Dose Instruction: TAKE ONE TABLET BY MOUTH 2 TIMES A DAY FOR DIABETES Rx Instructions: TAKE ONE TABLET BY MOUTH 2 TIMES A DAY FOR DIABETES Januvia 100 mg tablet See Rx Instructions .ROUTE .COMPLEX Qty: 90 0RF Dose Instruction: TAKE ONE TABLET BY MOUTH ONCE A DAY Rx Instructions: TAKE ONE TABLET BY MOUTH ONCE A DAY glimepiride 4 mg tablet See Rx Instructions .ROUTE .COMPLEX Qty: 180 0RF Dose Instruction: TAKE TWO TABLETS BY MOUTH EVERY MORNING WITH BREAKFAST FOR DIABETES Rx Instructions: TAKE TWO TABLETS BY MOUTH EVERY MORNING WITH BREAKFAST FOR DIABETES losartan 100 mg tablet See Rx Instructions .ROUTE .COMPLEX Qty: 90 3RF Dose Instruction: TAKE ONE TABLET BY MOUTH ONCE A DAY Rx Instructions: TAKE ONE TABLET BY MOUTH ONCE A DAY tizanidine 4 mg tablet See Rx Instructions .ROUTE .COMPLEX Qty: 30 0RF Dose Instruction: TAKE ONE TABLET BY MOUTH AT BEDTIME Rx Instructions: TAKE ONE TABLET BY MOUTH AT BEDTIME omeprazole 20 mg capsule,delayed release(DR/EC) See Rx Instructions .ROUTE .COMPLEX Qty: 90 0RF Dose Instruction: TAKE 1 CAPSULE BY MOUTH ONCE A DAY FOR GERD Rx Instructions: TAKE 1 CAPSULE BY MOUTH ONCE A DAY FOR GERD levothyroxine 88 mcg tablet See Rx Instructions .ROUTE .COMPLEX Qty: 90 0RF Dose Instruction: TAKE ONE TABLET BY MOUTH ONCE A DAY FOR HYPOTHYROID Rx Instructions: TAKE ONE TABLET BY MOUTH ONCE A DAY FOR HYPOTHYROID rosuvastatin 40 mg tablet 40 mg PO DAILY Qty: 90 3RF Invokana 100 mg tablet See Rx Instructions .ROUTE .COMPLEX Qty: 90 0RF Dose Instruction: TAKE ONE TABLET BY MOUTH ONCE A DAY FOR DIABETES Rx Instructions: TAKE ONE TABLET BY MOUTH ONCE A DAY FOR DIABETES carvedilol 6.25 mg tablet See Rx Instructions .ROUTE .COMPLEX Qty: 180 0RF Dose Instruction: TAKE ONE TABLET BY MOUTH 2 TIMES A DAY Rx Instructions: TAKE ONE TABLET BY MOUTH 2 TIMES A DAY oxycodone-acetaminophen [Percocet] 10-325 mg tablet 1 tab PO QID Qty: 120 0RF aspirin 81 MG tablet,delayed release (DR/EC) 81 mg PO DAILY furosemide 20 mg tablet 20 mg PO BID Rx Instructions: TAKE ONE TABLET BY MOUTH bid methocarbamol 750 mg tablet 750 mg PO TID PRN (Reason: muscle pain) Qty: 90 0RF Referrals Follow up/Referrals: Amadeo Fernandez DO [Primary Care Provider, Family Practice] - See instructions Print Language Print Language: Lao Discharge ED Provider: Windy Pretty General Adult HPI General Chief complaint: PAIN Stated complaint: AO 03/23/25 1400 Injury left rib cage Time Seen by Provider: 03/26/25 21:37 Mode of Arrival: Ambulatory Source of Information: Patient Description of Symptoms (Recalled from ER Triage Doc. by RN): Patient ambulatory to ED with complaints of left side rib pain. Patient states that he was working on his tractor on sunday and ever since that day has had significant left side rib pain. Patient denies fall or injury to area. History of Present Illness HPI narrative: patient is a 74-year-old male PMHx diabetes, aortic stenosis, hypertension, hyperlipidemia who presents to the ED for left lower rib pain. Patient states that several days ago he was working on a piece of farm equipment when he was lying on his back, rolled over onto a piece of the equipment injuring his left ribs. Related Data Home Medications ?Medication ?Instructions ?Recorded ?Confirmed aspirin 81 mg tablet,delayed 81 mg PO DAILY prevention 12/20/18 02/24/25 release furosemide 20 mg tablet 20 mg PO BID swelling 02/24/25 Previous Rx's ?Medication ?Instructions ?Recorded ergocalciferol (vitamin D2) 1,250 50,000 unit PO QWEEK Supplement 06/26/22 mcg (50,000 unit) capsule #14 caps nitroglycerin 0.4 mg sublingual 0.4 mg sublingual Q5M PRN chest 06/26/22 tablet pain #20 tabs methocarbamol 750 mg tablet 750 mg PO TID PRN muscle p ain #90 03/31/24 tabs isosorbide mononitrate 30 mg See Rx Instructions .Rout e 07/07/24 tablet,extended release 24 hr .COMPLEX #90 tabs metformin 1,000 mg tablet See Rx Instructions .Route 1 10/14/23 .COMPLEX #180 tabs glimepiride 4 mg tablet See Rx Instructions .Route 0 10/22/24 .COMPLEX #180 tabs sitagliptin phosphate 100 mg See Rx Instructions .Rout e 10/22/24 tablet (Januvia) .COMPLEX #90 tabs losartan 100 mg tablet See Rx Instructions .Route 0 11/26/24 .COMPLEX #90 tabs tizanidine 4 mg tablet See Rx Instructions .Route 0 12/17/24 .COMPLEX #30 tabs omeprazole 20 mg capsule,delayed See Rx Instructions . Route 12/31/24 release .COMPLEX #90 caps levothyroxine 88 mcg tablet See Rx Instructions .Route 01/29/25 .COMPLEX #90 tabs canagliflozin 100 mg tablet See Rx Instructions .Route 02/20/25 (Invokana) .COMPLEX #90 tabs rosuvastatin 40 mg tablet 40 mg PO DAILY #90 tabs 01/24 oxycodone-acetaminophen 10 mg-325 1 tab PO QID . #120 tabs 02/24/25 mg tablet (Percocet) carvedilol 6.25 mg tablet See Rx Instructions .Route 0 03/18/25 .COMPLEX #180 tabs Allergies Allergy/AdvReac Type Severity Reaction Status Date / Time lisinopril Allergy Intermediate I-HIVES Verified 02/06/25 08:54 morphine Allergy Unknown Verified 02/06/25 08:54 [facility] Disclaimer: The information contained in this section may have been updated after the patient was seen, as this information can be updated by other users. Medical History (Updated 02/06/25 @ 09:35 by Amadeo Fernandez DO) Diabetes GERD (gastroesophageal reflux disease) Family History Other No significant family history Social History Smoking Status: Never smoker second hand exposure: No alcohol intake: never substance use type: denies use current occupational status: other Travel in the last 8 weeks?: None household members: spouse housing: house current occupation: H[employer] current occupational exposures/hazards: No caffeine: Yes Have you lived/traveled outside US in past 30 days?: No Contact w/someone who lives/traveled outside US past 30 days?: No Exposure to someone with infectious disease in past 14 days?: No Do you have a fever (greater than 100.4 F or 38 C)?: No Have you tested positive for COVID-19?: No Exposed to someone with COVID-19 in past 14 days?: No Do you have a sore throat?: No Do you have a cough?: No Do you have any weakness?: No Do you have any diarrhea?: No Are you experiencing any unusual bleeding?: No Do you have any muscle aches/pain?: No Do you have any abdominal pain?: No Are you experiencing loss of taste or smell?: No Other Medical History Have you received the Flu Vaccine for this season: Yes Have you received the Pneumonia Vaccine: Yes ROS Obtained: Yes Systems reviewed as appropriate & no additional complaints except as documented Physical Exam General General appearance: alert Head Head exam: atraumatic Neck Neck exam: Present full ROM Chest Chest inspection: Present normal inspection Respiratory Respiratory exam: Present normal lung sounds bilaterally Cardiovascular Cardiovascular exam: Present regular rate Abdominal Exam Comment: left lower / lateral rib tenderness Neurological Exam Neurological exam: Present alert and oriented X3 Skin Skin exam: Present dry Medical Decision Making Medical Records Screening: Per USPSTF and CDC recommendations, given the prevalence of disease in our region, it is our hospital?s policy to screen for HIV and viral Hepatitis for all patients aged 18 and over and those with ongoing risk factors. Asim Inquiry Pt receiving controlled substance: No Vital Signs: 03/26/25 21:23 Temperature 98.2 F Temperature Source Oral Pulse Rate [Right] 61 Respiratory Rate 15 Blood Pressure [Right Arm] 161/67 H Blood Pressure Mean [Right Arm] 98 Blood Pressure Source [Right Arm] Automatic Cuff Blood Pressure Position [Right Arm] Supine 02 Sat by Pulse Oximetry 100 Oxygen Delivery Method Room Air Orders (Tests/Meds): ORDERS Category Date Time Status CT chest wo con Stat Cat Scan 03/26/25 21:50 Ordered Medical Decision Narrative: In summary, patient is a 74-year-old male PMHx diabetes, aortic stenosis, hypertension, hyperlipidemia who presents to the ED for left lower rib pain. Patient states that several days ago he was working on a piece of farm equipment when he was lying on his back, rolled over onto a piece of the equipment injuring his left ribs. Patient states he has had a significant amount of pain in the left ribs since then. Patient does see pain management for his chronic back pain and takes Percocet for that, last dose was at 6 PM. Patient states he does not want any pain medication while in the ED. He reports the left rib pain is worse when taking a deep breath. Denies any previous injury to the area. Denies fever, chills, chest pain, shortness of breath, new back pain, dysuria. Upon initial evaluation patient is alert, oriented and cooperative. He is pleasant. He has significant tenderness upon palpation of the left lower rib area, lateral aspect. Discussed with patient we will proceed with ct scan. He is agreeable to plan of care. Care transferred to Dr. Pretty pending workup completion. Critical Care Critical Care Time Critical Care Time: No
--- NOTE | 2025-03-26 21:50 | CT_ITS ---
PROCEDURE INFORMATION: Exam: CT Chest Without Contrast; Diagnostic Exam date and time: 03/26/2025 10:16 PM Age: 74 years old Clinical indication: Other: Rib pain; Additional info: L rib pain TECHNIQUE: Imaging protocol: Diagnostic computed tomography of the chest without contrast. Radiation optimization: All CT scans at this facility use at least one of these dose optimization techniques: automated exposure control; mA and/or kV adjustment per patient size (includes targeted exams where dose is matched to clinical indication); or iterative reconstruction. COMPARISON: CR XR CHEST PORTABLE 03/15/2021 11:54 AM FINDINGS: Lungs: Interstitial prominence with Briana B-lines. Pleural spaces: No pneumothorax. No pleural effusion. Heart: Unremarkable. No cardiomegaly. No pericardial effusion. Coronary arteries: Atherosclerotic calcification of coronary arteries. Lymph nodes: Unremarkable. No enlarged lymph nodes. Vasculature: Mild atherosclerotic calcification of aorta without aneurysm. Liver: Heterogeneous liver irregular contour. Measures 21 cm. Bones/joints: Chronic L2 vertebral body height loss. No acute fracture. Osteopenia. No acute osseous findings. Soft tissues: Unremarkable. IMPRESSION: 1. No acute osseous findings including rib fractures identified. 2. CHF/pulmonary edema. 3. Heterogeneous hepatomegaly with irregular contour suspicious for cirrhotic changes.
[2025-03-26 22:00] VITALS: BP 135/67; PULSE 65; O2SAT 99
[2025-03-27 00:19] VITALS: BP 135/64; PULSE 64; RESP 18; TEMP 36.6; O2SAT 100
== END 2025-03-27 00:21 | disposition home or self-care (01) ==
PROVIDERS: Emergency Provider Emergency Medicine; PCP Internal Medicine
DX: R07.81 Pleurodynia (principal); W22.8XXA Striking against or struck by other objects, initial encounter
CPT/HCPCS: 71250; 99284

== ENCOUNTER 2025-03-30 08:51 | Outpatient (POV) | payer MEDICARE, SELFPAY ==
--- OUTSIDE RECORDS SUMMARY | 2025-03-30 08:54 | XMS_ITS | Clinical Summary ---
Author Organization Healthcare Address [address] [place] [address] Care Team Providers Care Director Of Clinical Applications Name Role Phone Curry Sathl MD Primary Care Provider + [phone] Social History Tobacco Use Types Packs/Day Years [...] 1996 UKY-Zoster Vaccines (1 of 2) 2001 [id number] Vaccine ( - 2023- season) 2024 UKY-Influenza Vaccine (#1) 05/25/202507/06, 06/07/2021, 06/03/2020, Additional history exists UKY-RSV Vaccine: [...] this topic Insurance [employer]ARE Care Teams Director Of Clinical Applications Relationship Specialty Start Date End Date Curry Stahl MD [address] [place] [address] DARNELL Madrigal [id number] PCP - General 02/04/21
--- NOTE | 2025-03-30 09:17 | A.OFFVIS_ITS ---
[facility] Disclaimer: The information contained in this section may have been updated after the patient was seen, as this information can be updated by other users. Medical History (Updated 03/27/25 @ 00:03 by Windy Pretty DO) Diabetes GERD (gastroesophageal reflux disease) Family History Other No significant family history Social History Smoking Status: Never smoker second hand exposure: No alcohol intake: never substance use type: denies use current occupational status: other Travel in the last 8 weeks?: None household members: spouse housing: house current occupation: [employer] current occupational exposures/hazards: No caffeine: Yes PM Subjective & Objective Subjective Subjective:: Patient is a pleasant 74-year-old male who presents today for worsening low back pain as well as left rib pain. Patient rates his pain today at a 9 on out of 10 in his overall low back and hip area. He does state that pain is worse with prolonged positioning such as sitting or laying down. 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 He states that they did do imaging and that there were no fractures however felt like that they had bruised his ribs. Patient is currently managed with Percocet 10 mg 4 times a day, tizanidine 4 mg at bedtime and compounded cream from our office. He denies any side effects. He states he only needs the pain medication refilled. Patient would like to see about additional injections as the pain is interfering with his ability perform activities of daily living such as cooking and cleaning. His Asim has been reviewed and is appropriate. Review of Systems: General: No recent weight changes, no fever, no sleep disturbances Respiratory: No cough, no shortness of air, no recurring pulmonary infections Cardiovascular/peripheral vascular: No chest pain, no palpitations, no edema, no shortness of breath Gastrointestinal: No new onset incontinence, normal bowel movements reported Genitourinary: No new onset incontinence Musculoskeletal: Low back pain, bilateral hip pain, left rib pain Psychiatric: [Normal mood/affect] Neurological: [Denies weakness in extremities], [denies balance issues] Pain at rest (0-10 scale): 9 Objective Objective:: Physical Exam: General: Alert and oriented x3, no acute distress, pleasant and cooperative Lungs: Respirations even and unlabored, symmetrical chest expansion Eyes: PERRL Musculoskeletal: Flexion and extension of lumbar [spine] somewhat guarded secondary to pain, [antalgic gait noted] point tenderness along bilateral SIs with positive bilateral Patricia's, Zayra's, Gaenslen's, compression and distraction exam Neurological: Speech clear, no gross sensory deficit Has patient had previous pain injection?: No Conservative treatment options previously tried: Home exercise plan Length of treatment: Longer than 12 weeks and Prescription medications Length of treatment: Longer than 12 weeks Meds Home Medications and Allergies Home Medications ?Medication ?Instructions ?Recorded ?Confirmed ?Type aspirin 81 mg tablet,delayed 81 mg PO DAILY prevention 12/20/18 02/24/25 History release furosemide 20 mg tablet 20 mg PO BID swelling 02/24/25 History ergocalciferol (vitamin D2) 1,250 50,000 unit PO QWEEK Supplement 06/26/22 02/24/25 Rx mcg (50,000 unit) capsule #14 caps nitroglycerin 0.4 mg sublingual 0.4 mg sublingual Q5M PRN chest 06/26/22 02/24/25 Rx tablet pain #20 tabs methocarbamol 750 mg tablet 750 mg PO TID PRN muscle p ain #90 03/31/24 02/24/25 Rx tabs isosorbide mononitrate 30 mg See Rx Instructions .Reny lucas 07/07/24 02/24/25 Rx tablet,extended release 24 hr .COMPLEX #90 tabs metformin 1,000 mg tablet See Rx Instructions .Route 1 10/14/23 02/24/25 Rx .COMPLEX #180 tabs glimepiride 4 mg tablet See Rx Instructions .Route 0 10/22/24 02/24/25 Rx .COMPLEX #180 tabs sitagliptin phosphate 100 mg See Rx Instructions .Reny lucas 10/22/24 02/24/25 Rx tablet (Januvia) .COMPLEX #90 tabs losartan 100 mg tablet See Rx Instructions .Route 0 11/26/24 02/24/25 Rx .COMPLEX #90 tabs tizanidine 4 mg tablet See Rx Instructions .Route 0 12/17/24 02/24/25 Rx .COMPLEX #30 tabs omeprazole 20 mg capsule,delayed See Rx Instructions . Route 12/31/24 02/24/25 Rx release .COMPLEX #90 caps levothyroxine 88 mcg tablet See Rx Instructions .Route 01/29/25 02/24/25 Rx .COMPLEX #90 tabs canagliflozin 100 mg tablet See Rx Instructions .Route 02/20/25 02/24/25 Rx (Invokana) .COMPLEX #90 tabs rosuvastatin 40 mg tablet 40 mg PO DAILY #90 tabs /02/24/25 Rx oxycodone-acetaminophen 10 mg-325 1 tab PO QID . #120 tabs 02/24/25 Rx mg tablet (Percocet) carvedilol 6.25 mg tablet See Rx Instructions .Route 0 03/18/25 Rx .COMPLEX #180 tabs New Prescriptions to Start Prescriptions: Allergies Allergy/AdvReac Type Severity Reaction Status Date / Time lisinopril Allergy Intermediate I-HIVES Verified 02/06/25 08:54 morphine Allergy Unknown Verified 02/06/25 08:54 Assessment and Plan *Assessment and plan (1) Rib pain on left side: Status: Acute Category: Medical Code(s): R07.81 - Pleurodynia (2) Sacroiliitis: Status: Acute Category: Medical Code(s): M46.1 - Sacroiliitis, not elsewhere classified (3) Myofascial pain on left side: Status: Acute Category: Medical Code(s): M79.18 - Myalgia, other site Plan Patient is experiencing worsening pain along the low back and bilateral hips. They did have limited range of motion of the lumbar spine along with point tenderness along bilateral SI joints and a positive bilateral Patricia's, Zayra's, Gaenslen's, compression and distraction exam. I did discuss with the patient that I do believe they would benefit from bilateral SI injections. Risk and benefits were discussed with the patient and they would like to proceed forward with this option. Patient has tried and failed conservative therapy. Patient has been actively doing conservative treatment including oral medication, heat and ice, topicals, at home exercising and stretching for longer than 12 weeks. Patient is having to adjust their activity based off the increased pain resulting in activity modification. I do believe the patient would benefit from SI injection. Patient may be a candidate for SI fusion at a later date however patient does have significant comorbidities that may contraindicate this procedure. He will follow-up in future. This will be a therapeutic injection with less than 1.5 mL solution to be injected.Patient did have his last SI injections in November with 80 to 90% improvement and have lasted up until now. Patient does have chronic low back pain that is gone on for longer than a year. I will refill the patient's Percocet and also send in a prescription of lidocaine 5% patches. Patient will be scheduled for bilateral SI injections under fluoroscopy. Patient has been instructed to contact the clinic with any concerns before the next appointment. Dr. Horvath has reviewed this note and agrees with this plan of care. This note was dictated using voice recognition software and make contain errors or omissions. All injections are used with Lidocaine or Bupivacaine and dexamethasone unless diagnostic in which no steroids were injected.
[2025-03-30 09:53] VITALS: BP 139/70; PULSE 62; RESP 18; O2SAT 100; BMI 39.4
== END 2025-03-30 23:59 | disposition home or self-care (01) ==
PROVIDERS: PCP Internal Medicine; Visit Provider Nurse Practitioner Family
DX: R07.81 Pleurodynia (principal); M46.1 Sacroiliitis, not elsewhere classified; M79.18 Myalgia, other site; Z79.891 Long term (current) use of opiate analgesic
CPT/HCPCS: 99212; G0463

== ENCOUNTER 2025-04-07 10:50 | Day surgery (SDC) | payer MEDICARE, SELFPAY ==
[2025-04-07 10:58] VITALS: BP 144/65; PULSE 61; RESP 18; O2SAT 97; BMI 29.2
[2025-04-07] MEDS: BUPIVACAINE 0.25% 10ML INJ 25 MG IJ (11:09)
[2025-04-07] MEDS: LIDOCAINE 1% 5ML PF VIAL 5 ML (11:10)
[2025-04-07 11:11] VITALS: BP 144/65; PULSE 65; RESP 18; O2SAT 97
[2025-04-07] MEDS: DEXAMETHASONE 10MG/ML 1ML VIAL 10 MG (11:11)
[2025-04-07 11:13] VITALS: BP 144/65; PULSE 65; RESP 18; O2SAT 97
[2025-04-07 11:18] VITALS: BP 165/76; PULSE 60; RESP 18; O2SAT 98
--- NOTE | 2025-04-07 11:18 | P.PCN_ITS ---
Procedure Date: 04/07/25 Time: 11:10 Anesthesiologist:: Lexa Leavitt CRNA Complications:: None Pre-procedure Diagnosis:: Bilateral sacroiliitis Post-procedure Diagnosis:: Same Indications for Procedure:: Patient is a very pleasant 74-year-old male who comes our clinic today for bilateral sacroiliac joint injections cortisone local anesthetic. Patient describes low lumbar back pain off the midline bilaterally. Bilateral posterior hip pain. Difficulty transitioning from sitting to standing. Difficulty with ambulation. He rates his pain 7/10. Procedure Details:: Procedure: Bilateral sacroiliac joint injections under fluoroscopy Informed consent was obtained and the risks and benefits of the procedure were explained to the patient.~ The patient was taken to the procedure room and noninvasive monitors were placed including a noninvasive blood pressure cuff and pulse oximeter.~ The patient was placed prone on the procedure table. Both hips were cleansed using Betadine as a cleansing solution. C-arm fluoroscopy was used to view the right sacroiliac joint.~ The skin and subcutaneous tissues were anesthetized using lidocaine 1.5% and a 25-gauge needle.~ After this, a 22-gauge spinal needle was inserted under fluoroscopic guidance into the inferior aspect of the right sacroiliac joint.~ Omnipaque dye was injected and good spread was seen throughout the joint.~ After this, approximately 5 mL of bupivacaine, 0.25% and dexamethasone 5 mg was incrementally injected into the right sacroiliac joint. We then moved to the left sacroiliac joint.~ The skin and subcutaneous tissues were anesthetized using lidocaine 1.5% and a 25-gauge needle.~ After this, a 22- gauge spinal needle was inserted under fluoroscopic guidance into the inferior aspect of the left sacroiliac joint.~ Omnipaque dye was injected and good spread was seen throughout the joint. After this, approximately 5 mL of bupivacaine, 0.25% and dexamethasone 5 mg was incrementally injected into the left sacroiliac joint.~ The patient tolerated the procedure well with no complications. The patient was observed in the Pain Clinic and then was discharged home neurologically intact. Plan and Disposition:: Patient was discharged without incident.
== END 2025-04-07 11:18 | disposition home or self-care (01) ==
PROVIDERS: PCP Internal Medicine; Visit Provider Nurse Anesthetist, Certified Registered
DX: M46.1 Sacroiliitis, not elsewhere classified (principal); M25.552 Pain in left hip; M25.551 Pain in right hip; M79.18 Myalgia, other site; R07.81 Pleurodynia; E11.9 Type 2 diabetes mellitus without complications; K21.9 Gastro-esophageal reflux disease without esophagitis; Z88.5 Allergy status to narcotic agent; Z88.8 Allergy status to other drugs, medicaments and biological substances; Z79.899 Other long term (current) drug therapy; Z79.890 Hormone replacement therapy; Z79.84 Long term (current) use of oral hypoglycemic drugs; Z79.85 Long-term (current) use of injectable non-insulin antidiabetic drugs; Z79.82 Long term (current) use of aspirin
CPT/HCPCS: G0260; J0665; J1100; J2003

== ENCOUNTER 2025-04-22 08:32 | Outpatient (POV) | payer MEDICARE, SELFPAY ==
--- OUTSIDE RECORDS SUMMARY | 2025-04-22 08:35 | XMS_ITS | Clinical Summary ---
Author Organization Healthcare Address [address] [id number] Care Team Providers Care Paleobotanist Name Role Phone Curry Stahl MD Primary Care Provider + [phone] Social History Tobacco Use Types Packs/Day Years [...] 1996 UKY-Zoster Vaccines (1 of 2) 2001 [id number] Vaccine ( - 2023- season) 2024 UKY-Influenza [...] this topic Insurance [employer] Care Teams Paleobotanist Relationship Specialty Start Date End Date Curry Stahl MD [address] [place] [address] D[place]NE[place] Madrigal [id number] PCP - General 02/04/21
[2025-04-22 08:40] VITALS: BP 132/73; PULSE 56; RESP 12; O2SAT 99; BMI 28.1
--- NOTE | 2025-04-22 08:48 | A.OFFVIS_ITS ---
[facility] Disclaimer: The information contained in this section may have been updated after the patient was seen, as this information can be updated by other users. Medical History Diabetes GERD (gastroesophageal reflux disease) Family History Other No significant family history Social History Smoking Status: Never smoker second hand exposure: No alcohol intake: never substance use type: denies use current occupational status: other Travel in the last 8 weeks?: None household members: spouse housing: house current occupation: [employer] current occupational exposures/hazards: No caffeine: Yes Have you lived/traveled outside US in past 30 days?: No Contact w/someone who lives/traveled outside US past 30 days?: No Exposure to someone with infectious disease in past 14 days?: No Do you have a fever (greater than 100.4 F or 38 C)?: No Have you tested positive for COVID-19?: No Exposed to someone with COVID-19 in past 14 days?: No Do you have a sore throat?: No Do you have a cough?: No Do you have any weakness?: No Do you have any diarrhea?: No Are you experiencing any unusual bleeding?: No Do you have any muscle aches/pain?: No Do you have any abdominal pain?: No Are you experiencing loss of taste or smell?: No PM Subjective & Objective Subjective Subjective:: Patient is a pleasant 75-year-old male who presents today for follow-up of bilateral SI injections on 04/07/2025. Today he rates his pain as 6 out of 10. Patient denies any new falls or injuries. Patient does have chronic pain in multiple areas including his neck. He does state that this injections made a huge difference in his overall pain symptoms. He states that it pretty much kicked in the day of. Patient states that he was able to sleep better and feels like it was very beneficial. Patient is currently managed with Percocet 10 mg 4 times a day, tizanidine 4 mg at bedtime and compounded cream. He denies any side effects. His Asim has been reviewed and is appropriate. Review of Systems: General: No recent weight changes, no fever, no sleep disturbances Respiratory: No cough, no shortness of air, no recurring pulmonary infections Cardiovascular/peripheral vascular: No chest pain, no palpitations, no edema, no shortness of breath Gastrointestinal: No new onset incontinence, normal bowel movements reported Genitourinary: No new onset incontinence Musculoskeletal: Neck pain, low back pain Psychiatric: [Normal mood/affect] Neurological: [Denies weakness in extremities], [denies balance issues] Pain at rest (0-10 scale): 6 Objective Objective:: Physical Exam: General: Alert and oriented x3, no acute distress, pleasant and cooperative Lungs: Respirations even and unlabored, symmetrical chest expansion Eyes: PERRL Musculoskeletal: Flexion and extension of cervical [spine] somewhat guarded secondary to pain, [antalgic gait noted] Neurological: Speech clear, no gross sensory deficit Has patient had previous pain injection?: Yes Percent improvement in pain since last injection: 70-80% Conservative treatment options previously tried: Home exercise plan Length of treatment: Longer than 12 weeks Meds Home Medications and Allergies Home Medications ?Medication ?Instructions ?Recorded ?Confirmed ?Type aspirin 81 mg tablet,delayed 81 mg PO DAILY prevention 12/20/18 04/22/25 History release furosemide 20 mg tablet 20 mg PO BID swelling 04/22/25 History ergocalciferol (vitamin D2) 1,250 50,000 unit PO QWEEK Supplement 06/26/22 04/22/25 Rx mcg (50,000 unit) capsule #14 caps nitroglycerin 0.4 mg sublingual 0.4 mg sublingual Q5M PRN chest 06/26/22 04/22/25 Rx tablet pain #20 tabs methocarbamol 750 mg tablet 750 mg PO TID PRN muscle p ain #90 03/31/24 04/22/25 Rx tabs isosorbide mononitrate 30 mg See Rx Instructions .Rout e 07/07/24 04/22/25 Rx tablet,extended release 24 hr .COMPLEX #90 tabs metformin 1,000 mg tablet See Rx Instructions .Route 1 10/14/23 04/22/25 Rx .COMPLEX #180 tabs glimepiride 4 mg tablet See Rx Instructions .Route 0 10/22/24 04/22/25 Rx .COMPLEX #180 tabs sitagliptin phosphate 100 mg See Rx Instructions .Rout e 10/22/24 04/22/25 Rx tablet (Januvia) .COMPLEX #90 tabs losartan 100 mg tablet See Rx Instructions .Route 0 11/26/24 04/22/25 Rx .COMPLEX #90 tabs tizanidine 4 mg tablet See Rx Instructions .Route 0 12/17/24 04/22/25 Rx .COMPLEX #30 tabs levothyroxine 88 mcg tablet See Rx Instructions .Route 01/29/25 04/22/25 Rx .COMPLEX #90 tabs canagliflozin 100 mg tablet See Rx Instructions .Route 02/20/25 04/22/25 Rx (Invokana) .COMPLEX #90 tabs rosuvastatin 40 mg tablet 40 mg PO DAILY #90 tabs 01/2404/22/25 Rx carvedilol 6.25 mg tablet See Rx Instructions .Route 0 03/18/25 04/22/25 Rx .COMPLEX #180 tabs lidocaine 5 % topical patch 1 patch topical DAILY #30 ea 03/30/25 04/22/25 Rx oxycodone-acetaminophen 10 mg-325 1 tab PO QID . #120 tabs 03/30/25 04/22/25 Rx mg tablet (Percocet) omeprazole 20 mg capsule,delayed See Rx Instructions . Route 04/01/25 04/22/25 Rx release .COMPLEX #90 caps New Prescriptions to Start Prescriptions: Allergies Allergy/AdvReac Type Severity Reaction Status Date / Time lisinopril Allergy Intermediate I-HIVES Verified 02/06/25 08:54 morphine Allergy Unknown Verified 02/06/25 08:54 Assessment and Plan *Assessment and plan (1) Chronic neck pain: Status: Acute Category: Medical Code(s): M54.2 - Cervicalgia; G89.29 - Other chronic pain (2) Lumbar disc disease: Status: Acute Category: Medical Code(s): M51.9 - Unspecified thoracic, thoracolumbar and lumbosacral intervertebral disc disorder Plan Patient has had significant improvement following his SI injections and does not require any additional injection therapy at this time. We are little bit early however I will go ahead and send in a refill on his Percocet. Patient will return to clinic in 1 month. Risks and benefits of the medication have been explained in detail to the patient. The patient does understand the risk of dependence on the medication when given over a prolonged period. Patient has been advised of risks of oversedation with the prescribed medication. Narcan has been offered to the paitent in the event of oversedation. Patient has been advised that a family member should also be educated regarding administration of Narcan. The patient has been advised to consult with his/her primary care provider and pharmacist regarding drug-drug interaction of medications currently prescribed. Patient has been prescribed a controlled substance after being counseled on the medication, medication safety, and possible side effects. Opioid contract was reviewed and signed by the patient, and that they have agreed to all of the terms set forth by our compliance program. A UDS is needed to verify patient's compliance with our office pain contract. This is ordered based off specific treatments related to chronic pain with the potential to abuse certain medications. Patient has been instructed to contact the clinic with any concerns before the next appointment. Dr. Horvath has reviewed this note and agrees with this plan of care. This note was dictated using voice recognition software and make contain errors or omissions.
== END 2025-04-22 23:59 | disposition home or self-care (01) ==
PROVIDERS: PCP Internal Medicine; Visit Provider Nurse Practitioner Family
DX: M54.2 Cervicalgia (principal); G89.29 Other chronic pain; M51.9 Unspecified thoracic, thoracolumbar and lumbosacral intervertebral disc disorder; Z79.891 Long term (current) use of opiate analgesic
CPT/HCPCS: 99212; G0463

== ENCOUNTER 2025-05-06 07:59 | Emergency (ER) | payer MEDICARE, SELFPAY ==
[2025-05-06 08:11] VITALS: BP 124/78; PULSE 90; RESP 18; TEMP 36.9; O2SAT 95; BMI 24.7
[2025-05-06 08:29] VITALS: BP 127/66; PULSE 55; O2SAT 98
--- NOTE | 2025-05-06 08:44 | ED_ITS ---
Discharge Plan Disposition Patient Disposition: Home, Self-Care Prescriptions Prescriptions: No Action ergocalciferol (vitamin D2) 1,250 mcg (50,000 unit) capsule 50,000 unit PO QWEEK Qty: 14 0RF nitroglycerin 0.4 mg tablet, sublingual 0.4 mg SL Q5M PRN (Reason: chest pain) Qty: 20 2RF Rx Instructions: do not exceed 3 doses per episode isosorbide mononitrate 30 mg tablet extended release 24 hr See Rx Instructions .ROUTE .COMPLEX Qty: 90 3RF Dose Instruction: TAKE ONE TABLET BY MOUTH ONCE A DAY Rx Instructions: TAKE ONE TABLET BY MOUTH ONCE A DAY metformin 1,000 mg tablet See Rx Instructions .ROUTE .COMPLEX Qty: 180 2RF Dose Instruction: TAKE ONE TABLET BY MOUTH 2 TIMES A DAY FOR DIABETES Rx Instructions: TAKE ONE TABLET BY MOUTH 2 TIMES A DAY FOR DIABETES Januvia 100 mg tablet See Rx Instructions .ROUTE .COMPLEX Qty: 90 0RF Dose Instruction: TAKE ONE TABLET BY MOUTH ONCE A DAY Rx Instructions: TAKE ONE TABLET BY MOUTH ONCE A DAY glimepiride 4 mg tablet See Rx Instructions .ROUTE .COMPLEX Qty: 180 0RF Dose Instruction: TAKE TWO TABLETS BY MOUTH EVERY MORNING WITH BREAKFAST FOR DIABETES Rx Instructions: TAKE TWO TABLETS BY MOUTH EVERY MORNING WITH BREAKFAST FOR DIABETES losartan 100 mg tablet See Rx Instructions .ROUTE .COMPLEX Qty: 90 3RF Dose Instruction: TAKE ONE TABLET BY MOUTH ONCE A DAY Rx Instructions: TAKE ONE TABLET BY MOUTH ONCE A DAY tizanidine 4 mg tablet See Rx Instructions .ROUTE .COMPLEX Qty: 30 0RF Dose Instruction: TAKE ONE TABLET BY MOUTH AT BEDTIME Rx Instructions: TAKE ONE TABLET BY MOUTH AT BEDTIME rosuvastatin 40 mg tablet 40 mg PO DAILY Qty: 90 3RF Invokana 100 mg tablet See Rx Instructions .ROUTE .COMPLEX Qty: 90 0RF Dose Instruction: TAKE ONE TABLET BY MOUTH ONCE A DAY FOR DIABETES Rx Instructions: TAKE ONE TABLET BY MOUTH ONCE A DAY FOR DIABETES carvedilol 6.25 mg tablet See Rx Instructions .ROUTE .COMPLEX Qty: 180 0RF Dose Instruction: TAKE ONE TABLET BY MOUTH 2 TIMES A DAY Rx Instructions: TAKE ONE TABLET BY MOUTH 2 TIMES A DAY omeprazole 20 mg capsule,delayed release(DR/EC) See Rx Instructions .ROUTE .COMPLEX Qty: 90 0RF Dose Instruction: TAKE 1 CAPSULE BY MOUTH ONCE A DAY FOR GERD Rx Instructions: TAKE 1 CAPSULE BY MOUTH ONCE A DAY FOR GERD levothyroxine 88 mcg tablet See Rx Instructions .ROUTE .COMPLEX Qty: 90 3RF Dose Instruction: TAKE 1 TABLET BY MOUTH ONCE A DAY FOR hypothyroid Rx Instructions: TAKE 1 TABLET BY MOUTH ONCE A DAY FOR hypothyroid lidocaine 5 % adhesive patch,medicated 1 patch topical DAILY Qty: 30 0RF Rx Instructions: leave on most painful area for up to 12 hrs oxycodone-acetaminophen [Percocet] 10-325 mg tablet 1 tab PO QID Qty: 120 0RF aspirin 81 MG tablet,delayed release (DR/EC) 81 mg PO DAILY furosemide 20 mg tablet 20 mg PO BID Rx Instructions: TAKE ONE TABLET BY MOUTH bid methocarbamol 750 mg tablet 750 mg PO TID PRN (Reason: muscle pain) Qty: 90 0RF Referrals Follow up/Referrals: Amadeo Fernandez DO [Primary Care Provider, Family Practice] - See instructions Activity Restrictions/Add. Instructions Additional Instructions/Restrictions: Please have your sutures removed in 10 days. If you can continue working I recommend that you put topical antibiotic ointment on this such as Neosporin which is [id number] followed by a dressing keep it clean with soap and water daily. Return with any spreading redness pus coming from the wound or other concerns. Clinical Impressions Clinical Impression: Laceration of right lower leg Instructions Patient Instructions: DI for Laceration Repair Print Language Print Language: Telugu Discharge ED Provider: Sherrie Carroll General Adult HPI General Chief complaint: Wound/Laceration Stated complaint: AO rt leg laceration Time Seen by Provider: 05/06/25 08:38 Mode of Arrival: Ambulatory Source of Information: Patient Description of Symptoms (Recalled from ER Triage Doc. by RN): Patient c/o leg lacertion to his right lower leg. Pt was taking trash out this morning and cut on some broken glass. History of Present Illness HPI narrative: 75-year-old presented with a right lateral lower leg laceration. Was picking up trash and something sharp out of the trash bag as he was lifting the bag cut the right side of his lower leg. Tetanus unknown. No neurovascular deficits from historical standpoint. Related Data Home Medications ?Medication ?Instructions ?Recorded ?Confirmed aspirin 81 mg tablet,delayed 81 mg PO DAILY prevention 12/20/18 04/22/25 release furosemide 20 mg tablet 20 mg PO BID swelling 04/22/25 Previous Rx's ?Medication ?Instructions ?Recorded ergocalciferol (vitamin D2) 1,250 50,000 unit PO QWEEK Supplement 06/26/22 mcg (50,000 unit) capsule #14 caps nitroglycerin 0.4 mg sublingual 0.4 mg sublingual Q5M PRN chest 06/26/22 tablet pain #20 tabs methocarbamol 750 mg tablet 750 mg PO TID PRN muscle p ain #90 03/31/24 tabs isosorbide mononitrate 30 mg See Rx Instructions .Rout e 07/07/24 tablet,extended release 24 hr .COMPLEX #90 tabs metformin 1,000 mg tablet See Rx Instructions .Route 1 10/14/23 .COMPLEX #180 tabs glimepiride 4 mg tablet See Rx Instructions .Route 0 10/22/24 .COMPLEX #180 tabs sitagliptin phosphate 100 mg See Rx Instructions .Rout e 10/22/24 tablet (Januvia) .COMPLEX #90 tabs losartan 100 mg tablet See Rx Instructions .Route 0 11/26/24 .COMPLEX #90 tabs tizanidine 4 mg tablet See Rx Instructions .Route 0 12/17/24 .COMPLEX #30 tabs canagliflozin 100 mg tablet See Rx Instructions .Route 02/20/25 (Invokana) .COMPLEX #90 tabs rosuvastatin 40 mg tablet 40 mg PO DAILY #90 tabs 01/24 carvedilol 6.25 mg tablet See Rx Instructions .Route 0 03/18/25 .COMPLEX #180 tabs lidocaine 5 % topical patch 1 patch topical DAILY #30 ea 03/30/25 omeprazole 20 mg capsule,delayed See Rx Instructions . Route 04/01/25 release .COMPLEX #90 caps oxycodone-acetaminophen 10 mg-325 1 tab PO QID . #120 tabs 04/22/25 mg tablet (Percocet) levothyroxine 88 mcg tablet See Rx Instructions .Route 04/27/25 .COMPLEX #90 tabs Allergies Allergy/AdvReac Type Severity Reaction Status Date / Time lisinopril Allergy Intermediate I-HIVES Verified 02/06/25 08:54 morphine Allergy Unknown Verified 02/06/25 08:54 [facility] Disclaimer: The information contained in this section may have been updated after the patient was seen, as this information can be updated by other users. Medical History (Updated 05/06/25 @ 08:45 by Sherrie Carroll MD) Diabetes GERD (gastroesophageal reflux disease) Family History Other No significant family history Social History Smoking Status: Never smoker second hand exposure: No alcohol intake: never substance use type: denies use current occupational status: other Travel in the last 8 weeks?: None household members: spouse housing: house current occupation: [employer] current occupational exposures/hazards: No caffeine: Yes Have you lived/traveled outside US in past 30 days?: No Contact w/someone who lives/traveled outside US past 30 days?: No Exposure to someone with infectious disease in past 14 days?: No Do you have a fever (greater than 100.4 F or 38 C)?: No Have you tested positive for COVID-19?: No Exposed to someone with COVID-19 in past 14 days?: No Do you have a sore throat?: No Do you have a cough?: No Do you have any weakness?: No Do you have any diarrhea?: No Are you experiencing any unusual bleeding?: No Do you have any muscle aches/pain?: No Do you have any abdominal pain?: No Are you experiencing loss of taste or smell?: No Other Medical History Have you received the Flu Vaccine for this season: Yes Have you received the Pneumonia Vaccine: Yes ROS Obtained: Yes All systems reviewed & no additional complaints except as documented Physical Exam General General appearance: alert and in no apparent distress Respiratory Respiratory exam: Present normal lung sounds bilaterally Cardiovascular Cardiovascular exam: Present regular rate and normal rhythm Extremities Exam Extremities exam: Present other (10 cm gaping but superficial laceration involving the subcutaneous tissue but no muscle or deeper layers on the right lateral aspect of the lower leg no contamination) Neurological Exam Neurological exam: Present alert and oriented X3 Medical Decision Making Medical Records Screening: Per USPSTF and CDC recommendations, given the prevalence of disease in our region, it is our hospital?s policy to screen for HIV and viral Hepatitis for all patients aged 18 and over and those with ongoing risk factors. Asim Inquiry Pt receiving controlled substance: No Vital Signs: 05/06/25 08:11 05/06/25 08:29 Temperature 98.5 F Temperature Source Oral Pulse Rate 55 L Pulse Rate [Right Brachial] 90 Respiratory Rate 18 Blood Pressure 127/66 Blood Pressure [Right Arm] 124/78 Blood Pressure Mean [Right Arm] 93 Blood Pressure Source [Right Arm] Automatic Cuff Blood Pressure Position [Right Arm] Sitting 02 Sat by Pulse Oximetry 95 98 Oxygen Delivery Method Room Air Orders (Tests/Meds): ED MEDICATIONS Discontinued Medications Generic Name Dose Route Start Last Admin Trade Name Freq PRN Reason Stop Dose Admin Tetanus/Reduced Diphtheria/Acell Pertussis 0.5 ml 05/06/25 08:40 Tet/Diphth/Pert-Adult 0.5ml Syringe IM 05/06/25 08:41 .ONCE ONE Medical Decision Narrative: Laceration was repaired please see procedure note. He will have his sutures removed in 10 days. Procedures Laceration Laceration 1: Site: lower extremity Side (If applicable): right Size (cm): 10 Description: linear Depth: involves subcutaneous layer Local Anesthetic: lidocaine 1% and with epi Amount of anesthesia used (mL): 8 Pre-repair: wound explored, irrigated extensively and deep structures intact Skin layer closed with: nylon Size (cm): 3-0 Number of sutures: 10 Technique: simple, interrupted Critical Care Critical Care Time Critical Care Time: No
[2025-05-06 09:00] VITALS: BP 136/99; PULSE 49; O2SAT 99
[2025-05-06 09:04] VITALS: BP 136/99; PULSE 54; RESP 18; TEMP 36.9; O2SAT 99
[2025-05-06] MEDS: TET/DIPHTH/PERT-ADULT 0.5ML SYRINGE 0.5 ML IM (09:04)
[2025-05-06] MEDS: NEOSPORIN OINTMENT 0.9GM UDP 1 EACH TP (09:18)
== END 2025-05-06 09:23 | disposition home or self-care (01) ==
PROVIDERS: Emergency Provider Student in an Organized Health Care Education/Training Program; PCP Internal Medicine
DX: S81.811A Laceration without foreign body, right lower leg, initial encounter (principal); W25.XXXA Contact with sharp glass, initial encounter
CPT/HCPCS: 12004; 90471; 90715; 99283; J2004

== ENCOUNTER 2025-07-07 08:15 | Day surgery (SDC) | payer MEDICARE, SELFPAY ==
[2025-07-07 08:36] VITALS: BP 138/67; PULSE 61; RESP 18; O2SAT 99; BMI 29.0
[2025-07-07] MEDS: DEXAMETHASONE 10MG/ML 1ML VIAL 10 MG (08:49)
[2025-07-07] MEDS: LIDOCAINE 1% 5ML PF VIAL 5 ML (08:49)
[2025-07-07] MEDS: BUPIVACAINE 0.25% 10ML INJ 25 MG IJ (08:49)
[2025-07-07 08:50] VITALS: BP 141/78; PULSE 66; RESP 18; O2SAT 98
[2025-07-07 08:52] VITALS: BP 152/64; PULSE 65; RESP 18; O2SAT 97
--- NOTE | 2025-07-07 08:56 | EXP.PAIN.PRO ---
Procedure Date: 07/07/25 Time: 08:40 Anesthesiologist:: Carlos Enrique Leavitt CRNA Complications:: None Pre-procedure Diagnosis:: DJD bilateral knee. Chronic bilateral knee pain. Post-procedure Diagnosis:: Same. Indications for Procedure:: Patient is a very pleasant 75-year-old male who comes our clinic today for bilateral intra-articular knee injections of cortisone and local anesthetic. Patient describes bilateral knee pain as constant, dull, aching. He reports difficulty with ambulation, flexion, extension due to bilateral knee pain. He rates his pain 6/10. Procedure Details:: Details of the procedure explained to the patient. The patient taken procedure room placed in the sitting position. The over the left knee was cleaned using chlorhexidine as a cleansing solution. Using a 22-gauge inch and half needle the left knee joint was accessed from the anterior lateral position. After negative aspiration 4 cc of 1% lidocaine +4 cc of 0.25% Marcaine and 10 mg of dexamethasone was injected. Patient tolerated procedure without difficulty. There are no complications. Details of the procedure explained to the patient. The patient taken procedure room placed in the sitting position. The over the right knee was cleaned using chlorhexidine as a cleansing solution. Using a 22-gauge inch and half needle the right knee joint was accessed from the anterior lateral position. After negative aspiration 4 cc of 1% lidocaine +4 cc of 0.25% Marcaine and 10 mg of dexamethasone was injected. Patient tolerated procedure without difficulty. There are no complications. Plan and Disposition:: Patient was discharged without incident.
== END 2025-07-07 08:52 | disposition home or self-care (01) ==
PROVIDERS: PCP Internal Medicine; Visit Provider Nurse Anesthetist, Certified Registered
DX: M17.0 Bilateral primary osteoarthritis of knee (principal); G89.29 Other chronic pain; E11.9 Type 2 diabetes mellitus without complications; K21.9 Gastro-esophageal reflux disease without esophagitis; Z88.5 Allergy status to narcotic agent; Z88.8 Allergy status to other drugs, medicaments and biological substances; Z79.84 Long term (current) use of oral hypoglycemic drugs; Z79.891 Long term (current) use of opiate analgesic; Z79.899 Other long term (current) drug therapy
CPT/HCPCS: 20610; J0665; J1100; J2003

== ENCOUNTER 2025-07-30 10:25 | Outpatient (CLI) | payer MEDICARE, SELFPAY ==
[2025-07-30 13:46] LABS: Hematocrit 40.7 % (42.0-52.0); Hemoglobin 13.3 g/dL (14.1-18.0); Immature Granulocytes % 0.5 %; Mean Corpuscular HGB Conc 32.7 g/dL (31.8-35.4); Mean Corpuscular Hemoglobin 29.4 pg (27.0-31.2); Mean Corpuscular Volume 90.0 fl (80-94); Nucleated Red Blood Cells % 0 %; Platelet Count 188 K/mm3 (142-424); Red Blood Count 4.52 M/mm3 (4.60-6.20); Red Cell Distribution Width-SD 42.6 fL; White Blood Count 8.3 K/mm3 (4.8-10.8)
[2025-07-30 14:18] LABS: Albumin Level 5.0 g/dl (3.5-5.0); Chloride 105 mmol/L (98-107); Potassium 4.6 mmoL/L (3.5-5.1); Sodium 141 mmol/L (136-145)
[2025-07-30 14:21] LABS: Alanine Aminotransferase 19 U/L (12-78); Albumin/Globulin Ratio 2.5 (1.1-1.8); Alkaline Phosphatase 57 U/L (38-126); Anion Gap 15.6 mEq/L (5-15); Aspartate Amino Transferase 26 U/L (17-59); Bilirubin,Total 0.9 mg/dl (0.2-1.3); Blood Urea Nitrogen 11 mg/dl (9-20); Carbon Dioxide 25 mmol/L (22.0-30.0); Cholesterol 110 mg/dl (140-200); Creatinine,Serum 1.00 mg/dl (0.66-1.25); Estimated Glomerular Filt Rate 73 ml/min (>60); GFR (African American) 88 ML/MIN (>60); Globulin 2.0 g/dL (1.3-3.2); Total Protein,Serum 7.0 g/dl (6.3-8.2); Triglycerides 86 mg/dl (30-150)
[2025-07-30 14:22] LABS: Calcium 9.2 mg/dl (8.4-10.2); Glucose 70 mg/dl (74-100); HDL Cholesterol 46 mg/dl (40-60)
[2025-07-30 14:59] LABS: Thyroid Stimulating Hormone 1.39 uIU/mL (0.465-4.68)
[2025-07-30 17:37] LABS: Hemoglobin A1C 6.6 % (4.0-6.0)
--- OUTSIDE RECORDS SUMMARY | 2025-07-30 19:57 | XMS_ITS | Clinical Summary ---
Author Organization Healthcare Address [address] [id number] Care Team Providers Care Guest Services Director Name Role Phone Curry Stahl MD Primary Care Provider + [phone] Social History Tobacco Use Types Packs/Day Years [...] 1996 [facility]-Zoster Vaccines (1 of 2) 2001 [id number] Vaccine ( - season) 2025 [facility]-Influenza Vaccine (#1) 05/25/202507/06, 06/07/2021, 06/03/2020, Additional [...] this topic Insurance [employer] Care Teams Guest Services Director Relationship Specialty Start Date End Date Curry Stahl MD [address] [place] [address] D[place]NE[place] Madrigal [id number] PCP - General 02/04/21
[2025-07-31 12:11] LABS: Iron 86 ug/dL (49-181)
[2025-07-31 12:21] LABS: Total Iron Binding Capacity 339 ug/dL (261-462)
[2025-07-31 13:01] LABS: Vitamin B12 301 pg/mL (239-931)
== END 2025-07-30 23:59 | disposition home or self-care (01) ==
LOC: LAB.DROPOF 19:55
PROVIDERS: PCP Internal Medicine; Visit Provider Internal Medicine
DX: E78.5 Hyperlipidemia, unspecified (principal); I10 Essential (primary) hypertension; Z12.5 Encounter for screening for malignant neoplasm of prostate; E11.59 Type 2 diabetes mellitus with other circulatory complications; E03.9 Hypothyroidism, unspecified
CPT/HCPCS: 80053; 80061; 82043; 82570; 82607; 83036; 83540; 83550; 84443; 85025; G0103

== ENCOUNTER 2025-08-17 11:17 | Outpatient (CLI) | payer MEDICARE, SELFPAY ==
--- NOTE | 2025-08-17 11:21 | XR_ITS ---
FINAL REPORT CLINICAL HISTORY: Right chest pain COMPARISON: None FINDINGS: PA and lateral views of the chest are obtained. There is no prior exam for comparison. There is evidence of a prior median sternotomy. The heart is mildly enlarged. The lungs are clear. There is no pleural effusion, pneumothorax, or acute osseous abnormality. IMPRESSION: Prior sternotomy, with mild cardiomegaly. No infiltrate, effusion, or pneumothorax is seen. Reviewed, Interpreted and Dictated by Melissa Zamorano MD Transcribed by Sandhya Muller Authenticated and [facility]
--- OUTSIDE RECORDS SUMMARY | 2025-08-17 11:46 | XMS_ITS | Clinical Summary ---
Author Organization Healthcare Address [address] [id number] Care Team Providers Care It Infrastructure Project Manager Name Role Phone Curry Stahl MD Primary Care Provider + [phone] Social History Tobacco Use Types Packs/Day Years Used Date Smoking Tobacco: Never Assessed Sex and Gender Information Value Date Recorded Sex Assigned at Not on file Legal Sex Male 7:46 PM EDT Gender Identity Not on file Sexual Orientation Not on file Plan of Treatment Health Maintenance Due Date Last Done Comments [facility]-Depression Screening 1951 [facility]-Infant/Child/Adol SDOH Screenings 1950 [facility]- SDOH Screenings 1969 [facility]-Adult SDOH Screenings 1969 [facility]-DTaP,Tdap,and Td Vaccines (1 - Tdap) 1970 CT Colonography 1996 Colonoscopy 1996 FIT-DNA 1996 FIT 1996 FOBT 1996 Sigmoidoscopy 1996 [facility]-Colorectal Cancer Screening 1996 [facility]-Zoster Vaccines (1 of 2) 2001 [id number] Vaccine ( - 2024- season) 2025 [facility]-Influenza Vaccine (#1) 05/25/202507/06, 06/07/2021, [...] this topic Insurance [employer] Care Teams It Infrastructure Project Manager Relationship Specialty Start Date End Date Curry Stahl MD [address] [place] [address] [place] Madrigal [id number] PCP - General 02/04/21
--- NOTE | 2025-08-17 11:52 | ECG_ITS ---
APPROVED REPORT Exam: Resting ECG HR:57 bpm ECG Measurements Heart Rate 57 AXES AL 163 P 63 QRSd 153 QRS -41 QT 469 T 72 QTc 464 Conclusion SINUS BRADYCARDIA LEFT AXIS DEVIATION [QRS AXIS < -30] RIGHT BUNDLE BRANCH BLOCK [120+ ms QRS DURATION, UPRIGHT V1, 40+ ms S IN I/aVL/V4/V5/V6] ABNORMAL ECG UNCONFIRMED REPORT Electronically signed by : Randal Ochoa MD 08/18/2025 10:11:41
[2025-08-17 13:24] LABS: Troponin I < 0.01 ng/ml (0.00-0.034)
== END 2025-08-17 23:59 | disposition home or self-care (01) ==
LOC: RT 11:18
PROVIDERS: PCP Internal Medicine; Visit Provider Internal Medicine
DX: I51.7 Cardiomegaly (principal); I45.10 Unspecified right bundle-branch block; R94.31 Abnormal electrocardiogram [ECG] [EKG]; R00.1 Bradycardia, unspecified; Z98.890 Other specified postprocedural states
CPT/HCPCS: 36415; 71046; 84484; 93005